=== PATIENT | female | born 1945 | race Caucasian/White ===

== ENCOUNTER 2017-12-24 13:00 | Outpatient (RCR) | payer MEDICARE, BC, SELFPAY ==
[2017-12-01 00:22] VITALS: BP 120/64; PULSE 75; RESP 18; TEMP 36.5; BMI 28.1
[2017-12-03 12:55] VITALS: BP 138/49; PULSE 76; RESP 16; TEMP 36.2; BMI 28.1
--- NOTE | 2017-12-03 13:30 | UL_PTH ---
PATIENT: DEBORAH ERICKSON LOC: U#:[id number] AGE/SX: 72/F ROOM: RE12/24/[address]: Dr. Asia Galeano DPM : 1945 BED: DIS: 12/31/2017 SPEC #: [id number] RECD: 12/03/17 16:10 STATUS: ZION KARISHMA #: [id number] ELSA: 12/03/17 13:[address]: Asia Galeano DEPT: SURGICAL PATHOLOGY RECD BY: Mynor Jimenez ENTERED: 12/04/17 08:47 SP TYPE: ULCER OTHR DR: Alex Hoang DO Tissues: ULCER Procedures: Special Stain Group I Surgery Specimen Level IV AFB Stain (control) GMS Stain (control) HEADER OPERATION: Not noted PRE-OP DIAGNOSIS: Ulcer left foot, rule out skin malignancy versus chronic ulcer TISSUE SUBMITTED: Ulcer left foot MICROSCOPIC DIAGNOSIS Ulcer left foot, biopsy: Piece of skin with extensive ulceration, acute and chronic inflammation, granulation tissue reaction and abscess formation. Special stains for acid fast bacilli and fungi are negative for organisms; matched controls are appropriate. Negative for malignancy. GARRY:cecilio 12/05/17 MICROSCOPIC DESCRIPTION Slides are reviewed. GROSS DESCRIPTION Received in fixative is one container labeled with the patient's name and designated left foot. The specimen consists of a single irregular fragment of keller tissue measuring 0.5 x 0.3 x 0.1 cm. The specimen is totally submitted in one cassette. / AM:cecilio 12/04/17 TC:2 CPT: 60711, 33657 x2
--- NOTE | 2017-12-03 15:35 | PN.PCM_ITS ---
(1) Skin cancer Status: Suspected Current Visit: Yes Code(s): C44.90 - Unspecified malignant neoplasm of skin, unspecified (2) Tinea pedis Status: Chronic Current Visit: Yes Qualifiers: Laterality: left Qualified Code(s): B35.3 - Tinea pedis Code(s): B35.3 - Tinea pedis (3) Ulcer of right foot with fat layer exposed Status: Acute Current Visit: Yes Code(s): L97.512 - Non-pressure chronic ulcer of other part of right foot with fat layer exposed (4) Chronic ulcer of left foot with fat layer exposed Status: Chronic Current Visit: Yes Code(s): L97.522 - Non-pressure chronic ulcer of other part of left foot with fat layer exposed (5) Malnutrition Status: Chronic Current Visit: Yes Code(s): E46 - Unspecified protein- calorie malnutrition (6) Delayed wound healing Status: Chronic Current Visit: Yes Code(s): T14.8 - Other injury of unspecified body region (7) Gait instability Status: Chronic Current Visit: Yes Code(s): R26.81 - Unsteadiness on feet (8) Type 2 diabetes mellitus with diabetic polyneuropathy Status: Chronic Current Visit: Yes Code(s): E11.42 - Type 2 diabetes mellitus with diabetic polyneuropathy Type of Wound Date of Service: 12/03/17 Chief Complaint: Left heel ulceration. Right foot ulcer returned History of Wound: This is a 72-year-old female returns for follow-up of left heel ulceration. She also reports her right foot ulcer has returned within the past week when she noticed blood on her sock. She denies fever, chills, nausea, vomiting, loss of appetite. She is completed her sessions at [place] [facility]. She relates she uses the walker only walk home and tries to keep weight off of her heel however she is walking full weight on her heel today with a cam walker and this is not advised. She is not able to do wet shoes due to balance loss. She is not able to do knee roller due to fall risk and she was not able to safely use this while in therapy. She obtain the prescribed econazole cream and has been applying this to her foot is advised. She additionally washes the wound and change the wound dressing as advised as well. She relates her last hemoglobin A1c was 6.5% which is decrease from 8. Progress of Wound: Delayed healing left. New ulcer right foot that is recurrent - Physical Exam Vital Signs Temp Pulse Resp BP 97.1 F L 76 16 138/49 H 12/03/17 12:55 12/03/17 12:55 12/03/17 12:55 12/03/17 12:55 General: Alert, Oriented x3, Cooperative Extremities: No cyanosis, Capillary Refill Less than 3 Seconds, No Calf Tenderness - Negative Maddison and Herrera sign bilateral, Diminished Peripheral Pulses, Edema, Peripheral Pulses Normal Skin: Ulcer/ Wound - No purulence, no erythema, no streaking, no acute signs of infection. There was some deterioration noted to the plantar left heel ulcer with a scant odor. No purulence on expression and no necrosis. No exposed deep bone or capsule bilateral. Her sub-first metatarsal head ulcer in the right foot that has returned is granular base and superficial in nature., - - Her skin is hairless and atrophic bilateral Wound Measurements and Assessment - Nurse 1 - General Ulcer Measurement Start: 12/03/17 12:55 Freq: Status: Active Protocol: Activity Type Activity Date Activity User E-Sign Co-Sign Detail Recorded Client Recorded Date Recorded By Document 12/03/17 12:55 [facility] [id number] 12/03/17 13:06 [facility] 12/03/17 12:55 Wound Center Nurse 1 [Ulcer Assessment Protocol: .WD.LOC] #1 left heel -Combined with other wound No -Current Size (cm) - Length 0.5 -Current Size (cm) - Width 0.5 -Current Size (cm) - Depth 0.3 -Total Square Cm 0.25 -Epithelialization None Present -Tunneling No -Undermining/Tunneling No -Exudate Amt Small (1-33%) -Exudate Type Serosanguineous -Wound Margin Distinct, Outline Attached -Granulation Amt Large (67-100%) -Granulation Quality Pale Red -Slough/Fibrin Yes -Necrosis Amt Small (1-33%) -Necrotic Tissue Type Adherent Slough -Structure Exposed N/A -Texture (Radha-wound Skin Appearance) Callus Scarring -Moisture (Radha-wound Skin Appearance Dry/Scaly ) -Color (Radha-wound Skin Appearance) Assessed Ecchymosis -Temperature (Radha-wound Skin No Abnormality Appearance) (Pt Warm) -Tenderness on Palpation (Radha-wound No Skin Appearance) -Ulcer Cleansing Rinsed/ Irrigated with Saline -Foul Odor after Cleansing No -Anesthetic Used 5% Lidocaine Gel WC - Nurse 2 - General Ulcer CM Notes Start: 12/03/17 12:55 Freq: Status: Active Protocol: Activity Type Activity Date Activity User E-Sign Co-Sign Detail Recorded Client Recorded Date Recorded By Document 12/03/17 13:12 [id number] 12/03/17 13:35 12/03/17 13:12 Wound Center Nurse 2 [Procedure/Treatment] #2-2 right plantar first metatarsal head -Time 13:31 -Correct Patient Yes -Correct Side, Site, Position Yes -Correct Procedure Yes -Procedure Performed Yes -Type of Procedure Debridement -Clinical Debridement Subcutaneous -Post Debridement Size (cm) - Length 0.5 -Post Debridement Size (cm) - Width 0.4 -Post Debridement Size (cm) - Depth 0.1 -Total Square Cm 0.20 -Wound/Ulcer Outcome Not Healed -Ulcer Cleansing Rinsed/ Irrigated with Saline -Foul Odor after Cleansing No -Bioengineered Tissue No -Cetacaine [place] No -Topical Lidocaine (%) 5 -Bleeding Controlled with Pressure -Treatment Response Procedure Tolerated Well #1 left heel -Time 13:13 -Correct Patient Yes -Correct Side, Site, Position Yes -Correct Procedure Yes -Procedure Performed Yes -Type of Procedure Debridement -Clinical Debridement Subcutaneous -Post Debridement Size (cm) - Length 0.6 -Post Debridement Size (cm) - Width 0.6 -Post Debridement Size (cm) - Depth 0.3 -Total Square Cm 0.36 -Wound/Ulcer Outcome Not Healed -Ulcer Cleansing Rinsed/ Irrigated with Saline -Foul Odor after Cleansing No -Bioengineered Tissue No -Cetacaine [place] No -Topical Lidocaine (%) 5 -Bleeding Controlled with Pressure -Treatment Response Procedure Tolerated Well [See Physician Procedure note for Specifics] Pain Scale: 0-10 Numeric [Pain] -Is Patient Pain Free? Yes Musculoskeletal: No Tenderness to Palpation of Joints or Extremities, Muscle Wasting, - - Limited first metatarsophalangeal joint range of motion right foot. Adequate ankle dorsiflexion over 10? noted left lower extremity Neurological: - - Lack of epicritic sensation light touch bilateral lower extremities Psych/Mental Status: Normal Affect, Appropriate Debridement Note Post-Debridement Measurements/Treatment WC - Nurse 2 - General Ulcer CM Notes Start: 12/03/17 12:55 Freq: Status: Active Protocol: Activity Type Activity Date Activity User E-Sign Co-Sign Detail Recorded Client Recorded Date Recorded By Document 12/03/17 13:12 [id number] 12/03/17 13:35 12/03/17 13:12 Wound Center Nurse 2 #2-2 right plantar first metatarsal head -Time 13:31 -Correct Patient Yes -Correct Side, Site, Position Yes -Correct Procedure Yes -Procedure Performed Yes -Type of Procedure Debridement -Clinical Debridement Subcutaneous -Post Debridement Size (cm) - Length 0.5 -Post Debridement Size (cm) - Width 0.4 -Post Debridement Size (cm) - Depth 0.1 -Total Square Cm 0.20 -Wound/Ulcer Outcome Not Healed -Ulcer Cleansing Rinsed/ Irrigated with Saline -Foul Odor after Cleansing No -Bioengineered Tissue No -Cetacaine [place] No -Topical Lidocaine (%) 5 -Bleeding Controlled with Pressure -Treatment Response Procedure Tolerated Well #1 left heel -Time 13:13 -Correct Patient Yes -Correct Side, Site, Position Yes -Correct Procedure Yes -Procedure Performed Yes -Type of Procedure Debridement -Clinical Debridement Subcutaneous -Post Debridement Size (cm) - Length 0.6 -Post Debridement Size (cm) - Width 0.6 -Post Debridement Size (cm) - Depth 0.3 -Total Square Cm 0.36 -Wound/Ulcer Outcome Not Healed -Ulcer Cleansing Rinsed/ Irrigated with Saline -Foul Odor after Cleansing No -Bioengineered Tissue No -Cetacaine [place] No -Topical Lidocaine (%) 5 -Bleeding Controlled with Pressure -Treatment Response Procedure Tolerated Well Pain Scale: 0-10 Numeric Is Patient Pain Free? Yes Wound debrided: Plantar heel Laterality: Left Wound Grade/Stage: Grade 1 Type of Debridement: Excisional debridement Anesthesia Used: 4% Lidocaine Solution Depth: in the subcutaneous layer Percentage of wound debrided: 100 Instrument Used: #15 blade, Forceps, - - Proximally 3 mm punch of skin full- thickness was taken from the central ulcer site and this was sent to pathology for histopathological evaluation to rule out malignant changes or other abnormalities. Tissue Removed: Fibrous, devitalized subcutaneous, biofilm, slough, peripheral callus Severity: Fat Layer Exposed Amount of bleeding with debridement: Mild Bleeding Controlled with: Pressure Patient tolerated procedure well - Additional Wound Wound debrided: Sub-first metatarsal head Laterality: Right Wound Grade/Stage: Grade 1 Type of Debridement: Excisional debridement Anesthesia Used: 4% Lidocaine Solution Depth: in the subcutaneous layer Percentage of wound debrided: 100 Instrument Used: #15 blade Tissue Removed: Fibrous, devitalized subcutaneous, biofilm, slough Severity: Fat Layer Exposed Amount of bleeding with debridement: Mild Bleeding Controlled with: Pressure Patient tolerated procedure: Patient tolerated procedure well Assessment/Plan Active Problems Tinea pedis (Chronic) Ulcer of right foot with fat layer exposed (Acute) Chronic ulcer of left foot with fat layer exposed (Chronic) Diabetes mellitus with polyneuropathy (Chronic) Malnutrition (Chronic) Delayed wound healing (Chronic) Gait instability (Chronic) Type 2 diabetes mellitus with diabetic polyneuropathy (Chronic) Assessment: Plantar heel ulcer, left foot - grade 1. The first metatarsal head right foot-recurrent ulceration. Tinea pedis/fungal contamination from wound culture. Diabetes with neuropathy. Delayed healing and recurrent ulcer formation. Malnutrition. Left foot advanced flat foot deformity with h/o surgical intervention. Nonadherence to treatment plan Plan: I reviewed and discussed her case in detail. Subcutaneous ulcer debridement was performed as noted in the clinical panel to the plantar heel of the left foot and right foot. A punch of skin was excised with a 15 blade and forceps to the left heel to rule out any abnormal skin changes such as malignancy. This was sent to pathology and the report is pending. She tolerated this well and local anesthetic was not required due to her neuropathy condition. Pressure was applied to maintain hemostasis. Offloading measures are continued with cam walker and offloading Plastizote and felt liners. Encouraged to use device such as a knee roller she feels safe and to increase walker use in and outside the home to further promote offloading. She has completed her course with physical therapy. To avoid over inflating the air bladder. She understands healing is limited if she continues to walk on this wound at all times. Noninvasive lower extremity arterial study is noted to be normal. Previous x-rays of both feet do not reveal evidence of underlying infection or significant soft tissue pathology. There is no sign of osteomyelitis or infection involving bone. To continue with Bernardo, nutritional supplementation to continue to optimization of her diabetes with controlled blood sugars and follow-up with primary care physician. A referral to nutritional services was also provided today to optimize glucose control and healing potential. Additional cultures were finalized at this time in regards to her fungal results. She has improved her foot hygiene and has applied a consult 2% cream to the periwound and foot area to decrease fungal load. She was also advised to wash the liner of her boots and spray Lysol on her insoles and shoes daily to reduce fungal contamination. To wash daily with Hibiclens; this was dispensed today. To control mild edema with Tubigrip bilateral. This was dispensed. Return to clinic in 1 week or call sooner if any problems.
[2017-12-10 13:22] VITALS: BP 107/73; PULSE 78; RESP 16; TEMP 36.3; BMI 28.1
--- NOTE | 2017-12-10 22:01 | PN.PCM_ITS ---
(1) Chronic ulcer of left foot with fat layer exposed Status: Chronic Current Visit: Yes Code(s): L97.522 - Non-pressure chronic ulcer of other part of left foot with fat layer exposed (2) Tinea pedis Status: Chronic Current Visit: Yes Qualifiers: Laterality: left Qualified Code(s): B35.3 - Tinea pedis Code(s): B35.3 - Tinea pedis (3) Ulcer of right foot with fat layer exposed Status: Resolved Current Visit: Yes Code(s): L97.512 - Non-pressure chronic ulcer of other part of right foot with fat layer exposed (4) Malnutrition Status: Chronic Current Visit: Yes Code(s): E46 - Unspecified protein- calorie malnutrition (5) Delayed wound healing Status: Chronic Current Visit: Yes Code(s): T14.8 - Other injury of unspecified body region (6) Gait instability Status: Chronic Current Visit: Yes Code(s): R26.81 - Unsteadiness on feet (7) Type 2 diabetes mellitus with diabetic polyneuropathy Status: Chronic Current Visit: Yes Code(s): E11.42 - Type 2 diabetes mellitus with diabetic polyneuropathy Type of Wound Date of Service: 12/11/17 Chief Complaint: Left heel ulceration. Right foot ulcer healed History of Wound: This is a 72-year-old female returns for follow-up of left heel ulceration. She also reports her right foot ulcer has stopped draining and she thinks it is healed today. She denies fever, chills, nausea, vomiting, loss of appetite. She is completed her sessions at [facility] who advised her not to use a knee roller. She relates she uses the walker only walk home and tries to keep weight off of her heel however she is walking full weight on her heel today with a cam walker and this is not advised. She is not able to do wet shoes due to balance loss. She relates she does not feel she actually tried using the knee roller while she was at physical therapy and is amenable to considering this again with the guidance of the therapist. She requests a prescription today. She asked about her punch biopsy results today. Progress of Wound: Delayed healing left. Healed ulcer right foot that is recurrent - Physical Exam Vital Signs Temp Pulse Resp BP 97.3 F L 78 16 107/73 12/10/17 13:22 12/10/17 13:22 12/10/17 13:22 12/10/17 13:22 General: Alert, Oriented x3, Cooperative Extremities: No cyanosis, Capillary Refill Less than 3 Seconds, No Calf Tenderness - Negative Maddison and Herrera sign bilateral, Diminished Peripheral Pulses, Edema - Mild Skin: Ulcer/ Wound - No purulence, no erythema, no streaking, no deep tissue exposure, no infection, no necrosis bilateral lower extremity. Full epithelialization is noted to the right foot. Wound Measurements and Assessment - Nurse 1 - General Ulcer Measurement Start: 12/03/17 12:55 Freq: Status: Active Protocol: Activity Type Activity Date Activity User E-Sign Co-Sign Detail Recorded Client Recorded Date Recorded By Document 12/10/17 13:22 [facility] [id number] 12/10/17 13:31 [facility] 12/10/17 13:22 Wound Center Nurse 1 [Ulcer Assessment Protocol: WC.WD.LOC] #2-2 right plantar first metatarsal head -Combined with other wound No -Current Size (cm) - Length 0.1 -Current Size (cm) - Width 0.1 -Current Size (cm) - Depth 0.1 -Total Square Cm 0.01 -Epithelialization Large 67-100% -Exudate Amt Small (1-33%) -Moisture (Radha-wound Skin Appearance Dry/Scaly ) -Color (Radha-wound Skin Appearance) Assessed -Temperature (Radha-wound Skin No Abnormality Appearance) (Pt Warm) -Tenderness on Palpation (Radha-wound No Skin Appearance) -Ulcer Cleansing Rinsed/ Irrigated with Saline -Foul Odor after Cleansing No -Anesthetic Used 4% Lidocaine Solution #1 left heel -Combined with other wound No -Current Size (cm) - Length 0.3 -Current Size (cm) - Width 0.3 -Current Size (cm) - Depth 0.2 -Total Square Cm 0.09 -Photo Taken No -Epithelialization None Present -Tunneling No -Undermining/Tunneling No -Exudate Amt Small (1-33%) -Exudate Type Serosanguineous -Wound Margin Distinct, Outline Attached -Granulation Amt Medium (34-66%) -Granulation Quality Creola -Slough/Fibrin No -Structure Exposed None/Limited to Skin Breakdown -Texture (Radha-wound Skin Appearance) Callus Scarring -Moisture (Radha-wound Skin Appearance Maceration ) Dry/Scaly -Color (Radha-wound Skin Appearance) Assessed -Temperature (Radha-wound Skin No Abnormality Appearance) (Pt Warm) -Tenderness on Palpation (Radha-wound No Skin Appearance) -Ulcer Cleansing Rinsed/ Irrigated with Saline -Foul Odor after Cleansing No -Anesthetic Used 4% Lidocaine Solution [Edema Assessment] -Lower Limb Edema Present Yes -Right Calf (cm) 32.9 -Right Ankle (cm) 21 -Left Calf (cm) 32 -Left Ankle (cm) 20 WC - Nurse 2 - General Ulcer CM Notes Start: 12/03/17 12:55 Freq: Status: Active Protocol: Activity Type Activity Date Activity User E-Sign Co-Sign Detail Recorded Client Recorded Date Recorded By Document 12/10/17 13:52 [facility] [id number] 12/10/17 13:54 [facility] 12/10/17 13:52 Wound Center Nurse 2 [Procedure/Treatment] #2-2 right plantar first metatarsal head -Correct Patient No -Correct Side, Site, Position No -Correct Procedure No -Procedure Performed No -Post Debridement Size (cm) - Length 0 -Post Debridement Size (cm) - Width 0 -Post Debridement Size (cm) - Depth 0 -Total Square Cm 0 -Wound/Ulcer Outcome Healed- Epithelialized #1 left heel -Time 13:53 -Correct Patient Yes -Correct Side, Site, Position Yes -Correct Procedure Yes -Procedure Performed Yes -Type of Procedure Debridement -Clinical Debridement Subcutaneous -Post Debridement Size (cm) - Length 0.3 -Post Debridement Size (cm) - Width 0.4 -Post Debridement Size (cm) - Depth 0.2 -Total Square Cm 0.12 -Wound/Ulcer Outcome Not Healed -Ulcer Cleansing Rinsed/ Irrigated with Saline -Foul Odor after Cleansing No -Bioengineered Tissue Yes -Type of bioengineered Tissue [id number] -Expiration Date 07/14/19 -Product Lot Number [id number] -Percent Used 100 -Cetacaine [place] No -Bleeding Controlled with Pressure -Other saline [id number] -Treatment Response Procedure Tolerated Well [See Physician Procedure note for Specifics] Pain Scale: 0-10 Numeric [Pain] -Is Patient Pain Free? Yes Musculoskeletal: No Tenderness to Palpation of Joints or Extremities, Muscle Wasting, - - Calcaneus gait left lower extremity. CAM Walker left. No assistive device noted today with the patient. Neurological: - - Lack of epicritic sensation light touch bilateral lower extremity Psych/Mental Status: Normal Affect, Appropriate Debridement Note Post-Debridement Measurements/Treatment WC - Nurse 2 - General Ulcer CM Notes Start: 12/03/17 12:55 Freq: Status: Active Protocol: Activity Type Activity Date Activity User E-Sign Co-Sign Detail Recorded Client Recorded Date Recorded By Document 12/03/17 13:12 [id number] 12/03/17 13:35 Document 12/10/17 13:52 [id number] 12/10/17 13:54 12/03/17 12/10/17 13:12 13:52 Wound Center Nurse 2 #2-2 right plantar first metatarsal head -Time 13:31 -Correct Patient Yes No -Correct Side, Site, Position Yes No -Correct Procedure Yes No -Procedure Performed Yes No -Type of Procedure Debridement -Clinical Debridement Subcutaneous -Post Debridement Size (cm) - Length 0.5 0 -Post Debridement Size (cm) - Width 0.4 0 -Post Debridement Size (cm) - Depth 0.1 0 -Total Square Cm 0.20 0 -Wound/Ulcer Outcome Not Healed Healed- Epithelialized -Ulcer Cleansing Rinsed/ Irrigated with Saline -Foul Odor after Cleansing No -Bioengineered Tissue No -Cetacaine [place] No -Topical Lidocaine (%) 5 -Bleeding Controlled with Pressure -Treatment Response Procedure Tolerated Well #1 left heel -Time 13:13 13:53 -Correct Patient Yes Yes -Correct Side, Site, Position Yes Yes -Correct Procedure Yes Yes -Procedure Performed Yes Yes -Type of Procedure Debridement Debridement -Clinical Debridement Subcutaneous Subcutaneous -Post Debridement Size (cm) - Length 0.6 0.3 -Post Debridement Size (cm) - Width 0.6 0.4 -Post Debridement Size (cm) - Depth 0.3 0.2 -Total Square Cm 0.36 0.12 -Wound/Ulcer Outcome Not Healed Not Healed -Ulcer Cleansing Rinsed/ Rinsed/ Irrigated with Irrigated with Saline Saline -Foul Odor after Cleansing No No -Bioengineered Tissue No Yes -Type of bioengineered Tissue [id number] -Expiration Date 07/14/19 -Product Lot Number [id number] -Percent Used 100 -Cetacaine [place] No No -Topical Lidocaine (%) 5 -Bleeding Controlled with Pressure Pressure -Other saline [id number] -Treatment Response Procedure Procedure Tolerated Well Tolerated Well Pain Scale: 0-10 Numeric Is Patient Pain Free? Yes Yes Wound debrided: Plantar heel Laterality: Left Wound Grade/Stage: Grade 1 Type of Debridement: Excisional debridement Anesthesia Used: 4% Lidocaine Solution Depth: in the subcutaneous layer Percentage of wound debrided: 100 Instrument Used: #15 blade Tissue Removed: Fibrous, devitalized subcutaneous, biofilm, slough Severity: Fat Layer Exposed Amount of bleeding with debridement: Mild Bleeding Controlled with: Pressure Patient tolerated procedure well Assessment/Plan Active Problems Tinea pedis (Chronic) Chronic ulcer of left foot with fat layer exposed (Chronic) Diabetes mellitus with polyneuropathy (Chronic) Malnutrition (Chronic) Delayed wound healing (Chronic) Gait instability (Chronic) Type 2 diabetes mellitus with diabetic polyneuropathy (Chronic) Assessment: Plantar heel ulcer, left foot - grade 1. The first metatarsal head right foot-recurrent ulceration and this is healed today. Tinea pedis/fungal contamination from wound culture. Diabetes with neuropathy. Delayed healing and recurrent ulcer formation. Malnutrition. Left foot advanced flat foot deformity with h/o surgical intervention. Nonadherence to treatment plan Plan: I reviewed and discussed her case in detail. Subcutaneous ulcer debridement was performed as noted in the clinical panel to the plantar heel of the left foot. the right foot is healed today a punch of skin was excised with a 15 blade and forceps to the left heel to rule out any abnormal skin changes such as malignancy. The results were reviewed and this was negative for malignancy. The findings are consistent with chronic ulceration inflammation. Offloading measures are continued with cam walker and offloading Plastizote and felt liners. Encouraged to use device such as a knee roller she feels safe and to increase walker use in and outside the home to further promote offloading. A prescription was provided today again for her to try to obtain a knee roller. I urged her to return to physical therapy and [facility] with the knee roller to see if this is a viable option. She will reconsider this. Noninvasive lower extremity arterial study is noted to be normal. Previous x-rays of both feet do not reveal evidence of underlying infection or significant soft tissue pathology. There is no sign of osteomyelitis or infection involving bone. To continue with Bernardo, nutritional supplementation to continue to optimization of her diabetes with controlled blood sugars and follow-up with primary care physician. A referral to nutritional services was previously provided advised she follow-up. Additional cultures were finalized at this time in regards to her fungal results. She has improved her foot hygiene and has applied a consult 2% cream to the periwound and foot area to decrease fungal load. She was also advised to wash the liner of her boots and spray Lysol on her insoles and shoes daily to reduce fungal contamination. To continue to wash daily with Hibiclens; this was dispensed today. To control mild edema with Tubigrip bilateral. This was dispensed. Return to clinic in 1 week or call sooner if any problems.
[2017-12-17 14:00] VITALS: BP 149/65; PULSE 77; RESP 16; TEMP 36.4; BMI 28.1
--- NOTE | 2017-12-17 21:26 | PN.PCM_ITS ---
(1) Chronic ulcer of left foot with fat layer exposed Status: Chronic Code(s): L97.522 - Non-pressure chronic ulcer of other part of left foot with fat layer exposed (2) Tinea pedis Status: Chronic Qualifiers: Laterality: left Qualified Code(s): B35.3 - Tinea pedis Code(s): B35.3 - Tinea pedis (3) Ulcer of right foot with fat layer exposed Status: Resolved Code(s): L97.512 - Non-pressure chronic ulcer of other part of right foot with fat layer exposed (4) Malnutrition Status: Chronic Code(s): E46 - Unspecified protein-calorie malnutrition (5) Delayed wound healing Status: Chronic Code(s): T14.8 - Other injury of unspecified body region (6) Gait instability Status: Chronic Code(s): R26.81 - Unsteadiness on feet (7) Type 2 diabetes mellitus with diabetic polyneuropathy Status: Chronic Code(s): E11.42 - Type 2 diabetes mellitus with diabetic polyneuropathy Type of Wound Date of Service: 12/20/17 Chief Complaint: Left heel ulceration History of Wound: This is a 72-year-old female returns for follow-up of left heel ulceration. She denies fever, chills, nausea, vomiting, loss of appetite. She is completed her sessions at [facility] who advised her not to use a knee roller due to her reported multiple falls when she used it in the past for her previous left lower extremity reconstructive foot surgeries. She relates she is very fearful at this time of falling even without knee roller use. Progress of Wound: Delayed healing left heel ulcer - Physical Exam Vital Signs Temp Pulse Resp BP 97.5 F L 77 16 149/65 H 12/17/17 14:00 12/17/17 14:00 12/17/17 14:00 12/17/17 14:00 General: Alert, Oriented x3, Cooperative Extremities: No cyanosis, Capillary Refill Less than 3 Seconds, No Calf Tenderness, Diminished Peripheral Pulses Skin: Ulcer/ Wound - No purulence, no erythema, no streaking, no odor, no deep tissue exposed. Decreased periwound inflammation noted. Skin is atrophic. Wound Measurements and Assessment WC - Nurse 1 - General Ulcer Measurement Start: 12/03/17 12:55 Freq: Status: Active Protocol: Activity Type Activity Date Activity User E-Sign Co-Sign Detail Recorded Client Recorded Date Recorded By Document 12/17/17 14:00 [facility] [id number] 12/17/17 14:06 [facility] 12/17/17 14:00 Wound Center Nurse 1 [Ulcer Assessment Protocol: WC.WD.LOC] #1 left heel -Combined with other wound No -Current Size (cm) - Length 0.4 -Current Size (cm) - Width 0.5 -Current Size (cm) - Depth 0.1 -Total Square Cm 0.20 -Photo Taken No -Epithelialization Small 1-33% -Tunneling No -Undermining/Tunneling No -Exudate Amt Small (1-33%) -Exudate Type Serosanguineous -Wound Margin Distinct, Outline Attached -Granulation Amt Large (67-100%) -Granulation Quality Pale Summer Set -Slough/Fibrin No -Necrosis Amt None Present (0 %) -Structure Exposed None/Limited to Skin Breakdown -Texture (Radha-wound Skin Appearance) Callus -Moisture (Radha-wound Skin Appearance Dry/Scaly ) -Color (Radha-wound Skin Appearance) Assessed -Temperature (Radha-wound Skin No Abnormality Appearance) (Pt Warm) -Tenderness on Palpation (Radha-wound No Skin Appearance) -Ulcer Cleansing Rinsed/ Irrigated with Saline -Foul Odor after Cleansing No -Anesthetic Used 5% Lidocaine Gel [Edema Assessment] -Lower Limb Edema Present No -Right Calf (cm) 32.5 -Right Ankle (cm) 20.4 -Left Calf (cm) 32.4 -Left Ankle (cm) 20.1 - Nurse 2 - General Ulcer CM Notes Start: 12/03/17 12:55 Freq: Status: Active Protocol: Activity Type Activity Date Activity User E-Sign Co-Sign Detail Recorded Client Recorded Date Recorded By Document 12/17/17 14:40 [id number] 12/17/17 14:48 12/17/17 14:40 Wound Center Nurse 2 [Procedure/Treatment] #1 left heel -Time 14:40 -Correct Patient Yes -Correct Side, Site, Position Yes -Correct Procedure Yes -Procedure Performed Yes -Type of Procedure Debridement -Clinical Debridement Subcutaneous -Post Debridement Size (cm) - Length 0.5 -Post Debridement Size (cm) - Width 0.6 -Post Debridement Size (cm) - Depth 0.1 -Total Square Cm 0.30 -Wound/Ulcer Outcome Not Healed -Ulcer Cleansing Rinsed/ Irrigated with Saline -Foul Odor after Cleansing No -Bioengineered Tissue Yes -Type of bioengineered Tissue [id number] -Expiration Date 08/05/19 -Product Lot Number [id number] -Percent Used 100 -Saline Lot Number [id number] -Cetacaine [place] No -Topical Lidocaine (%) 4 -Bleeding Controlled with Pressure -Treatment Response Procedure Tolerated Well [See Physician Procedure note for Specifics] Pain Scale: 0-10 Numeric [Pain] -Is Patient Pain Free? Yes Musculoskeletal: No Tenderness to Palpation of Joints or Extremities, Muscle Wasting, - - No crepitus or bogginess Neurological: - - Lack of epicritic sensation light touch bilateral lower extremity Psych/Mental Status: Normal Affect, Appropriate Debridement Note Post-Debridement Measurements/Treatment WC - Nurse 2 - General Ulcer CM Notes Start: 12/03/17 12:55 Freq: Status: Active Protocol: Activity Type Activity Date Activity User E-Sign Co-Sign Detail Recorded Client Recorded Date Recorded By Document 12/03/17 13:12 [id number] 12/03/17 13:35 Document 12/10/17 13:52 [id number] 12/10/17 13:54 Document 12/17/17 14:40 [id number] 12/17/17 14:48 12/03/17 12/10/17 12/17/17 13:12 13:52 14:40 Wound Center Nurse 2 #2-2 right plantar first metatarsal head -Time 13:31 -Correct Patient Yes No -Correct Side, Site, Position Yes No -Correct Procedure Yes No -Procedure Performed Yes No -Type of Procedure Debridement -Clinical Debridement Subcutaneous -Post Debridement Size (cm) - Length 0.5 0 -Post Debridement Size (cm) - Width 0.4 0 -Post Debridement Size (cm) - Depth 0.1 0 -Total Square Cm 0.20 0 -Wound/Ulcer Outcome Not Healed Healed- Epithelialized -Ulcer Cleansing Rinsed/ Irrigated with Saline -Foul Odor after Cleansing No -Bioengineered Tissue No -Cetacaine [place] No -Topical Lidocaine (%) 5 -Bleeding Controlled with Pressure -Treatment Response Procedure Tolerated Well #1 left heel -Time 13:13 13:53 14:40 -Correct Patient Yes Yes Yes -Correct Side, Site, Position Yes Yes Yes -Correct Procedure Yes Yes Yes -Procedure Performed Yes Yes Yes -Type of Procedure Debridement Debridement Debridement -Clinical Debridement Subcutaneous Subcutaneous Subcutaneous -Post Debridement Size (cm) - Length 0.6 0.3 0.5 -Post Debridement Size (cm) - Width 0.6 0.4 0.6 -Post Debridement Size (cm) - Depth 0.3 0.2 0.1 -Total Square Cm 0.36 0.12 0.30 -Wound/Ulcer Outcome Not Healed Not Healed Not Healed -Ulcer Cleansing Rinsed/ Rinsed/ Rinsed/ Irrigated with Irrigated with Irrigated with Saline Saline Saline -Foul Odor after Cleansing No No No -Bioengineered Tissue No Yes Yes -Type of bioengineered Tissue [id number] -Expiration Date 07/14/19 08/05/19 -Product Lot Number [id number] -Percent Used 100 100 -Saline Lot Number [id number] -Cetacaine [place] No No No -Topical Lidocaine (%) 5 4 -Bleeding Controlled with Pressure Pressure Pressure -Other saline [id number] -Treatment Response Procedure Procedure Procedure Tolerated Well Tolerated Well Tolerated Well Pain Scale: 0-10 Numeric Is Patient Pain Free? Yes Yes Yes Wound debrided: Plantar heel Laterality: Left Wound Grade/Stage: Left Type of Debridement: Excisional debridement Anesthesia Used: 4% Lidocaine Solution Depth: in the subcutaneous layer Percentage of wound debrided: 100 Instrument Used: #15 blade Tissue Removed: Fibrous, devitalized subcutaneous, biofilm, slough Severity: Fat Layer Exposed Amount of bleeding with debridement: Mild Bleeding Controlled with: Pressure Patient tolerated procedure well Assessment/Plan Assessment: Plantar heel ulcer, left foot - grade 1. The first metatarsal head right foot-recurrent ulceration and this is healed today. Tinea pedis/fungal contamination from wound culture. Diabetes with neuropathy. Delayed healing and recurrent ulcer formation. Malnutrition. Left foot advanced flat foot deformity with h/o surgical intervention. Nonadherence to treatment plan Plan: I reviewed and discussed her case in detail. Subcutaneous ulcer debridement was performed as noted in the clinical panel to the plantar heel of the left foot. The results of her previous punch biopsy were reviewed and this was negative for malignancy. The findings are consistent with chronic ulceration inflammation. Offloading measures are continued with cam walker and offloading Plastizote and felt liners. Encouraged to use device such as a knee roller she feels safe and to increase walker use in and outside the home to further promote offloading. However upon continued further discussion she reports multiple falls with previous use. She is amenable to try it again however I encouraged her to only do so with the guidance of physical therapy. I gave her a repeat referral to go to physical therapy and [facility] for gait training today can help guide her with the most appropriate assistive device. This note will be faxed for communication purposes. Noninvasive lower extremity arterial study is noted to be normal. Previous x-rays of both feet do not reveal evidence of underlying infection or significant soft tissue pathology. There is no sign of osteomyelitis or infection involving bone. To continue with Bernardo, nutritional supplementation to continue to optimization of her diabetes with controlled blood sugars and follow-up with primary care physician. A referral to nutritional services was previously provided advised she follow-up. Additional cultures were finalized at this time in regards to her fungal results. She has improved her foot hygiene and has applied a consult 2% cream to the periwound and foot area to decrease fungal load. She was also advised to wash the liner of her boots and spray Lysol on her insoles and shoes daily to reduce fungal contamination. To continue to wash daily with Hibiclens; this was dispensed today. To control mild edema with Tubigrip bilateral. This was dispensed. Return to clinic in 1 week or call sooner if any problems.
[2017-12-24 12:58] VITALS: BP 131/69; PULSE 76; RESP 16; TEMP 36.4; BMI 28.1
--- NOTE | 2017-12-24 23:22 | PCM.WC.PN ---
(1) Chronic ulcer of left foot with fat layer exposed Status: Resolved Code(s): L97.522 - Non-pressure chronic ulcer of other part of left foot with fat layer exposed (2) Tinea pedis Status: Resolved Qualifiers: Laterality: left Qualified Code(s): B35.3 - Tinea pedis Code(s): B35.3 - Tinea pedis (3) Ulcer of right foot with fat layer exposed Status: Resolved Code(s): L97.512 - Non-pressure chronic ulcer of other part of right foot with fat layer exposed (4) Gait instability Status: Chronic Code(s): R26.81 - Unsteadiness on feet (5) Type 2 diabetes mellitus with diabetic polyneuropathy Status: Chronic Code(s): E11.42 - Type 2 diabetes mellitus with diabetic polyneuropathy Type of Wound Date of Service: 12/27/17 Chief Complaint: Left heel ulceration History of Wound: This is a 72-year-old female returns for follow-up of left heel ulceration. She denies fever, chills, nausea, vomiting, loss of appetite. She plans to return for additional sessions at [facility] for fall prevention and additional gait training. she denies drainage and thinks her wound has healed. Progress of Wound: healed - Physical Exam Vital Signs Temp Pulse Resp BP 97.5 F L 76 16 131/69 H 12/24/17 12:58 12/24/17 12:58 12/24/17 12:58 12/24/17 12:58 General: Alert, Oriented x3, Cooperative Extremities: No cyanosis, Capillary Refill Less than 3 Seconds, No Calf Tenderness, Diminished Peripheral Pulses, Edema - controlled Skin: Ulcer/ Wound - no purulence, no erythema, no infection. there is full epithelialization to the left heel and the wound is healed., - - the skin is atrophic Wound Measurements and Assessment ELI - Nurse 1 - General Ulcer Measurement Start: 12/03/17 12:55 Freq: Status: Active Protocol: Activity Type Activity Date Activity User E-Sign Co-Sign Detail Recorded Client Recorded Date Recorded By Document 12/24/17 12:58 [facility] [id number] 12/24/17 13:05 [facility] 12/24/17 12:58 Wound Center Nurse 1 [Ulcer Assessment Protocol: ELI.WD.LOC] #1 left heel -Combined with other wound No -Current Size (cm) - Length 0.1 -Current Size (cm) - Width 0.4 -Current Size (cm) - Depth 0.1 -Total Square Cm 0.04 -Photo Taken No -Epithelialization Medium 34-66% -Tunneling No -Undermining/Tunneling No -Exudate Amt Small (1-33%) -Exudate Type Serosanguineous -Wound Margin Distinct, Outline Attached -Granulation Amt Large (67-100%) -Granulation Quality Pale [place] -Slough/Fibrin Yes -Necrosis Amt Small (1-33%) -Necrotic Tissue Type Adherent Slough -Texture (Radha-wound Skin Appearance) Callus Scarring -Moisture (Radha-wound Skin Appearance Dry/Scaly ) -Color (Radha-wound Skin Appearance) Assessed -Temperature (Radha-wound Skin No Abnormality Appearance) (Pt Warm) -Tenderness on Palpation (Radha-wound No Skin Appearance) -Ulcer Cleansing Rinsed/ Irrigated with Saline -Foul Odor after Cleansing No -Anesthetic Used 5% Lidocaine Gel [Edema Assessment] -Lower Limb Edema Present No -Left Calf (cm) 32.4 -Left Ankle (cm) 19.5 WC - Nurse 2 - General Ulcer CM Notes Start: 12/03/17 12:55 Freq: Status: Active Protocol: Activity Type Activity Date Activity User E-Sign Co-Sign Detail Recorded Client Recorded Date Recorded By Document 12/24/17 13:31 [id number] 12/24/17 13:33 12/24/17 13:31 Wound Center Nurse 2 [Procedure/Treatment] #1 left heel -Time 13:31 -Correct Patient Yes -Correct Side, Site, Position Yes -Correct Procedure Yes -Procedure Performed Yes -Post Debridement Size (cm) - Length 0 -Post Debridement Size (cm) - Width 0 -Post Debridement Size (cm) - Depth 0 -Total Square Cm 0 -Wound/Ulcer Outcome Healed- Epithelialized -Ulcer Cleansing Rinsed/ Irrigated with Saline -Foul Odor after Cleansing No -Bioengineered Tissue No -Cetacaine Independence No -Bleeding Controlled with NA -Treatment Response Procedure Tolerated Well [See Physician Procedure note for Specifics] Pain Scale: 0-10 Numeric [Pain] -Is Patient Pain Free? Yes Musculoskeletal: No Tenderness to Palpation of Joints or Extremities, Muscle Wasting Neurological: - - lack of epicritic sensation via light touch, left Psych/Mental Status: Normal Affect, Appropriate Debridement Note Post-Debridement Measurements/Treatment WC - Nurse 2 - General Ulcer CM Notes Start: 12/03/17 12:55 Freq: Status: Active Protocol: Activity Type Activity Date Activity User E-Sign Co-Sign Detail Recorded Client Recorded Date Recorded By Document 12/03/17 13:12 [id number] 12/03/17 13:35 Document 12/10/17 13:52 [id number] 12/10/17 13:54 Document 12/17/17 14:40 [id number] 12/17/17 14:48 Document 12/24/17 13:31 [id number] 12/24/17 13:33 12/03/17 12/10/17 12/17/17 13:12 13:52 14:40 Wound Center Nurse 2 #2-2 right plantar first metatarsal head -Time 13:31 -Correct Patient Yes No -Correct Side, Site, Position Yes No -Correct Procedure Yes No -Procedure Performed Yes No -Type of Procedure Debridement -Clinical Debridement Subcutaneous -Post Debridement Size (cm) - Length 0.5 0 -Post Debridement Size (cm) - Width 0.4 0 -Post Debridement Size (cm) - Depth 0.1 0 -Total Square Cm 0.20 0 -Wound/Ulcer Outcome Not Healed Healed- Epithelialized -Ulcer Cleansing Rinsed/ Irrigated with Saline -Foul Odor after Cleansing No -Bioengineered Tissue No -Cetacaine Independence No -Topical Lidocaine (%) 5 -Bleeding Controlled with Pressure -Treatment Response Procedure Tolerated Well #1 left heel -Time 13:13 13:53 14:40 -Correct Patient Yes Yes Yes -Correct Side, Site, Position Yes Yes Yes -Correct Procedure Yes Yes Yes -Procedure Performed Yes Yes Yes -Type of Procedure Debridement Debridement Debridement -Clinical Debridement Subcutaneous Subcutaneous Subcutaneous -Post Debridement Size (cm) - Length 0.6 0.3 0.5 -Post Debridement Size (cm) - Width 0.6 0.4 0.6 -Post Debridement Size (cm) - Depth 0.3 0.2 0.1 -Total Square Cm 0.36 0.12 0.30 -Wound/Ulcer Outcome Not Healed Not Healed Not Healed -Ulcer Cleansing Rinsed/ Rinsed/ Rinsed/ Irrigated with Irrigated with Irrigated with Saline Saline Saline -Foul Odor after Cleansing No No No -Bioengineered Tissue No Yes Yes -Type of bioengineered Tissue [id number] -Expiration Date 07/14/19 08/05/19 -Product Lot Number [id number] -Percent Used 100 100 -Saline Lot Number [id number] -Cetacaine Independence No No No -Topical Lidocaine (%) 5 4 -Bleeding Controlled with Pressure Pressure Pressure -Other saline [id number] -Treatment Response Procedure Procedure Procedure Tolerated Well Tolerated Well Tolerated Well Pain Scale: 0-10 Numeric Is Patient Pain Free? Yes Yes Yes 12/24/17 13:31 Wound Center Nurse 2 #2-2 right plantar first metatarsal head -Time -Correct Patient -Correct Side, Site, Position -Correct Procedure -Procedure Performed -Type of Procedure -Clinical Debridement -Post Debridement Size (cm) - Length -Post Debridement Size (cm) - Width -Post Debridement Size (cm) - Depth -Total Square Cm -Wound/Ulcer Outcome -Ulcer Cleansing -Foul Odor after Cleansing -Bioengineered Tissue -Cetacaine Independence -Topical Lidocaine (%) -Bleeding Controlled with -Treatment Response #1 left heel -Time 13:31 -Correct Patient Yes -Correct Side, Site, Position Yes -Correct Procedure Yes -Procedure Performed Yes -Type of Procedure -Clinical Debridement -Post Debridement Size (cm) - Length 0 -Post Debridement Size (cm) - Width 0 -Post Debridement Size (cm) - Depth 0 -Total Square Cm 0 -Wound/Ulcer Outcome Healed- Epithelialized -Ulcer Cleansing Rinsed/ Irrigated with Saline -Foul Odor after Cleansing No -Bioengineered Tissue No -Type of bioengineered Tissue -Expiration Date -Product Lot Number -Percent Used -Saline Lot Number -Cetacaine Independence No -Topical Lidocaine (%) -Bleeding Controlled with NA -Other -Treatment Response Procedure Tolerated Well Pain Scale: 0-10 Numeric Is Patient Pain Free? Yes No debridement was completed today - the wound is healed Assessment/Plan Assessment: Plantar heel ulcer, left foot - now healed. The first metatarsal head right foot-recurrent ulceration and this is healed today. Tinea pedis/fungal contamination from wound culture. Diabetes with neuropathy. Delayed healing and recurrent ulcer formation. Malnutrition. Left foot advanced flat foot deformity with h/o surgical intervention. Nonadherence to treatment plan Plan: I reviewed and discussed her case in detail. No debridement was performed because the wound site has healed. Offloading measures are continued with cam walker and offloading Plastizote and felt liners. However upon continued further discussion she reports multiple falls with previous use. Noninvasive lower extremity arterial study is noted to be normal. To follow up at in two weeks to check this recently healed site is still closed. To monitor daily. To call sooner if she has questions or concerns.
== END 2017-12-31 23:59 ==
LOC: WC 13:00
PROVIDERS: Family Provider Family Medicine; PCP Family Medicine; Visit Provider Podiatrist
DX: E11.621 Type 2 diabetes mellitus with foot ulcer (principal); Z85.828 Personal history of other malignant neoplasm of skin; B35.3 Tinea pedis; R26.81 Unsteadiness on feet; E11.42 Type 2 diabetes mellitus with diabetic polyneuropathy; L97.422 Non-pressure chronic ulcer of left heel and midfoot with fat layer exposed; L97.512 Non-pressure chronic ulcer of other part of right foot with fat layer exposed; R60.0 Localized edema; R09.89 Other specified symptoms and signs involving the circulatory and respiratory systems; M21.42 Flat foot [pes planus] (acquired), left foot
CPT/HCPCS: 11042; 15275; 88304; 88305; 88312; 99213; Q4172; G0463

== ENCOUNTER 2018-01-14 12:48 | Outpatient (RCR) | payer MEDICARE, BC, SELFPAY ==
[2017-12-24 12:58] VITALS: BP 131/69
[2018-01-01 00:26] VITALS: PULSE 76; RESP 16; TEMP 36.4
[2018-01-14 12:50] VITALS: BP 139/74; RESP 16; TEMP 36.4; BMI 28.1
--- NOTE | 2018-01-14 14:44 | PCM.WC.PN ---
(1) Diabetes mellitus with polyneuropathy Status: Chronic Current Visit: Yes Qualifiers: Code(s): E11.42 - Type 2 diabetes mellitus with diabetic polyneuropathy (2) Gait instability Status: Chronic Current Visit: Yes Code(s): R26.81 - Unsteadiness on feet Type of Wound Date of Service: 01/15/18 Chief Complaint: Left heel ulceration History of Wound: This is a 72-year-old female returns for follow-up of left heel ulceration. She denies fever, chills, nausea, vomiting, loss of appetite. She has returned for additional sessions at [facility] for fall prevention and additional gait training. She reports this is going well she denies drainage and thinks her wound has remained healed. Progress of Wound: healed - Physical Exam Vital Signs Temp Pulse Resp BP 97.5 F L 76 16 139/74 H 01/14/18 12:50 01/01/18 00:26 01/14/18 12:50 01/14/18 12:50 General: Alert, Oriented x3, Cooperative Extremities: No cyanosis, No edema, Capillary Refill Less than 3 Seconds, No Calf Tenderness, Diminished Peripheral Pulses Skin: - - Full epithelialization continues. There is no erythema, no infection, no ulcer bilateral Wound Measurements and Assessment WC - Nurse 1 - General Ulcer Measurement Start: 01/14/18 12:50 Freq: Status: Active Protocol: Activity Type Activity Date Activity User E-Sign Co-Sign Detail Recorded Client Recorded Date Recorded By Document 01/14/18 12:50 [facility] [id number] 01/14/18 12:56 [facility] 01/14/18 12:50 Wound Center Nurse 1 [Edema Assessment] -Lower Limb Edema Present No -Right Calf (cm) 33.8 -Right Ankle (cm) 20.7 -Left Calf (cm) 33 -Left Ankle (cm) 20.4 WC - Nurse 2 - General Ulcer CM Notes Start: 01/14/18 12:50 Freq: Status: Active Protocol: Activity Type Activity Date Activity User E-Sign Co-Sign Detail Recorded Client Recorded Date Recorded By Document 01/14/18 13:23 [id number] 01/14/18 13:31 01/14/18 13:23 Pain Scale: 0-10 Numeric [Pain] -Is Patient Pain Free? Yes Musculoskeletal: No Tenderness to Palpation of Joints or Extremities, Muscle Wasting, - - Prominent plantar left heel and limited passive range of motion of the first metatarsophalangeal joint of the right foot Neurological: - - Lack of sensation light touch bilateral lower extremities Psych/Mental Status: Normal Affect, Appropriate Debridement Note Post-Debridement Measurements/Treatment WC - Nurse 2 - General Ulcer CM Notes Start: 01/14/18 12:50 Freq: Status: Active Protocol: Activity Type Activity Date Activity User E-Sign Co-Sign Detail Recorded Client Recorded Date Recorded By Document 01/14/18 13:23 [id number] 01/14/18 13:31 TM 01/14/18 13:23 Pain Scale: 0-10 Numeric Is Patient Pain Free? Yes No debridement was completed today - The ulcer sites are healed Assessment/Plan Active Problems Diabetes mellitus with polyneuropathy (Chronic) Gait instability (Chronic) Assessment: Plantar heel ulcer, left foot -remains healed. The first metatarsal head right foot-recurrent ulceration and this remains healed today. Tinea pedis/fungal contamination from wound culture-resolved. Diabetes with neuropathy. Delayed healing and recurrent ulcer formation. Malnutrition. Left foot advanced flat foot deformity with h/o surgical intervention. Nonadherence to treatment plan Plan: I reviewed and discussed her case in detail. No debridement was performed because the wound site has healed. To progress to extra-depth diabetic shoe with dual density Plastizote liners. Her callus sites were debrided with a 15 blade to reduce pressure and chance of re-formation of the ulcers; she tolerated this well. Noninvasive lower extremity arterial study is noted to be normal. To continue to follow-up at [facility] for gait training and fall prevention. To follow-up at the foot and ankle center for routine palliative callus and nail care, diabetic foot risk assessments, and consideration for extra-depth diabetic shoes and hutson balance braces. She was reassured there are no ulcers or infection today. She understands she is not to apply any wound dressings because the wounds have healed. I answered all of her questions. She will follow-up in 2 months.
== END 2018-01-28 23:59 ==
LOC: WC 12:48
PROVIDERS: Family Provider Family Medicine; PCP Family Medicine; Visit Provider Podiatrist
DX: E11.42 Type 2 diabetes mellitus with diabetic polyneuropathy (principal); R26.81 Unsteadiness on feet; M21.42 Flat foot [pes planus] (acquired), left foot; B35.3 Tinea pedis
CPT/HCPCS: 99212; G0463

== ENCOUNTER 2018-01-21 14:38 | Outpatient (RCR) | payer MEDICARE, BC, SELFPAY | END 2018-01-28 23:59 | LOC: DC 14:38 | PROVIDERS: Family Provider Family Medicine; PCP Family Medicine; Visit Provider Podiatrist | DX: E11.42 Type 2 diabetes mellitus with diabetic polyneuropathy (principal); L97.522 Non-pressure chronic ulcer of other part of left foot with fat layer exposed; L97.512 Non-pressure chronic ulcer of other part of right foot with fat layer exposed; T14.90XA Injury, unspecified, initial encounter; Z71.3 Dietary counseling and surveillance | CPT/HCPCS: G0108 ==

== ENCOUNTER 2018-02-16 13:01 | Outpatient (RCR) | payer MEDICARE, BC, SELFPAY | END 2018-02-28 23:59 | LOC: DC 13:01 | PROVIDERS: Family Provider Family Medicine; PCP Family Medicine; Visit Provider Podiatrist | DX: E11.42 Type 2 diabetes mellitus with diabetic polyneuropathy (principal); L97.522 Non-pressure chronic ulcer of other part of left foot with fat layer exposed; L97.512 Non-pressure chronic ulcer of other part of right foot with fat layer exposed; T14.90XA Injury, unspecified, initial encounter; Z71.3 Dietary counseling and surveillance | CPT/HCPCS: 97802 ==

== ENCOUNTER 2018-02-25 13:30 | Outpatient (RCR) | payer MEDICARE, BC, SELFPAY ==
[2018-01-29 00:25] VITALS: BP 131/69; PULSE 76; RESP 16; TEMP 36.4; BMI 28.1
[2018-02-04 12:57] VITALS: BP 137/68; PULSE 75; RESP 18; TEMP 36.2; BMI 28.1
--- NOTE | 2018-02-04 13:50 | PN.PCM_ITS ---
(1) Chronic ulcer of left foot with fat layer exposed Status: Chronic Current Visit: Yes Code(s): L97.522 - Non-pressure chronic ulcer of other part of left foot with fat layer exposed (2) Diabetes mellitus with polyneuropathy Status: Chronic Current Visit: Yes Qualifiers: Diabetes mellitus type: type 2 Qualified Code(s): E11.42 - Type 2 diabetes mellitus with diabetic polyneuropathy Code(s): E11.42 - Type 2 diabetes mellitus with diabetic polyneuropathy (3) Malnutrition Status: Chronic Current Visit: Yes Code(s): E46 - Unspecified protein- calorie malnutrition (4) Delayed wound healing Status: Chronic Current Visit: Yes Code(s): T14.8 - Other injury of unspecified body region Type of Wound Date of Service: 02/04/18 Chief Complaint: Left heel ulceration History of Wound: This is a 72-year-old female returns for follow-up of left heel ulceration that returned approximately 2 weeks ago. She denies fever, chills, nausea, vomiting, loss of appetite. She ordered her new compression stockings as advised and these have not arrived in the mail yet. I saw her at the foot and ankle center recommended a different new offloading device which order was provided to the antibiotic. I did review the case with them and she will be casted for a patellar tendon bearing brace with offloading plantar heel component. Progress of Wound: returned, stable - Physical Exam Vital Signs Temp Pulse Resp BP 97.1 F L 75 18 137/68 H 02/04/18 12:57 02/04/18 12:57 02/04/18 12:57 02/04/18 12:57 General: Alert, Oriented x3, Cooperative Extremities: No cyanosis, Capillary Refill Less than 3 Seconds, No Calf Tenderness - negative natan and santiago, left. calcaneus gait left, Diminished Peripheral Pulses, Edema - mild left Skin: Ulcer/ Wound - no purulence, no erythema, no streaking, no odor, no infection. fat layer exposed. skin is atrophic Wound Measurements and Assessment WC - Nurse 1 - General Ulcer Measurement Start: 02/04/18 12:57 Freq: Status: Active Protocol: Activity Type Activity Date Activity User E-Sign Co-Sign Detail Recorded Client Recorded Date Recorded By Document 02/04/18 12:57 DL [id number] 02/04/18 13:07 DL 02/04/18 12:57 Wound Center Nurse 1 [Ulcer Assessment] #1 left heel -Current Size (cm) - Length 0.2 -Current Size (cm) - Width 0.2 -Current Size (cm) - Depth 0.2 -Total Square Cm 0.04 -Photo Taken Yes -Exudate Amt Small (1-33%) -Exudate Type Sanguineous -Wound Margin Thickened -Granulation Amt Small (1-33%) -Granulation Quality Red -Necrosis Amt Small (1-33%) -Necrotic Tissue Type Adherent Slough -Structure Exposed N/A -Texture (Radha-wound Skin Appearance) Callus -Moisture (Radha-wound Skin Appearance No Abnormality ) -Color (Radha-wound Skin Appearance) Erythema -Temperature (Radha-wound Skin Hot Appearance) -Tenderness on Palpation (Radha-wound Yes Skin Appearance) -Ulcer Cleansing Rinsed/ Irrigated with Saline -Foul Odor after Cleansing No -Anesthetic Used 4% Lidocaine Solution WC - Nurse 2 - General Ulcer CM Notes Start: 02/04/18 12:57 Freq: Status: Active Protocol: Activity Type Activity Date Activity User E-Sign Co-Sign Detail Recorded Client Recorded Date Recorded By Document 02/04/18 13:29 [id number] 02/04/18 13:31 TM 02/04/18 13:29 Wound Center Nurse 2 [Procedure/Treatment] -Time 13:30 -Correct Patient Yes -Correct Side, Site, Position Yes -Correct Procedure Yes -Procedure Performed Yes -Type of Procedure Debridement -Clinical Debridement Subcutaneous -Post Debridement Size (cm) - Length 0.3 -Post Debridement Size (cm) - Width 0.3 -Post Debridement Size (cm) - Depth 0.2 -Total Square Cm 0.09 -Wound/Ulcer Outcome Not Healed -Ulcer Cleansing Rinsed/ Irrigated with Saline -Foul Odor after Cleansing No -Bioengineered Tissue No -Topical Lidocaine (%) 5 -Bleeding Controlled with Pressure -Treatment Response Procedure Tolerated Well [See Physician Procedure note for Specifics] Pain Scale: 0-10 Numeric [Pain] -Is Patient Pain Free? Yes Musculoskeletal: No Tenderness to Palpation of Joints or Extremities, Muscle Wasting Neurological: - - lack of epicritic sensation noted via light touch, left Psych/Mental Status: Normal Affect, Appropriate Debridement Note Post-Debridement Measurements/Treatment WC - Nurse 2 - General Ulcer CM Notes Start: 02/04/18 12:57 Freq: Status: Active Protocol: Activity Type Activity Date Activity User E-Sign Co-Sign Detail Recorded Client Recorded Date Recorded By Document 02/04/18 13:29 [id number] 02/04/18 13:31 02/04/18 13:29 Wound Center Nurse 2 #1 left heel -Time 13:30 -Correct Patient Yes -Correct Side, Site, Position Yes -Correct Procedure Yes -Procedure Performed Yes -Type of Procedure Debridement -Clinical Debridement Subcutaneous -Post Debridement Size (cm) - Length 0.3 -Post Debridement Size (cm) - Width 0.3 -Post Debridement Size (cm) - Depth 0.2 -Total Square Cm 0.09 -Wound/Ulcer Outcome Not Healed -Ulcer Cleansing Rinsed/ Irrigated with Saline -Foul Odor after Cleansing No -Bioengineered Tissue No -Topical Lidocaine (%) 5 -Bleeding Controlled with Pressure -Treatment Response Procedure Tolerated Well Pain Scale: 0-10 Numeric Is Patient Pain Free? Yes Wound debrided: plantar heel Laterality: Left Wound Grade/Stage: grade 1 Type of Debridement: Excisional debridement Anesthesia Used: 4% Lidocaine Solution Depth: in the subcutaneous layer Percentage of wound debrided: 100 Instrument Used: #15 blade Tissue Removed: fibrous, devitalized tissue, biofilm, slough, callous Severity: Fat Layer Exposed Amount of bleeding with debridement: Mild Bleeding Controlled with: Pressure Patient tolerated procedure well Assessment/Plan Active Problems Chronic ulcer of left foot with fat layer exposed (Chronic) Diabetes mellitus with polyneuropathy (Chronic) Malnutrition (Chronic) Delayed wound healing (Chronic) Assessment: Plantar heel ulcer, left foot - returned. The first metatarsal head right foot-recurrent ulceration and this remains healed today. Diabetes with neuropathy. Delayed healing and recurrent ulcer formation. Malnutrition. Left foot advanced flat foot deformity with h/o surgical intervention. Nonadherence to treatment plan. calcaneal gait, left. difficulty walking Plan: I reviewed and discussed her case in detail. Subcutaneous ulcer debridement was performed as noted in the clinical panel to the plantar heel of the left foot. The findings are consistent with chronic ulceration inflammation. Offloading measures are continued with cam walker and offloading Plastizote and felt liners. A referral was provided preantibiotic for patellar tendon bearing brace with additional offloading pocket to the left plantar heel. She is scheduled to get cast at the end of this month. Noninvasive lower extremity arterial study is noted to be normal. Previous x-rays of both feet do not reveal evidence of underlying infection or significant soft tissue pathology. There is no sign of osteomyelitis or infection involving bone. To continue with Bernardo, nutritional supplementation to continue to optimization of her diabetes with controlled blood sugars and follow-up with primary care physician. To follow up with nutritional referrals. To control mild edema with Tubigrip bilateral. This was dispensed. Return to clinic in 1 week or call sooner if any problems.
[2018-02-25 13:19] VITALS: BP 124/66; PULSE 74; RESP 16; TEMP 36.2; BMI 28.1
--- NOTE | 2018-02-25 14:42 | PCM.WC.PN ---
(1) Chronic ulcer of left foot with fat layer exposed Status: Chronic Current Visit: Yes Code(s): L97.522 - Non-pressure chronic ulcer of other part of left foot with fat layer exposed (2) Diabetes mellitus with polyneuropathy Status: Chronic Current Visit: Yes Qualifiers: Diabetes mellitus type: type 2 Qualified Code(s): E11.42 - Type 2 diabetes mellitus with diabetic polyneuropathy Code(s): E11.42 - Type 2 diabetes mellitus with diabetic polyneuropathy (3) Malnutrition Status: Chronic Current Visit: Yes Code(s): E46 - Unspecified protein-calorie malnutrition (4) Delayed wound healing Status: Chronic Current Visit: Yes Code(s): T14.8 - Other injury of unspecified body region Type of Wound Date of Service: 02/25/18 Chief Complaint: Left heel ulceration History of Wound: This is a 72-year-old female returns for follow-up of left heel ulceration that returned. She has missed several appointments. She denies fever, chills, nausea, vomiting, loss of appetite. She was casted for her ordered patellar tendon bearing ankle-foot orthotic with offloading pocket yesterday antibiotic. Progress of Wound: returned, stable - Physical Exam Vital Signs Temp Pulse Resp BP 97.1 F L 74 16 124/66 H 02/25/18 13:19 02/25/18 13:19 02/25/18 13:19 02/25/18 13:19 General: Alert, Oriented x3, Cooperative Extremities: No cyanosis, Capillary Refill Less than 3 Seconds, No Calf Tenderness, Diminished Peripheral Pulses, Edema Skin: Ulcer/ Wound - No purulence, no erythema, no streaking, no acute infection noted. The skin is atrophic and without hair Wound Measurements and Assessment WC - Nurse 1 - General Ulcer Measurement Start: 02/04/18 12:57 Freq: Status: Active Protocol: Activity Type Activity Date Activity User E-Sign Co-Sign Detail Recorded Client Recorded Date Recorded By Document 02/25/18 13:19 DL [id number] 02/25/18 13:24 DL 02/25/18 13:19 Wound Center Nurse 1 [Ulcer Assessment] #1 left heel -Current Size (cm) - Length 0.2 -Current Size (cm) - Width 0.2 -Current Size (cm) - Depth 0.4 -Total Square Cm 0.04 -Photo Taken No -Maximum Distance #2 (cm) 0.3 -Circular Undermining Yes -Exudate Amt None Present (0 %) -Wound Margin Thickened -Granulation Amt Small (1-33%) -Granulation Quality [place] -Necrosis Amt None Present (0 %) -Structure Exposed N/A -Texture (Radha-wound Skin Appearance) Callus -Moisture (Radha-wound Skin Appearance Dry/Scaly ) -Color (Radha-wound Skin Appearance) No Abnormality -Temperature (Radha-wound Skin No Abnormality Appearance) (Pt Warm) -Ulcer Cleansing Rinsed/ Irrigated with Saline -Foul Odor after Cleansing No -Anesthetic Used 4% Lidocaine Solution [Edema Assessment] -Point of Measurement (cm from the 30.5 distal point) -Point of measurement (cm from the 18.5 medial instep) WC - Nurse 2 - General Ulcer CM Notes Start: 02/04/18 12:57 Freq: Status: Active Protocol: Activity Type Activity Date Activity User E-Sign Co-Sign Detail Recorded Client Recorded Date Recorded By Document 02/25/18 13:39 [id number] 02/25/18 13:43 02/25/18 13:39 Wound Center Nurse 2 [Procedure/Treatment] #1 left heel -Time 13:42 -Correct Patient Yes -Correct Side, Site, Position Yes -Correct Procedure Yes -Procedure Performed Yes -Type of Procedure Debridement -Clinical Debridement Subcutaneous -Post Debridement Size (cm) - Length 0.5 -Post Debridement Size (cm) - Width 0.3 -Post Debridement Size (cm) - Depth 0.2 -Total Square Cm 0.15 -Wound/Ulcer Outcome Not Healed -Ulcer Cleansing Rinsed/ Irrigated with Saline -Foul Odor after Cleansing No -Bioengineered Tissue No -Bleeding Controlled with Pressure -Treatment Response Procedure Tolerated Well [See Physician Procedure note for Specifics] Pain Scale: 0-10 Numeric [Pain] -Is Patient Pain Free? Yes Musculoskeletal: No Tenderness to Palpation of Joints or Extremities, Muscle Wasting Neurological: Sensory exam intact to light touch and pain Psych/Mental Status: Normal Affect, Appropriate Debridement Note Post-Debridement Measurements/Treatment WC - Nurse 2 - General Ulcer CM Notes Start: 02/04/18 12:57 Freq: Status: Active Protocol: Activity Type Activity Date Activity User E-Sign Co-Sign Detail Recorded Client Recorded Date Recorded By Document 02/04/18 13:29 [id number] 02/04/18 13:31 Document 02/25/18 13:39 [id number] 02/25/18 13:43 02/04/18 02/25/18 13:29 13:39 Wound Center Nurse 2 #1 left heel -Time 13:30 13:42 -Correct Patient Yes Yes -Correct Side, Site, Position Yes Yes -Correct Procedure Yes Yes -Procedure Performed Yes Yes -Type of Procedure Debridement Debridement -Clinical Debridement Subcutaneous Subcutaneous -Post Debridement Size (cm) - Length 0.3 0.5 -Post Debridement Size (cm) - Width 0.3 0.3 -Post Debridement Size (cm) - Depth 0.2 0.2 -Total Square Cm 0.09 0.15 -Wound/Ulcer Outcome Not Healed Not Healed -Ulcer Cleansing Rinsed/ Rinsed/ Irrigated with Irrigated with Saline Saline -Foul Odor after Cleansing No No -Bioengineered Tissue No No -Topical Lidocaine (%) 5 -Bleeding Controlled with Pressure Pressure -Treatment Response Procedure Procedure Tolerated Well Tolerated Well Pain Scale: 0-10 Numeric Is Patient Pain Free? Yes Yes Wound debrided: plantar heel Laterality: Left Wound Grade/Stage: grade 1 Type of Debridement: Excisional debridement Anesthesia Used: 4% Lidocaine Solution Depth: in the subcutaneous layer Percentage of wound debrided: 100 Instrument Used: #15 blade Tissue Removed: fibrous, devitalized subcutaneous, biofilm, slough Severity: Fat Layer Exposed Amount of bleeding with debridement: Mild Bleeding Controlled with: Pressure Patient tolerated procedure well Assessment/Plan Active Problems Chronic ulcer of left foot with fat layer exposed (Chronic) Diabetes mellitus with polyneuropathy (Chronic) Malnutrition (Chronic) Delayed wound healing (Chronic) Assessment: Plantar heel ulcer, left foot - returned. Diabetes with neuropathy. Delayed healing and recurrent ulcer formation. Malnutrition. Left foot advanced flat foot deformity with h/o surgical intervention. Nonadherence to treatment plan. calcaneal gait, left. difficulty walking Plan: I reviewed and discussed her case in detail. Subcutaneous ulcer debridement was performed as noted in the clinical panel to the plantar heel of the left foot. The findings are consistent with chronic ulceration inflammation. Offloading measures are continued with cam walker and offloading Plastizote and felt liners. A referral was provided to [facility] for patellar tendon bearing brace with additional offloading pocket to the left plantar heel; she has been casted. Noninvasive lower extremity arterial study is noted to be normal. Previous x-rays of both feet do not reveal evidence of underlying infection or significant soft tissue pathology. There is no sign of osteomyelitis or infection involving bone. To continue with Bernardo, nutritional supplementation to continue to optimization of her diabetes with controlled blood sugars and follow-up with primary care physician. To follow up with nutritional referrals. To control mild edema with Tubigrip bilateral. This was dispensed. Return to clinic in 1 week or call sooner if any problems.
== END 2018-02-28 23:59 ==
LOC: WC 13:30
PROVIDERS: Family Provider Family Medicine; PCP Family Medicine; Visit Provider Podiatrist
DX: E11.621 Type 2 diabetes mellitus with foot ulcer (principal); E11.42 Type 2 diabetes mellitus with diabetic polyneuropathy; M21.42 Flat foot [pes planus] (acquired), left foot; L97.422 Non-pressure chronic ulcer of left heel and midfoot with fat layer exposed
CPT/HCPCS: 11042

== ENCOUNTER 2018-03-25 13:00 | Outpatient (RCR) | payer MEDICARE, BC, SELFPAY ==
[2018-03-01 00:26] VITALS: BP 131/69; PULSE 74; RESP 16; TEMP 36.2; BMI 28.1
[2018-03-04 12:53] VITALS: BP 141/70; PULSE 71; RESP 16; TEMP 36.6; BMI 28.1
--- NOTE | 2018-03-04 14:29 | PCM.WC.PN ---
(1) Chronic ulcer of left foot with fat layer exposed Status: Chronic Current Visit: Yes Code(s): L97.522 - Non-pressure chronic ulcer of other part of left foot with fat layer exposed (2) Pre-ulcerative corn or callous Status: Chronic Current Visit: Yes Code(s): L84 - Corns and callosities (3) Difficulty walking Status: Chronic Current Visit: Yes Code(s): R26.2 - Difficulty in walking, not elsewhere classified (4) Diabetes mellitus with polyneuropathy Status: Chronic Current Visit: Yes Qualifiers: Code(s): E11.42 - Type 2 diabetes mellitus with diabetic polyneuropathy (5) Malnutrition Status: Chronic Current Visit: Yes Code(s): E46 - Unspecified protein-calorie malnutrition (6) Delayed wound healing Status: Chronic Current Visit: Yes Code(s): T14.8 - Other injury of unspecified body region (7) Gait instability Status: Chronic Current Visit: Yes Code(s): R26.81 - Unsteadiness on feet Type of Wound Date of Service: 03/05/18 Chief Complaint: Left heel ulceration History of Wound: This is a 72-year-old female returns for follow-up of left heel ulceration that returned. She has missed several appointments. She denies fever, chills, nausea, vomiting, loss of appetite. She was casted for her ordered patellar tendon bearing ankle-foot orthotic with offloading pocket at [facility] and is awaiting arrival. She also complains of a right foot callus has increased in pain the past week. she denies redness or drainage to the right foot. Progress of Wound: Stable - Physical Exam Vital Signs Temp Pulse Resp BP 97.8 F 71 16 141/70 H 03/04/18 12:53 03/04/18 12:53 03/04/18 12:53 03/04/18 12:53 General: Alert, Oriented x3, Cooperative Extremities: No cyanosis, Capillary Refill Less than 3 Seconds, No Calf Tenderness, Diminished Peripheral Pulses, Edema - Mild bilateral lower extremities Skin: Ulcer/ Wound - No purulence, no erythema, no streaking, no odor, no infection to left heel. There is no exposed deep tissue noted., - - There is a callus sub-first metatarsal head of the right lower extremity with minor sub-hemorrhagic tissue noted. Upon debridement there is no wound noted. Pain is decreased after callus debridement. Wound Measurements and Assessment WC - Nurse 1 - General Ulcer Measurement Start: 03/04/18 12:53 Freq: Status: Active Protocol: Activity Type Activity Date Activity User E-Sign Co-Sign Detail Recorded Client Recorded Date Recorded By Document 03/04/18 12:53 DL [id number] 03/04/18 12:57 DL 03/04/18 12:53 Wound Center Nurse 1 [Ulcer Assessment] #1 left heel -Current Size (cm) - Length 0.6 -Current Size (cm) - Width 0.2 -Current Size (cm) - Depth 0.2 -Total Square Cm 0.12 -Photo Taken No -Maximum Distance #2 (cm) 0.2 -Circular Undermining Yes -Exudate Amt Small (1-33%) -Wound Margin Thickened -Granulation Amt Small (1-33%) -Granulation Quality [place] -Necrosis Amt None Present (0 %) -Structure Exposed N/A -Texture (Radha-wound Skin Appearance) Callus -Moisture (Radha-wound Skin Appearance Dry/Scaly ) -Color (Radha-wound Skin Appearance) No Abnormality -Temperature (Radha-wound Skin No Abnormality Appearance) (Pt Warm) -Ulcer Cleansing Rinsed/ Irrigated with Saline -Foul Odor after Cleansing No -Anesthetic Used 4% Lidocaine Solution [Edema Assessment] -Left Calf (cm) 32.5 -Left Ankle (cm) 20 WC - Nurse 2 - General Ulcer CM Notes Start: 03/04/18 12:53 Freq: Status: Active Protocol: Activity Type Activity Date Activity User E-Sign Co-Sign Detail Recorded Client Recorded Date Recorded By Document 03/04/18 13:10 [id number] 03/04/18 13:14 03/04/18 13:10 Wound Center Nurse 2 [Procedure/Treatment] #1 left heel -Time 13:10 -Correct Patient Yes -Correct Side, Site, Position Yes -Correct Procedure Yes -Procedure Performed Yes -Type of Procedure Debridement -Clinical Debridement Subcutaneous -Post Debridement Size (cm) - Length 0.7 -Post Debridement Size (cm) - Width 0.3 -Post Debridement Size (cm) - Depth 0.2 -Total Square Cm 0.21 -Wound/Ulcer Outcome Not Healed -Ulcer Cleansing Rinsed/ Irrigated with Saline -Foul Odor after Cleansing No -Bioengineered Tissue No -Bleeding Controlled with Pressure -Treatment Response Procedure Tolerated Well [See Physician Procedure note for Specifics] Pain Scale: 0-10 Numeric [Pain] -Is Patient Pain Free? Yes Musculoskeletal: No Tenderness to Palpation of Joints or Extremities, Muscle Wasting, - - Limited loaded first metatarsal phalangeal joint range of motion of the right foot with prominent sub-first metatarsal head, sesamoid apparatus location. No crepitus on palpation the left heel. A calcaneus type gait is noted left lower extremity Neurological: - - Lack of epicritic sensation light touch bilateral lower extremities Psych/Mental Status: Normal Affect, Appropriate Debridement Note Post-Debridement Measurements/Treatment WC - Nurse 2 - General Ulcer CM Notes Start: 03/04/18 12:53 Freq: Status: Active Protocol: Activity Type Activity Date Activity User E-Sign Co-Sign Detail Recorded Client Recorded Date Recorded By Document 03/04/18 13:10 TM [id number] 03/04/18 13:14 TM 03/04/18 13:10 Wound Center Nurse 2 #1 left heel -Time 13:10 -Correct Patient Yes -Correct Side, Site, Position Yes -Correct Procedure Yes -Procedure Performed Yes -Type of Procedure Debridement -Clinical Debridement Subcutaneous -Post Debridement Size (cm) - Length 0.7 -Post Debridement Size (cm) - Width 0.3 -Post Debridement Size (cm) - Depth 0.2 -Total Square Cm 0.21 -Wound/Ulcer Outcome Not Healed -Ulcer Cleansing Rinsed/ Irrigated with Saline -Foul Odor after Cleansing No -Bioengineered Tissue No -Bleeding Controlled with Pressure -Treatment Response Procedure Tolerated Well Pain Scale: 0-10 Numeric Is Patient Pain Free? Yes Wound debrided: plantar heel Laterality: Left Wound Grade/Stage: grade 1 Type of Debridement: Excisional debridement Anesthesia Used: 4% Lidocaine Solution Depth: in the subcutaneous layer Percentage of wound debrided: 100 Instrument Used: #15 blade Tissue Removed: devitalized subcutaneous, biofilm, slough, fibrous Severity: Fat Layer Exposed Amount of bleeding with debridement: Mild Bleeding Controlled with: Pressure Patient tolerated procedure well Assessment/Plan Active Problems Pre-ulcerative corn or callous (Chronic) Difficulty walking (Chronic) Chronic ulcer of left foot with fat layer exposed (Chronic) Diabetes mellitus with polyneuropathy (Chronic) Malnutrition (Chronic) Delayed wound healing (Chronic) Gait instability (Chronic) Assessment: Plantar heel ulcer, left foot -fat layer exposed, grade 1. Callus sub-first metatarsal head right foot secondary to hallux limitus. Diabetes with neuropathy. Delayed healing and recurrent ulcer formation. Malnutrition. Left foot advanced flat foot deformity with h/o surgical intervention. Nonadherence to treatment plan. calcaneal gait, left. difficulty walking Plan: I reviewed and discussed her case in detail. Subcutaneous ulcer debridement was performed as noted in the clinical panel to the plantar heel of the left foot. The findings are consistent with chronic ulceration inflammation. Offloading measures are continued with cam walker and offloading Plastizote and felt liners. A referral was provided to [facility] for patellar tendon bearing brace with additional offloading pocket to the left plantar heel; she has been casted. Noninvasive lower extremity arterial study is noted to be normal. Previous x-rays of both feet do not reveal evidence of underlying infection or significant soft tissue pathology. There is no sign of osteomyelitis or infection involving bone. To continue with Bernardo, nutritional supplementation to continue to optimization of her diabetes with controlled blood sugars and follow-up with primary care physician. To follow up with nutritional referrals. To control mild edema with Tubigrip bilateral. This was dispensed. Her right foot callus was debrided with a 15 blade and she was reassured no wound or infection is noted. To continue to offload and monitor daily. to moisturize and gently file to prevent pressure to this stie. To return to clinic in 1 week or call sooner if any problems.
[2018-03-11 13:05] VITALS: BP 109/62; PULSE 85; RESP 18; TEMP 36.9; BMI 28.1
--- NOTE | 2018-03-11 14:42 | PCM.WC.PN ---
(1) Chronic ulcer of left foot with fat layer exposed Status: Chronic Current Visit: Yes Code(s): L97.522 - Non-pressure chronic ulcer of other part of left foot with fat layer exposed (2) Difficulty walking Status: Chronic Current Visit: Yes Code(s): R26.2 - Difficulty in walking, not elsewhere classified (3) Diabetes mellitus with polyneuropathy Status: Chronic Current Visit: Yes Qualifiers: Code(s): E11.42 - Type 2 diabetes mellitus with diabetic polyneuropathy (4) Malnutrition Status: Chronic Current Visit: Yes Code(s): E46 - Unspecified protein-calorie malnutrition (5) Delayed wound healing Status: Chronic Current Visit: Yes Code(s): T14.8 - Other injury of unspecified body region (6) Gait instability Status: Chronic Current Visit: Yes Code(s): R26.81 - Unsteadiness on feet Type of Wound Date of Service: 03/11/18 Chief Complaint: Left heel ulceration History of Wound: This is a 73-year-old female returns for follow-up of left heel ulceration that returned. She has missed several appointments. She denies fever, chills, nausea, vomiting, loss of appetite. She was casted for her ordered patellar tendon bearing ankle-foot orthotic with offloading pocket at [facility] and is awaiting arrival next week. Progress of Wound: Improving - Physical Exam Vital Signs Temp Pulse Resp BP 98.4 F 85 18 109/62 03/11/18 13:05 03/11/18 13:05 03/11/18 13:05 03/11/18 13:05 General: Alert, Oriented x3, Cooperative Extremities: No cyanosis, Capillary Refill Less than 3 Seconds, No Calf Tenderness - Negative Maddison and Herrera left, Diminished Peripheral Pulses, Edema - Controlled left, - - Calcaneus style gait left Skin: Ulcer/ Wound - No prior No infection, no odor, no redness, no streaking, no exposed deep tissue left heel. Her skin is atrophic. There is significant epithelialization compared to her previous visit. Her leg has no hair. Wound Measurements and Assessment WC - Nurse 1 - General Ulcer Measurement Start: 03/04/18 12:53 Freq: Status: Active Protocol: Activity Type Activity Date Activity User E-Sign Co-Sign Detail Recorded Client Recorded Date Recorded By Document 03/11/18 13:05 DL [id number] 03/11/18 13:12 DL 03/11/18 13:05 Wound Center Nurse 1 [Ulcer Assessment] #1 left heel -Current Size (cm) - Length 0.2 -Current Size (cm) - Width 0.2 -Current Size (cm) - Depth 0.3 -Total Square Cm 0.04 -Photo Taken No -Maximum Distance #2 (cm) 0.2 -Circular Undermining Yes -Exudate Amt None Present (0 %) -Wound Margin Distinct, Outline Attached -Granulation Amt Small (1-33%) -Granulation Quality [place] -Necrosis Amt None Present (0 %) -Structure Exposed N/A -Texture (Radha-wound Skin Appearance) Callus -Moisture (Radha-wound Skin Appearance No Abnormality ) -Color (Radha-wound Skin Appearance) No Abnormality -Temperature (Radha-wound Skin No Abnormality Appearance) (Pt Warm) -Tenderness on Palpation (Radha-wound Yes Skin Appearance) -Foul Odor after Cleansing No -Anesthetic Used 4% Lidocaine Solution [Edema Assessment] -Point of Measurement (cm from the 30.8 distal point) -Point of measurement (cm from the 19.1 medial instep) WC - Nurse 2 - General Ulcer CM Notes Start: 03/04/18 12:53 Freq: Status: Active Protocol: Activity Type Activity Date Activity User E-Sign Co-Sign Detail Recorded Client Recorded Date Recorded By Document 03/11/18 13:28 [id number] 03/11/18 13:30 03/11/18 13:28 Wound Center Nurse 2 [Procedure/Treatment] #1 left heel -Time 13:29 -Correct Patient Yes -Correct Side, Site, Position Yes -Correct Procedure Yes -Procedure Performed Yes -Type of Procedure Debridement -Clinical Debridement Subcutaneous -Post Debridement Size (cm) - Length 0.3 -Post Debridement Size (cm) - Width 0.3 -Post Debridement Size (cm) - Depth 0.3 -Total Square Cm 0.09 -Wound/Ulcer Outcome Not Healed -Ulcer Cleansing Rinsed/ Irrigated with Saline -Foul Odor after Cleansing No -Bioengineered Tissue No -Topical Lidocaine (%) 4 -Bleeding Controlled with Pressure -Treatment Response Procedure Tolerated Well [See Physician Procedure note for Specifics] Pain Scale: 0-10 Numeric [Pain] -Is Patient Pain Free? Yes Musculoskeletal: No Tenderness to Palpation of Joints or Extremities, Muscle Wasting, - - No pain with wound manipulation Neurological: - - Lack of epicritic sensation light touch left lower extremity Psych/Mental Status: Normal Affect, Appropriate Debridement Note Post-Debridement Measurements/Treatment WC - Nurse 2 - General Ulcer CM Notes Start: 03/04/18 12:53 Freq: Status: Active Protocol: Activity Type Activity Date Activity User E-Sign Co-Sign Detail Recorded Client Recorded Date Recorded By Document 03/04/18 13:10 TM [id number] 03/04/18 13:14 TM Document 03/11/18 13:28 TM [id number] 03/11/18 13:30 TM 03/04/18 03/11/18 13:10 13:28 Wound Center Nurse 2 #1 left heel -Time 13:10 13:29 -Correct Patient Yes Yes -Correct Side, Site, Position Yes Yes -Correct Procedure Yes Yes -Procedure Performed Yes Yes -Type of Procedure Debridement Debridement -Clinical Debridement Subcutaneous Subcutaneous -Post Debridement Size (cm) - Length 0.7 0.3 -Post Debridement Size (cm) - Width 0.3 0.3 -Post Debridement Size (cm) - Depth 0.2 0.3 -Total Square Cm 0.21 0.09 -Wound/Ulcer Outcome Not Healed Not Healed -Ulcer Cleansing Rinsed/ Rinsed/ Irrigated with Irrigated with Saline Saline -Foul Odor after Cleansing No No -Bioengineered Tissue No No -Topical Lidocaine (%) 4 -Bleeding Controlled with Pressure Pressure -Treatment Response Procedure Procedure Tolerated Well Tolerated Well Pain Scale: 0-10 Numeric Is Patient Pain Free? Yes Yes Wound debrided: plantar heel Laterality: Left Wound Grade/Stage: grade 1 Type of Debridement: Excisional debridement Anesthesia Used: 4% Lidocaine Solution Depth: in the subcutaneous layer Percentage of wound debrided: 100 Instrument Used: #15 blade Tissue Removed: fibrous, devitalized subcutaneous, biofilm, slough Severity: Fat Layer Exposed Amount of bleeding with debridement: Mild Bleeding Controlled with: Pressure Patient tolerated procedure well Assessment/Plan Active Problems Pre-ulcerative corn or callous (Chronic) Difficulty walking (Chronic) Chronic ulcer of left foot with fat layer exposed (Chronic) Diabetes mellitus with polyneuropathy (Chronic) Malnutrition (Chronic) Delayed wound healing (Chronic) Gait instability (Chronic) Assessment: Plantar heel ulcer, left foot -fat layer exposed, grade 1. Diabetes with neuropathy. Delayed healing and recurrent ulcer formation. Malnutrition. Left foot advanced flat foot deformity with h/o surgical intervention. Nonadherence to treatment plan. calcaneal gait, left. difficulty walking Plan: I reviewed and discussed her case in detail. Subcutaneous ulcer debridement was performed as noted in the clinical panel to the plantar heel of the left foot. The findings are consistent with chronic ulceration inflammation. Offloading measures are continued with cam walker and offloading Plastizote and felt liners. A referral was provided to [facility] for patellar tendon bearing brace with additional offloading pocket to the left plantar heel; she has been casted. She is scheduled to pick this up next week. Noninvasive lower extremity arterial study is noted to be normal. Previous x-rays of both feet do not reveal evidence of underlying infection or significant soft tissue pathology. There is no sign of osteomyelitis or infection involving bone. To continue with Bernardo, nutritional supplementation to continue to optimization of her diabetes with controlled blood sugars and follow-up with primary care physician. It is okay to take boost or Glucerna as an alternative nutritional supplement; I do not recommend exceeding 2 drinks daily in addition to her regular well balanced nutritious diet. To follow up with nutritional referrals. To control mild edema with Tubigrip bilateral. This was dispensed. Her right foot callus was debrided with a 15 blade and she was reassured no wound or infection is noted. To continue to offload and monitor daily. to moisturize and gently file to prevent pressure to this stie. To return to clinic in 1 week or call sooner if any problems.
--- NOTE | 2018-03-11 14:45 | PN.PCM_ITS ---
(1) Chronic ulcer of left foot with fat layer exposed Status: Chronic Current Visit: Yes Code(s): L97.522 - Non-pressure chronic ulcer of other part of left foot with fat layer exposed (2) Difficulty walking Status: Chronic Current Visit: Yes Code(s): R26.2 - Difficulty in walking, not elsewhere classified (3) Diabetes mellitus with polyneuropathy Status: Chronic Current Visit: Yes Qualifiers: Code(s): E11.42 - Type 2 diabetes mellitus with diabetic polyneuropathy (4) Malnutrition Status: Chronic Current Visit: Yes Code(s): E46 - Unspecified protein- calorie malnutrition (5) Delayed wound healing Status: Chronic Current Visit: Yes Code(s): T14.8 - Other injury of unspecified body region (6) Gait instability Status: Chronic Current Visit: Yes Code(s): R26.81 - Unsteadiness on feet Type of Wound Date of Service: 03/11/18 Chief Complaint: Left heel ulceration History of Wound: This is a 73-year-old female returns for follow-up of left heel ulceration that returned. She has missed several appointments. She denies fever, chills, nausea, vomiting, loss of appetite. She was casted for her ordered patellar tendon bearing ankle-foot orthotic with offloading pocket at [facility] and is awaiting arrival next week. Progress of Wound: Improving - Physical Exam Vital Signs Temp Pulse Resp BP 98.4 F 85 18 109/62 03/11/18 13:05 03/11/18 13:05 03/11/18 13:05 03/11/18 13:05 General: Alert, Oriented x3, Cooperative Extremities: No cyanosis, Capillary Refill Less than 3 Seconds, No Calf Tenderness - Negative Maddison and Herrera left, Diminished Peripheral Pulses, Edema - Controlled left, - - Calcaneus style gait left Skin: Ulcer/ Wound - No prior No infection, no odor, no redness, no streaking, no exposed deep tissue left heel. Her skin is atrophic. There is significant epithelialization compared to her previous visit. Her leg has no hair. Wound Measurements and Assessment WC - Nurse 1 - General Ulcer Measurement Start: 03/04/18 12:53 Freq: Status: Active Protocol: Activity Type Activity Date Activity User E-Sign Co-Sign Detail Recorded Client Recorded Date Recorded By Document 03/11/18 13:05 DL [id number] 03/11/18 13:12 DL 03/11/18 13:05 Wound Center Nurse 1 [Ulcer Assessment] #1 left heel -Current Size (cm) - Length 0.2 -Current Size (cm) - Width 0.2 -Current Size (cm) - Depth 0.3 -Total Square Cm 0.04 -Photo Taken No -Maximum Distance #2 (cm) 0.2 -Circular Undermining Yes -Exudate Amt None Present (0 %) -Wound Margin Distinct, Outline Attached -Granulation Amt Small (1-33%) -Granulation Quality [place] -Necrosis Amt None Present (0 %) -Structure Exposed N/A -Texture (Radha-wound Skin Appearance) Callus -Moisture (Radha-wound Skin Appearance No Abnormality ) -Color (Radha-wound Skin Appearance) No Abnormality -Temperature (Radha-wound Skin No Abnormality Appearance) (Pt Warm) -Tenderness on Palpation (Radha-wound Yes Skin Appearance) -Foul Odor after Cleansing No -Anesthetic Used 4% Lidocaine Solution [Edema Assessment] -Point of Measurement (cm from the 30.8 distal point) -Point of measurement (cm from the 19.1 medial instep) WC - Nurse 2 - General Ulcer CM Notes Start: 03/04/18 12:53 Freq: Status: Active Protocol: Activity Type Activity Date Activity User E-Sign Co-Sign Detail Recorded Client Recorded Date Recorded By Document 03/11/18 13:28 [id number] 03/11/18 13:30 03/11/18 13:28 Wound Center Nurse 2 [Procedure/Treatment] #1 left heel -Time 13:29 -Correct Patient Yes -Correct Side, Site, Position Yes -Correct Procedure Yes -Procedure Performed Yes -Type of Procedure Debridement -Clinical Debridement Subcutaneous -Post Debridement Size (cm) - Length 0.3 -Post Debridement Size (cm) - Width 0.3 -Post Debridement Size (cm) - Depth 0.3 -Total Square Cm 0.09 -Wound/Ulcer Outcome Not Healed -Ulcer Cleansing Rinsed/ Irrigated with Saline -Foul Odor after Cleansing No -Bioengineered Tissue No -Topical Lidocaine (%) 4 -Bleeding Controlled with Pressure -Treatment Response Procedure Tolerated Well [See Physician Procedure note for Specifics] Pain Scale: 0-10 Numeric [Pain] -Is Patient Pain Free? Yes Musculoskeletal: No Tenderness to Palpation of Joints or Extremities, Muscle Wasting, - - No pain with wound manipulation Neurological: - - Lack of epicritic sensation light touch left lower extremity Psych/Mental Status: Normal Affect, Appropriate Debridement Note Post-Debridement Measurements/Treatment WC - Nurse 2 - General Ulcer CM Notes Start: 03/04/18 12:53 Freq: Status: Active Protocol: Activity Type Activity Date Activity User E-Sign Co-Sign Detail Recorded Client Recorded Date Recorded By Document 03/04/18 13:10 TM [id number] 03/04/18 13:14 TM Document 03/11/18 13:28 TM [id number] 03/11/18 13:30 TM 03/04/18 03/11/18 13:10 13:28 Wound Center Nurse 2 #1 left heel -Time 13:10 13:29 -Correct Patient Yes Yes -Correct Side, Site, Position Yes Yes -Correct Procedure Yes Yes -Procedure Performed Yes Yes -Type of Procedure Debridement Debridement -Clinical Debridement Subcutaneous Subcutaneous -Post Debridement Size (cm) - Length 0.7 0.3 -Post Debridement Size (cm) - Width 0.3 0.3 -Post Debridement Size (cm) - Depth 0.2 0.3 -Total Square Cm 0.21 0.09 -Wound/Ulcer Outcome Not Healed Not Healed -Ulcer Cleansing Rinsed/ Rinsed/ Irrigated with Irrigated with Saline Saline -Foul Odor after Cleansing No No -Bioengineered Tissue No No -Topical Lidocaine (%) 4 -Bleeding Controlled with Pressure Pressure -Treatment Response Procedure Procedure Tolerated Well Tolerated Well Pain Scale: 0-10 Numeric Is Patient Pain Free? Yes Yes Wound debrided: plantar heel Laterality: Left Wound Grade/Stage: grade 1 Type of Debridement: Excisional debridement Anesthesia Used: 4% Lidocaine Solution Depth: in the subcutaneous layer Percentage of wound debrided: 100 Instrument Used: #15 blade Tissue Removed: fibrous, devitalized subcutaneous, biofilm, slough Severity: Fat Layer Exposed Amount of bleeding with debridement: Mild Bleeding Controlled with: Pressure Patient tolerated procedure well Assessment/Plan Active Problems Pre-ulcerative corn or callous (Chronic) Difficulty walking (Chronic) Chronic ulcer of left foot with fat layer exposed (Chronic) Diabetes mellitus with polyneuropathy (Chronic) Malnutrition (Chronic) Delayed wound healing (Chronic) Gait instability (Chronic) Assessment: Plantar heel ulcer, left foot -fat layer exposed, grade 1. Diabetes with neuropathy. Delayed healing and recurrent ulcer formation. Malnutrition. Left foot advanced flat foot deformity with h/o surgical intervention. Nonadherence to treatment plan. calcaneal gait, left. difficulty walking Plan: I reviewed and discussed her case in detail. Subcutaneous ulcer debridement was performed as noted in the clinical panel to the plantar heel of the left foot. The findings are consistent with chronic ulceration inflammation. Offloading measures are continued with cam walker and offloading Plastizote and felt liners. A referral was provided to [facility] for patellar tendon bearing brace with additional offloading pocket to the left plantar heel; she has been casted. She is scheduled to pick this up next week. Noninvasive lower extremity arterial study is noted to be normal. Previous x -rays of both feet do not reveal evidence of underlying infection or significant soft tissue pathology. There is no sign of osteomyelitis or infection involving bone. To continue with Bernardo, nutritional supplementation to continue to optimization of her diabetes with controlled blood sugars and follow-up with primary care physician. It is okay to take boost or Glucerna as an alternative nutritional supplement; I do not recommend exceeding 2 drinks daily in addition to her regular well balanced nutritious diet. To follow up with nutritional referrals. To control mild edema with Tubigrip bilateral. This was dispensed. Her right foot callus was debrided with a 15 blade and she was reassured no wound or infection is noted. To continue to offload and monitor daily. to moisturize and gently file to prevent pressure to this stie. To return to clinic in 1 week or call sooner if any problems.
[2018-03-25 13:04] VITALS: BP 130/62; PULSE 74; RESP 18; TEMP 36.5; BMI 28.1
--- NOTE | 2018-03-25 13:35 | PCM.WC.PN ---
(1) Chronic ulcer of left foot with fat layer exposed Status: Chronic Current Visit: Yes Code(s): L97.522 - Non-pressure chronic ulcer of other part of left foot with fat layer exposed (2) Difficulty walking Status: Chronic Current Visit: Yes Code(s): R26.2 - Difficulty in walking, not elsewhere classified (3) Diabetes mellitus with polyneuropathy Status: Chronic Current Visit: Yes Qualifiers: Code(s): E11.42 - Type 2 diabetes mellitus with diabetic polyneuropathy (4) Malnutrition Status: Chronic Current Visit: Yes Code(s): E46 - Unspecified protein-calorie malnutrition (5) Delayed wound healing Status: Chronic Current Visit: Yes Code(s): T14.8 - Other injury of unspecified body region (6) Gait instability Status: Chronic Current Visit: Yes Code(s): R26.81 - Unsteadiness on feet Type of Wound Date of Service: 03/25/18 Chief Complaint: Left heel ulceration. new left foot wound History of Wound: This is a 73-year-old female returns for follow-up of left heel ulceration that returned. She has missed several appointments. She denies fever, chills, nausea, vomiting, loss of appetite. She was fitted for her ordered patellar tendon bearing ankle-foot orthotic with offloading pocket at [facility]. She forgot to do the recommended breaking processing with a brace for full day. This caused swelling, discomfort, and new a new wound has formed between the first and second toe of the left foot. She likes the new brace. Progress of Wound: stable heel. new ulcer between toes left foot - Physical Exam Vital Signs Temp Pulse Resp BP 97.7 F L 74 18 130/62 H 03/25/18 13:04 03/25/18 13:04 03/25/18 13:04 03/25/18 13:04 General: Alert, Oriented x3, Cooperative Extremities: No cyanosis, Capillary Refill Less than 3 Seconds, No Calf Tenderness - Negative Maddison and Herrera bilateral, Diminished Peripheral Pulses, Edema, - - Calcaneus doubt gait pattern on the left lower extremity. Lateral hallux deviation with hallux abutting second toe noted left. Prominent first metatarsal head and sesamoid apparatus right foot Skin: Ulcer/ Wound - No purulence, no erythema, streaking, odor, no acute infection or necrosis bilateral. There is no ulcers noted to the right foot upon callus removal sub-first metatarsal head. In peripheral moisture and maceration on the left foot., - - The skin is atrophic and hairless bilateral Wound Measurements and Assessment WC - Nurse 1 - General Ulcer Measurement Start: 03/04/18 12:53 Freq: Status: Active Protocol: Activity Type Activity Date Activity User E-Sign Co-Sign Detail Recorded Client Recorded Date Recorded By Document 03/25/18 13:04 RB [id number] 03/25/18 13:22 RB 03/25/18 13:04 Wound Center Nurse 1 [Ulcer Assessment] 5. L great toe medial -Combined with other wound No -Current Size (cm) - Length 0.2 -Current Size (cm) - Width 0.5 -Current Size (cm) - Depth 0.1 -Total Square Cm 0.10 -Photo Taken Yes -Tunneling No -Undermining/Tunneling No -Circular Undermining No -Classification - Thickness Full Thickness without Exposed Support Structure -Exudate Amt Small (1-33%) -Exudate Type Serosanguineous -Wound Margin Distinct, Outline Attached -Granulation Amt Medium (34-66%) -Granulation Quality [place] -Slough/Fibrin Yes -Necrosis Amt Small (1-33%) -Necrotic Tissue Type Adherent Slough -Structure Exposed N/A -Texture (Radha-wound Skin Appearance) Assessed -Moisture (Radha-wound Skin Appearance Assessed ) Maceration -Color (Radha-wound Skin Appearance) Assessed -Temperature (Radha-wound Skin No Abnormality Appearance) (Pt Warm) -Tenderness on Palpation (Radha-wound No Skin Appearance) -Ulcer Cleansing Rinsed/ Irrigated with Saline -Anesthetic Used 4% Lidocaine Solution #1 left heel -Combined with other wound No -Current Size (cm) - Length 0.1 -Current Size (cm) - Width 0.1 -Current Size (cm) - Depth 0.1 -Total Square Cm 0.01 -Photo Taken Yes -Tunneling No -Undermining/Tunneling No -Circular Undermining No -Classification - Thickness Full Thickness without Exposed Support Structure -Exudate Amt None Present (0 %) -Wound Margin Thickened & Rolled Under -Granulation Amt Medium (34-66%) -Granulation Quality [place] -Slough/Fibrin Yes -Necrosis Amt Small (1-33%) -Necrotic Tissue Type Adherent Slough -Structure Exposed N/A -Texture (Radha-wound Skin Appearance) Assessed Callus -Moisture (Radha-wound Skin Appearance Assessed ) -Color (Radha-wound Skin Appearance) Assessed -Temperature (Radha-wound Skin No Abnormality Appearance) (Pt Warm) -Ulcer Cleansing Rinsed/ Irrigated with Saline -Foul Odor after Cleansing No -Anesthetic Used 4% Lidocaine Solution [Edema Assessment] -Right Calf (cm) 35 -Right Ankle (cm) 21 -Left Ankle (cm) 33 -Left Foot (cm) 22.1 WC - Nurse 2 - General Ulcer CM Notes Start: 03/04/18 12:53 Freq: Status: Active Protocol: Activity Type Activity Date Activity User E-Sign Co-Sign Detail Recorded Client Recorded Date Recorded By Document 03/25/18 13:28 [email or web address] [id number] 03/25/18 13:31 [email or web address] 03/25/18 13:28 Wound Center Nurse 2 [Procedure/Treatment] 5. L great toe medial -Time 13:28 -Correct Patient Yes -Correct Side, Site, Position Yes -Correct Procedure Yes -Procedure Performed Yes -Type of Procedure Debridement -Clinical Debridement Subcutaneous -Post Debridement Size (cm) - Length 0.3 -Post Debridement Size (cm) - Width 0.5 -Post Debridement Size (cm) - Depth 0.1 -Total Square Cm 0.15 -Wound/Ulcer Outcome Not Healed -Ulcer Cleansing Rinsed/ Irrigated with Saline -Foul Odor after Cleansing No -Bioengineered Tissue No -Bleeding Controlled with Pressure -Treatment Response Procedure Tolerated Well #1 left heel -Time 13:29 -Correct Patient Yes -Correct Side, Site, Position Yes -Correct Procedure Yes -Procedure Performed Yes -Type of Procedure Debridement -Clinical Debridement Subcutaneous -Post Debridement Size (cm) - Length 0.2 -Post Debridement Size (cm) - Width 0.8 -Post Debridement Size (cm) - Depth 0.1 -Total Square Cm 0.16 -Wound/Ulcer Outcome Not Healed -Ulcer Cleansing Rinsed/ Irrigated with Saline -Foul Odor after Cleansing No -Bioengineered Tissue No -Bleeding Controlled with Pressure -Treatment Response Procedure Tolerated Well [See Physician Procedure note for Specifics] Pain Scale: 0-10 Numeric [Pain] -Is Patient Pain Free? Yes Musculoskeletal: No Tenderness to Palpation of Joints or Extremities, Muscle Wasting, - - Foot deformity is noted. Ankle-foot orthotic to left lower extremity with patellar tendon bearing brace appears to be appropriate. Her extra-depth shoes with Plastizote liners are also noted and appear to be appropriate. Neurological: - - Lack of epicritic sensation light touch bilateral lower extremities bilateral Psych/Mental Status: Normal Affect, Appropriate Debridement Note Post-Debridement Measurements/Treatment WC - Nurse 2 - General Ulcer CM Notes Start: 03/04/18 12:53 Freq: Status: Active Protocol: Activity Type Activity Date Activity User E-Sign Co-Sign Detail Recorded Client Recorded Date Recorded By Document 03/04/18 13:10 TM [id number] 03/04/18 13:14 TM Document 03/11/18 13:28 TM [id number] 03/11/18 13:30 TM Document 03/25/18 13:28 [id number] 03/25/18 13:31 03/04/18 03/11/18 03/25/18 13:10 13:28 13:28 Wound Center Nurse 2 5. L great toe medial -Time 13:28 -Correct Patient Yes -Correct Side, Site, Position Yes -Correct Procedure Yes -Procedure Performed Yes -Type of Procedure Debridement -Clinical Debridement Subcutaneous -Post Debridement Size (cm) - Length 0.3 -Post Debridement Size (cm) - Width 0.5 -Post Debridement Size (cm) - Depth 0.1 -Total Square Cm 0.15 -Wound/Ulcer Outcome Not Healed -Ulcer Cleansing Rinsed/ Irrigated with Saline -Foul Odor after Cleansing No -Bioengineered Tissue No -Bleeding Controlled with Pressure -Treatment Response Procedure Tolerated Well #1 left heel -Time 13:10 13:29 13:29 -Correct Patient Yes Yes Yes -Correct Side, Site, Position Yes Yes Yes -Correct Procedure Yes Yes Yes -Procedure Performed Yes Yes Yes -Type of Procedure Debridement Debridement Debridement -Clinical Debridement Subcutaneous Subcutaneous Subcutaneous -Post Debridement Size (cm) - Length 0.7 0.3 0.2 -Post Debridement Size (cm) - Width 0.3 0.3 0.8 -Post Debridement Size (cm) - Depth 0.2 0.3 0.1 -Total Square Cm 0.21 0.09 0.16 -Wound/Ulcer Outcome Not Healed Not Healed Not Healed -Ulcer Cleansing Rinsed/ Rinsed/ Rinsed/ Irrigated with Irrigated with Irrigated with Saline Saline Saline -Foul Odor after Cleansing No No No -Bioengineered Tissue No No No -Topical Lidocaine (%) 4 -Bleeding Controlled with Pressure Pressure Pressure -Treatment Response Procedure Procedure Procedure Tolerated Well Tolerated Well Tolerated Well Pain Scale: 0-10 Numeric Is Patient Pain Free? Yes Yes Yes Wound debrided: plantar heel Laterality: Left Wound Grade/Stage: grade 1 Type of Debridement: Excisional debridement Anesthesia Used: 5% Lidocaine Gel Depth: in the subcutaneous layer Percentage of wound debrided: 100 Instrument Used: #15 blade Tissue Removed: fibrous, devitalized subcutaneous, biofilm, slough Severity: Fat Layer Exposed Amount of bleeding with debridement: Mild Bleeding Controlled with: Pressure Patient tolerated procedure well - Additional Wound Wound debrided: first interdigital space Laterality: Left Wound Grade/Stage: grade 1 Type of Debridement: Excisional debridement Anesthesia Used: 5% Lidocaine Gel Depth: in the subcutaneous layer Percentage of wound debrided: 100 Instrument Used: #15 blade Tissue Removed: fibrous, devitalized subcutaneous, biofilm, slough Severity: Fat Layer Exposed Amount of bleeding with debridement: Mild Bleeding Controlled with: Pressure Patient tolerated procedure: Patient tolerated procedure well Assessment/Plan Active Problems Pre-ulcerative corn or callous (Chronic) Difficulty walking (Chronic) Chronic ulcer of left foot with fat layer exposed (Chronic) Diabetes mellitus with polyneuropathy (Chronic) Malnutrition (Chronic) Delayed wound healing (Chronic) Gait instability (Chronic) Assessment: Plantar heel ulcer, left foot -fat layer exposed, grade 1. First interdigital space with fat layer exposed, grade 1 ; this is new today. Diabetes with neuropathy. Delayed healing and recurrent ulcer formation. Malnutrition. Left foot advanced flat foot deformity with h/o surgical intervention. Nonadherence to treatment plan. calcaneal gait, left. difficulty walking Plan: I reviewed and discussed her case in detail. Subcutaneous ulcer debridement was performed as noted in the clinical panel to the plantar heel of the left foot and interdigital space of the left foot. The findings are consistent with chronic ulceration inflammation. Offloading measures are continued with cam walker and offloading Plastizote and felt liners. She obtained her brace from [facility] and forgot to proceed with the break-in process causing increased pain, swelling, and new wound formation. She is reeducated on this process and will retry again this week. I advised her routine adjustments are anticipated and she needs to follow-up with [facility] specialist. Previous x-rays of both feet do not reveal evidence of underlying infection or significant soft tissue pathology. There is no sign of osteomyelitis or infection involving bone. To continue with Bernardo, nutritional supplementation to continue to optimization of her diabetes with controlled blood sugars and follow-up with primary care physician. It is okay to take boost or Glucerna as an alternative nutritional supplement; I do not recommend exceeding 2 drinks daily in addition to her regular well balanced nutritious diet. To follow up with nutritional referrals. To control mild edema with Tubigrip bilateral. This was dispensed. Her right foot callus was debrided with a 15 blade and she was reassured no wound or infection is noted. To continue to offload and monitor daily. to moisturize and gently file to prevent pressure to this site. To return to clinic in 1 week or call sooner if any problems.
--- NOTE | 2018-03-25 13:38 | PN.PCM_ITS ---
(1) Chronic ulcer of left foot with fat layer exposed Status: Chronic Current Visit: Yes Code(s): L97.522 - Non-pressure chronic ulcer of other part of left foot with fat layer exposed (2) Difficulty walking Status: Chronic Current Visit: Yes Code(s): R26.2 - Difficulty in walking, not elsewhere classified (3) Diabetes mellitus with polyneuropathy Status: Chronic Current Visit: Yes Qualifiers: Code(s): E11.42 - Type 2 diabetes mellitus with diabetic polyneuropathy (4) Malnutrition Status: Chronic Current Visit: Yes Code(s): E46 - Unspecified protein- calorie malnutrition (5) Delayed wound healing Status: Chronic Current Visit: Yes Code(s): T14.8 - Other injury of unspecified body region (6) Gait instability Status: Chronic Current Visit: Yes Code(s): R26.81 - Unsteadiness on feet Type of Wound Date of Service: 03/25/18 Chief Complaint: Left heel ulceration. new left foot wound History of Wound: This is a 73-year-old female returns for follow-up of left heel ulceration that returned. She has missed several appointments. She denies fever, chills, nausea, vomiting, loss of appetite. She was fitted for her ordered patellar tendon bearing ankle-foot orthotic with offloading pocket at [facility]. She forgot to do the recommended breaking processing with a brace for full day. This caused swelling, discomfort, and new a new wound has formed between the first and second toe of the left foot. She likes the new brace. Progress of Wound: stable heel. new ulcer between toes left foot - Physical Exam Vital Signs Temp Pulse Resp BP 97.7 F L 74 18 130/62 H 03/25/18 13:04 03/25/18 13:04 03/25/18 13:04 03/25/18 13:04 General: Alert, Oriented x3, Cooperative Extremities: No cyanosis, Capillary Refill Less than 3 Seconds, No Calf Tenderness - Negative Maddison and Herrera bilateral, Diminished Peripheral Pulses, Edema, - - Calcaneus doubt gait pattern on the left lower extremity. Lateral hallux deviation with hallux abutting second toe noted left. Prominent first metatarsal head and sesamoid apparatus right foot Skin: Ulcer/ Wound - No purulence, no erythema, streaking, odor, no acute infection or necrosis bilateral. There is no ulcers noted to the right foot upon callus removal sub-first metatarsal head. In peripheral moisture and maceration on the left foot., - - The skin is atrophic and hairless bilateral Wound Measurements and Assessment WC - Nurse 1 - General Ulcer Measurement Start: 03/04/18 12:53 Freq: Status: Active Protocol: Activity Type Activity Date Activity User E-Sign Co-Sign Detail Recorded Client Recorded Date Recorded By Document 03/25/18 13:04 RB [id number] 03/25/18 13:22 RB 03/25/18 13:04 Wound Center Nurse 1 [Ulcer Assessment] 5. L great toe medial -Combined with other wound No -Current Size (cm) - Length 0.2 -Current Size (cm) - Width 0.5 -Current Size (cm) - Depth 0.1 -Total Square Cm 0.10 -Photo Taken Yes -Tunneling No -Undermining/Tunneling No -Circular Undermining No -Classification - Thickness Full Thickness without Exposed Support Structure -Exudate Amt Small (1-33%) -Exudate Type Serosanguineous -Wound Margin Distinct, Outline Attached -Granulation Amt Medium (34-66%) -Granulation Quality [place] -Slough/Fibrin Yes -Necrosis Amt Small (1-33%) -Necrotic Tissue Type Adherent Slough -Structure Exposed N/A -Texture (Radha-wound Skin Appearance) Assessed -Moisture (Radha-wound Skin Appearance Assessed ) Maceration -Color (Radha-wound Skin Appearance) Assessed -Temperature (Radha-wound Skin No Abnormality Appearance) (Pt Warm) -Tenderness on Palpation (Radha-wound No Skin Appearance) -Ulcer Cleansing Rinsed/ Irrigated with Saline -Anesthetic Used 4% Lidocaine Solution #1 left heel -Combined with other wound No -Current Size (cm) - Length 0.1 -Current Size (cm) - Width 0.1 -Current Size (cm) - Depth 0.1 -Total Square Cm 0.01 -Photo Taken Yes -Tunneling No -Undermining/Tunneling No -Circular Undermining No -Classification - Thickness Full Thickness without Exposed Support Structure -Exudate Amt None Present (0 %) -Wound Margin Thickened & Rolled Under -Granulation Amt Medium (34-66%) -Granulation Quality [place] -Slough/Fibrin Yes -Necrosis Amt Small (1-33%) -Necrotic Tissue Type Adherent Slough -Structure Exposed N/A -Texture (Radha-wound Skin Appearance) Assessed Callus -Moisture (Radha-wound Skin Appearance Assessed ) -Color (Radha-wound Skin Appearance) Assessed -Temperature (Radha-wound Skin No Abnormality Appearance) (Pt Warm) -Ulcer Cleansing Rinsed/ Irrigated with Saline -Foul Odor after Cleansing No -Anesthetic Used 4% Lidocaine Solution [Edema Assessment] -Right Calf (cm) 35 -Right Ankle (cm) 21 -Left Ankle (cm) 33 -Left Foot (cm) 22.1 WC - Nurse 2 - General Ulcer CM Notes Start: 03/04/18 12:53 Freq: Status: Active Protocol: Activity Type Activity Date Activity User E-Sign Co-Sign Detail Recorded Client Recorded Date Recorded By Document 03/25/18 13:28 [email or web address] [id number] 03/25/18 13:31 [email or web address] 03/25/18 13:28 Wound Center Nurse 2 [Procedure/Treatment] 5. L great toe medial -Time 13:28 -Correct Patient Yes -Correct Side, Site, Position Yes -Correct Procedure Yes -Procedure Performed Yes -Type of Procedure Debridement -Clinical Debridement Subcutaneous -Post Debridement Size (cm) - Length 0.3 -Post Debridement Size (cm) - Width 0.5 -Post Debridement Size (cm) - Depth 0.1 -Total Square Cm 0.15 -Wound/Ulcer Outcome Not Healed -Ulcer Cleansing Rinsed/ Irrigated with Saline -Foul Odor after Cleansing No -Bioengineered Tissue No -Bleeding Controlled with Pressure -Treatment Response Procedure Tolerated Well #1 left heel -Time 13:29 -Correct Patient Yes -Correct Side, Site, Position Yes -Correct Procedure Yes -Procedure Performed Yes -Type of Procedure Debridement -Clinical Debridement Subcutaneous -Post Debridement Size (cm) - Length 0.2 -Post Debridement Size (cm) - Width 0.8 -Post Debridement Size (cm) - Depth 0.1 -Total Square Cm 0.16 -Wound/Ulcer Outcome Not Healed -Ulcer Cleansing Rinsed/ Irrigated with Saline -Foul Odor after Cleansing No -Bioengineered Tissue No -Bleeding Controlled with Pressure -Treatment Response Procedure Tolerated Well [See Physician Procedure note for Specifics] Pain Scale: 0-10 Numeric [Pain] -Is Patient Pain Free? Yes Musculoskeletal: No Tenderness to Palpation of Joints or Extremities, Muscle Wasting, - - Foot deformity is noted. Ankle-foot orthotic to left lower extremity with patellar tendon bearing brace appears to be appropriate. Her extra-depth shoes with Plastizote liners are also noted and appear to be appropriate. Neurological: - - Lack of epicritic sensation light touch bilateral lower extremities bilateral Psych/Mental Status: Normal Affect, Appropriate Debridement Note Post-Debridement Measurements/Treatment WC - Nurse 2 - General Ulcer CM Notes Start: 03/04/18 12:53 Freq: Status: Active Protocol: Activity Type Activity Date Activity User E-Sign Co-Sign Detail Recorded Client Recorded Date Recorded By Document 03/04/18 13:10 TM [id number] 03/04/18 13:14 TM Document 03/11/18 13:28 [email or web address] [id number] 03/11/18 13:30 TM Document 03/25/18 13:28 [id number] 03/25/18 13:31 03/04/18 03/11/18 03/25/18 13:10 13:28 13:28 Wound Center Nurse 2 5. L great toe medial -Time 13:28 -Correct Patient Yes -Correct Side, Site, Position Yes -Correct Procedure Yes -Procedure Performed Yes -Type of Procedure Debridement -Clinical Debridement Subcutaneous -Post Debridement Size (cm) - Length 0.3 -Post Debridement Size (cm) - Width 0.5 -Post Debridement Size (cm) - Depth 0.1 -Total Square Cm 0.15 -Wound/Ulcer Outcome Not Healed -Ulcer Cleansing Rinsed/ Irrigated with Saline -Foul Odor after Cleansing No -Bioengineered Tissue No -Bleeding Controlled with Pressure -Treatment Response Procedure Tolerated Well #1 left heel -Time 13:10 13:29 13:29 -Correct Patient Yes Yes Yes -Correct Side, Site, Position Yes Yes Yes -Correct Procedure Yes Yes Yes -Procedure Performed Yes Yes Yes -Type of Procedure Debridement Debridement Debridement -Clinical Debridement Subcutaneous Subcutaneous Subcutaneous -Post Debridement Size (cm) - Length 0.7 0.3 0.2 -Post Debridement Size (cm) - Width 0.3 0.3 0.8 -Post Debridement Size (cm) - Depth 0.2 0.3 0.1 -Total Square Cm 0.21 0.09 0.16 -Wound/Ulcer Outcome Not Healed Not Healed Not Healed -Ulcer Cleansing Rinsed/ Rinsed/ Rinsed/ Irrigated with Irrigated with Irrigated with Saline Saline Saline -Foul Odor after Cleansing No No No -Bioengineered Tissue No No No -Topical Lidocaine (%) 4 -Bleeding Controlled with Pressure Pressure Pressure -Treatment Response Procedure Procedure Procedure Tolerated Well Tolerated Well Tolerated Well Pain Scale: 0-10 Numeric Is Patient Pain Free? Yes Yes Yes Wound debrided: plantar heel Laterality: Left Wound Grade/Stage: grade 1 Type of Debridement: Excisional debridement Anesthesia Used: 5% Lidocaine Gel Depth: in the subcutaneous layer Percentage of wound debrided: 100 Instrument Used: #15 blade Tissue Removed: fibrous, devitalized subcutaneous, biofilm, slough Severity: Fat Layer Exposed Amount of bleeding with debridement: Mild Bleeding Controlled with: Pressure Patient tolerated procedure well - Additional Wound Wound debrided: first interdigital space Laterality: Left Wound Grade/Stage: grade 1 Type of Debridement: Excisional debridement Anesthesia Used: 5% Lidocaine Gel Depth: in the subcutaneous layer Percentage of wound debrided: 100 Instrument Used: #15 blade Tissue Removed: fibrous, devitalized subcutaneous, biofilm, slough Severity: Fat Layer Exposed Amount of bleeding with debridement: Mild Bleeding Controlled with: Pressure Patient tolerated procedure: Patient tolerated procedure well Assessment/Plan Active Problems Pre-ulcerative corn or callous (Chronic) Difficulty walking (Chronic) Chronic ulcer of left foot with fat layer exposed (Chronic) Diabetes mellitus with polyneuropathy (Chronic) Malnutrition (Chronic) Delayed wound healing (Chronic) Gait instability (Chronic) Assessment: Plantar heel ulcer, left foot -fat layer exposed, grade 1. First interdigital space with fat layer exposed, grade 1 ; this is new today. Diabetes with neuropathy. Delayed healing and recurrent ulcer formation. Malnutrition. Left foot advanced flat foot deformity with h/o surgical intervention. Nonadherence to treatment plan. calcaneal gait, left. difficulty walking Plan: I reviewed and discussed her case in detail. Subcutaneous ulcer debridement was performed as noted in the clinical panel to the plantar heel of the left foot and interdigital space of the left foot. The findings are consistent with chronic ulceration inflammation. Offloading measures are continued with cam walker and offloading Plastizote and felt liners. She obtained her brace from [employer] and forgot to proceed with the break-in process causing increased pain, swelling, and new wound formation. She is reeducated on this process and will retry again this week. I advised her routine adjustments are anticipated and she needs to follow-up with [facility]. Previous x-rays of both feet do not reveal evidence of underlying infection or significant soft tissue pathology. There is no sign of osteomyelitis or infection involving bone. To continue with Bernardo, nutritional supplementation to continue to optimization of her diabetes with controlled blood sugars and follow-up with primary care physician. It is okay to take boost or Glucerna as an alternative nutritional supplement; I do not recommend exceeding 2 drinks daily in addition to her regular well balanced nutritious diet. To follow up with nutritional referrals. To control mild edema with Tubigrip bilateral. This was dispensed. Her right foot callus was debrided with a 15 blade and she was reassured no wound or infection is noted. To continue to offload and monitor daily. to moisturize and gently file to prevent pressure to this site. To return to clinic in 1 week or call sooner if any problems.
== END 2018-03-30 23:59 ==
LOC: WC 13:00
PROVIDERS: Family Provider Family Medicine; PCP Family Medicine; Visit Provider Podiatrist
DX: E11.621 Type 2 diabetes mellitus with foot ulcer (principal); L84 Corns and callosities; R26.2 Difficulty in walking, not elsewhere classified; E11.42 Type 2 diabetes mellitus with diabetic polyneuropathy; R26.81 Unsteadiness on feet; L97.422 Non-pressure chronic ulcer of left heel and midfoot with fat layer exposed; M21.42 Flat foot [pes planus] (acquired), left foot; R60.0 Localized edema
CPT/HCPCS: 11042

== ENCOUNTER 2018-04-01 17:34 | Outpatient (RCR) | payer MEDICARE, BC, SELFPAY | END 2018-04-30 23:59 | LOC: DC 17:34 | PROVIDERS: Family Provider Family Medicine; PCP Family Medicine; Visit Provider Podiatrist | DX: E11.42 Type 2 diabetes mellitus with diabetic polyneuropathy (principal); L97.522 Non-pressure chronic ulcer of other part of left foot with fat layer exposed; L97.512 Non-pressure chronic ulcer of other part of right foot with fat layer exposed; T14.90XA Injury, unspecified, initial encounter ==

== ENCOUNTER 2018-04-29 13:00 | Outpatient (RCR) | payer MEDICARE, BC, SELFPAY ==
[2018-03-31 00:25] VITALS: BP 131/69; PULSE 74; RESP 18; TEMP 36.5; BMI 28.1
[2018-04-01 13:08] VITALS: RESP 18; TEMP 36.3; BMI 28.1
--- NOTE | 2018-04-01 17:21 | PCM.WC.PN ---
(1) Chronic ulcer of left foot with fat layer exposed Status: Chronic Current Visit: Yes Code(s): L97.522 - Non-pressure chronic ulcer of other part of left foot with fat layer exposed (2) Difficulty walking Status: Chronic Current Visit: Yes Code(s): R26.2 - Difficulty in walking, not elsewhere classified (3) Chronic renal insufficiency, stage III (moderate) Status: Chronic Current Visit: Yes Code(s): N18.3 - Chronic kidney disease, stage 3 (moderate) (4) Diabetes mellitus with polyneuropathy Status: Chronic Current Visit: Yes Qualifiers: Diabetes mellitus type: type 2 Qualified Code(s): E11.42 - Type 2 diabetes mellitus with diabetic polyneuropathy Code(s): E11.42 - Type 2 diabetes mellitus with diabetic polyneuropathy (5) Malnutrition Status: Chronic Current Visit: Yes Code(s): E46 - Unspecified protein-calorie malnutrition (6) Delayed wound healing Status: Chronic Current Visit: Yes Code(s): T14.8 - Other injury of unspecified body region Type of Wound Date of Service: 04/02/18 Chief Complaint: Left heel ulceration. left foot wound , first webspace left foot History of Wound: This is a 73-year-old female returns for follow-up of left heel ulceration that returned. She has missed several appointments. She denies fever, chills, nausea, vomiting, loss of appetite. She was fitted for her ordered patellar tendon bearing ankle-foot orthotic with offloading pocket at [facility]. she has resumed a slower break in process this past week and is doig well. Progress of Wound: stable heel. stable ulcer between toes left foot - Physical Exam Vital Signs Temp Pulse Resp BP 97.3 F L 74 18 131/69 H 04/01/18 13:08 03/31/18 00:25 04/01/18 13:08 03/31/18 00:25 General: Alert, Oriented x3, Cooperative Extremities: No cyanosis, Capillary Refill Less than 3 Seconds, No Calf Tenderness, Diminished Peripheral Pulses, Edema Skin: Ulcer/ Wound - No purulence, erythema, streaking, no odor, no infection left Wound Measurements and Assessment WC - Nurse 1 - General Ulcer Measurement Start: 04/01/18 13:08 Freq: Status: Active Protocol: Activity Type Activity Date Activity User E-Sign Co-Sign Detail Recorded Client Recorded Date Recorded By Document 04/01/18 13:08 [email or web address] [id number] 04/01/18 13:16 [email or web address] 04/01/18 13:08 Wound Center Nurse 1 [Ulcer Assessment] #6 left 1st webspace -Combined with other wound No -Current Size (cm) - Length 1.0 -Current Size (cm) - Width 0.4 -Current Size (cm) - Depth 0.2 -Total Square Cm 0.40 -Photo Taken Yes -Epithelialization Small 1-33% -Tunneling No -Undermining/Tunneling No -Circular Undermining No -Exudate Amt Small (1-33%) -Exudate Type Serosanguineous -Wound Margin Flat & Intact -Granulation Amt Small (1-33%) -Granulation Quality Red -Slough/Fibrin Yes -Necrosis Amt Medium (34-66%) -Necrotic Tissue Type Adherent Slough -Structure Exposed N/A -Texture (Radha-wound Skin Appearance) Assessed Callus -Moisture (Radha-wound Skin Appearance Assessed ) Maceration -Color (Radha-wound Skin Appearance) No Abnormality -Temperature (Radha-wound Skin No Abnormality Appearance) (Pt Warm) -Tenderness on Palpation (Radha-wound No Skin Appearance) -Ulcer Cleansing Rinsed/ Irrigated with Saline -Foul Odor after Cleansing No -Anesthetic Used 4% Lidocaine Solution #1 left heel -Combined with other wound No -Current Size (cm) - Length 0.2 -Current Size (cm) - Width 0.2 -Current Size (cm) - Depth 0.1 -Total Square Cm 0.04 -Photo Taken Yes -Epithelialization None Present -Tunneling No -Undermining/Tunneling No -Circular Undermining No -Exudate Amt None Present (0 %) -Wound Margin Flat & Intact -Granulation Amt Small (1-33%) -Granulation Quality [place] -Slough/Fibrin Yes -Necrosis Amt Medium (34-66%) -Necrotic Tissue Type Adherent Slough -Structure Exposed N/A -Texture (Radha-wound Skin Appearance) Assessed Callus -Moisture (Radha-wound Skin Appearance Assessed ) -Color (Radha-wound Skin Appearance) Assessed Ecchymosis -Temperature (Radha-wound Skin No Abnormality Appearance) (Pt Warm) -Tenderness on Palpation (Radha-wound No Skin Appearance) -Ulcer Cleansing Rinsed/ Irrigated with Saline -Foul Odor after Cleansing No -Anesthetic Used 4% Lidocaine Solution [Edema Assessment] -Lower Limb Edema Present Yes -Left Calf (cm) 31.5 -Left Ankle (cm) 20.5 ELI - Nurse 2 - General Ulcer CM Notes Start: 04/01/18 13:08 Freq: Status: Active Protocol: Activity Type Activity Date Activity User E-Sign Co-Sign Detail Recorded Client Recorded Date Recorded By Document 04/01/18 13:27 [id number] 04/01/18 13:31 04/01/18 13:27 Wound Center Nurse 2 [Procedure/Treatment] #6 left 1st webspace -Time 13:28 -Correct Patient Yes -Correct Side, Site, Position Yes -Correct Procedure Yes -Procedure Performed Yes -Type of Procedure Debridement -Clinical Debridement Subcutaneous -Post Debridement Size (cm) - Length 1.1 -Post Debridement Size (cm) - Width 0.5 -Post Debridement Size (cm) - Depth 0.2 -Total Square Cm 0.55 -Wound/Ulcer Outcome Not Healed -Ulcer Cleansing Rinsed/ Irrigated with Saline -Foul Odor after Cleansing No -Bioengineered Tissue No -Topical Lidocaine (%) 4 -Bleeding Controlled with Pressure -Treatment Response Procedure Tolerated Well #1 left heel -Time 13:30 -Correct Patient Yes -Correct Side, Site, Position Yes -Correct Procedure Yes -Procedure Performed Yes -Type of Procedure Debridement -Clinical Debridement Subcutaneous -Post Debridement Size (cm) - Length 0.3 -Post Debridement Size (cm) - Width 0.3 -Post Debridement Size (cm) - Depth 0.1 -Total Square Cm 0.09 -Wound/Ulcer Outcome Not Healed -Ulcer Cleansing Rinsed/ Irrigated with Saline -Foul Odor after Cleansing No -Bioengineered Tissue No -Topical Lidocaine (%) 4 -Bleeding Controlled with Pressure -Treatment Response Procedure Tolerated Well [See Physician Procedure note for Specifics] Pain Scale: 0-10 Numeric [Pain] -Is Patient Pain Free? Yes Musculoskeletal: No Tenderness to Palpation of Joints or Extremities, Muscle Wasting, - - No pain with wound manipulation left foot Neurological: - - Lack of epicritic sensation to left lower extremity Psych/Mental Status: Normal Affect, Appropriate Debridement Note Post-Debridement Measurements/Treatment ELI - Nurse 2 - General Ulcer CM Notes Start: 04/01/18 13:08 Freq: Status: Active Protocol: Activity Type Activity Date Activity User E-Sign Co-Sign Detail Recorded Client Recorded Date Recorded By Document 04/01/18 13:27 [id number] 04/01/18 13:31 04/01/18 13:27 Wound Center Nurse 2 #6 left 1st webspace -Time 13:28 -Correct Patient Yes -Correct Side, Site, Position Yes -Correct Procedure Yes -Procedure Performed Yes -Type of Procedure Debridement -Clinical Debridement Subcutaneous -Post Debridement Size (cm) - Length 1.1 -Post Debridement Size (cm) - Width 0.5 -Post Debridement Size (cm) - Depth 0.2 -Total Square Cm 0.55 -Wound/Ulcer Outcome Not Healed -Ulcer Cleansing Rinsed/ Irrigated with Saline -Foul Odor after Cleansing No -Bioengineered Tissue No -Topical Lidocaine (%) 4 -Bleeding Controlled with Pressure -Treatment Response Procedure Tolerated Well #1 left heel -Time 13:30 -Correct Patient Yes -Correct Side, Site, Position Yes -Correct Procedure Yes -Procedure Performed Yes -Type of Procedure Debridement -Clinical Debridement Subcutaneous -Post Debridement Size (cm) - Length 0.3 -Post Debridement Size (cm) - Width 0.3 -Post Debridement Size (cm) - Depth 0.1 -Total Square Cm 0.09 -Wound/Ulcer Outcome Not Healed -Ulcer Cleansing Rinsed/ Irrigated with Saline -Foul Odor after Cleansing No -Bioengineered Tissue No -Topical Lidocaine (%) 4 -Bleeding Controlled with Pressure -Treatment Response Procedure Tolerated Well Pain Scale: 0-10 Numeric Is Patient Pain Free? Yes Wound debrided: plantar heel Laterality: Left Wound Grade/Stage: grade 1 Type of Debridement: Excisional debridement Anesthesia Used: 5% Lidocaine Gel Depth: in the subcutaneous layer Percentage of wound debrided: 100 Instrument Used: #15 blade - fibrous, devitalized subcutaneous, biofilm, slough Tissue Removed: fibrous, devitalized subcutaneous, biofilm, slough Severity: Fat Layer Exposed Amount of bleeding with debridement: Mild Bleeding Controlled with: Pressure Patient tolerated procedure well - Additional Wound Wound debrided: interdigital space (1 and 2 left) Laterality: Left Wound Grade/Stage: grade 1 Type of Debridement: Excisional debridement Anesthesia Used: 5% Lidocaine Gel Depth: in the subcutaneous layer Percentage of wound debrided: 100 Instrument Used: #15 blade Tissue Removed: fibrous, devitalized subcutaneous, biofilm, slough Severity: Fat Layer Exposed Amount of bleeding with debridement: Mild Bleeding Controlled with: Pressure Patient tolerated procedure: Patient tolerated procedure well Assessment/Plan Active Problems Difficulty walking (Chronic) Chronic renal insufficiency, stage III (moderate) (Chronic) Diabetes mellitus with polyneuropathy (Chronic) Malnutrition (Chronic) Delayed wound healing (Chronic) Chronic ulcer of left foot with fat layer exposed (Chronic) Assessment: Plantar heel ulcer, left foot -fat layer exposed, grade 1. First interdigital space with fat layer exposed, grade 1. Diabetes with neuropathy. Delayed healing and recurrent ulcer formation. Malnutrition. Left foot advanced flat foot deformity with h/o surgical intervention. Nonadherence to treatment plan. calcaneal gait, left. difficulty walking Plan: I reviewed and discussed her case in detail. Subcutaneous ulcer debridement was performed as noted in the clinical panel to the plantar heel of the left foot and interdigital space of the left foot. The findings are consistent with chronic ulceration inflammation. Offloading measures are continued with cam walker and offloading Plastizote and felt liners. She obtained her brace from [facility] [employer] [facility] and has resumed the recommended break-in process. I advised her routine adjustments are anticipated and she needs to follow-up with [facility] specialist. She went this past week and have the upper part adjusted with significant relief. To continue follow-up as needed. Previous x-rays of both feet do not reveal evidence of underlying infection or significant soft tissue pathology. There is no sign of osteomyelitis or infection involving bone. To continue with Bernardo, nutritional supplementation to continue to optimization of her diabetes with controlled blood sugars and follow-up with primary care physician. It is okay to take boost or Glucerna as an alternative nutritional supplement; I do not recommend exceeding 2 drinks daily in addition to her regular well balanced nutritious diet. To follow up with nutritional referrals. To control mild edema with Tubigrip bilateral. This was dispensed. Her right foot callus was debrided with a 15 blade and she was reassured no wound or infection is noted. To continue to offload and monitor daily. to moisturize and gently file to prevent pressure to this site. To return to clinic in 1 week or call sooner if any problems; a wound care center provider will be covering next week.
[2018-04-09 13:26] VITALS: BP 145/73; PULSE 85; RESP 18; TEMP 36.3; BMI 28.1
--- NOTE | 2018-04-09 14:31 | PCM.WC.PN ---
(1) Chronic ulcer of left foot with fat layer exposed Status: Chronic Current Visit: Yes Code(s): L97.522 - Non-pressure chronic ulcer of other part of left foot with fat layer exposed (2) Diabetes mellitus with polyneuropathy Status: Chronic Current Visit: Yes Qualifiers: Diabetes mellitus type: type 2 Qualified Code(s): E11.42 - Type 2 diabetes mellitus with diabetic polyneuropathy Code(s): E11.42 - Type 2 diabetes mellitus with diabetic polyneuropathy (3) Difficulty walking Status: Chronic Current Visit: Yes Code(s): R26.2 - Difficulty in walking, not elsewhere classified (4) Chronic renal insufficiency, stage III (moderate) Status: Chronic Current Visit: Yes Code(s): N18.3 - Chronic kidney disease, stage 3 (moderate) (5) Malnutrition Status: Chronic Current Visit: Yes Code(s): E46 - Unspecified protein-calorie malnutrition (6) Delayed wound healing Status: Chronic Current Visit: Yes Code(s): T14.8 - Other injury of unspecified body region Type of Wound Date of Service: 04/09/18 Chief Complaint: Left heel ulceration. left foot wound , first webspace left foot History of Wound: This is a 73-year-old female returns for follow-up of left heel ulceration that returned. She has missed several appointments. She denies fever, chills, nausea, vomiting, loss of appetite. She was fitted for her ordered patellar tendon bearing ankle-foot orthotic with offloading pocket at [employer]. she has resumed a slower break in process this past week and is doig well. Progress of Wound: stable heel. stable ulcer between toes left foot- slight maceration appreciated to area today - Physical Exam Vital Signs Temp Pulse Resp BP 97.3 F L 85 18 145/73 H 04/09/18 13:26 04/09/18 13:26 04/09/18 13:26 04/09/18 13:26 General: Alert, Oriented x3, Cooperative, No apparent distress Extremities: No cyanosis, Capillary Refill Less than 3 Seconds, No Calf Tenderness, Diminished Peripheral Pulses, Edema Skin: Ulcer/ Wound - Ulcer to left heel and left and left 1st webspace continue to show no purulence, no erythema, no streaking, no malodor, or any other signs of local infection. Wound Measurements and Assessment WC - Nurse 1 - General Ulcer Measurement Start: 04/01/18 13:08 Freq: Status: Active Protocol: Activity Type Activity Date Activity User E-Sign Co-Sign Detail Recorded Client Recorded Date Recorded By Document 04/09/18 13:26 RB [id number] 04/09/18 13:42 RB 04/09/18 13:26 Wound Center Nurse 1 [Ulcer Assessment] #6 left 1st webspace -Combined with other wound No -Current Size (cm) - Length 0.3 -Current Size (cm) - Width 0.7 -Current Size (cm) - Depth 0.2 -Total Square Cm 0.21 -Tunneling No -Undermining/Tunneling No -Circular Undermining No -Classification - Thickness Full Thickness without Exposed Support Structure -Exudate Amt Medium (34-66%) -Exudate Type Serosanguineous -Wound Margin Thickened & Rolled Under -Granulation Amt Medium (34-66%) -Granulation Quality [place] -Slough/Fibrin Yes -Necrosis Amt Small (1-33%) -Necrotic Tissue Type Adherent Slough -Structure Exposed N/A -Texture (Radha-wound Skin Appearance) Assessed -Moisture (Radha-wound Skin Appearance Maceration ) -Color (Radha-wound Skin Appearance) Assessed -Temperature (Radha-wound Skin No Abnormality Appearance) (Pt Warm) -Tenderness on Palpation (Radha-wound No Skin Appearance) -Ulcer Cleansing Rinsed/ Irrigated with Saline -Foul Odor after Cleansing No -Anesthetic Used 5% Lidocaine Gel #1 left heel -Combined with other wound No -Current Size (cm) - Length 0.2 -Current Size (cm) - Width 0.3 -Current Size (cm) - Depth 0.2 -Total Square Cm 0.06 -Photo Taken No -Tunneling No -Undermining/Tunneling No -Classification - Thickness Full Thickness without Exposed Support Structure -Exudate Amt Small (1-33%) -Exudate Type Serosanguineous -Wound Margin Thickened -Granulation Amt Medium (34-66%) -Granulation Quality [place] -Slough/Fibrin Yes -Necrosis Amt Medium (34-66%) -Necrotic Tissue Type Adherent Slough -Structure Exposed N/A -Texture (Radha-wound Skin Appearance) Callus -Moisture (Radha-wound Skin Appearance Assessed ) -Color (Radha-wound Skin Appearance) Assessed -Temperature (Radha-wound Skin No Abnormality Appearance) (Pt Warm) -Tenderness on Palpation (Radha-wound No Skin Appearance) -Ulcer Cleansing Wound Cleanser -Foul Odor after Cleansing No -Anesthetic Used 5% Lidocaine Gel WC - Nurse 2 - General Ulcer CM Notes Start: 04/01/18 13:08 Freq: Status: Active Protocol: Activity Type Activity Date Activity User E-Sign Co-Sign Detail Recorded Client Recorded Date Recorded By Document 04/09/18 14:01 [id number] 04/09/18 14:12 04/09/18 14:01 Wound Center Nurse 2 [Procedure/Treatment] #6 left 1st webspace -Time 14:02 -Correct Patient Yes -Correct Side, Site, Position Yes -Correct Procedure Yes -Procedure Performed Yes -Type of Procedure Debridement -Clinical Debridement Subcutaneous -Post Debridement Size (cm) - Length 0.4 -Post Debridement Size (cm) - Width 0.8 -Post Debridement Size (cm) - Depth 0.2 -Total Square Cm 0.32 -Wound/Ulcer Outcome Not Healed -Ulcer Cleansing Rinsed/ Irrigated with Saline -Foul Odor after Cleansing No -Bioengineered Tissue No -Topical Lidocaine (%) 5 -Bleeding Controlled with Pressure -Treatment Response Procedure Tolerated Well #1 left heel -Time 14:02 -Correct Patient Yes -Correct Side, Site, Position Yes -Correct Procedure Yes -Procedure Performed Yes -Type of Procedure Debridement -Clinical Debridement Subcutaneous -Post Debridement Size (cm) - Length 0.3 -Post Debridement Size (cm) - Width 0.4 -Post Debridement Size (cm) - Depth 0.2 -Total Square Cm 0.12 -Wound/Ulcer Outcome Not Healed -Ulcer Cleansing Rinsed/ Irrigated with Saline -Foul Odor after Cleansing No -Bioengineered Tissue No -Topical Lidocaine (%) 5 -Bleeding Controlled with Pressure -Treatment Response Procedure Tolerated Well [See Physician Procedure note for Specifics] Pain Scale: 0-10 Numeric [Pain] -Is Patient Pain Free? Yes Musculoskeletal: No Tenderness to Palpation of Joints or Extremities Neurological: - - Lack of epicritic sensation to left lower extremity Psych/Mental Status: Normal Affect, Appropriate Debridement Note Post-Debridement Measurements/Treatment WC - Nurse 2 - General Ulcer CM Notes Start: 04/01/18 13:08 Freq: Status: Active Protocol: Activity Type Activity Date Activity User E-Sign Co-Sign Detail Recorded Client Recorded Date Recorded By Document 04/01/18 13:27 TM [id number] 04/01/18 13:31 TM Document 04/09/18 14:01 [id number] 04/09/18 14:12 TM 04/01/18 04/09/18 13:27 14:01 Wound Center Nurse 2 #6 left 1st webspace -Time 13:28 14:02 -Correct Patient Yes Yes -Correct Side, Site, Position Yes Yes -Correct Procedure Yes Yes -Procedure Performed Yes Yes -Type of Procedure Debridement Debridement -Clinical Debridement Subcutaneous Subcutaneous -Post Debridement Size (cm) - Length 1.1 0.4 -Post Debridement Size (cm) - Width 0.5 0.8 -Post Debridement Size (cm) - Depth 0.2 0.2 -Total Square Cm 0.55 0.32 -Wound/Ulcer Outcome Not Healed Not Healed -Ulcer Cleansing Rinsed/ Rinsed/ Irrigated with Irrigated with Saline Saline -Foul Odor after Cleansing No No -Bioengineered Tissue No No -Topical Lidocaine (%) 4 5 -Bleeding Controlled with Pressure Pressure -Treatment Response Procedure Procedure Tolerated Well Tolerated Well #1 left heel -Time 13:30 14:02 -Correct Patient Yes Yes -Correct Side, Site, Position Yes Yes -Correct Procedure Yes Yes -Procedure Performed Yes Yes -Type of Procedure Debridement Debridement -Clinical Debridement Subcutaneous Subcutaneous -Post Debridement Size (cm) - Length 0.3 0.3 -Post Debridement Size (cm) - Width 0.3 0.4 -Post Debridement Size (cm) - Depth 0.1 0.2 -Total Square Cm 0.09 0.12 -Wound/Ulcer Outcome Not Healed Not Healed -Ulcer Cleansing Rinsed/ Rinsed/ Irrigated with Irrigated with Saline Saline -Foul Odor after Cleansing No No -Bioengineered Tissue No No -Topical Lidocaine (%) 4 5 -Bleeding Controlled with Pressure Pressure -Treatment Response Procedure Procedure Tolerated Well Tolerated Well Pain Scale: 0-10 Numeric Is Patient Pain Free? Yes Yes Wound debrided: Left plantar heel Laterality: Left Wound Grade/Stage: 1 Type of Debridement: Excisional debridement Anesthesia Used: 4% Lidocaine Solution Depth: in the subcutaneous layer Percentage of wound debrided: 100 Instrument Used: #15 blade Tissue Removed: Fibrin, devitalized subcutaneous tissue, biofilm, adherent slough Severity: Fat Layer Exposed Amount of bleeding with debridement: Mild Bleeding Controlled with: Pressure Patient tolerated procedure well - Additional Wound Wound debrided: Left first webspace Laterality: Left Wound Grade/Stage: 1 Type of Debridement: Excisional debridement Anesthesia Used: 4% Lidocaine Solution Depth: in the subcutaneous layer Percentage of wound debrided: 100 Instrument Used: #15 blade, - - Tissue nipper Tissue Removed: Fibrin, devitalized subcutaneous tissue, biofilm, adherent slough Severity: Fat Layer Exposed Amount of bleeding with debridement: Mild Bleeding Controlled with: Pressure Patient tolerated procedure: Patient tolerated procedure well Assessment/Plan Active Problems Difficulty walking (Chronic) Chronic renal insufficiency, stage III (moderate) (Chronic) Diabetes mellitus with polyneuropathy (Chronic) Malnutrition (Chronic) Delayed wound healing (Chronic) Chronic ulcer of left foot with fat layer exposed (Chronic) Assessment: Plantar heel ulcer, left foot -fat layer exposed, grade 1. First interdigital space with fat layer exposed, grade 1. Diabetes with neuropathy. Delayed healing and recurrent ulcer formation. Malnutrition. Left foot advanced flat foot deformity with h/o surgical intervention. Nonadherence to treatment plan. calcaneal gait, left. difficulty walking Plan: Patient was seen in the absence of Dr. Galeano. Subcutaneous ulcer debridement was performed as noted in the clinical panel to the plantar heel of the left foot and interdigital space of the left foot again this week. The left heel ulcer was dressed with moistened palomo and the left 1st webspace was switched to aquacel ag, to help with some of the maceration. Offloading measures are continued with cam walker and offloading Plastizote and felt liners. She obtained her brace from [employer] and has resumed the recommended break-in process and states she feels much more stable in this brace. Previous x-rays of both feet do not reveal evidence of underlying infection or significant soft tissue pathology. There is no sign of osteomyelitis or infection involving bone. To continue with Bernardo, nutritional supplementation to continue to optimization of her diabetes with controlled blood sugars and follow-up with primary care physician. It is okay to take boost or Glucerna as an alternative nutritional supplement; I do not recommend exceeding 2 drinks daily in addition to her regular well balanced nutritious diet. To follow up with nutritional referrals. To control mild edema with Tubigrip bilateral. Her right foot callus was debrided with a 15 blade and she was reassured no wound or infection is noted again today. To continue to offload and monitor daily. She is to moisturize and gently file to prevent pressure to this site. Patient says she will be out of town for granddaughters graduation the for the next two weeks. She will follow back up in the wound healing center when she is back in town. All signs and symptoms of local and systemic infection were discussed with the patient in great detail and she was instructed to get to an ER or doctor immediately should she notice any of these, even if out of town. She understands this.
--- NOTE | 2018-04-09 14:45 | PN.PCM_ITS ---
(1) Chronic ulcer of left foot with fat layer exposed Status: Chronic Current Visit: Yes Code(s): L97.522 - Non-pressure chronic ulcer of other part of left foot with fat layer exposed (2) Diabetes mellitus with polyneuropathy Status: Chronic Current Visit: Yes Qualifiers: Diabetes mellitus type: type 2 Qualified Code(s): E11.42 - Type 2 diabetes mellitus with diabetic polyneuropathy Code(s): E11.42 - Type 2 diabetes mellitus with diabetic polyneuropathy (3) Difficulty walking Status: Chronic Current Visit: Yes Code(s): R26.2 - Difficulty in walking, not elsewhere classified (4) Chronic renal insufficiency, stage III (moderate) Status: Chronic Current Visit: Yes Code(s): N18.3 - Chronic kidney disease, stage 3 (moderate) (5) Malnutrition Status: Chronic Current Visit: Yes Code(s): E46 - Unspecified protein- calorie malnutrition (6) Delayed wound healing Status: Chronic Current Visit: Yes Code(s): T14.8 - Other injury of unspecified body region Type of Wound Date of Service: 04/09/18 Chief Complaint: Left heel ulceration. left foot wound , first webspace left foot History of Wound: This is a 73-year-old female returns for follow-up of left heel ulceration that returned. She has missed several appointments. She denies fever, chills, nausea, vomiting, loss of appetite. She was fitted for her ordered patellar tendon bearing ankle-foot orthotic with offloading pocket at [employer] she has resumed a slower break in process this past week and is doig well. Progress of Wound: stable heel. stable ulcer between toes left foot- slight maceration appreciated to area today - Physical Exam Vital Signs Temp Pulse Resp BP 97.3 F L 85 18 145/73 H 04/09/18 13:26 04/09/18 13:26 04/09/18 13:26 04/09/18 13:26 General: Alert, Oriented x3, Cooperative, No apparent distress Extremities: No cyanosis, Capillary Refill Less than 3 Seconds, No Calf Tenderness, Diminished Peripheral Pulses, Edema Skin: Ulcer/ Wound - Ulcer to left heel and left and left 1st webspace continue to show no purulence, no erythema, no streaking, no malodor, or any other signs of local infection. Wound Measurements and Assessment WC - Nurse 1 - General Ulcer Measurement Start: 04/01/18 13:08 Freq: Status: Active Protocol: Activity Type Activity Date Activity User E-Sign Co-Sign Detail Recorded Client Recorded Date Recorded By Document 04/09/18 13:26 RB [id number] 04/09/18 13:42 RB 04/09/18 13:26 Wound Center Nurse 1 [Ulcer Assessment] #6 left 1st webspace -Combined with other wound No -Current Size (cm) - Length 0.3 -Current Size (cm) - Width 0.7 -Current Size (cm) - Depth 0.2 -Total Square Cm 0.21 -Tunneling No -Undermining/Tunneling No -Circular Undermining No -Classification - Thickness Full Thickness without Exposed Support Structure -Exudate Amt Medium (34-66%) -Exudate Type Serosanguineous -Wound Margin Thickened & Rolled Under -Granulation Amt Medium (34-66%) -Granulation Quality [place] -Slough/Fibrin Yes -Necrosis Amt Small (1-33%) -Necrotic Tissue Type Adherent Slough -Structure Exposed N/A -Texture (Radha-wound Skin Appearance) Assessed -Moisture (Radha-wound Skin Appearance Maceration ) -Color (Radha-wound Skin Appearance) Assessed -Temperature (Radha-wound Skin No Abnormality Appearance) (Pt Warm) -Tenderness on Palpation (Radha-wound No Skin Appearance) -Ulcer Cleansing Rinsed/ Irrigated with Saline -Foul Odor after Cleansing No -Anesthetic Used 5% Lidocaine Gel #1 left heel -Combined with other wound No -Current Size (cm) - Length 0.2 -Current Size (cm) - Width 0.3 -Current Size (cm) - Depth 0.2 -Total Square Cm 0.06 -Photo Taken No -Tunneling No -Undermining/Tunneling No -Classification - Thickness Full Thickness without Exposed Support Structure -Exudate Amt Small (1-33%) -Exudate Type Serosanguineous -Wound Margin Thickened -Granulation Amt Medium (34-66%) -Granulation Quality [place] -Slough/Fibrin Yes -Necrosis Amt Medium (34-66%) -Necrotic Tissue Type Adherent Slough -Structure Exposed N/A -Texture (Radha-wound Skin Appearance) Callus -Moisture (Radha-wound Skin Appearance Assessed ) -Color (Radha-wound Skin Appearance) Assessed -Temperature (Radha-wound Skin No Abnormality Appearance) (Pt Warm) -Tenderness on Palpation (Radah-wound No Skin Appearance) -Ulcer Cleansing Wound Cleanser -Foul Odor after Cleansing No -Anesthetic Used 5% Lidocaine Gel WC - Nurse 2 - General Ulcer CM Notes Start: 04/01/18 13:08 Freq: Status: Active Protocol: Activity Type Activity Date Activity User E-Sign Co-Sign Detail Recorded Client Recorded Date Recorded By Document 04/09/18 14:01 [id number] 04/09/18 14:12 04/09/18 14:01 Wound Center Nurse 2 [Procedure/Treatment] #6 left 1st webspace -Time 14:02 -Correct Patient Yes -Correct Side, Site, Position Yes -Correct Procedure Yes -Procedure Performed Yes -Type of Procedure Debridement -Clinical Debridement Subcutaneous -Post Debridement Size (cm) - Length 0.4 -Post Debridement Size (cm) - Width 0.8 -Post Debridement Size (cm) - Depth 0.2 -Total Square Cm 0.32 -Wound/Ulcer Outcome Not Healed -Ulcer Cleansing Rinsed/ Irrigated with Saline -Foul Odor after Cleansing No -Bioengineered Tissue No -Topical Lidocaine (%) 5 -Bleeding Controlled with Pressure -Treatment Response Procedure Tolerated Well #1 left heel -Time 14:02 -Correct Patient Yes -Correct Side, Site, Position Yes -Correct Procedure Yes -Procedure Performed Yes -Type of Procedure Debridement -Clinical Debridement Subcutaneous -Post Debridement Size (cm) - Length 0.3 -Post Debridement Size (cm) - Width 0.4 -Post Debridement Size (cm) - Depth 0.2 -Total Square Cm 0.12 -Wound/Ulcer Outcome Not Healed -Ulcer Cleansing Rinsed/ Irrigated with Saline -Foul Odor after Cleansing No -Bioengineered Tissue No -Topical Lidocaine (%) 5 -Bleeding Controlled with Pressure -Treatment Response Procedure Tolerated Well [See Physician Procedure note for Specifics] Pain Scale: 0-10 Numeric [Pain] -Is Patient Pain Free? Yes Musculoskeletal: No Tenderness to Palpation of Joints or Extremities Neurological: - - Lack of epicritic sensation to left lower extremity Psych/Mental Status: Normal Affect, Appropriate Debridement Note Post-Debridement Measurements/Treatment WC - Nurse 2 - General Ulcer CM Notes Start: 04/01/18 13:08 Freq: Status: Active Protocol: Activity Type Activity Date Activity User E-Sign Co-Sign Detail Recorded Client Recorded Date Recorded By Document 04/01/18 13:27 TM [id number] 04/01/18 13:31 TM Document 04/09/18 14:01 [email or web address] 04/09/18 14:12 TM 04/01/18 04/09/18 13:27 14:01 Wound Center Nurse 2 #6 left 1st webspace -Time 13:28 14:02 -Correct Patient Yes Yes -Correct Side, Site, Position Yes Yes -Correct Procedure Yes Yes -Procedure Performed Yes Yes -Type of Procedure Debridement Debridement -Clinical Debridement Subcutaneous Subcutaneous -Post Debridement Size (cm) - Length 1.1 0.4 -Post Debridement Size (cm) - Width 0.5 0.8 -Post Debridement Size (cm) - Depth 0.2 0.2 -Total Square Cm 0.55 0.32 -Wound/Ulcer Outcome Not Healed Not Healed -Ulcer Cleansing Rinsed/ Rinsed/ Irrigated with Irrigated with Saline Saline -Foul Odor after Cleansing No No -Bioengineered Tissue No No -Topical Lidocaine (%) 4 5 -Bleeding Controlled with Pressure Pressure -Treatment Response Procedure Procedure Tolerated Well Tolerated Well #1 left heel -Time 13:30 14:02 -Correct Patient Yes Yes -Correct Side, Site, Position Yes Yes -Correct Procedure Yes Yes -Procedure Performed Yes Yes -Type of Procedure Debridement Debridement -Clinical Debridement Subcutaneous Subcutaneous -Post Debridement Size (cm) - Length 0.3 0.3 -Post Debridement Size (cm) - Width 0.3 0.4 -Post Debridement Size (cm) - Depth 0.1 0.2 -Total Square Cm 0.09 0.12 -Wound/Ulcer Outcome Not Healed Not Healed -Ulcer Cleansing Rinsed/ Rinsed/ Irrigated with Irrigated with Saline Saline -Foul Odor after Cleansing No No -Bioengineered Tissue No No -Topical Lidocaine (%) 4 5 -Bleeding Controlled with Pressure Pressure -Treatment Response Procedure Procedure Tolerated Well Tolerated Well Pain Scale: 0-10 Numeric Is Patient Pain Free? Yes Yes Wound debrided: Left plantar heel Laterality: Left Wound Grade/Stage: 1 Type of Debridement: Excisional debridement Anesthesia Used: 4% Lidocaine Solution Depth: in the subcutaneous layer Percentage of wound debrided: 100 Instrument Used: #15 blade Tissue Removed: Fibrin, devitalized subcutaneous tissue, biofilm, adherent slough Severity: Fat Layer Exposed Amount of bleeding with debridement: Mild Bleeding Controlled with: Pressure Patient tolerated procedure well - Additional Wound Wound debrided: Left first webspace Laterality: Left Wound Grade/Stage: 1 Type of Debridement: Excisional debridement Anesthesia Used: 4% Lidocaine Solution Depth: in the subcutaneous layer Percentage of wound debrided: 100 Instrument Used: #15 blade, - - Tissue nipper Tissue Removed: Fibrin, devitalized subcutaneous tissue, biofilm, adherent slough Severity: Fat Layer Exposed Amount of bleeding with debridement: Mild Bleeding Controlled with: Pressure Patient tolerated procedure: Patient tolerated procedure well Assessment/Plan Active Problems Difficulty walking (Chronic) Chronic renal insufficiency, stage III (moderate) (Chronic) Diabetes mellitus with polyneuropathy (Chronic) Malnutrition (Chronic) Delayed wound healing (Chronic) Chronic ulcer of left foot with fat layer exposed (Chronic) Assessment: Plantar heel ulcer, left foot -fat layer exposed, grade 1. First interdigital space with fat layer exposed, grade 1. Diabetes with neuropathy. Delayed healing and recurrent ulcer formation. Malnutrition. Left foot advanced flat foot deformity with h/o surgical intervention. Nonadherence to treatment plan. calcaneal gait, left. difficulty walking Plan: Patient was seen in the absence of Dr. Galeano. Subcutaneous ulcer debridement was performed as noted in the clinical panel to the plantar heel of the left foot and interdigital space of the left foot again this week. The left heel ulcer was dressed with moistened palomo and the left 1st webspace was switched to aquacel ag, to help with some of the maceration. Offloading measures are continued with cam walker and offloading Plastizote and felt liners. She obtained her brace from [employer] and has resumed the recommended break-in process and states she feels much more stable in this brace. Previous x-rays of both feet do not reveal evidence of underlying infection or significant soft tissue pathology. There is no sign of osteomyelitis or infection involving bone. To continue with Bernardo, nutritional supplementation to continue to optimization of her diabetes with controlled blood sugars and follow-up with primary care physician. It is okay to take boost or Glucerna as an alternative nutritional supplement; I do not recommend exceeding 2 drinks daily in addition to her regular well balanced nutritious diet. To follow up with nutritional referrals. To control mild edema with Tubigrip bilateral. Her right foot callus was debrided with a 15 blade and she was reassured no wound or infection is noted again today. To continue to offload and monitor daily. She is to moisturize and gently file to prevent pressure to this site. Patient says she will be out of town for granddaughters graduation the for the next two weeks. She will follow back up in the wound healing center when she is back in town. All signs and symptoms of local and systemic infection were discussed with the patient in great detail and she was instructed to get to an ER or doctor immediately should she notice any of these , even if out of town. She understands this.
[2018-04-29 13:06] VITALS: BP 142/92; PULSE 82; RESP 18; TEMP 36.4; BMI 28.1
--- NOTE | 2018-04-29 13:45 | PN.PCM_ITS ---
(1) Ulcer of right foot with fat layer exposed Status: Chronic Current Visit: Yes Code(s): L97.512 - Non-pressure chronic ulcer of other part of right foot with fat layer exposed (2) Chronic ulcer of left foot with fat layer exposed Status: Chronic Current Visit: Yes Code(s): L97.522 - Non-pressure chronic ulcer of other part of left foot with fat layer exposed (3) Difficulty walking Status: Chronic Current Visit: Yes Code(s): R26.2 - Difficulty in walking, not elsewhere classified (4) Chronic renal insufficiency, stage III (moderate) Status: Chronic Current Visit: Yes Code(s): N18.3 - Chronic kidney disease, stage 3 (moderate) (5) Diabetes mellitus with polyneuropathy Status: Chronic Current Visit: Yes Qualifiers: Diabetes mellitus type: type 2 Qualified Code(s): E11.42 - Type 2 diabetes mellitus with diabetic polyneuropathy Code(s): E11.42 - Type 2 diabetes mellitus with diabetic polyneuropathy (6) Malnutrition Status: Chronic Current Visit: Yes Code(s): E46 - Unspecified protein- calorie malnutrition (7) Delayed wound healing Status: Chronic Current Visit: Yes Code(s): T14.8 - Other injury of unspecified body region (8) Pain in left ankle and joints of left foot Status: Acute Current Visit: Yes Code(s): M25.572 - Pain in left ankle and joints of left foot (9) Arthritis of left ankle Status: Chronic Current Visit: Yes Code(s): M19.072 - Primary osteoarthritis , left ankle and foot Type of Wound Date of Service: 04/29/18 Chief Complaint: Left heel ulceration. New right foot ulceration. left foot wound , first webspace left foot. New left ankle and foot pain History of Wound: This is a 73-year-old female returns for follow-up of left heel ulceration that returned. She has missed several appointments because she has been in [place] the last 3 weeks. She has a new concern of a right foot ulcer that is recurrent. She denies drainage or redness. She noted some dried blood appearance to the bottom of the great big toe. She denies traumatic incident. She also complains of left foot and ankle pain with an onset of 1 week ago that sharp and aching aggravated with walking and direct touch. She is not sure if this is due to her brace which she did repeat a slower break-in process. Rest provides some relief. She is interested in going antibiotics and have the braces and she is modified. She is concerned that the material did not seem to expand and this applies pressure and discomfort in her feet especially when they swell at the end of the day. She reports family members pushed around in a wheelchair the entire time she was in [place]. She denies fever, chills, nausea, vomiting, loss of appetite. Progress of Wound: stable heel left. stable ulcer between toes left foot- needed maceration. New ulcer right sub-first metatarsal head - Physical Exam Vital Signs Temp Pulse Resp BP 97.5 F L 82 18 142/92 H 04/29/18 13:06 04/29/18 13:06 04/29/18 13:06 04/29/18 13:06 General: Alert, Oriented x3, Cooperative Extremities: No cyanosis, Capillary Refill Less than 3 Seconds, No Calf Tenderness - Negative Maddison and Herrera sign bilateral, Diminished Peripheral Pulses, Edema - Mild bilateral lower extremities, - - Decreased medial longitudinal arch with valgus and calcaneal heel position of the left lower extremity. Decreased first metatarsophalangeal joint range of motion with prominent first metatarsal head of the right foot. Compartments of bilateral lower cavities remain soft. Skin: Ulcer/ Wound - No purulence, no erythema, streaking, odor, no infection bilateral lower extremities. There is new wound to the right foot is noted., - - The skin is atrophic bilateral without hair noted Wound Measurements and Assessment WC - Nurse 1 - General Ulcer Measurement Start: 04/01/18 13:08 Freq: Status: Active Protocol: Activity Type Activity Date Activity User E-Sign Co-Sign Detail Recorded Client Recorded Date Recorded By Document 04/29/18 13:06 [email or web address] [id number] 04/29/18 13:14 TAHIRA 04/29/18 13:06 Wound Center Nurse 1 [Ulcer Assessment] #6 left 1st webspace -Combined with other wound No -Current Size (cm) - Length 1.0 -Current Size (cm) - Width 0.3 -Current Size (cm) - Depth 0.1 -Total Square Cm 0.30 -Photo Taken Yes -Epithelialization Small 1-33% -Tunneling No -Undermining/Tunneling No -Exudate Amt Small (1-33%) -Exudate Type Serosanguineous -Wound Margin Flat & Intact -Granulation Amt Medium (34-66%) -Granulation Quality Red -Slough/Fibrin Yes -Necrosis Amt Small (1-33%) -Necrotic Tissue Type Adherent Slough -Structure Exposed N/A -Texture (Radha-wound Skin Appearance) Assessed -Moisture (Radha-wound Skin Appearance Assessed ) Dry/Scaly -Color (Radha-wound Skin Appearance) Assessed -Temperature (Radha-wound Skin No Abnormality Appearance) (Pt Warm) -Tenderness on Palpation (Radha-wound No Skin Appearance) -Ulcer Cleansing Rinsed/ Irrigated with Saline -Foul Odor after Cleansing No -Anesthetic Used 4% Lidocaine Solution #1 left heel -Combined with other wound No -Current Size (cm) - Length 0.2 -Current Size (cm) - Width 0.2 -Current Size (cm) - Depth 0.4 -Total Square Cm 0.04 -Photo Taken Yes -Epithelialization None Present -Tunneling No -Undermining/Tunneling No -Circular Undermining No -Exudate Amt None Present (0 %) -Wound Margin Flat & Intact -Granulation Amt None Present (0 %) -Slough/Fibrin Yes -Necrosis Amt None Present (0 %) -Structure Exposed N/A -Texture (Radha-wound Skin Appearance) Assessed Callus -Moisture (Radha-wound Skin Appearance Assessed ) Dry/Scaly -Color (Radha-wound Skin Appearance) Assessed -Temperature (Radha-wound Skin No Abnormality Appearance) (Pt Warm) -Tenderness on Palpation (Radha-wound No Skin Appearance) -Ulcer Cleansing Rinsed/ Irrigated with Saline -Foul Odor after Cleansing No -Anesthetic Used 4% Lidocaine Solution WC - Nurse 2 - General Ulcer CM Notes Start: 04/01/18 13:08 Freq: Status: Active Protocol: Activity Type Activity Date Activity User E-Sign Co-Sign Detail Recorded Client Recorded Date Recorded By Document 04/29/18 13:24 [email or web address] [id number] 04/29/18 13:35 TAHIRA 04/29/18 13:24 Wound Center Nurse 2 [Procedure/Treatment] 5-right 1st metatarsal -Time 13:25 -Correct Patient Yes -Correct Side, Site, Position Yes -Correct Procedure Yes -Procedure Performed Yes -Type of Procedure Debridement -Clinical Debridement Subcutaneous -Post Debridement Size (cm) - Length 0.4 -Post Debridement Size (cm) - Width 0.4 -Post Debridement Size (cm) - Depth 0.1 -Total Square Cm 0.16 -Wound/Ulcer Outcome Not Healed -Ulcer Cleansing Rinsed/ Irrigated with Saline -Foul Odor after Cleansing No -Bioengineered Tissue No -Bleeding Controlled with Pressure -Treatment Response Procedure Tolerated Well #6 left 1st webspace -Correct Patient Yes -Correct Side, Site, Position Yes -Correct Procedure Yes -Procedure Performed Yes -Type of Procedure Debridement -Clinical Debridement Subcutaneous -Post Debridement Size (cm) - Length 1 -Post Debridement Size (cm) - Width 0.3 -Post Debridement Size (cm) - Depth 0.1 -Total Square Cm 0.3 -Wound/Ulcer Outcome Not Healed -Ulcer Cleansing Rinsed/ Irrigated with Saline -Foul Odor after Cleansing No -Bioengineered Tissue No -Bleeding Controlled with Pressure -Treatment Response Procedure Tolerated Well #1 left heel -Time 13:24 -Correct Patient Yes -Correct Side, Site, Position Yes -Correct Procedure Yes -Procedure Performed Yes -Type of Procedure Debridement -Clinical Debridement Subcutaneous -Post Debridement Size (cm) - Length 0.3 -Post Debridement Size (cm) - Width 0.3 -Post Debridement Size (cm) - Depth 0.4 -Total Square Cm 0.09 [See Physician Procedure note for Specifics] Pain Scale: 0-10 Numeric [Pain] -Is Patient Pain Free? Yes Musculoskeletal: No Tenderness to Palpation of Joints or Extremities, Muscle Wasting, - - Pain on palpation to left sinus tarsi and lateral ankle and along the peroneal tendon. No pain with passive sagittal ankle range of motion. Pain with attempted inversion eversion which is very restricted to the left lower extremity. Decreased medial longitudinal arch and valgus heel position consistent with previous examinations. There is no crepitus or laxity, calor, erythema, or localized edema to these a for mention ankle and subtalar joint on the left lower extremity Neurological: - - Lack of epicritic sensation light touch bilateral lower extremities Psych/Mental Status: Normal Affect, Appropriate Debridement Note Post-Debridement Measurements/Treatment WC - Nurse 2 - General Ulcer CM Notes Start: 04/01/18 13:08 Freq: Status: Active Protocol: Activity Type Activity Date Activity User E-Sign Co-Sign Detail Recorded Client Recorded Date Recorded By Document 04/01/18 13:27 [id number] 04/01/18 13:31 TM Document 04/09/18 14:01 [id number] 04/09/18 14:12 Document 04/29/18 13:24 [id number] 04/29/18 13:35 04/01/18 04/09/18 04/29/18 13:27 14:01 13:24 Wound Center Nurse 2 5-right 1st metatarsal -Time 13:25 -Correct Patient Yes -Correct Side, Site, Position Yes -Correct Procedure Yes -Procedure Performed Yes -Type of Procedure Debridement -Clinical Debridement Subcutaneous -Post Debridement Size (cm) - Length 0.4 -Post Debridement Size (cm) - Width 0.4 -Post Debridement Size (cm) - Depth 0.1 -Total Square Cm 0.16 -Wound/Ulcer Outcome Not Healed -Ulcer Cleansing Rinsed/ Irrigated with Saline -Foul Odor after Cleansing No -Bioengineered Tissue No -Bleeding Controlled with Pressure -Treatment Response Procedure Tolerated Well #6 left 1st webspace -Time 13:28 14:02 -Correct Patient Yes Yes Yes -Correct Side, Site, Position Yes Yes Yes -Correct Procedure Yes Yes Yes -Procedure Performed Yes Yes Yes -Type of Procedure Debridement Debridement Debridement -Clinical Debridement Subcutaneous Subcutaneous Subcutaneous -Post Debridement Size (cm) - Length 1.1 0.4 1 -Post Debridement Size (cm) - Width 0.5 0.8 0.3 -Post Debridement Size (cm) - Depth 0.2 0.2 0.1 -Total Square Cm 0.55 0.32 0.3 -Wound/Ulcer Outcome Not Healed Not Healed Not Healed -Ulcer Cleansing Rinsed/ Rinsed/ Rinsed/ Irrigated with Irrigated with Irrigated with Saline Saline Saline -Foul Odor after Cleansing No No No -Bioengineered Tissue No No No -Topical Lidocaine (%) 4 5 -Bleeding Controlled with Pressure Pressure Pressure -Treatment Response Procedure Procedure Procedure Tolerated Well Tolerated Well Tolerated Well #1 left heel -Time 13:30 14:02 13:24 -Correct Patient Yes Yes Yes -Correct Side, Site, Position Yes Yes Yes -Correct Procedure Yes Yes Yes -Procedure Performed Yes Yes Yes -Type of Procedure Debridement Debridement Debridement -Clinical Debridement Subcutaneous Subcutaneous Subcutaneous -Post Debridement Size (cm) - Length 0.3 0.3 0.3 -Post Debridement Size (cm) - Width 0.3 0.4 0.3 -Post Debridement Size (cm) - Depth 0.1 0.2 0.4 -Total Square Cm 0.09 0.12 0.09 -Wound/Ulcer Outcome Not Healed Not Healed -Ulcer Cleansing Rinsed/ Rinsed/ Irrigated with Irrigated with Saline Saline -Foul Odor after Cleansing No No -Bioengineered Tissue No No -Topical Lidocaine (%) 4 5 -Bleeding Controlled with Pressure Pressure -Treatment Response Procedure Procedure Tolerated Well Tolerated Well Pain Scale: 0-10 Numeric Is Patient Pain Free? Yes Yes Yes Wound debrided: sub 1st metatarsal head Laterality: Right Wound Grade/Stage: grade 1 Type of Debridement: Excisional debridement Anesthesia Used: 5% Lidocaine Gel Depth: in the subcutaneous layer Percentage of wound debrided: 100 Instrument Used: #15 blade Tissue Removed: fibrous, devitalized subcutaneous, biofilm, slough Severity: Fat Layer Exposed Amount of bleeding with debridement: Mild Bleeding Controlled with: Pressure Patient tolerated procedure well - Additional Wound Wound debrided: plantar heel Laterality: Left Wound Grade/Stage: grade 1 Type of Debridement: Excisional debridement Anesthesia Used: 5% Lidocaine Gel Depth: in the subcutaneous layer Percentage of wound debrided: 100 Instrument Used: #15 blade Tissue Removed: fibrous, devitalized subcutaneous, biofilm, slough Severity: Fat Layer Exposed Amount of bleeding with debridement: Mild Bleeding Controlled with: Pressure Patient tolerated procedure: Patient tolerated procedure well - Additional Wound Wound debrided: first webspace foot Laterality: Left Wound Grade/Stage: grade 1 Type of Debridement: Excisional debridement Anesthesia Used: 5% Lidocaine Gel Depth: in the subcutaneous layer Percentage of wound debrided: 100 Instrument Used: #15 blade Tissue Removed: fibrous, devitalized subcutaneous, biofilm, slough Severity: Fat Layer Exposed Amount of bleeding with debridement: Mild Bleeding Controlled with: Pressure Patient tolerated procedure: Patient tolerated procedure well Assessment/Plan Active Problems Ulcer of right foot with fat layer exposed (Chronic) Pain in left ankle and joints of left foot (Acute) Arthritis of left ankle (Chronic) Difficulty walking (Chronic) Chronic renal insufficiency, stage III (moderate) (Chronic) Diabetes mellitus with polyneuropathy (Chronic) Malnutrition (Chronic) Delayed wound healing (Chronic) Chronic ulcer of left foot with fat layer exposed (Chronic) Assessment: Plantar heel ulcer, left foot -fat layer exposed, grade 1. First interdigital space with fat layer exposed, grade 1. New sub-first metatarsal head ulcer fat layer exposed- grade 1. Left ankle foot pain (differential diagnosis includes arthritis, brace irritation, Charcot; the workup is in process). Diabetes with neuropathy. Delayed healing and recurrent ulcer formation. Malnutrition. Left foot advanced flat foot deformity with h/o surgical intervention. Nonadherence to treatment plan. calcaneal gait, left. difficulty walking Plan: I reviewed and discussed her care plan. It is noted I have not seen her for nearly 1 month because she has been out of town. Subcutaneous ulcer debridement was performed as noted in the clinical panel to bilateral feet including 3 ulcer sites. All of the ulcer sites were dressed with moistened palomo and the left 1st webspace was switched to aquacel ag, to help with some of the maceration. To apply gauze between first and second toe of the left foot to act as a toe spacer and further reduce maceration formation. Offloading measures are continued with cam walker and offloading Plastizote and felt liners; is advised to return to this device and left lower extremity. I also advised her to return to her surgical shoe with her first metatarsal head cut the right lower extremity ; she relates she has this at home. She obtained her brace from [employer] including her extra-depth shoes and is concerned these are too tight and does not like the materials. I advised her to return to see if adjustments are appropriate. I advised her to discontinue their use if she feels is putting more pressure on her wound sites and if she has a day in which her swelling seems to be increased to avoid unnecessary pressure to her friable feet. Previous x-rays of both feet do not reveal evidence of underlying infection or significant soft tissue pathology. There is no sign of osteomyelitis or infection involving bone. Ankle x-ray order was provided today to evaluate her injury site. I would like to apply a left total contact cast to the left lower extremity for treatment of her heel ulcer site and also to mobilize her left foot and ankle pain site. The casting supplies will be confirmed for her follow-up visit next week and weekly to biweekly applications will be anticipated. She will bring an assistive walking device in preparation for this application. To continue with Bernardo, nutritional supplementation to continue to optimization of her diabetes with controlled blood sugars and follow -up with primary care physician. It is okay to take boost or Glucerna as an alternative nutritional supplement; I do not recommend exceeding 2 drinks daily in addition to her regular well balanced nutritious diet. To follow up with nutritional referrals. To control mild edema with Tubigrip bilateral. She was reassured no wound or infection is noted again today. To continue to offload and monitor daily. She is to moisturize and gently file to prevent pressure to this site. She will follow back up in the wound healing center when she is back in town. All signs and symptoms of local and systemic infection were discussed with the patient in great detail and she was instructed to get to an ER or doctor immediately should she notice any of these, even if out of town. She understands this.
--- NOTE | 2018-04-29 13:59 | RAD_ITS ---
STUDY: X-RAY - LEFT FOOT CLINICAL: Female, 73 years old. Left foot and ankle pain TECHNIQUE: 3 view(s) of the foot. COMPARISON: 07/22/2017 FINDINGS: No acute fracture or dislocation. Extensive demineralization and degenerative changes with postsurgical change at the distal portion of the first digit as well as the medial mid tarsal bones. Osseous screw at the head of the second metatarsal. Prior fracture with healing of the third metatarsal. Diffuse soft tissue swelling. RAD/Foot min 3 Views IMPRESSION: Degenerative changes, soft tissue swelling and postsurgical change. No acute osseous findings. Electronically Signed: Parveen Bennett DO at 12:09 EDT Tel , Service support ,
--- NOTE | 2018-04-29 14:00 | RAD_ITS ---
STUDY: X-RAY - LEFT ANKLE REASON FOR EXAM: Female, 73 years old. Left ankle pain. Recent debridement of the calcaneus. TECHNIQUE: 3 view(s) of the ankle. COMPARISON: None. FINDINGS: Normal visualized distal tibia and fibula. Normal medial and lateral malleoli. Normal tibiotalar articulation and ankle mortise. There is evidence of a plantar spur as well as a spur at the insertion of the Achilles tendon. There is deformity of the calcaneus and talus most likely secondary to prior fracture. No acute abnormality is seen. 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 Degenerative changes of the tarsal bones. There are atherosclerotic calcifications. Mild soft tissue swelling. RAD/Ankle min 3 Views IMPRESSION: No acute abnormality is seen. Degenerative changes as described. Electronically Signed: Alvin Horta MD at 9:28 EDT Tel [phone], Service support ,
== END 2018-04-30 23:59 ==
LOC: WC 13:00
PROVIDERS: Family Provider Family Medicine; PCP Family Medicine; Visit Provider Podiatrist
DX: L97.522 Non-pressure chronic ulcer of other part of left foot with fat layer exposed (principal); L97.512 Non-pressure chronic ulcer of other part of right foot with fat layer exposed; R26.2 Difficulty in walking, not elsewhere classified; N18.3 Chronic kidney disease, stage 3 (moderate); E11.42 Type 2 diabetes mellitus with diabetic polyneuropathy; E46 Unspecified protein-calorie malnutrition; M25.572 Pain in left ankle and joints of left foot; M19.072 Primary osteoarthritis, left ankle and foot
CPT/HCPCS: 11042; 73610; 73630

== ENCOUNTER 2018-05-20 13:00 | Outpatient (RCR) | payer MEDICARE, BC, SELFPAY ==
[2018-05-01 00:27] VITALS: BP 142/92; PULSE 82; RESP 18; TEMP 36.4; BMI 28.1
[2018-05-12 12:19] VITALS: BP 138/70; PULSE 84; RESP 18; TEMP 35.5; BMI 28.1
[2018-05-13 13:20] VITALS: BP 112/70; PULSE 84; RESP 18; TEMP 36.6; BMI 28.1
--- NOTE | 2018-05-13 14:15 | PN.PCM_ITS ---
(1) Chronic ulcer of left foot with fat layer exposed Status: Chronic Current Visit: Yes Code(s): L97.522 - Non-pressure chronic ulcer of other part of left foot with fat layer exposed (2) Difficulty walking Status: Chronic Current Visit: Yes Code(s): R26.2 - Difficulty in walking, not elsewhere classified (3) Diabetes mellitus with polyneuropathy Status: Chronic Current Visit: Yes Qualifiers: Code(s): E11.42 - Type 2 diabetes mellitus with diabetic polyneuropathy (4) Malnutrition Status: Chronic Current Visit: Yes Code(s): E46 - Unspecified protein- calorie malnutrition Type of Wound Date of Service: 05/13/18 Chief Complaint: Left heel ulceration. left foot wound , first webspace left foot. new left hallux ulcer History of Wound: This is a 73-year-old female returns for follow-up of left heel ulceration , first interspace ulcer and new left great toe wound. The wound appeared this morning after she is trying to file her toe skin. She denies pain or redness. She continues to wear right foot surgical offloading shoe only will bring her diabetic shoes and insoles for evaluation next week. She understands that insulin may need to be shaved down. She is previously complaining of left foot and ankle pain and an updated x-ray was obtained and this is previously reviewed to her demonstrating continued arthritis and foot deformity. There were no acute injuries noted and she remembers this being reviewed. She had a caudal contact cast applied to the left lower extremity last week and had it removed early yesterday due to irritation to the left leg. She thinks this is helped reduce all of her wound sites and is excited about her progress. She denies fever, chills, nausea, vomiting, loss of appetite. Progress of Wound: stable heel left. stable ulcer between toes left foot. Healed ulcer right sub-first metatarsal head. New left hallux ulcer - Physical Exam Vital Signs Temp Pulse Resp BP 97.8 F 84 18 112/70 05/13/18 13:20 05/13/18 13:20 05/13/18 13:20 05/13/18 13:20 General: Alert, Oriented x3, Cooperative Extremities: No cyanosis, Capillary Refill Less than 3 Seconds, No Calf Tenderness, Diminished Peripheral Pulses, Edema, - - Calcaneus type gait and decreased loaded first metatarsophalangeal joint left foot. Hallux valgus left about second toe. Skin: Ulcer/ Wound - No purulence, erythema, streaking, odor, infection. There is a new skin discontinuity to the plantar left hallux with granular base noted. Progressive epithelialization is noted to the 2 other previous ulcer sites. Maceration has resolved. Her skin is atrophic, - - Full epithelialization is noted to the right foot and there is no also noted today. Wound Measurements and Assessment WC - Nurse 1 - General Ulcer Measurement Start: 05/12/18 12:19 Freq: Status: Active Protocol: Activity Type Activity Date Activity User E-Sign Co-Sign Detail Recorded Client Recorded Date Recorded By Document 05/13/18 13:20 [email or web address] [id number] 05/13/18 13:23 TAHIRA 05/13/18 13:20 Wound Center Nurse 1 [Ulcer Assessment] #7 -right 1st metatarsal -Combined with other wound No #6 left 1st webspace -Combined with other wound No -Current Size (cm) - Length 0.9 -Current Size (cm) - Width 0.3 -Current Size (cm) - Depth 0.2 -Total Square Cm 0.27 -Photo Taken No -Epithelialization Large 67-100% -Tunneling No -Undermining/Tunneling No -Circular Undermining No -Exudate Amt Small (1-33%) -Exudate Type Serosanguineous -Wound Margin Flat & Intact -Granulation Amt Large (67-100%) -Granulation Quality Red -Slough/Fibrin Yes -Necrosis Amt Small (1-33%) -Necrotic Tissue Type Adherent Slough -Structure Exposed N/A -Texture (Radha-wound Skin Appearance) Assessed Callus -Moisture (Radha-wound Skin Appearance Assessed ) Dry/Scaly -Color (Radha-wound Skin Appearance) Assessed -Temperature (Radha-wound Skin No Abnormality Appearance) (Pt Warm) -Tenderness on Palpation (Radha-wound No Skin Appearance) -Ulcer Cleansing Rinsed/ Irrigated with Saline -Foul Odor after Cleansing No -Anesthetic Used 4% Lidocaine Solution #1 left heel -Combined with other wound No -Current Size (cm) - Length 0.1 -Current Size (cm) - Width 0.1 -Current Size (cm) - Depth 0.1 -Total Square Cm 0.01 -Photo Taken No -Epithelialization Large 67-100% -Tunneling No -Undermining/Tunneling No -Circular Undermining No -Exudate Amt None Present (0 %) -Granulation Amt None Present (0 %) -Necrosis Amt None Present (0 %) -Texture (Radha-wound Skin Appearance) Assessed -Moisture (Radha-wound Skin Appearance Assessed ) Dry/Scaly -Color (Radha-wound Skin Appearance) Assessed -Temperature (Radha-wound Skin No Abnormality Appearance) (Pt Warm) -Tenderness on Palpation (Radha-wound No Skin Appearance) -Ulcer Cleansing Rinsed/ Irrigated with Saline -Foul Odor after Cleansing No -Anesthetic Used 4% Lidocaine Solution [Edema Assessment] -Lower Limb Edema Present Yes -Left Calf (cm) 31.9 -Left Ankle (cm) 19.8 WC - Nurse 2 - General Ulcer CM Notes Start: 05/12/18 12:19 Freq: Status: Active Protocol: Activity Type Activity Date Activity User E-Sign Co-Sign Detail Recorded Client Recorded Date Recorded By Document 05/13/18 13:34 [email or web address] [id number] 05/13/18 13:36 TAHIRA 05/13/18 13:34 Wound Center Nurse 2 [Procedure/Treatment] #6 left 1st webspace -Time 13:35 -Correct Patient Yes -Correct Side, Site, Position Yes -Correct Procedure Yes -Procedure Performed Yes -Type of Procedure Debridement -Clinical Debridement Subcutaneous -Post Debridement Size (cm) - Length 1 -Post Debridement Size (cm) - Width 0.3 -Post Debridement Size (cm) - Depth 0.2 -Total Square Cm 0.3 -Wound/Ulcer Outcome Not Healed -Ulcer Cleansing Rinsed/ Irrigated with Saline -Foul Odor after Cleansing No -Bioengineered Tissue No -Bleeding Controlled with Pressure -Treatment Response Procedure Tolerated Well #1 left heel -Time 13:35 -Correct Patient Yes -Correct Side, Site, Position Yes -Correct Procedure Yes -Procedure Performed Yes -Type of Procedure Debridement -Clinical Debridement Subcutaneous -Post Debridement Size (cm) - Length 0.2 -Post Debridement Size (cm) - Width 0.2 -Post Debridement Size (cm) - Depth 0.2 -Total Square Cm 0.04 -Wound/Ulcer Outcome Not Healed -Ulcer Cleansing Rinsed/ Irrigated with Saline -Foul Odor after Cleansing No -Bioengineered Tissue No -Bleeding Controlled with Pressure -Treatment Response Procedure Tolerated Well [See Physician Procedure note for Specifics] Pain Scale: 0-10 Numeric [Pain] -Is Patient Pain Free? Yes Musculoskeletal: No Tenderness to Palpation of Joints or Extremities, Muscle Wasting Neurological: - - Lack of epicritic sensation light touch bilateral lower extremities Psych/Mental Status: Normal Affect, Appropriate Debridement Note Post-Debridement Measurements/Treatment WC - Nurse 2 - General Ulcer CM Notes Start: 05/12/18 12:19 Freq: Status: Active Protocol: Activity Type Activity Date Activity User E-Sign Co-Sign Detail Recorded Client Recorded Date Recorded By Document 05/13/18 13:34 [id number] 05/13/18 13:36 TAHIRA 05/13/18 13:34 Wound Center Nurse 2 #6 left 1st webspace -Time 13:35 -Correct Patient Yes -Correct Side, Site, Position Yes -Correct Procedure Yes -Procedure Performed Yes -Type of Procedure Debridement -Clinical Debridement Subcutaneous -Post Debridement Size (cm) - Length 1 -Post Debridement Size (cm) - Width 0.3 -Post Debridement Size (cm) - Depth 0.2 -Total Square Cm 0.3 -Wound/Ulcer Outcome Not Healed -Ulcer Cleansing Rinsed/ Irrigated with Saline -Foul Odor after Cleansing No -Bioengineered Tissue No -Bleeding Controlled with Pressure -Treatment Response Procedure Tolerated Well #1 left heel -Time 13:35 -Correct Patient Yes -Correct Side, Site, Position Yes -Correct Procedure Yes -Procedure Performed Yes -Type of Procedure Debridement -Clinical Debridement Subcutaneous -Post Debridement Size (cm) - Length 0.2 -Post Debridement Size (cm) - Width 0.2 -Post Debridement Size (cm) - Depth 0.2 -Total Square Cm 0.04 -Wound/Ulcer Outcome Not Healed -Ulcer Cleansing Rinsed/ Irrigated with Saline -Foul Odor after Cleansing No -Bioengineered Tissue No -Bleeding Controlled with Pressure -Treatment Response Procedure Tolerated Well Pain Scale: 0-10 Numeric Is Patient Pain Free? Yes Wound debrided: plantar heel Laterality: Left Wound Grade/Stage: grade 1 Type of Debridement: Excisional debridement Anesthesia Used: 5% Lidocaine Gel Depth: in the subcutaneous layer Percentage of wound debrided: 100 Instrument Used: #15 blade Tissue Removed: fibrous, devitalized subcutaneous, biofilm, slough Severity: Fat Layer Exposed Amount of bleeding with debridement: Mild Bleeding Controlled with: Pressure Patient tolerated procedure well - Additional Wound Wound debrided: first interspace Laterality: Left Wound Grade/Stage: grade 1 Type of Debridement: Excisional debridement Anesthesia Used: 5% Lidocaine Gel Depth: in the subcutaneous layer Percentage of wound debrided: 100 Instrument Used: #15 blade Tissue Removed: fibrous, devitalized subcutaneous, biofilm, slough Amount of bleeding with debridement: Mild Bleeding Controlled with: Pressure Patient tolerated procedure: Patient tolerated procedure well Assessment/Plan Active Problems Difficulty walking (Chronic) Diabetes mellitus with polyneuropathy (Chronic) Malnutrition (Chronic) Chronic ulcer of left foot with fat layer exposed (Chronic) Assessment: Plantar heel ulcer, left foot -fat layer exposed, grade 1. First interdigital space with fat layer exposed, grade 1. healed sub-first metatarsal head ulcer. Left ankle foot pain (differential diagnosis includes arthritis, brace irritation, Charcot; the workup is in process)- calmed down. Diabetes with neuropathy. Delayed healing and recurrent ulcer formation. Malnutrition. Left foot advanced flat foot deformity with h/o surgical intervention. Nonadherence to treatment plan. calcaneal gait, left. difficulty walking Plan: I reviewed and discussed her care plan. Subcutaneous ulcer debridement was performed as noted in the clinical panel to bilateral feet including 3 ulcer sites. All of the ulcer sites were dressed with moistened palomo and the left 1st webspace was switched to Alkymosel ag, to help with some of the maceration. To apply gauze between first and second toe of the left foot to act as a toe spacer and further reduce maceration formation. A well-padded total contact cast was applied today according to standard protocol. She tolerated this well and the left lower extremity remains in a rectus position. Care was taken to avoid the anterior walters irritation site. Her left foot pain seems to have calm down. Her x-ray results are previously reviewed. I also advised her to return to her surgical shoe with her first metatarsal head cut the right lower extremity ; she relates she has this at home. she will bring her shoe with diabetic insoles next week for evaluation. She understands these may need to be thinned out to avoid ulcerative formation. Previous x-rays of both feet do not reveal evidence of underlying infection or significant soft tissue pathology. There is no sign of osteomyelitis or infection involving bone. Ankle x-ray order was provided today to evaluate her injury site. To continue assistive walker device to offload wounds. To continue with Bernardo, nutritional supplementation to continue to optimization of her diabetes with controlled blood sugars and follow-up with primary care physician. It is okay to take boost or Glucerna as an alternative nutritional supplement; I do not recommend exceeding 2 drinks daily in addition to her regular well balanced nutritious diet. To follow up with nutritional referrals. To control mild edema with Tubigrip bilateral. She was reassured no wound or infection is noted again today. To continue to offload and monitor daily. She is advised to return to clinic in 1 week or call sooner if she has any questions or concerns.
[2018-05-20 13:20] VITALS: BP 116/65; PULSE 70; RESP 18; TEMP 36.4; BMI 28.1
--- NOTE | 2018-05-20 14:20 | PCM.WC.PN ---
(1) Chronic ulcer of left foot with fat layer exposed Status: Resolved Current Visit: Yes Code(s): L97.522 - Non-pressure chronic ulcer of other part of left foot with fat layer exposed (2) Difficulty walking Status: Chronic Current Visit: Yes Code(s): R26.2 - Difficulty in walking, not elsewhere classified (3) Diabetes mellitus with polyneuropathy Status: Chronic Current Visit: Yes Qualifiers: Code(s): E11.42 - Type 2 diabetes mellitus with diabetic polyneuropathy (4) Malnutrition Status: Chronic Current Visit: Yes Code(s): E46 - Unspecified protein-calorie malnutrition Type of Wound Date of Service: 05/20/18 Chief Complaint: Left heel ulceration, healed. left foot wound , first webspace left foothealed. Healed left hallux ulcer History of Wound: This is a 73-year-old female returns for follow-up of left heel ulceration , first interspace ulcer and left great toe wound. She denies drainage or redness. She kept her left lower extremity total contact cast in place as advised without complications or discomfort this past week. She continues to wear right foot surgical offloading shoe. She did bring her diabetic shoes and insoles for evaluation this week is advised. She denies fever, chills, nausea, vomiting, loss of appetite. She is with her friend Susan today. Progress of Wound: Healed heel left. Healed ulcer between toes left foot. Remains healed ulcer right sub-first metatarsal head. Healed left hallux ulcer - Physical Exam Vital Signs Temp Pulse Resp BP 97.5 F L 70 18 116/65 05/20/18 13:20 05/20/18 13:20 05/20/18 13:20 05/20/18 13:20 General: Alert, Oriented x3, Cooperative Extremities: No cyanosis, Capillary Refill Less than 3 Seconds, No Calf Tenderness - Negative Maddison and Herrera bilateral, Diminished Peripheral Pulses, Edema Skin: Ulcer/ Wound - No purulence, no erythema, streaking, no odor, no infection lateral lower extremities. Full epithelialization is noted to all previous ulcer sites. The skin in general is atrophic and without hair bilateral lower extremities Wound Measurements and Assessment WC - Nurse 1 - General Ulcer Measurement Start: 05/12/18 12:19 Freq: Status: Active Protocol: Activity Type Activity Date Activity User E-Sign Co-Sign Detail Recorded Client Recorded Date Recorded By Document 05/20/18 13:20 RB [id number] 05/20/18 13:41 RB 05/20/18 13:20 Wound Center Nurse 1 [Ulcer Assessment] #6 left 1st webspace -Combined with other wound No -Current Size (cm) - Length 0 -Current Size (cm) - Width 0 -Current Size (cm) - Depth 0 -Total Square Cm 0 -Photo Taken Yes -Epithelialization Large 67-100% -Tunneling No -Undermining/Tunneling No -Circular Undermining No -Exudate Amt None Present (0 %) -Wound Margin Distinct, Outline Attached -Granulation Amt Large (67-100%) -Granulation Quality [place] -Slough/Fibrin No -Necrosis Amt None Present (0 %) -Structure Exposed N/A -Texture (Radha-wound Skin Appearance) Assessed -Moisture (Radha-wound Skin Appearance Assessed ) -Color (Radha-wound Skin Appearance) Assessed -Temperature (Radha-wound Skin No Abnormality Appearance) (Pt Warm) -Tenderness on Palpation (Radha-wound No Skin Appearance) -Ulcer Cleansing Rinsed/ Irrigated with Saline -Foul Odor after Cleansing No #1 left heel -Combined with other wound No -Current Size (cm) - Length 0 -Current Size (cm) - Width 0 -Current Size (cm) - Depth 0 -Total Square Cm 0 -Photo Taken Yes -Epithelialization Large 67-100% -Undermining/Tunneling No -Circular Undermining No -Exudate Amt None Present (0 %) -Wound Margin Distinct, Outline Attached -Granulation Amt Large (67-100%) -Granulation Quality [place] -Slough/Fibrin No -Necrosis Amt None Present (0 %) -Structure Exposed N/A -Texture (Radha-wound Skin Appearance) Assessed -Moisture (Radha-wound Skin Appearance Assessed ) -Color (Radha-wound Skin Appearance) Assessed -Temperature (Radha-wound Skin No Abnormality Appearance) (Pt Warm) -Tenderness on Palpation (Radha-wound No Skin Appearance) -Ulcer Cleansing Rinsed/ Irrigated with Saline -Foul Odor after Cleansing No [Edema Assessment] -Left Calf (cm) 34.5 -Left Ankle (cm) 20.2 WC - Nurse 2 - General Ulcer CM Notes Start: 05/12/18 12:19 Freq: Status: Active Protocol: Activity Type Activity Date Activity User E-Sign Co-Sign Detail Recorded Client Recorded Date Recorded By Document 05/20/18 13:49 [id number] 05/20/18 13:50 05/20/18 13:49 Wound Center Nurse 2 [Procedure/Treatment] #6 left 1st webspace -Correct Patient No -Correct Side, Site, Position No -Correct Procedure No -Procedure Performed No -Post Debridement Size (cm) - Length 0 -Post Debridement Size (cm) - Width 0 -Post Debridement Size (cm) - Depth 0 -Total Square Cm 0 -Wound/Ulcer Outcome Healed- Epithelialized #1 left heel -Correct Patient No -Correct Side, Site, Position No -Correct Procedure No -Procedure Performed No -Post Debridement Size (cm) - Length 0 -Post Debridement Size (cm) - Width 0 -Post Debridement Size (cm) - Depth 0 -Total Square Cm 0 -Wound/Ulcer Outcome Healed- Epithelialized [See Physician Procedure note for Specifics] Pain Scale: 0-10 Numeric [Pain] -Is Patient Pain Free? Yes Musculoskeletal: No Tenderness to Palpation of Joints or Extremities, Muscle Wasting, - - Left calcaneus tailgate with prominent plantar heel. Hallux valgus with lateral deviation of the hallux abuts the second toe left. Prominent first metatarsal head right foot. Her extra-depth diabetic shoes with insoles were evaluated today. Neurological: - - Lack of epicritic sensation light touch bilateral lower extremity is consistent with neuropathy Psych/Mental Status: Normal Affect, Appropriate Debridement Note Post-Debridement Measurements/Treatment WC - Nurse 2 - General Ulcer CM Notes Start: 05/12/18 12:19 Freq: Status: Active Protocol: Activity Type Activity Date Activity User E-Sign Co-Sign Detail Recorded Client Recorded Date Recorded By Document 05/13/18 13:34 [id number] 05/13/18 13:36 Document 05/20/18 13:49 [id number] 05/20/18 13:50 05/13/18 05/20/18 13:34 13:49 Wound Center Nurse 2 #6 left 1st webspace -Time 13:35 -Correct Patient Yes No -Correct Side, Site, Position Yes No -Correct Procedure Yes No -Procedure Performed Yes No -Type of Procedure Debridement -Clinical Debridement Subcutaneous -Post Debridement Size (cm) - Length 1 0 -Post Debridement Size (cm) - Width 0.3 0 -Post Debridement Size (cm) - Depth 0.2 0 -Total Square Cm 0.3 0 -Wound/Ulcer Outcome Not Healed Healed- Epithelialized -Ulcer Cleansing Rinsed/ Irrigated with Saline -Foul Odor after Cleansing No -Bioengineered Tissue No -Bleeding Controlled with Pressure -Treatment Response Procedure Tolerated Well #1 left heel -Time 13:35 -Correct Patient Yes No -Correct Side, Site, Position Yes No -Correct Procedure Yes No -Procedure Performed Yes No -Type of Procedure Debridement -Clinical Debridement Subcutaneous -Post Debridement Size (cm) - Length 0.2 0 -Post Debridement Size (cm) - Width 0.2 0 -Post Debridement Size (cm) - Depth 0.2 0 -Total Square Cm 0.04 0 -Wound/Ulcer Outcome Not Healed Healed- Epithelialized -Ulcer Cleansing Rinsed/ Irrigated with Saline -Foul Odor after Cleansing No -Bioengineered Tissue No -Bleeding Controlled with Pressure -Treatment Response Procedure Tolerated Well Pain Scale: 0-10 Numeric Is Patient Pain Free? Yes Yes No debridement was completed today - All ulcer sites have healed and no debridement was performed Assessment/Plan Active Problems Difficulty walking (Chronic) Diabetes mellitus with polyneuropathy (Chronic) Malnutrition (Chronic) Assessment: Plantar heel ulcer, left foot, healed. First interdigital space, healed. healed sub-first metatarsal head ulcer. Left ankle foot pain (differential diagnosis includes arthritis, brace irritation, Charcot; the workup is in process)-improved. Diabetes with neuropathy. Malnutrition. Left foot advanced flat foot deformity with h/o surgical intervention. Nonadherence to treatment plan. calcaneal gait, left. difficulty walking Plan: I reviewed and discussed her care plan. No debridement was performed because all the ulcer sites have healed. The total contact cast was removed from the left lower extremity. To discontinue dressing care because of the wound closure. To monitor close for return of wounds or infection. I recommend she continues with surgical shoe and cam walker with offloading devices until her insole modifications are complete. A prescription to go to [facility] for thinning of the forefoot insoles was provided today. This will allow appropriate room for her forefoot deformities in her extra-depth diabetic shoes. To discontinue protein supplementation. She is advised it is okay to perform nonaggressive weightbearing exercises and to return to the pool as well. She is discharged from the wound care center today will follow up with foot and ankle center after her brace and insole modifications are completed. I answered all of her questions.
--- NOTE | 2018-05-20 14:26 | PN.PCM_ITS ---
(1) Chronic ulcer of left foot with fat layer exposed Status: Resolved Current Visit: Yes Code(s): L97.522 - Non-pressure chronic ulcer of other part of left foot with fat layer exposed (2) Difficulty walking Status: Chronic Current Visit: Yes Code(s): R26.2 - Difficulty in walking, not elsewhere classified (3) Diabetes mellitus with polyneuropathy Status: Chronic Current Visit: Yes Qualifiers: Code(s): E11.42 - Type 2 diabetes mellitus with diabetic polyneuropathy (4) Malnutrition Status: Chronic Current Visit: Yes Code(s): E46 - Unspecified protein- calorie malnutrition Type of Wound Date of Service: 05/20/18 Chief Complaint: Left heel ulceration, healed. left foot wound , first webspace left foot?healed. Healed left hallux ulcer History of Wound: This is a 73-year-old female returns for follow-up of left heel ulceration , first interspace ulcer and left great toe wound. She denies drainage or redness. She kept her left lower extremity total contact cast in place as advised without complications or discomfort this past week. She continues to wear right foot surgical offloading shoe. She did bring her diabetic shoes and insoles for evaluation this week is advised. She denies fever, chills, nausea, vomiting, loss of appetite. She is with her friend Susan today. Progress of Wound: Healed heel left. Healed ulcer between toes left foot. Remains healed ulcer right sub-first metatarsal head. Healed left hallux ulcer - Physical Exam Vital Signs Temp Pulse Resp BP 97.5 F L 70 18 116/65 05/20/18 13:20 05/20/18 13:20 05/20/18 13:20 05/20/18 13:20 General: Alert, Oriented x3, Cooperative Extremities: No cyanosis, Capillary Refill Less than 3 Seconds, No Calf Tenderness - Negative Maddison and Herrera bilateral, Diminished Peripheral Pulses, Edema Skin: Ulcer/ Wound - No purulence, no erythema, streaking, no odor, no infection lateral lower extremities. Full epithelialization is noted to all previous ulcer sites. The skin in general is atrophic and without hair bilateral lower extremities Wound Measurements and Assessment WC - Nurse 1 - General Ulcer Measurement Start: 05/12/18 12:19 Freq: Status: Active Protocol: Activity Type Activity Date Activity User E-Sign Co-Sign Detail Recorded Client Recorded Date Recorded By Document 05/20/18 13:20 RB [id number] 05/20/18 13:41 RB 05/20/18 13:20 Wound Center Nurse 1 [Ulcer Assessment] #6 left 1st webspace -Combined with other wound No -Current Size (cm) - Length 0 -Current Size (cm) - Width 0 -Current Size (cm) - Depth 0 -Total Square Cm 0 -Photo Taken Yes -Epithelialization Large 67-100% -Tunneling No -Undermining/Tunneling No -Circular Undermining No -Exudate Amt None Present (0 %) -Wound Margin Distinct, Outline Attached -Granulation Amt Large (67-100%) -Granulation Quality [place] -Slough/Fibrin No -Necrosis Amt None Present (0 %) -Structure Exposed N/A -Texture (Radha-wound Skin Appearance) Assessed -Moisture (Radha-wound Skin Appearance Assessed ) -Color (Radha-wound Skin Appearance) Assessed -Temperature (Radha-wound Skin No Abnormality Appearance) (Pt Warm) -Tenderness on Palpation (Radha-wound No Skin Appearance) -Ulcer Cleansing Rinsed/ Irrigated with Saline -Foul Odor after Cleansing No #1 left heel -Combined with other wound No -Current Size (cm) - Length 0 -Current Size (cm) - Width 0 -Current Size (cm) - Depth 0 -Total Square Cm 0 -Photo Taken Yes -Epithelialization Large 67-100% -Undermining/Tunneling No -Circular Undermining No -Exudate Amt None Present (0 %) -Wound Margin Distinct, Outline Attached -Granulation Amt Large (67-100%) -Granulation Quality [place] -Slough/Fibrin No -Necrosis Amt None Present (0 %) -Structure Exposed N/A -Texture (Radha-wound Skin Appearance) Assessed -Moisture (Radha-wound Skin Appearance Assessed ) -Color (Radha-wound Skin Appearance) Assessed -Temperature (Radha-wound Skin No Abnormality Appearance) (Pt Warm) -Tenderness on Palpation (Radha-wound No Skin Appearance) -Ulcer Cleansing Rinsed/ Irrigated with Saline -Foul Odor after Cleansing No [Edema Assessment] -Left Calf (cm) 34.5 -Left Ankle (cm) 20.2 WC - Nurse 2 - General Ulcer CM Notes Start: 05/12/18 12:19 Freq: Status: Active Protocol: Activity Type Activity Date Activity User E-Sign Co-Sign Detail Recorded Client Recorded Date Recorded By Document 05/20/18 13:49 [id number] 05/20/18 13:50 05/20/18 13:49 Wound Center Nurse 2 [Procedure/Treatment] #6 left 1st webspace -Correct Patient No -Correct Side, Site, Position No -Correct Procedure No -Procedure Performed No -Post Debridement Size (cm) - Length 0 -Post Debridement Size (cm) - Width 0 -Post Debridement Size (cm) - Depth 0 -Total Square Cm 0 -Wound/Ulcer Outcome Healed- Epithelialized #1 left heel -Correct Patient No -Correct Side, Site, Position No -Correct Procedure No -Procedure Performed No -Post Debridement Size (cm) - Length 0 -Post Debridement Size (cm) - Width 0 -Post Debridement Size (cm) - Depth 0 -Total Square Cm 0 -Wound/Ulcer Outcome Healed- Epithelialized [See Physician Procedure note for Specifics] Pain Scale: 0-10 Numeric [Pain] -Is Patient Pain Free? Yes Musculoskeletal: No Tenderness to Palpation of Joints or Extremities, Muscle Wasting, - - Left calcaneus tailgate with prominent plantar heel. Hallux valgus with lateral deviation of the hallux abuts the second toe left. Prominent first metatarsal head right foot. Her extra-depth diabetic shoes with insoles were evaluated today. Neurological: - - Lack of epicritic sensation light touch bilateral lower extremity is consistent with neuropathy Psych/Mental Status: Normal Affect, Appropriate Debridement Note Post-Debridement Measurements/Treatment WC - Nurse 2 - General Ulcer CM Notes Start: 05/12/18 12:19 Freq: Status: Active Protocol: Activity Type Activity Date Activity User E-Sign Co-Sign Detail Recorded Client Recorded Date Recorded By Document 05/13/18 13:34 [id number] 05/13/18 13:36 Document 05/20/18 13:49 [id number] 05/20/18 13:50 05/13/18 05/20/18 13:34 13:49 Wound Center Nurse 2 #6 left 1st webspace -Time 13:35 -Correct Patient Yes No -Correct Side, Site, Position Yes No -Correct Procedure Yes No -Procedure Performed Yes No -Type of Procedure Debridement -Clinical Debridement Subcutaneous -Post Debridement Size (cm) - Length 1 0 -Post Debridement Size (cm) - Width 0.3 0 -Post Debridement Size (cm) - Depth 0.2 0 -Total Square Cm 0.3 0 -Wound/Ulcer Outcome Not Healed Healed- Epithelialized -Ulcer Cleansing Rinsed/ Irrigated with Saline -Foul Odor after Cleansing No -Bioengineered Tissue No -Bleeding Controlled with Pressure -Treatment Response Procedure Tolerated Well #1 left heel -Time 13:35 -Correct Patient Yes No -Correct Side, Site, Position Yes No -Correct Procedure Yes No -Procedure Performed Yes No -Type of Procedure Debridement -Clinical Debridement Subcutaneous -Post Debridement Size (cm) - Length 0.2 0 -Post Debridement Size (cm) - Width 0.2 0 -Post Debridement Size (cm) - Depth 0.2 0 -Total Square Cm 0.04 0 -Wound/Ulcer Outcome Not Healed Healed- Epithelialized -Ulcer Cleansing Rinsed/ Irrigated with Saline -Foul Odor after Cleansing No -Bioengineered Tissue No -Bleeding Controlled with Pressure -Treatment Response Procedure Tolerated Well Pain Scale: 0-10 Numeric Is Patient Pain Free? Yes Yes No debridement was completed today - All ulcer sites have healed and no debridement was performed Assessment/Plan Active Problems Difficulty walking (Chronic) Diabetes mellitus with polyneuropathy (Chronic) Malnutrition (Chronic) Assessment: Plantar heel ulcer, left foot, healed. First interdigital space, healed. healed sub-first metatarsal head ulcer. Left ankle foot pain ( differential diagnosis includes arthritis, brace irritation, Charcot; the workup is in process)-improved. Diabetes with neuropathy. Malnutrition. Left foot advanced flat foot deformity with h/o surgical intervention. Nonadherence to treatment plan. calcaneal gait, left. difficulty walking Plan: I reviewed and discussed her care plan. No debridement was performed because all the ulcer sites have healed. The total contact cast was removed from the left lower extremity. To discontinue dressing care because of the wound closure. To monitor close for return of wounds or infection. I recommend she continues with surgical shoe and cam walker with offloading devices until her insole modifications are complete. A prescription to go to [facility] for thinning of the forefoot insoles was provided today. This will allow appropriate room for her forefoot deformities in her extra-depth diabetic shoes. To discontinue protein supplementation. She is advised it is okay to perform nonaggressive weightbearing exercises and to return to the pool as well. She is discharged from the wound care center today will follow up with foot and ankle center after her brace and insole modifications are completed. I answered all of her questions.
== END 2018-05-30 23:59 ==
LOC: WC 13:00
PROVIDERS: Family Provider Family Medicine; PCP Family Medicine; Visit Provider Podiatrist
DX: E11.621 Type 2 diabetes mellitus with foot ulcer (principal); E11.42 Type 2 diabetes mellitus with diabetic polyneuropathy; R26.2 Difficulty in walking, not elsewhere classified; L97.422 Non-pressure chronic ulcer of left heel and midfoot with fat layer exposed
CPT/HCPCS: 11042; 29445; 99212; 99213; G0463

== ENCOUNTER 2018-08-26 13:06 | Outpatient (RCR) | payer MEDICARE, BC, SELFPAY ==
[2018-08-26 13:21] VITALS: BP 157/77; PULSE 80; RESP 18; TEMP 36.1; BMI 27.8
--- NOTE | 2018-08-26 17:32 | HP.PCM_ITS ---
(1) Chronic ulcer of left foot with fat layer exposed Status: Chronic Current Visit: Yes Code(s): L97.522 - Non-pressure chronic ulcer of other part of left foot with fat layer exposed (2) Peripheral neuropathy Status: Chronic Current Visit: Yes Code(s): G62.9 - Polyneuropathy, unspecified (3) Diabetes mellitus with polyneuropathy Status: Chronic Current Visit: Yes Qualifiers: Code(s): E11.42 - Type 2 diabetes mellitus with diabetic polyneuropathy (4) Malnutrition Status: Chronic Current Visit: Yes Code(s): E46 - Unspecified protein- calorie malnutrition (5) Delayed wound healing Status: Chronic Current Visit: Yes Code(s): T14.8 - Other injury of unspecified body region (6) Gait instability Status: Chronic Current Visit: Yes Code(s): R26.81 - Unsteadiness on feet History of Present Illness Date of Service: 08/26/18 Chief Complaint: Left heel ulceration, healed. left foot wound , first webspace left foot?healed. Healed left hallux ulcer History of Wound: This is a 73-year-old female returns for follow-up of left heel ulceration , first interspace ulcer and left great toe wound. These ulcers were healed and have now returned.The ulcers on the right foot have stopped draining and she thinks these sites have healed. She kept her left lower extremity total contact cast in place as advised without complications or discomfort this past week. She continues to wear right and left foot surgical offloading shoes. She denies fever, chills, nausea, vomiting, loss of appetite. Past Medical History Past Medical History: Chronic Problems Pre-ulcerative corn or callous (Chronic) Ulcer of right foot with fat layer exposed (Chronic) Arthritis of left ankle (Chronic) Difficulty walking (Chronic) Ulcer of foot due to diabetes mellitus (Chronic) Ulcer of foot due to diabetes mellitus (Chronic) Diabetes mellitus (Chronic) Peripheral neuropathy (Chronic) CHF (congestive heart failure) (Chronic) Chronic renal insufficiency, stage III (moderate) (Chronic) Hypertension (Chronic) Over weight (Chronic) Chronic ulcer of left foot with fat layer exposed (Chronic) Diabetes mellitus with polyneuropathy (Chronic) Malnutrition (Chronic) Delayed wound healing (Chronic) Gait instability (Chronic) Ulcer of right foot with fat layer exposed (Chronic) Type 2 diabetes mellitus with diabetic polyneuropathy (Chronic) Past Medical History: reviewed Surgical History: - - Patient is undergone hysterectomy in the past. She has also undergone appendectomy. She has undergone 2 bladder surgeries for prolapse. She is undergone sinus surgery as well. She has had several surgeries for Charcot foot deformity of the left foot, including placement of metal hardware, and subsequent removal. She has had surgery for repair of a left ankle fracture. The patient is a Ab0. Home Medications: Ambulatory Orders Medication Instructions Recorded Atorvastatin Calcium 80 mg PO QHS 07/22/17 Biotin 5,000 mcg PO DAILY 07/22/17 Carvedilol [Coreg] 12.5 mg PO BID 07/22/17 Dexlansoprazole [Dexilant] 60 mg PO DAILY 07/22/17 Duloxetine HCl 60 mg PO BID 07/22/17 Ezetimibe [Zetia] 10 mg PO QHS 07/22/17 Insulin Glargine [Lantus (BKC)] 35 units SC BID 07/22/17 Insulin Lispro [Humalog KwikPen] See Protocol SQ PRN PRN 07/22/17 Pregabalin [Lyrica] 150 mg PO BID 07/22/17 Cholecalciferol (Vitamin D3) 2,000 unit PO DAILY 07/28/17 [Vitamin D3] Fluticasone Propionate [Flovent 50 mcg IH BID 07/28/17 Diskus] Saxagliptin HCl/Metformin HCl 1 each PO DAILY 07/28/17 [Kombiglyze Xr 2.5-1,000 mg Tab] Amoxicillin [Amoxil] 500 mg PO Q8H 08/27/17 - Family History Maternal - - Patient's father at the age of 71 from a cerebrovascular accident. Patient's mother at the age of 87 with a history of thyroid cancer. Lives: With Family - sister Smoking Status: Never smoker Tobacco Use: Non-smoker Review of Systems Constitutional: Denies: Chills, Fever, Weakness Cardiovascular: Denies: Chest Pain, Claudication Musculoskeletal: Reports: Joint Tenderness - left foot Skin: Reports: Skin Changes, Wounds. Denies: Pruritis Neurological: Reports: Balance problems - Physical Exam Vital Signs Temp Pulse Resp BP 96.9 F L 80 18 157/77 H 08/26/18 13:21 08/26/18 13:21 08/26/18 13:21 08/26/18 13:21 General: Alert, Oriented x3, Cooperative HEENT: Atraumatic Extremities: No cyanosis, Capillary Refill Less than 3 Seconds, No Calf Tenderness - negative natan and santiago signs bilateral, Diminished Peripheral Pulses, Edema Skin: Ulcer/ Wound - no purulence, no erythema, no streaking, no odor, no infection bilateral. full epithelialization noted to the right foot. there is no exposed bone or joint, left, - - peripheral skin is hairless and atrophic bilateral Wound Measurements and Assessment WC - Nurse 1 - General Ulcer Measurement Start: 08/26/18 13:20 Freq: Status: Active Protocol: Activity Type Activity Date Activity User E-Sign Co-Sign Detail Recorded Client Recorded Date Recorded By Document 08/26/18 13:21 DL [id number] 08/26/18 13:38 DL 08/26/18 13:21 Wound Center Nurse 1 [Ulcer Assessment] #10 R Grt Toe -Current Size (cm) - Length 0.4 -Current Size (cm) - Width 0.6 -Current Size (cm) - Depth 0.1 -Total Square Cm 0.24 -Photo Taken Yes -Classification - Thickness Unclassifiable (Eschar Covered ) -Exudate Amt None Present (0 %) -Wound Margin Thickened -Granulation Amt None Present (0 %) -Necrosis Amt None Present (0 %) -Structure Exposed N/A -Texture (Radha-wound Skin Appearance) No Abnormality -Moisture (Radha-wound Skin Appearance Dry/Scaly ) -Color (Radha-wound Skin Appearance) No Abnormality -Temperature (Radha-wound Skin No Abnormality Appearance) (Pt Warm) -Tenderness on Palpation (Radha-wound Yes Skin Appearance) -Ulcer Cleansing Rinsed/ Irrigated with Saline -Foul Odor after Cleansing No -Anesthetic Used 4% Lidocaine Solution #9 L Heel -Current Size (cm) - Length 0.2 -Current Size (cm) - Width 0.2 -Current Size (cm) - Depth 0.3 -Total Square Cm 0.04 -Photo Taken Yes -Maximum Distance #2 (cm) 0.2 -Circular Undermining Yes -Classification - [place] Grading ( Grade 2 Diabetic Ulcer) -Exudate Amt None Present (0 %) -Wound Margin Thickened -Granulation Amt Small (1-33%) -Granulation Quality Pale -Necrosis Amt Small (1-33%) -Necrotic Tissue Type Adherent Slough -Structure Exposed N/A -Texture (Radha-wound Skin Appearance) Callus Scarring -Moisture (Radha-wound Skin Appearance No Abnormality ) -Color (Radha-wound Skin Appearance) No Abnormality -Temperature (Radha-wound Skin No Abnormality Appearance) (Pt Warm) -Tenderness on Palpation (Radha-wound Yes Skin Appearance) -Ulcer Cleansing Rinsed/ Irrigated with Saline -Foul Odor after Cleansing No -Anesthetic Used 4% Lidocaine Solution #8 L Grt Toe Webspace -Current Size (cm) - Length 1.2 -Current Size (cm) - Width 0.7 -Current Size (cm) - Depth 0.2 -Total Square Cm 0.84 -Photo Taken Yes -Epithelialization None Present -Classification - [place] Grading ( Grade 2 Diabetic Ulcer) -Exudate Amt Small (1-33%) -Exudate Type Serosanguineous -Wound Margin Thickened -Granulation Amt Small (1-33%) -Granulation Quality [place] -Necrosis Amt Medium (34-66%) -Necrotic Tissue Type Adherent Slough -Structure Exposed N/A -Texture (Radha-wound Skin Appearance) Scarring -Moisture (Radha-wound Skin Appearance Maceration ) -Color (Radha-wound Skin Appearance) No Abnormality -Temperature (Radha-wound Skin No Abnormality Appearance) (Pt Warm) -Tenderness on Palpation (Radha-wound Yes Skin Appearance) -Ulcer Cleansing Rinsed/ Irrigated with Saline -Foul Odor after Cleansing No -Anesthetic Used 4% Lidocaine Solution WC - Nurse 2 - General Ulcer CM Notes Start: 08/26/18 13:20 Freq: Status: Active Protocol: Activity Type Activity Date Activity User E-Sign Co-Sign Detail Recorded Client Recorded Date Recorded By Document 08/26/18 16:50 [id number] 08/26/18 16:55 08/26/18 16:50 Wound Center Nurse 2 [Procedure/Treatment] #10 R Grt Toe -Foul Odor after Cleansing No #9 L Heel -Time 16:51 -Correct Patient Yes -Correct Side, Site, Position Yes -Correct Procedure Yes -Procedure Performed Yes -Type of Procedure Debridement -Clinical Debridement Subcutaneous -Post Debridement Size (cm) - Length 0.4 -Post Debridement Size (cm) - Width 0.3 -Post Debridement Size (cm) - Depth 0.1 -Total Square Cm 0.12 -Wound/Ulcer Outcome Not Healed -Ulcer Cleansing Rinsed/ Irrigated with Saline -Foul Odor after Cleansing No -Bioengineered Tissue No -Topical Lidocaine (%) 4 -Bleeding Controlled with Pressure -Treatment Response Procedure Tolerated Well #8 L Grt Toe Webspace -Time 16:53 -Correct Patient Yes -Correct Side, Site, Position Yes -Correct Procedure Yes -Procedure Performed Yes -Type of Procedure Debridement -Clinical Debridement Subcutaneous -Post Debridement Size (cm) - Length 0.5 -Post Debridement Size (cm) - Width 0.3 -Post Debridement Size (cm) - Depth 0.1 -Total Square Cm 0.15 -Wound/Ulcer Outcome Not Healed -Ulcer Cleansing Rinsed/ Irrigated with Saline -Foul Odor after Cleansing No -Bioengineered Tissue No -Topical Lidocaine (%) 4 -Bleeding Controlled with Pressure -Treatment Response Procedure Tolerated Well [See Physician Procedure note for Specifics] Pain Scale: 0-10 Numeric [Pain] -Is Patient Pain Free? Yes Musculoskeletal: No Tenderness to Palpation of Joints or Extremities, Muscle Wasting, - - calcaneus style gait, left. lateral hallux deviation left with hallux abuts second toe Neurological: - - lack of epicritic sensation via light touch bilateral lower extremities Psych/Mental Status: Normal Affect, Appropriate Debridement Note Post-Debridement Measurements/Treatment WC - Nurse 2 - General Ulcer CM Notes Start: 08/26/18 13:20 Freq: Status: Active Protocol: Activity Type Activity Date Activity User E-Sign Co-Sign Detail Recorded Client Recorded Date Recorded By Document 08/26/18 16:50 [id number] 08/26/18 16:55 08/26/18 16:50 Wound Center Nurse 2 #10 R Grt Toe -Foul Odor after Cleansing No #9 L Heel -Time 16:51 -Correct Patient Yes -Correct Side, Site, Position Yes -Correct Procedure Yes -Procedure Performed Yes -Type of Procedure Debridement -Clinical Debridement Subcutaneous -Post Debridement Size (cm) - Length 0.4 -Post Debridement Size (cm) - Width 0.3 -Post Debridement Size (cm) - Depth 0.1 -Total Square Cm 0.12 -Wound/Ulcer Outcome Not Healed -Ulcer Cleansing Rinsed/ Irrigated with Saline -Foul Odor after Cleansing No -Bioengineered Tissue No -Topical Lidocaine (%) 4 -Bleeding Controlled with Pressure -Treatment Response Procedure Tolerated Well #8 L Grt Toe Webspace -Time 16:53 -Correct Patient Yes -Correct Side, Site, Position Yes -Correct Procedure Yes -Procedure Performed Yes -Type of Procedure Debridement -Clinical Debridement Subcutaneous -Post Debridement Size (cm) - Length 0.5 -Post Debridement Size (cm) - Width 0.3 -Post Debridement Size (cm) - Depth 0.1 -Total Square Cm 0.15 -Wound/Ulcer Outcome Not Healed -Ulcer Cleansing Rinsed/ Irrigated with Saline -Foul Odor after Cleansing No -Bioengineered Tissue No -Topical Lidocaine (%) 4 -Bleeding Controlled with Pressure -Treatment Response Procedure Tolerated Well Pain Scale: 0-10 Numeric Is Patient Pain Free? Yes Wound debrided: plantar heel Laterality: Left Wound Grade/Stage: grade 1 Type of Debridement: Excisional debridement Anesthesia Used: 4% Lidocaine Solution Depth: in the subcutaneous layer Percentage of wound debrided: 100 Instrument Used: #15 blade Tissue Removed: fibrous, devitalized subcutaneous, biofilm, slough Severity: Fat Layer Exposed Amount of bleeding with debridement: Mild Bleeding Controlled with: Pressure Patient tolerated procedure well - Additional Wound Wound debrided: interspace (1) Laterality: Left Wound Grade/Stage: grade 1 Type of Debridement: Excisional debridement Anesthesia Used: 4% Lidocaine Solution Depth: in the subcutaneous layer Percentage of wound debrided: 100 Instrument Used: #15 blade Tissue Removed: fibrous, devitalized subcutaneous, biofilm, slough Severity: Fat Layer Exposed Amount of bleeding with debridement: Mild Bleeding Controlled with: Pressure Patient tolerated procedure: Patient tolerated procedure well Assessment/Plan Active Problems Peripheral neuropathy (Chronic) Chronic ulcer of left foot with fat layer exposed (Chronic) Diabetes mellitus with polyneuropathy (Chronic) Malnutrition (Chronic) Delayed wound healing (Chronic) Gait instability (Chronic) Assessment: Plantar heel ulcer, left foot, healed. First interdigital space, returned left foot. healed sub-first metatarsal head ulcer right foot. Diabetes with neuropathy. Malnutrition. Left foot advanced flat foot deformity with h/o surgical intervention. Nonadherence to treatment plan. calcaneal gait, left. difficulty walking Plan: I reviewed and discussed her care plan. No debridement was performed because all the ulcer sites have healed on the right foot. The left foot ulcers were debrided as noted in the clinical panel. To monitor close for return of wounds or infection on the right extremity. To change dressing daily to the left lower extremity with palomo or aqua rhiannon ag. I recommend she continues with surgical shoe and cam walker with offloading devices until her insole modifications are complete. To resume protein supplementation to optimize healing; arsen. She is advised it is okay to perform nonaggressive weightbearing exercises and to return to the pool as well. Labs will be updated at her follow up. Her non invasive vascular studies were also reviewed from 08/2017 with bilateral triphasic waveforms, BRITTANY right 1.13 and left 1.29, and toe brachial index right of 0.8 and left 0.75. Repeat exams including xrays and non invasive vascular studies will be considered pending her healing response. Her neuropathy has woresened and we discussed the etiology, past treatment, and treatment recommendations today. Metanx prescription will be sent to company ([employer]) and she will get a phone call before they mail it to her home. She was advised to follow up at the wound healing center in one week or call sooner if there are any questions or concerns. I answered all of her questions.
== END 2018-08-30 23:59 ==
LOC: WC 13:06
PROVIDERS: Family Provider Family Medicine; PCP Family Medicine; Visit Provider Podiatrist
DX: E11.621 Type 2 diabetes mellitus with foot ulcer (principal); E11.42 Type 2 diabetes mellitus with diabetic polyneuropathy; R26.81 Unsteadiness on feet; L97.522 Non-pressure chronic ulcer of other part of left foot with fat layer exposed; E11.22 Type 2 diabetes mellitus with diabetic chronic kidney disease; I13.0 Hypertensive heart and chronic kidney disease with heart failure and stage 1 through stage 4 chronic kidney disease, or unspecified chronic kidney disease; N18.3 Chronic kidney disease, stage 3 (moderate); I50.9 Heart failure, unspecified; Z79.899 Other long term (current) drug therapy; Z79.4 Long term (current) use of insulin; M21.42 Flat foot [pes planus] (acquired), left foot
CPT/HCPCS: 11042; 99212; G0463

== ENCOUNTER → 2018-09-24 12:04 | Outpatient (CLI) | payer MEDICARE, BC, SELFPAY ==
--- NOTE | 2018-09-24 12:20 | RAD_ITS ---
STUDY: X-RAY - LEFT FOOT CLINICAL: Female, 73 years old. Nonhealing wound. TECHNIQUE: 3 view(s) of the foot. COMPARISON: AugustApril 29, 2018. FINDINGS: Plantar and dorsal heel spurs. Demineralization of the bones. Postoperative change at the medial cuneiform. Healed fractures of the shaft of the third and fifth metatarsals. Postoperative changes of the second metatarsal head. Postoperative change of the first toe with screw fusing across the interphalangeal joint. There is degenerative arthrosis of the metatarsophalangeal joint of the hallux with a hallux valgus deformity. Normal tibial and fibular sesamoid bones. There is focal diminished density of the first metatarsal head on the oblique projection with possible erosion. Arthrosis of the second through fifth metatarsophalangeal joints. Normal interphalangeal joints and phalanges of the lesser toes. The soft tissue structures are unremarkable. RAD/Foot min 3 Views IMPRESSION: Demineralization. Prior surgery. There is focal demineralization of the first metatarsal head consistent with erosion. Correlation with region of wound is recommended. Electronically Signed: Kevin Viveros MD at 8:57 EDT , Service support ,
[2018-09-24 13:41] LABS: Erythrocyte Sedimentation Rate 15 mm/hr (0-30)
[2018-09-24 13:43] LABS: Absolute Lymphocyte Count 1.04 X10^3/ul (0.83-4.51); Absolute Neutrophil Count 3.1 X10^3/uL (2.0-7.7); Basophil# 0.04 X10^3/uL; Basophil% 0.8 % (0-1); Eosinophil# 0.17 X10^3/uL; Eosinophils% 3.4 % (0-5); Hematocrit 34.5 % (37-47); Hemoglobin 11.5 g/dl (12.0-15.0); Lymphocyte # 1.04 X10^3/ul (4.0); Lymphocyte % 20.9 % (19-41); Mean Corp Hgb Conc 33.3 g/gl (32-36); Mean Corpuscular Hgb 31.3 pg (27.0-32.0); Mean Corpuscular Volume 93.8 fL (81-99); Mean Platelet Vol. 11.4 fl (6.2-12.0); Neutrophil # 3.12 X10^3/uL (2.7-7.7); Neutrophil % 62.7 % (47-70); POSITIVE COUNT NO; POSITIVE DIFFERENTIAL NO; POSITIVE MORPHOLOGY NO; Platelet Count 146 K/mm3 (150-450); RBC Distribution Width CV 13.3 % (11.6-14.6); RBC Distribution Width SD 43.6 fl (35.1-43.9); Red Blood Count 3.68 M/mm3 (4.2-5.4)
[2018-09-24 14:15] LABS: ALB/GLOB Ratio 0.8 RATIO (0.9-2.4); AST(SGOT) 26 U/L (15-37); Alanine Aminotransfer ALT/SGPT 30 U/L (13-56); Albumin, Serum 3.1 g/dL (3.2-5.0); Alkaline Phosphatase 81 U/L (45-117); Anion Gap 9 (5-15); BUN 25 mg/dL (7-18); BUN/Creat Ratio 19.4 RATIO (10-20); Calcium,Total 8.9 mg/dL (8.5-10.1); Chloride 109 mmol/L (98-107); Creatinine, Serum 1.29 mg/dL (0.55-1.02); EST Glomerular Filtration Rate 43 mL/min (>60); Est Glom Filt Rate - Afr Amer 52 mL/min (>60); Globulin 3.8 g/dL (2.2-4.2); Glucose 167 mg/dL (74-106); Protein, Total 6.9 g/dL (6.4-8.2); Sodium Level 143 mmol/L (136-145)
== END ==
PROVIDERS: Family Provider Family Medicine; PCP Family Medicine; Referring Provider Podiatrist; Visit Provider Podiatrist
DX: L97.529 Non-pressure chronic ulcer of other part of left foot with unspecified severity (principal); L03.116 Cellulitis of left lower limb
CPT/HCPCS: 36415; 73630; 80053; 85025; 85652; 86140

== ENCOUNTER 2018-09-30 13:15 | Outpatient (RCR) | payer MEDICARE, BC, SELFPAY ==
[2018-08-31 01:46] VITALS: BP 157/77; PULSE 80; RESP 18; TEMP 36.1
[2018-09-01 13:19] VITALS: BP 127/87; PULSE 73; RESP 18; TEMP 36.4
--- NOTE | 2018-09-01 15:10 | PCM.WC.PN ---
(1) Chronic ulcer of left foot with fat layer exposed Status: Chronic Current Visit: Yes Code(s): L97.522 - Non-pressure chronic ulcer of other part of left foot with fat layer exposed (2) Diabetes mellitus with polyneuropathy Status: Chronic Current Visit: Yes Qualifiers: Diabetes mellitus type: type 2 Code(s): E11.42 - Type 2 diabetes mellitus with diabetic polyneuropathy (3) Malnutrition Status: Chronic Current Visit: Yes Code(s): E46 - Unspecified protein-calorie malnutrition (4) Delayed wound healing Status: Chronic Current Visit: Yes Code(s): T14.8 - Other injury of unspecified body region (5) Gait instability Status: Chronic Current Visit: Yes Code(s): R26.81 - Unsteadiness on feet Type of Wound Date of Service: 09/01/18 Chief Complaint: Left heel ulceration turned with fat layer exposed, no infection. left foot wound , first webspace left foot?returned with no infection, fat layer exposed History of Wound: This is a 73-year-old female returns for follow-up of left heel ulceration , first interspace ulcer and left great toe wound. These ulcers were healed and have now returned. She has been compliant with dressings and offloading left cam walker boot as advised. She also continues to wear her right offloading surgical shoe even though her ulcer sites have recently healed just to allow continued skin remodeling.She denies fever, chills, nausea, vomiting, loss of appetite. Progress of Wound: Improving - Physical Exam Vital Signs Temp Pulse Resp BP 97.5 F L 73 18 127/87 H 09/01/18 13:19 09/01/18 13:19 09/01/18 13:19 09/01/18 13:19 General: Alert, Oriented x3, Cooperative HEENT: Atraumatic Extremities: No cyanosis, Capillary Refill Less than 3 Seconds, No Calf Tenderness - Negative Maddison and Herrera sign bilateral, Diminished Peripheral Pulses, Edema - Mild left Skin: Ulcer/ Wound - No purulence, no erythema, streaking, no odor, no infection. There is decreased maceration to the first interspace of the left foot., - - The peripheral skin is hairless and atrophic. Wound Measurements and Assessment WC - Nurse 1 - General Ulcer Measurement Start: 09/01/18 13:19 Freq: Status: Active Protocol: Activity Type Activity Date Activity User E-Sign Co-Sign Detail Recorded Client Recorded Date Recorded By Document 09/01/18 13:19 RB [id number] 09/01/18 13:29 RB 09/01/18 13:19 Wound Center Nurse 1 [Ulcer Assessment] #9 L Heel -Combined with other wound No -Current Size (cm) - Length 0.5 -Current Size (cm) - Width 0.4 -Current Size (cm) - Depth 0.1 -Total Square Cm 0.20 -Photo Taken No -Tunneling No -Undermining/Tunneling No -Circular Undermining No -Exudate Amt Small (1-33%) -Exudate Type Serosanguineous -Wound Margin Thickened -Granulation Amt Medium (34-66%) -Granulation Quality [place] -Slough/Fibrin Yes -Necrosis Amt Small (1-33%) -Necrotic Tissue Type Adherent Slough -Structure Exposed N/A -Texture (Radha-wound Skin Appearance) Callus -Moisture (Radha-wound Skin Appearance Assessed ) -Color (Radha-wound Skin Appearance) Assessed -Temperature (Radha-wound Skin No Abnormality Appearance) (Pt Warm) -Tenderness on Palpation (Rahda-wound No Skin Appearance) -Ulcer Cleansing Rinsed/ Irrigated with Saline -Foul Odor after Cleansing No -Anesthetic Used 4% Lidocaine Solution #8 L Grt Toe Webspace -Combined with other wound No -Current Size (cm) - Length 0.2 -Current Size (cm) - Width 0.5 -Current Size (cm) - Depth 0.2 -Total Square Cm 0.10 -Photo Taken No -Tunneling No -Undermining/Tunneling No -Circular Undermining No -Exudate Amt Small (1-33%) -Exudate Type Serosanguineous -Wound Margin Distinct, Outline Attached -Granulation Amt Medium (34-66%) -Granulation Quality [place] -Slough/Fibrin Yes -Necrosis Amt Small (1-33%) -Necrotic Tissue Type Adherent Slough -Structure Exposed N/A -Texture (Radha-wound Skin Appearance) Assessed -Moisture (Radha-wound Skin Appearance Assessed ) Maceration -Color (Radha-wound Skin Appearance) Assessed -Temperature (Radha-wound Skin No Abnormality Appearance) (Pt Warm) -Tenderness on Palpation (Radha-wound No Skin Appearance) -Ulcer Cleansing Rinsed/ Irrigated with Saline -Foul Odor after Cleansing No -Anesthetic Used 4% Lidocaine Solution [Edema Assessment] -Lower Limb Edema Present Yes -Left Calf (cm) 33.5 -Left Ankle (cm) 20.4 WC - Nurse 2 - General Ulcer CM Notes Start: 09/01/18 13:19 Freq: Status: Active Protocol: Activity Type Activity Date Activity User E-Sign Co-Sign Detail Recorded Client Recorded Date Recorded By Document 09/01/18 13:38 [id number] 09/01/18 13:43 09/01/18 13:38 Wound Center Nurse 2 [Procedure/Treatment] #9 L Heel -Time 13:39 -Correct Patient Yes -Correct Side, Site, Position Yes -Correct Procedure Yes -Procedure Performed Yes -Type of Procedure Debridement -Clinical Debridement Subcutaneous -Post Debridement Size (cm) - Length 0.3 -Post Debridement Size (cm) - Width 0.2 -Post Debridement Size (cm) - Depth 0.1 -Total Square Cm 0.06 -Wound/Ulcer Outcome Not Healed -Ulcer Cleansing Rinsed/ Irrigated with Saline -Foul Odor after Cleansing No -Bioengineered Tissue No -Bleeding Controlled with Pressure -Treatment Response Procedure Tolerated Well #8 L Grt Toe Webspace -Time 13:39 -Correct Patient Yes -Correct Side, Site, Position Yes -Correct Procedure Yes -Procedure Performed Yes -Type of Procedure Debridement -Clinical Debridement Subcutaneous -Post Debridement Size (cm) - Length 0.8 -Post Debridement Size (cm) - Width 0.5 -Post Debridement Size (cm) - Depth 0.1 -Total Square Cm 0.40 -Wound/Ulcer Outcome Not Healed -Ulcer Cleansing Rinsed/ Irrigated with Saline -Foul Odor after Cleansing No -Bioengineered Tissue No -Bleeding Controlled with Pressure -Treatment Response Procedure Tolerated Well [See Physician Procedure note for Specifics] Pain Scale: 0-10 Numeric [Pain] -Is Patient Pain Free? Yes Musculoskeletal: No Tenderness to Palpation of Joints or Extremities, Muscle Wasting, - - Lateral hallux deviation noted left foot. Decreased medial longitudinal arch noted Neurological: - - Lack of epicritic sensation light touch noted Psych/Mental Status: Normal Affect, Appropriate Debridement Note Post-Debridement Measurements/Treatment ELI - Nurse 2 - General Ulcer CM Notes Start: 09/01/18 13:19 Freq: Status: Active Protocol: Activity Type Activity Date Activity User E-Sign Co-Sign Detail Recorded Client Recorded Date Recorded By Document 09/01/18 13:38 [id number] 09/01/18 13:43 [email or web address] 09/01/18 13:38 Wound Center Nurse 2 #9 L Heel -Time 13:39 -Correct Patient Yes -Correct Side, Site, Position Yes -Correct Procedure Yes -Procedure Performed Yes -Type of Procedure Debridement -Clinical Debridement Subcutaneous -Post Debridement Size (cm) - Length 0.3 -Post Debridement Size (cm) - Width 0.2 -Post Debridement Size (cm) - Depth 0.1 -Total Square Cm 0.06 -Wound/Ulcer Outcome Not Healed -Ulcer Cleansing Rinsed/ Irrigated with Saline -Foul Odor after Cleansing No -Bioengineered Tissue No -Bleeding Controlled with Pressure -Treatment Response Procedure Tolerated Well #8 L Grt Toe Webspace -Time 13:39 -Correct Patient Yes -Correct Side, Site, Position Yes -Correct Procedure Yes -Procedure Performed Yes -Type of Procedure Debridement -Clinical Debridement Subcutaneous -Post Debridement Size (cm) - Length 0.8 -Post Debridement Size (cm) - Width 0.5 -Post Debridement Size (cm) - Depth 0.1 -Total Square Cm 0.40 -Wound/Ulcer Outcome Not Healed -Ulcer Cleansing Rinsed/ Irrigated with Saline -Foul Odor after Cleansing No -Bioengineered Tissue No -Bleeding Controlled with Pressure -Treatment Response Procedure Tolerated Well Pain Scale: 0-10 Numeric Is Patient Pain Free? Yes Wound debrided: first interspace Laterality: Left Wound Grade/Stage: grade 1 Type of Debridement: Excisional debridement Anesthesia Used: 4% Lidocaine Solution Depth: in the subcutaneous layer Percentage of wound debrided: 100 Instrument Used: #15 blade Tissue Removed: fibrous, devitalized subcutaneous, biofilm, slough Severity: Fat Layer Exposed Amount of bleeding with debridement: Mild Bleeding Controlled with: Pressure Patient tolerated procedure well - Additional Wound Wound debrided: plantar heel Laterality: Left Wound Grade/Stage: grade 1 Type of Debridement: Excisional debridement Anesthesia Used: 4% Lidocaine Solution Depth: in the subcutaneous layer Percentage of wound debrided: 100 Instrument Used: #15 blade Tissue Removed: fibrous, devitalized subcutaneous, biofilm, slough Severity: Fat Layer Exposed Amount of bleeding with debridement: Mild Bleeding Controlled with: Pressure Patient tolerated procedure: Patient tolerated procedure well Assessment/Plan Active Problems Chronic ulcer of left foot with fat layer exposed (Chronic) Diabetes mellitus with polyneuropathy (Chronic) Malnutrition (Chronic) Delayed wound healing (Chronic) Gait instability (Chronic) Assessment: Plantar heel ulcer, left foot returned with fat layer exposed. First interdigital space, returned left foot with fat layer exposed. healed sub-first metatarsal head ulcer right foot. Diabetes with neuropathy. Malnutrition. Left foot advanced flat foot deformity with h/o surgical intervention. Nonadherence to treatment plan. calcaneal gait, left. difficulty walking Plan: I reviewed and discussed her care plan. No debridement was performed because all the ulcer sites have healed on the right foot. The left foot ulcers were debrided as noted in the clinical panel in a subcutaneous manner. To monitor close for return of wounds or infection on the right extremity. To continue offloading surgical shoe right. To change dressing daily to the left lower extremity with palomo or aquacel ag. I recommend she continues with cam walker with offloading devices; felt offloading modifications were adjusted and re-fabricated today to take pressure off of her heel ulcer site. She was advised to use a gauze toe spacer to decrease maceration and pressure on her left foot between the first and second toe. To continue protein supplementation to optimize healing; arsen. Her non invasive vascular studies were also reviewed from 08/2017 with bilateral triphasic waveforms, BRITTANY right 1.13 and left 1.29, and toe brachial index right of 0.8 and left 0.75. Repeat exams including xrays and non invasive vascular studies will be considered pending her healing response. Her neuropathy has woresened and we discussed the etiology, past treatment, and treatment recommendations today. Metanx prescription will be sent to [facility] and she will get a phone call before they mail it to her home. She was advised to follow up at the wound healing center in one week or call sooner if there are any questions or concerns. I answered all of her questions.
--- NOTE | 2018-09-01 15:15 | PN.PCM_ITS ---
(1) Chronic ulcer of left foot with fat layer exposed Status: Chronic Current Visit: Yes Code(s): L97.522 - Non-pressure chronic ulcer of other part of left foot with fat layer exposed (2) Diabetes mellitus with polyneuropathy Status: Chronic Current Visit: Yes Qualifiers: Diabetes mellitus type: type 2 Code(s): E11.42 - Type 2 diabetes mellitus with diabetic polyneuropathy (3) Malnutrition Status: Chronic Current Visit: Yes Code(s): E46 - Unspecified protein- calorie malnutrition (4) Delayed wound healing Status: Chronic Current Visit: Yes Code(s): T14.8 - Other injury of unspecified body region (5) Gait instability Status: Chronic Current Visit: Yes Code(s): R26.81 - Unsteadiness on feet Type of Wound Date of Service: 09/01/18 Chief Complaint: Left heel ulceration turned with fat layer exposed, no in fection. left foot wound , first webspace left foot?returned with no infection, fat layer exposed History of Wound: This is a 73-year-old female returns for follow-up of left heel ulceration , first interspace ulcer and left great toe wound. These ulcers were healed and have now returned. She has been compliant with dressings and offloading left cam walker boot as advised. She also continues to wear her right offloading surgical shoe even though her ulcer sites have recently healed just to allow continued skin remodeling.She denies fever, chills, nausea, vomiting, loss of appetite. Progress of Wound: Improving - Physical Exam Vital Signs Temp Pulse Resp BP 97.5 F L 73 18 127/87 H 09/01/18 13:19 09/01/18 13:19 09/01/18 13:19 09/01/18 13:19 General: Alert, Oriented x3, Cooperative HEENT: Atraumatic Extremities: No cyanosis, Capillary Refill Less than 3 Seconds, No Calf Tenderness - Negative Maddison and Herrera sign bilateral, Diminished Peripheral Pulses, Edema - Mild left Skin: Ulcer/ Wound - No purulence, no erythema, streaking, no odor, no infection. There is decreased maceration to the first interspace of the left foot., - - The peripheral skin is hairless and atrophic. Wound Measurements and Assessment WC - Nurse 1 - General Ulcer Measurement Start: 09/01/18 13:19 Freq: Status: Active Protocol: Activity Type Activity Date Activity User E-Sign Co-Sign Detail Recorded Client Recorded Date Recorded By Document 09/01/18 13:19 RB [id number] 09/01/18 13:29 RB 09/01/18 13:19 Wound Center Nurse 1 [Ulcer Assessment] #9 L Heel -Combined with other wound No -Current Size (cm) - Length 0.5 -Current Size (cm) - Width 0.4 -Current Size (cm) - Depth 0.1 -Total Square Cm 0.20 -Photo Taken No -Tunneling No -Undermining/Tunneling No -Circular Undermining No -Exudate Amt Small (1-33%) -Exudate Type Serosanguineous -Wound Margin Thickened -Granulation Amt Medium (34-66%) -Granulation Quality [place] -Slough/Fibrin Yes -Necrosis Amt Small (1-33%) -Necrotic Tissue Type Adherent Slough -Structure Exposed N/A -Texture (Radha-wound Skin Appearance) Callus -Moisture (Radha-wound Skin Appearance Assessed ) -Color (Radha-wound Skin Appearance) Assessed -Temperature (Radha-wound Skin No Abnormality Appearance) (Pt Warm) -Tenderness on Palpation (Radha-wound No Skin Appearance) -Ulcer Cleansing Rinsed/ Irrigated with Saline -Foul Odor after Cleansing No -Anesthetic Used 4% Lidocaine Solution #8 L Grt Toe Webspace -Combined with other wound No -Current Size (cm) - Length 0.2 -Current Size (cm) - Width 0.5 -Current Size (cm) - Depth 0.2 -Total Square Cm 0.10 -Photo Taken No -Tunneling No -Undermining/Tunneling No -Circular Undermining No -Exudate Amt Small (1-33%) -Exudate Type Serosanguineous -Wound Margin Distinct, Outline Attached -Granulation Amt Medium (34-66%) -Granulation Quality [place] -Slough/Fibrin Yes -Necrosis Amt Small (1-33%) -Necrotic Tissue Type Adherent Slough -Structure Exposed N/A -Texture (Radha-wound Skin Appearance) Assessed -Moisture (Radha-wound Skin Appearance Assessed ) Maceration -Color (Radha-wound Skin Appearance) Assessed -Temperature (Radha-wound Skin No Abnormality Appearance) (Pt Warm) -Tenderness on Palpation (Radha-wound No Skin Appearance) -Ulcer Cleansing Rinsed/ Irrigated with Saline -Foul Odor after Cleansing No -Anesthetic Used 4% Lidocaine Solution [Edema Assessment] -Lower Limb Edema Present Yes -Left Calf (cm) 33.5 -Left Ankle (cm) 20.4 ELI - Nurse 2 - General Ulcer CM Notes Start: 09/01/18 13:19 Freq: Status: Active Protocol: Activity Type Activity Date Activity User E-Sign Co-Sign Detail Recorded Client Recorded Date Recorded By Document 09/01/18 13:38 [email or web address] 09/01/18 13:43 09/01/18 13:38 Wound Center Nurse 2 [Procedure/Treatment] #9 L Heel -Time 13:39 -Correct Patient Yes -Correct Side, Site, Position Yes -Correct Procedure Yes -Procedure Performed Yes -Type of Procedure Debridement -Clinical Debridement Subcutaneous -Post Debridement Size (cm) - Length 0.3 -Post Debridement Size (cm) - Width 0.2 -Post Debridement Size (cm) - Depth 0.1 -Total Square Cm 0.06 -Wound/Ulcer Outcome Not Healed -Ulcer Cleansing Rinsed/ Irrigated with Saline -Foul Odor after Cleansing No -Bioengineered Tissue No -Bleeding Controlled with Pressure -Treatment Response Procedure Tolerated Well #8 L Grt Toe Webspace -Time 13:39 -Correct Patient Yes -Correct Side, Site, Position Yes -Correct Procedure Yes -Procedure Performed Yes -Type of Procedure Debridement -Clinical Debridement Subcutaneous -Post Debridement Size (cm) - Length 0.8 -Post Debridement Size (cm) - Width 0.5 -Post Debridement Size (cm) - Depth 0.1 -Total Square Cm 0.40 -Wound/Ulcer Outcome Not Healed -Ulcer Cleansing Rinsed/ Irrigated with Saline -Foul Odor after Cleansing No -Bioengineered Tissue No -Bleeding Controlled with Pressure -Treatment Response Procedure Tolerated Well [See Physician Procedure note for Specifics] Pain Scale: 0-10 Numeric [Pain] -Is Patient Pain Free? Yes Musculoskeletal: No Tenderness to Palpation of Joints or Extremities, Muscle Wasting, - - Lateral hallux deviation noted left foot. Decreased medial longitudinal arch noted Neurological: - - Lack of epicritic sensation light touch noted Psych/Mental Status: Normal Affect, Appropriate Debridement Note Post-Debridement Measurements/Treatment WC - Nurse 2 - General Ulcer CM Notes Start: 09/01/18 13:19 Freq: Status: Active Protocol: Activity Type Activity Date Activity User E-Sign Co-Sign Detail Recorded Client Recorded Date Recorded By Document 09/01/18 13:38 [id number] 09/01/18 13:43 [email or web address] 09/01/18 13:38 Wound Center Nurse 2 #9 L Heel -Time 13:39 -Correct Patient Yes -Correct Side, Site, Position Yes -Correct Procedure Yes -Procedure Performed Yes -Type of Procedure Debridement -Clinical Debridement Subcutaneous -Post Debridement Size (cm) - Length 0.3 -Post Debridement Size (cm) - Width 0.2 -Post Debridement Size (cm) - Depth 0.1 -Total Square Cm 0.06 -Wound/Ulcer Outcome Not Healed -Ulcer Cleansing Rinsed/ Irrigated with Saline -Foul Odor after Cleansing No -Bioengineered Tissue No -Bleeding Controlled with Pressure -Treatment Response Procedure Tolerated Well #8 L Grt Toe Webspace -Time 13:39 -Correct Patient Yes -Correct Side, Site, Position Yes -Correct Procedure Yes -Procedure Performed Yes -Type of Procedure Debridement -Clinical Debridement Subcutaneous -Post Debridement Size (cm) - Length 0.8 -Post Debridement Size (cm) - Width 0.5 -Post Debridement Size (cm) - Depth 0.1 -Total Square Cm 0.40 -Wound/Ulcer Outcome Not Healed -Ulcer Cleansing Rinsed/ Irrigated with Saline -Foul Odor after Cleansing No -Bioengineered Tissue No -Bleeding Controlled with Pressure -Treatment Response Procedure Tolerated Well Pain Scale: 0-10 Numeric Is Patient Pain Free? Yes Wound debrided: first interspace Laterality: Left Wound Grade/Stage: grade 1 Type of Debridement: Excisional debridement Anesthesia Used: 4% Lidocaine Solution Depth: in the subcutaneous layer Percentage of wound debrided: 100 Instrument Used: #15 blade Tissue Removed: fibrous, devitalized subcutaneous, biofilm, slough Severity: Fat Layer Exposed Amount of bleeding with debridement: Mild Bleeding Controlled with: Pressure Patient tolerated procedure well - Additional Wound Wound debrided: plantar heel Laterality: Left Wound Grade/Stage: grade 1 Type of Debridement: Excisional debridement Anesthesia Used: 4% Lidocaine Solution Depth: in the subcutaneous layer Percentage of wound debrided: 100 Instrument Used: #15 blade Tissue Removed: fibrous, devitalized subcutaneous, biofilm, slough Severity: Fat Layer Exposed Amount of bleeding with debridement: Mild Bleeding Controlled with: Pressure Patient tolerated procedure: Patient tolerated procedure well Assessment/Plan Active Problems Chronic ulcer of left foot with fat layer exposed (Chronic) Diabetes mellitus with polyneuropathy (Chronic) Malnutrition (Chronic) Delayed wound healing (Chronic) Gait instability (Chronic) Assessment: Plantar heel ulcer, left foot returned with fat layer exposed. First interdigital space, returned left foot with fat layer exposed. healed sub-first metatarsal head ulcer right foot. Diabetes with neuropathy. Malnutrition. Left foot advanced flat foot deformity with h/o surgical intervention. Nonadherence to treatment plan. calcaneal gait, left. difficulty walking Plan: I reviewed and discussed her care plan. No debridement was performed because all the ulcer sites have healed on the right foot. The left foot ulcers were debrided as noted in the clinical panel in a subcutaneous manner. To monitor close for return of wounds or infection on the right extremity. To continue offloading surgical shoe right. To change dressing daily to the left lower extremity with palomo or aquacel ag. I recommend she continues with cam walker with offloading devices; felt offloading modifications were adjusted and re-fabricated today to take pressure off of her heel ulcer site. She was advised to use a gauze toe spacer to decrease maceration and pressure on her left foot between the first and second toe. To continue protein supplemen tation to optimize healing; arsen. Her non invasive vascular studies were also reviewed from 08/2017 with bilateral triphasic waveforms, BRITTANY right 1.13 and left 1.29, and toe brachial index right of 0.8 and left 0.75. Repeat exams including xrays and non invasive vascular studies will be considered pending her healing response. Her neuropathy has woresened and we discussed the etiology, past treatment, and treatment recommendations today. Metanx prescription will be sent to [facility] ([facility] and she will get a phone call before they mail it to her home. She was advised to follow up at the wound healing center in one week or call sooner if there are any questions or concerns. I answered all of her questions.
[2018-09-09 12:57] VITALS: BP 138/76; PULSE 75; RESP 16; TEMP 36.1
--- NOTE | 2018-09-09 14:59 | PN.PCM_ITS ---
(1) Ulcer of right foot with fat layer exposed Status: Chronic Current Visit: Yes Code(s): L97.512 - Non-pressure chronic ulcer of other part of right foot with fat layer exposed (2) Chronic ulcer of left foot with fat layer exposed Status: Chronic Current Visit: Yes Code(s): L97.522 - Non-pressure chronic ulcer of other part of left foot with fat layer exposed (3) Diabetes mellitus with polyneuropathy Status: Chronic Current Visit: Yes Qualifiers: Diabetes mellitus type: type 2 Qualified Code(s): E11.42 - Type 2 diabetes mellitus with diabetic polyneuropathy Code(s): E11.42 - Type 2 diabetes mellitus with diabetic polyneuropathy (4) Malnutrition Status: Chronic Current Visit: Yes Code(s): E46 - Unspecified protein- calorie malnutrition (5) Delayed wound healing Status: Chronic Current Visit: Yes Code(s): T14.8 - Other injury of unspecified body region (6) Gait instability Status: Chronic Current Visit: Yes Code(s): R26.81 - Unsteadiness on feet Type of Wound Date of Service: 09/09/18 Chief Complaint: Left heel ulceration turned with fat layer exposed, no infection. left foot wound , first webspace left foot?returned with no infection, fat layer exposed History of Wound: This is a 73-year-old female returns for follow-up of left heel ulceration , first interspace ulcer and left great toe wound. She has a callus to the right foot and is not sure if this has also reopened. She has been compliant with dressings and offloading left cam walker boot as advised. She also continues to wear her right offloading surgical shoe even though her ulcer sites have recently healed just to allow continued skin remodeling.She denies fever, chills, nausea, vomiting, loss of appetite. She is very upset today and reports she has been seeing snakes crawling on her feet that turned into her arms and into her ulcer sites. She is embarrassed to admit that she has been seeing these things. Her sister did take her to her primary care physician who recommended a sleeping aid. She reports she is basically not slept at night for at least 3 months due to this. She had several mattresses and furniture thrown away due to concern of the snakes living inside of them. She asked me to evaluate for any evidence of this today. Progress of Wound: Improving left foot ulcer. New right foot ulcer - Physical Exam Vital Signs Temp Pulse Resp BP 96.9 F L 75 16 138/76 H 09/09/18 12:57 09/09/18 12:57 09/09/18 12:57 09/09/18 12:57 General: Alert, Oriented x3, Cooperative Extremities: No cyanosis, Capillary Refill Less than 3 Seconds, No Calf Tenderness - Negative Maddison and Herrera sign bilateral, Diminished Peripheral Pulses, Edema - Mild bilateral lower extremities, - - Lateral hallux deviation left foot and right foot Skin: Ulcer/ Wound - No purulence, erythema, streaking, odor, or acute infection bilateral. Resolved interdigital maceration to the left foot. The wound beds are all granular and decreased in size on the left foot. There is new skin discontinuity sub-first metatarsal head right foot. There is no evidence of infestation, deep communication, or fluid collection to any ulcer site., - - The peripheral skin is hairless and atrophic bilateral Wound Measurements and Assessment WC - Nurse 1 - General Ulcer Measurement Start: 09/01/18 13:19 Freq: Status: Active Protocol: Activity Type Activity Date Activity User E-Sign Co-Sign Detail Recorded Client Recorded Date Recorded By Document 09/09/18 12:57 [facility] [id number] 09/09/18 13:07 [facility] 09/09/18 12:57 Wound Center Nurse 1 [Ulcer Assessment] #9 L Heel -Combined with other wound No -Current Size (cm) - Length 0.1 -Current Size (cm) - Width 0.1 -Current Size (cm) - Depth 0.2 -Total Square Cm 0.01 -Photo Taken No -Epithelialization None Present -Tunneling No -Undermining/Tunneling No -Circular Undermining No -Exudate Amt None Present (0 %) -Wound Margin Distinct, Outline Attached -Granulation Amt Large (67-100%) -Granulation Quality Weaver -Slough/Fibrin No -Necrosis Amt None Present (0 %) -Texture (Radha-wound Skin Appearance) Callus Scarring -Moisture (Radha-wound Skin Appearance Dry/Scaly ) -Color (Radha-wound Skin Appearance) Assessed -Temperature (Radha-wound Skin No Abnormality Appearance) (Pt Warm) -Tenderness on Palpation (Radha-wound No Skin Appearance) -Ulcer Cleansing Rinsed/ Irrigated with Saline -Foul Odor after Cleansing No -Anesthetic Used 4% Lidocaine Solution #8 L Grt Toe Webspace -Combined with other wound No -Current Size (cm) - Length 0.4 -Current Size (cm) - Width 0.1 -Current Size (cm) - Depth 0.3 -Total Square Cm 0.04 -Photo Taken No -Epithelialization None Present -Tunneling No -Undermining/Tunneling No -Circular Undermining No -Exudate Amt None Present (0 %) -Wound Margin Distinct, Outline Attached -Granulation Amt Large (67-100%) -Granulation Quality Weaver -Slough/Fibrin No -Necrosis Amt None Present (0 %) -Texture (Radha-wound Skin Appearance) Callus Scarring -Moisture (Radha-wound Skin Appearance Maceration ) Dry/Scaly -Color (Radha-wound Skin Appearance) Palor -Temperature (Radha-wound Skin No Abnormality Appearance) (Pt Warm) -Tenderness on Palpation (Radha-wound Yes Skin Appearance) -Ulcer Cleansing Rinsed/ Irrigated with Saline -Foul Odor after Cleansing No -Anesthetic Used 4% Lidocaine Solution [Edema Assessment] -Lower Limb Edema Present Yes -Left Calf (cm) 32.1 -Left Ankle (cm) 20.1 WC - Nurse 2 - General Ulcer CM Notes Start: 09/01/18 13:19 Freq: Status: Active Protocol: Activity Type Activity Date Activity User E-Sign Co-Sign Detail Recorded Client Recorded Date Recorded By Document 09/09/18 13:33 [id number] 09/09/18 13:35 09/09/18 13:33 Wound Center Nurse 2 [Procedure/Treatment] #9 L Heel -Time 13:34 -Correct Patient Yes -Correct Side, Site, Position Yes -Correct Procedure Yes -Procedure Performed Yes -Type of Procedure Debridement -Clinical Debridement Subcutaneous -Post Debridement Size (cm) - Length 0.1 -Post Debridement Size (cm) - Width 0.1 -Post Debridement Size (cm) - Depth 0.1 -Total Square Cm 0.01 -Wound/Ulcer Outcome Not Healed -Ulcer Cleansing Rinsed/ Irrigated with Saline -Foul Odor after Cleansing No -Bioengineered Tissue No -Bleeding Controlled with Pressure -Treatment Response Procedure Tolerated Well #8 L Grt Toe Webspace -Time 13:34 -Correct Patient Yes -Correct Side, Site, Position Yes -Correct Procedure Yes -Procedure Performed Yes -Type of Procedure Debridement -Clinical Debridement Subcutaneous -Post Debridement Size (cm) - Length 0.2 -Post Debridement Size (cm) - Width 0.1 -Post Debridement Size (cm) - Depth 0.1 -Total Square Cm 0.02 -Wound/Ulcer Outcome Not Healed -Ulcer Cleansing Rinsed/ Irrigated with Saline -Foul Odor after Cleansing No -Bioengineered Tissue No -Bleeding Controlled with Pressure -Treatment Response Procedure Tolerated Well [See Physician Procedure note for Specifics] Pain Scale: 0-10 Numeric [Pain] -Is Patient Pain Free? Yes Musculoskeletal: No Tenderness to Palpation of Joints or Extremities, Muscle Wasting Neurological: - - Lack of normal epicritic sensation via light touch bilateral lower extremity is consistent with neuropathy Psych/Mental Status: Normal Affect, Appropriate Debridement Note Post-Debridement Measurements/Treatment WC - Nurse 2 - General Ulcer CM Notes Start: 09/01/18 13:19 Freq: Status: Active Protocol: Activity Type Activity Date Activity User E-Sign Co-Sign Detail Recorded Client Recorded Date Recorded By Document 09/01/18 13:38 [id number] 09/01/18 13:43 Document 09/09/18 13:33 [id number] 09/09/18 13:35 09/01/18 09/09/18 13:38 13:33 Wound Center Nurse 2 #9 L Heel -Time 13:39 13:34 -Correct Patient Yes Yes -Correct Side, Site, Position Yes Yes -Correct Procedure Yes Yes -Procedure Performed Yes Yes -Type of Procedure Debridement Debridement -Clinical Debridement Subcutaneous Subcutaneous -Post Debridement Size (cm) - Length 0.3 0.1 -Post Debridement Size (cm) - Width 0.2 0.1 -Post Debridement Size (cm) - Depth 0.1 0.1 -Total Square Cm 0.06 0.01 -Wound/Ulcer Outcome Not Healed Not Healed -Ulcer Cleansing Rinsed/ Rinsed/ Irrigated with Irrigated with Saline Saline -Foul Odor after Cleansing No No -Bioengineered Tissue No No -Bleeding Controlled with Pressure Pressure -Treatment Response Procedure Procedure Tolerated Well Tolerated Well #8 L Grt Toe Webspace -Time 13:39 13:34 -Correct Patient Yes Yes -Correct Side, Site, Position Yes Yes -Correct Procedure Yes Yes -Procedure Performed Yes Yes -Type of Procedure Debridement Debridement -Clinical Debridement Subcutaneous Subcutaneous -Post Debridement Size (cm) - Length 0.8 0.2 -Post Debridement Size (cm) - Width 0.5 0.1 -Post Debridement Size (cm) - Depth 0.1 0.1 -Total Square Cm 0.40 0.02 -Wound/Ulcer Outcome Not Healed Not Healed -Ulcer Cleansing Rinsed/ Rinsed/ Irrigated with Irrigated with Saline Saline -Foul Odor after Cleansing No No -Bioengineered Tissue No No -Bleeding Controlled with Pressure Pressure -Treatment Response Procedure Procedure Tolerated Well Tolerated Well Pain Scale: 0-10 Numeric Is Patient Pain Free? Yes Yes Wound debrided: sub 1st metatarsal head Laterality: Right Wound Grade/Stage: grade 1 Type of Debridement: Excisional debridement Anesthesia Used: 4% Lidocaine Solution Depth: in the subcutaneous layer Percentage of wound debrided: 100 Instrument Used: #15 blade Tissue Removed: fibrous, devitalized subcutaneous, biofilm, slough Severity: Fat Layer Exposed Amount of bleeding with debridement: Mild Bleeding Controlled with: Pressure Patient tolerated procedure well - Additional Wound Wound debrided: plantar heel Laterality: Left Wound Grade/Stage: grade 1 Type of Debridement: Excisional debridement Anesthesia Used: 4% Lidocaine Solution Depth: in the subcutaneous layer Percentage of wound debrided: 100 Instrument Used: #15 blade Tissue Removed: fibrous, devitalized subcutaneous, biofilm, slough Severity: Fat Layer Exposed Amount of bleeding with debridement: Mild Bleeding Controlled with: Pressure Patient tolerated procedure: Patient tolerated procedure well - Additional Wound Wound debrided: interdigital space (first) Laterality: Left Wound Grade/Stage: grade 1 Type of Debridement: Excisional debridement Anesthesia Used: 4% Lidocaine Solution Depth: in the subcutaneous layer Percentage of wound debrided: 100 Instrument Used: #15 blade Tissue Removed: fibrous, devitalized subcutaneous, biofilm, slough Severity: Fat Layer Exposed Amount of bleeding with debridement: Mild Bleeding Controlled with: Pressure Patient tolerated procedure: Patient tolerated procedure well Assessment/Plan Active Problems Ulcer of right foot with fat layer exposed (Chronic) Chronic ulcer of left foot with fat layer exposed (Chronic) Diabetes mellitus with polyneuropathy (Chronic) Malnutrition (Chronic) Delayed wound healing (Chronic) Gait instability (Chronic) Assessment: Plantar heel ulcer, left foot returned with fat layer exposed. First interdigital space, returned left foot with fat layer exposed. healed sub-first metatarsal head ulcer right foot. Diabetes with neuropathy. Malnutrition. Left foot advanced flat foot deformity with h/o surgical intervention. Nonadherence to treatment plan. calcaneal gait, left. difficulty walking Plan: I reviewed and discussed her care plan. The right and left foot ulcers were debrided as noted in the clinical panel in a subcutaneous manner. To continue offloading surgical shoe right. To change dressing daily to the left and right lower extremity with palomo or aquacel ag. I recommend she continues with cam walker with offloading devices; felt offloading modifications were adjusted and re-fabricated previously to take pressure off of her heel ulcer site of the left foot. She was advised to use a gauze toe spacer to decrease maceration and pressure on her left foot between the first and second toe. To continue protein supplementation to optimize healing; arsen. Her non invasive vascular studies were also reviewed from 08/2017 with bilateral triphasic waveforms, BRITTANY right 1.13 and left 1.29, and toe brachial index right of 0.8 and left 0.75. Repeat exams including xrays and non invasive vascular studies will be considered pending her healing response. Her neuropathy has woresened and we discussed the etiology, past treatment, and treatment recommendations today. Metanx prescription will previously prescribed for treatment of neuropathy. It is noted that the right foot ulcer is new today. I also reassured her there are no local signs of infection or other infestations. As I understand she is seen a primary care physician who provided a sleep aid. I encouraged her to continue with this. I am suspecting she has had a significant reduction in sleep that may be contributing to these hallucination type issues. I also reeducated her on neuropathy and suspecting some of the sensation she is experiencing are related to this. She was advised to follow up at the wound healing center in one week or call sooner if there are any questions or concerns. I answered all of her questions.
[2018-09-23 13:30] VITALS: BP 134/78; PULSE 81; RESP 18; TEMP 36.2
--- NOTE | 2018-09-23 15:04 | PCM.WC.PN ---
(1) Ulcer of right foot with fat layer exposed Status: Chronic Current Visit: Yes Code(s): L97.512 - Non-pressure chronic ulcer of other part of right foot with fat layer exposed (2) Chronic ulcer of left foot with fat layer exposed Status: Chronic Current Visit: Yes Code(s): L97.522 - Non-pressure chronic ulcer of other part of left foot with fat layer exposed (3) Diabetes mellitus with polyneuropathy Status: Chronic Current Visit: Yes Qualifiers: Diabetes mellitus type: type 2 Qualified Code(s): E11.42 - Type 2 diabetes mellitus with diabetic polyneuropathy Code(s): E11.42 - Type 2 diabetes mellitus with diabetic polyneuropathy (4) Malnutrition Status: Chronic Current Visit: Yes Code(s): E46 - Unspecified protein-calorie malnutrition (5) Delayed wound healing Status: Chronic Current Visit: Yes Code(s): T14.8 - Other injury of unspecified body region (6) Gait instability Status: Chronic Current Visit: Yes Code(s): R26.81 - Unsteadiness on feet Type of Wound Date of Service: 09/23/18 Chief Complaint: Left heel ulceration turned with fat layer exposed, no infection. left foot wound , first webspace left foot?returned with no infection, fat layer exposed History of Wound: This is a 73-year-old female returns for follow-up of left heel ulceration , first interspace ulcer and left great toe wound. She has a callus to the right foot and is not sure if this has also reopened. She has been compliant with dressings and offloading left cam walker boot as advised. She also continues to wear her right offloading surgical shoe even though her ulcer sites have recently healed just to allow continued skin remodeling.She denies fever, chills, nausea, vomiting, loss of appetite. She is very upset today and reports she has been seeing snakes crawling on her feet that turned into her arms and into her ulcer sites. She is embarrassed to admit that she has been seeing these things. Her sister did take her to her primary care physician who recommended a sleeping aid. She reports she is very depressed. She also went to an urgent care center a couple of days ago due to increased pain swelling and inflammation to the left heel. She waited there for over an hour and then was informed the provider did not feel comfortable evaluating this condition. But he then left and did not seek further care for this at that time. She denies fever, chill, nausea, vomiting. Progress of Wound: Improving left foot ulcer. right foot ulcer - Physical Exam Vital Signs Temp Pulse Resp BP 97.1 F L 81 18 134/78 H 09/23/18 13:30 09/23/18 13:30 09/23/18 13:30 09/23/18 13:30 General: Alert, Oriented x3, Cooperative Extremities: No cyanosis, Capillary Refill Less than 3 Seconds, No Calf Tenderness, Diminished Peripheral Pulses, Edema, Tenderness - Pain with manipulation of enlarged left heel ulcer, - Skin: Ulcer/ Wound - No purulence, erythema, streaking, odor, maceration. The plantar left heel has a bulla and upon removal there is a granular base without deeper tissue exposed. There is continued skin discontinuity also to the right sub-first metatarsal head. There is continued ulcer to the right first interspace as well and inflammation is noted at both the site and the heel therefore cultures were obtained. Wound Measurements and Assessment WC - Nurse 1 - General Ulcer Measurement Start: 09/01/18 13:19 Freq: Status: Active Protocol: Activity Type Activity Date Activity User E-Sign Co-Sign Detail Recorded Client Recorded Date Recorded By Document 09/23/18 13:30 [id number] 09/23/18 13:32 09/23/18 13:30 Wound Center Nurse 1 [Ulcer Assessment] #9 L Heel -Combined with other wound No -Current Size (cm) - Length 0.1 -Current Size (cm) - Width 0.1 -Current Size (cm) - Depth 0.5 -Total Square Cm 0.01 -Photo Taken No -Epithelialization None Present -Tunneling No -Undermining/Tunneling No -Circular Undermining No -Exudate Amt Medium (34-66%) -Exudate Type Serosanguineous -Wound Margin Flat & Intact -Granulation Amt None Present (0 %) -Granulation Quality [place] -Slough/Fibrin Yes -Necrosis Amt Medium (34-66%) -Necrotic Tissue Type Adherent Slough -Structure Exposed N/A -Texture (Radha-wound Skin Appearance) Assessed Crepitus -Moisture (Radha-wound Skin Appearance Assessed ) Dry/Scaly -Color (Radha-wound Skin Appearance) Assessed -Temperature (Radha-wound Skin No Abnormality Appearance) (Pt Warm) -Tenderness on Palpation (Radha-wound No Skin Appearance) -Ulcer Cleansing Rinsed/ Irrigated with Saline -Foul Odor after Cleansing No -Anesthetic Used 4% Lidocaine Solution #8 L Grt Toe Webspace -Combined with other wound No -Current Size (cm) - Length 0.5 -Current Size (cm) - Width 0.2 -Current Size (cm) - Depth 0.2 -Total Square Cm 0.10 -Photo Taken No -Epithelialization Medium 34-66% -Tunneling No -Undermining/Tunneling No -Circular Undermining No -Exudate Amt Small (1-33%) -Exudate Type Serosanguineous -Wound Margin Flat & Intact -Granulation Amt Medium (34-66%) -Granulation Quality Red -Slough/Fibrin Yes -Necrosis Amt Small (1-33%) -Necrotic Tissue Type Adherent Slough -Structure Exposed N/A -Texture (Radha-wound Skin Appearance) Assessed -Moisture (Radha-wound Skin Appearance Assessed ) Maceration -Color (Radha-wound Skin Appearance) Assessed -Temperature (Radha-wound Skin No Abnormality Appearance) (Pt Warm) -Tenderness on Palpation (Radha-wound No Skin Appearance) -Ulcer Cleansing Rinsed/ Irrigated with Saline -Foul Odor after Cleansing No -Anesthetic Used 4% Lidocaine Solution [Edema Assessment] -Lower Limb Edema Present Yes -Left Calf (cm) 31.8 -Left Ankle (cm) 20.3 WC - Nurse 2 - General Ulcer CM Notes Start: 09/01/18 13:19 Freq: Status: Active Protocol: Activity Type Activity Date Activity User E-Sign Co-Sign Detail Recorded Client Recorded Date Recorded By Document 09/23/18 14:29 [email or web address] [id number] 09/23/18 14:33 [email or web address] 09/23/18 14:29 Wound Center Nurse 2 [Procedure/Treatment] 11-right 1st metatarsal -Time 14:32 -Correct Patient Yes -Correct Side, Site, Position Yes -Correct Procedure Yes -Procedure Performed Yes -Type of Procedure Debridement -Clinical Debridement Subcutaneous -Post Debridement Size (cm) - Length 0.7 -Post Debridement Size (cm) - Width 0.9 -Post Debridement Size (cm) - Depth 0.1 -Total Square Cm 0.63 -Wound/Ulcer Outcome Not Healed -Ulcer Cleansing Rinsed/ Irrigated with Saline -Foul Odor after Cleansing No -Bioengineered Tissue No -Bleeding Controlled with Pressure -Treatment Response Procedure Tolerated Well #9 L Heel -Time 14:29 -Correct Patient Yes -Correct Side, Site, Position Yes -Correct Procedure Yes -Procedure Performed Yes -Type of Procedure Debridement -Clinical Debridement Subcutaneous -Post Debridement Size (cm) - Length 2.4 -Post Debridement Size (cm) - Width 2.8 -Post Debridement Size (cm) - Depth 0.1 -Total Square Cm 6.72 -Wound/Ulcer Outcome Not Healed -Ulcer Cleansing Rinsed/ Irrigated with Saline -Foul Odor after Cleansing No -Bioengineered Tissue No -Bleeding Controlled with Pressure -Treatment Response Procedure Tolerated Well #8 L Grt Toe Webspace -Time 14:29 -Correct Patient Yes -Correct Side, Site, Position Yes -Correct Procedure Yes -Procedure Performed Yes -Type of Procedure Debridement -Clinical Debridement Subcutaneous -Post Debridement Size (cm) - Length 0.5 -Post Debridement Size (cm) - Width 0.2 -Post Debridement Size (cm) - Depth 0.2 -Total Square Cm 0.10 -Wound/Ulcer Outcome Not Healed -Ulcer Cleansing Rinsed/ Irrigated with Saline -Foul Odor after Cleansing No -Bioengineered Tissue No -Bleeding Controlled with Pressure -Treatment Response Procedure Tolerated Well [See Physician Procedure note for Specifics] Pain Scale: 0-10 Numeric [Pain] -Is Patient Pain Free? Yes Musculoskeletal: No Tenderness to Palpation of Joints or Extremities, Muscle Wasting, - - Heel compression discomfort left Neurological: - - Altered and lack of epicritic sensation light touch bilateral lower extremities Psych/Mental Status: Normal Affect, Appropriate Debridement Note Post-Debridement Measurements/Treatment WC - Nurse 2 - General Ulcer CM Notes Start: 09/01/18 13:19 Freq: Status: Active Protocol: Activity Type Activity Date Activity User E-Sign Co-Sign Detail Recorded Client Recorded Date Recorded By Document 09/01/18 13:38 [id number] 09/01/18 13:43 Document 09/09/18 13:33 [id number] 09/09/18 13:35 Document 09/23/18 14:29 [id number] 09/23/18 14:33 09/01/18 09/09/18 09/23/18 13:38 13:33 14:29 Wound Center Nurse 2 11-right 1st metatarsal -Time 14:32 -Correct Patient Yes -Correct Side, Site, Position Yes -Correct Procedure Yes -Procedure Performed Yes -Type of Procedure Debridement -Clinical Debridement Subcutaneous -Post Debridement Size (cm) - Length 0.7 -Post Debridement Size (cm) - Width 0.9 -Post Debridement Size (cm) - Depth 0.1 -Total Square Cm 0.63 -Wound/Ulcer Outcome Not Healed -Ulcer Cleansing Rinsed/ Irrigated with Saline -Foul Odor after Cleansing No -Bioengineered Tissue No -Bleeding Controlled with Pressure -Treatment Response Procedure Tolerated Well #9 L Heel -Time 13:39 13:34 14:29 -Correct Patient Yes Yes Yes -Correct Side, Site, Position Yes Yes Yes -Correct Procedure Yes Yes Yes -Procedure Performed Yes Yes Yes -Type of Procedure Debridement Debridement Debridement -Clinical Debridement Subcutaneous Subcutaneous Subcutaneous -Post Debridement Size (cm) - Length 0.3 0.1 2.4 -Post Debridement Size (cm) - Width 0.2 0.1 2.8 -Post Debridement Size (cm) - Depth 0.1 0.1 0.1 -Total Square Cm 0.06 0.01 6.72 -Wound/Ulcer Outcome Not Healed Not Healed Not Healed -Ulcer Cleansing Rinsed/ Rinsed/ Rinsed/ Irrigated with Irrigated with Irrigated with Saline Saline Saline -Foul Odor after Cleansing No No No -Bioengineered Tissue No No No -Bleeding Controlled with Pressure Pressure Pressure -Treatment Response Procedure Procedure Procedure Tolerated Well Tolerated Well Tolerated Well #8 L Grt Toe Webspace -Time 13:39 13:34 14:29 -Correct Patient Yes Yes Yes -Correct Side, Site, Position Yes Yes Yes -Correct Procedure Yes Yes Yes -Procedure Performed Yes Yes Yes -Type of Procedure Debridement Debridement Debridement -Clinical Debridement Subcutaneous Subcutaneous Subcutaneous -Post Debridement Size (cm) - Length 0.8 0.2 0.5 -Post Debridement Size (cm) - Width 0.5 0.1 0.2 -Post Debridement Size (cm) - Depth 0.1 0.1 0.2 -Total Square Cm 0.40 0.02 0.10 -Wound/Ulcer Outcome Not Healed Not Healed Not Healed -Ulcer Cleansing Rinsed/ Rinsed/ Rinsed/ Irrigated with Irrigated with Irrigated with Saline Saline Saline -Foul Odor after Cleansing No No No -Bioengineered Tissue No No No -Bleeding Controlled with Pressure Pressure Pressure -Treatment Response Procedure Procedure Procedure Tolerated Well Tolerated Well Tolerated Well Pain Scale: 0-10 Numeric Is Patient Pain Free? Yes Yes Yes Wound debrided: plantar heel - status change Laterality: Left Wound Grade/Stage: grade 1 Type of Debridement: Excisional debridement Anesthesia Used: 4% Lidocaine Solution Depth: in the subcutaneous layer Percentage of wound debrided: 100 Instrument Used: #15 blade Tissue Removed: fibrous, devitalized subcutaneous, biofilm, slough Severity: Fat Layer Exposed Amount of bleeding with debridement: Mild Bleeding Controlled with: Pressure Patient tolerated procedure well - Additional Wound Wound debrided: first interspace Laterality: Left Wound Grade/Stage: grade 1 Type of Debridement: Excisional debridement Anesthesia Used: 4% Lidocaine Solution Depth: in the subcutaneous layer Percentage of wound debrided: 100 Instrument Used: #15 blade Tissue Removed: fibrous, devitalized subcutaneous, biofilm, slough Severity: Fat Layer Exposed Amount of bleeding with debridement: Mild Bleeding Controlled with: Pressure Patient tolerated procedure: Patient tolerated procedure well - Additional Wound Wound debrided: sub first metatarsal head Laterality: Right Wound Grade/Stage: grade 1 Type of Debridement: Excisional debridement Anesthesia Used: 4% Lidocaine Solution Depth: in the subcutaneous layer Percentage of wound debrided: 100 Instrument Used: #15 blade Tissue Removed: fibrous, devitalized subcutaneous, biofilm, slough Severity: Fat Layer Exposed Amount of bleeding with debridement: Mild Bleeding Controlled with: Pressure Patient tolerated procedure: Patient tolerated procedure well Assessment/Plan Active Problems Ulcer of right foot with fat layer exposed (Chronic) Chronic ulcer of left foot with fat layer exposed (Chronic) Diabetes mellitus with polyneuropathy (Chronic) Malnutrition (Chronic) Delayed wound healing (Chronic) Gait instability (Chronic) Assessment: Plantar heel ulcer, left foot returned with fat layer exposed- worsening status change. First interdigital space, returned left foot with fat layer exposed. returned sub-first metatarsal head ulcer right foot. rule out cellulitis. Diabetes with neuropathy. Malnutrition. Left foot advanced flat foot deformity with h/o surgical intervention. Nonadherence to treatment plan. calcaneal gait, left. difficulty walking Plan: I reviewed and discussed her care plan. The right and left foot ulcers were debrided as noted in the clinical panel in a subcutaneous manner. To continue offloading surgical shoe right. To change dressing daily to the left and right lower extremity with palomo or aquacel ag. I recommend she continues with cam walker with offloading devices; felt offloading modifications were adjusted and re-fabricated previously to take pressure off of her heel ulcer site of the left foot. She was advised to use a gauze toe spacer to decrease maceration and pressure on her left foot between the first and second toe. To continue protein supplementation to optimize healing; arsen. Her non invasive vascular studies were also reviewed from 08/2017 with bilateral triphasic waveforms, BRITTANY right 1.13 and left 1.29, and toe brachial index right of 0.8 and left 0.75. Repeat exams including xrays and non invasive vascular studies will be considered pending her healing response. Her neuropathy has woresened and we discussed the etiology, past treatment, and treatment recommendations today. Metanx prescription will previously prescribed for treatment of neuropathy. I am concerned about her worsening status and additional information particularly in reference to the left foot. Aerobic and anaerobic cultures were obtained to both the left heel as well as left first interspace. I also ordered updated labs including CBC, CMP, sedimentation rate, and C-reactive protein. I ordered left foot x-rays as well and will call her with results. As I understand she is seen a primary care physician who provided a sleep aid. I encouraged her to continue with this. I am also going to provide her with a referral to behavioral health today and recommend she seeks additional counseling services and continued medical management for her reported depression. She was advised to follow up at the wound healing center in one week or call sooner if there are any questions or concerns. I answered all of her questions.
[2018-09-30 13:26] VITALS: BP 134/60; PULSE 67; RESP 16; TEMP 36.4
--- NOTE | 2018-09-30 15:25 | PCM.WC.PN ---
(1) Ulcer of right foot with fat layer exposed Status: Chronic Code(s): L97.512 - Non-pressure chronic ulcer of other part of right foot with fat layer exposed (2) Chronic ulcer of left foot with fat layer exposed Status: Chronic Code(s): L97.522 - Non-pressure chronic ulcer of other part of left foot with fat layer exposed (3) Diabetes mellitus with polyneuropathy Status: Chronic Qualifiers: Diabetes mellitus type: type 2 Qualified Code(s): E11.42 - Type 2 diabetes mellitus with diabetic polyneuropathy Code(s): E11.42 - Type 2 diabetes mellitus with diabetic polyneuropathy (4) Malnutrition Status: Chronic Code(s): E46 - Unspecified protein-calorie malnutrition (5) Delayed wound healing Status: Chronic Code(s): T14.8 - Other injury of unspecified body region (6) Gait instability Status: Chronic Code(s): R26.81 - Unsteadiness on feet Type of Wound Date of Service: 09/30/18 Chief Complaint: Ulcers to both feet History of Wound: This is a 73-year-old female returns for follow-up of left heel ulceration , first interspace ulcer and left great toe wound. She has been compliant with dressings and offloading left cam walker boot as advised. She also continues to wear her right offloading surgical shoe even though her ulcer sites have recently healed just to allow continued skin remodeling.She denies fever, chills, nausea, vomiting, loss of appetite. Her culture results were reviewed with her over the weekend and she is started the recommended antibiotics. She denies diarrhea. She is amenable to have a total contact cast applied today. She has called the behavioral health referral that was provided last week and is further been referred to see a psychiatrist. Progress of Wound: Improving left foot ulcer. right foot ulcer - Physical Exam Vital Signs Temp Pulse Resp BP 97.5 F L 67 16 134/60 H 09/30/18 13:26 09/30/18 13:26 09/30/18 13:26 09/30/18 13:26 General: Alert, Oriented x3, Cooperative Extremities: No cyanosis, Capillary Refill Less than 3 Seconds, No Calf Tenderness - Negative Maddison and Herrera, Diminished Peripheral Pulses, Edema, - - There is no lack of ankle dorsiflexion left lower extremity. Lateral hallux deviation is noted in the hallux abuts the second toe of the left foot. There is a prominent right first metatarsal head noted Skin: Ulcer/ Wound - No purulence, erythema, streaking, odor, or acute signs of infection. The left heel ulcer site has significantly reduced in size and peripheral inflammation has resolved. There is no deep probing or deep structures noted bilateral. The peripheral skin is hairless and atrophic. Wound Measurements and Assessment WC - Nurse 1 - General Ulcer Measurement Start: 09/01/18 13:19 Freq: Status: Active Protocol: Activity Type Activity Date Activity User E-Sign Co-Sign Detail Recorded Client Recorded Date Recorded By Document 09/30/18 13:26 CS [id number] 09/30/18 13:35 CS 09/30/18 13:26 Wound Center Nurse 1 [Ulcer Assessment] 11-right 1st metatarsal -Combined with other wound No -Current Size (cm) - Length 0.1 -Current Size (cm) - Width 0.1 -Current Size (cm) - Depth 0.1 -Total Square Cm 0.01 -Date of Last Picture (Recall this 09/30/18 field) -Photo Taken Yes -Epithelialization None Present -Texture (Radha-wound Skin Appearance) Callus -Temperature (Radha-wound Skin No Abnormality Appearance) (Pt Warm) -Tenderness on Palpation (Radha-wound No Skin Appearance) -Ulcer Cleansing Rinsed/ Irrigated with Saline -Foul Odor after Cleansing No -Anesthetic Used 5% Lidocaine Gel #9 L Heel -Combined with other wound No -Current Size (cm) - Length 1.7 -Current Size (cm) - Width 2.2 -Current Size (cm) - Depth 0.1 -Total Square Cm 3.74 -Date of Last Picture (Recall this 09/30/18 field) -Photo Taken Yes -Epithelialization None Present -Tunneling No -Undermining/Tunneling No -Circular Undermining No -Moisture (Radha-wound Skin Appearance Maceration ) -Temperature (Radha-wound Skin No Abnormality Appearance) (Pt Warm) -Tenderness on Palpation (Radha-wound No Skin Appearance) -Ulcer Cleansing Rinsed/ Irrigated with Saline -Foul Odor after Cleansing No -Anesthetic Used 5% Lidocaine Gel #8 L Grt Toe Webspace -Combined with other wound No -Current Size (cm) - Length 0.3 -Current Size (cm) - Width 0.7 -Current Size (cm) - Depth 0.3 -Total Square Cm 0.21 -Date of Last Picture (Recall this 09/30/18 field) -Photo Taken Yes -Epithelialization None Present -Tunneling No -Undermining/Tunneling No -Circular Undermining No -Wound Margin Thickened -Granulation Amt Small (1-33%) -Granulation Quality Red -Slough/Fibrin Yes -Necrosis Amt None Present (0 %) -Necrotic Tissue Type Adherent Slough -Structure Exposed None/Limited to Skin Breakdown -Texture (Radha-wound Skin Appearance) No Abnormality Assessed -Moisture (Radha-wound Skin Appearance Maceration ) -Color (Radha-wound Skin Appearance) No Abnormality Assessed -Temperature (Radha-wound Skin No Abnormality Appearance) (Pt Warm) -Tenderness on Palpation (Radha-wound No Skin Appearance) -Ulcer Cleansing Rinsed/ Irrigated with Saline -Foul Odor after Cleansing No -Anesthetic Used 5% Lidocaine Gel [Edema Assessment] -Lower Limb Edema Present No WC - Nurse 2 - General Ulcer CM Notes Start: 09/01/18 13:19 Freq: Status: Active Protocol: Activity Type Activity Date Activity User E-Sign Co-Sign Detail Recorded Client Recorded Date Recorded By Document 09/30/18 14:23 [id number] 09/30/18 14:25 09/30/18 14:23 Wound Center Nurse 2 [Procedure/Treatment] 11-right 1st metatarsal -Time 14:24 -Correct Patient Yes -Correct Side, Site, Position Yes -Correct Procedure Yes -Procedure Performed Yes -Type of Procedure Debridement -Clinical Debridement Subcutaneous -Post Debridement Size (cm) - Length 0.2 -Post Debridement Size (cm) - Width 0.2 -Post Debridement Size (cm) - Depth 0.1 -Total Square Cm 0.04 -Wound/Ulcer Outcome Not Healed -Ulcer Cleansing Rinsed/ Irrigated with Saline -Foul Odor after Cleansing No -Bioengineered Tissue No -Bleeding Controlled with Pressure -Treatment Response Procedure Tolerated Well #9 L Heel -Time 14:23 -Correct Patient Yes -Correct Side, Site, Position Yes -Correct Procedure Yes -Procedure Performed Yes -Type of Procedure Debridement -Clinical Debridement Subcutaneous -Post Debridement Size (cm) - Length 1.8 -Post Debridement Size (cm) - Width 2.2 -Post Debridement Size (cm) - Depth 0.1 -Total Square Cm 3.96 -Wound/Ulcer Outcome Not Healed -Ulcer Cleansing Rinsed/ Irrigated with Saline -Foul Odor after Cleansing No -Bioengineered Tissue No -Bleeding Controlled with Pressure -Treatment Response Procedure Tolerated Well #8 L Grt Toe Webspace -Time 14:23 -Correct Patient Yes -Correct Side, Site, Position Yes -Correct Procedure Yes -Procedure Performed Yes -Type of Procedure Debridement -Clinical Debridement Subcutaneous -Post Debridement Size (cm) - Length 0.3 -Post Debridement Size (cm) - Width 0.8 -Post Debridement Size (cm) - Depth 0.3 -Total Square Cm 0.24 -Wound/Ulcer Outcome Not Healed -Foul Odor after Cleansing No -Bioengineered Tissue No -Bleeding Controlled with Pressure -Treatment Response Procedure Tolerated Well [See Physician Procedure note for Specifics] Pain Scale: 0-10 Numeric [Pain] -Is Patient Pain Free? Yes Musculoskeletal: No Tenderness to Palpation of Joints or Extremities, Muscle Wasting Neurological: - - Lack of normal epicritic sensation light touch Psych/Mental Status: Normal Affect, Appropriate Debridement Note Post-Debridement Measurements/Treatment WC - Nurse 2 - General Ulcer CM Notes Start: 09/01/18 13:19 Freq: Status: Active Protocol: Activity Type Activity Date Activity User E-Sign Co-Sign Detail Recorded Client Recorded Date Recorded By Document 09/01/18 13:38 [id number] 09/01/18 13:43 Document 09/09/18 13:33 [id number] 09/09/18 13:35 Document 09/23/18 14:29 [id number] 09/23/18 14:33 Document 09/30/18 14:23 [id number] 09/30/18 14:25 09/01/18 09/09/18 09/23/18 13:38 13:33 14:29 Wound Center Nurse 2 11-right 1st metatarsal -Time 14:32 -Correct Patient Yes -Correct Side, Site, Position Yes -Correct Procedure Yes -Procedure Performed Yes -Type of Procedure Debridement -Clinical Debridement Subcutaneous -Post Debridement Size (cm) - Length 0.7 -Post Debridement Size (cm) - Width 0.9 -Post Debridement Size (cm) - Depth 0.1 -Total Square Cm 0.63 -Wound/Ulcer Outcome Not Healed -Ulcer Cleansing Rinsed/ Irrigated with Saline -Foul Odor after Cleansing No -Bioengineered Tissue No -Bleeding Controlled with Pressure -Treatment Response Procedure Tolerated Well #9 L Heel -Time 13:39 13:34 14:29 -Correct Patient Yes Yes Yes -Correct Side, Site, Position Yes Yes Yes -Correct Procedure Yes Yes Yes -Procedure Performed Yes Yes Yes -Type of Procedure Debridement Debridement Debridement -Clinical Debridement Subcutaneous Subcutaneous Subcutaneous -Post Debridement Size (cm) - Length 0.3 0.1 2.4 -Post Debridement Size (cm) - Width 0.2 0.1 2.8 -Post Debridement Size (cm) - Depth 0.1 0.1 0.1 -Total Square Cm 0.06 0.01 6.72 -Wound/Ulcer Outcome Not Healed Not Healed Not Healed -Ulcer Cleansing Rinsed/ Rinsed/ Rinsed/ Irrigated with Irrigated with Irrigated with Saline Saline Saline -Foul Odor after Cleansing No No No -Bioengineered Tissue No No No -Bleeding Controlled with Pressure Pressure Pressure -Treatment Response Procedure Procedure Procedure Tolerated Well Tolerated Well Tolerated Well #8 L Grt Toe Webspace -Time 13:39 13:34 14:29 -Correct Patient Yes Yes Yes -Correct Side, Site, Position Yes Yes Yes -Correct Procedure Yes Yes Yes -Procedure Performed Yes Yes Yes -Type of Procedure Debridement Debridement Debridement -Clinical Debridement Subcutaneous Subcutaneous Subcutaneous -Post Debridement Size (cm) - Length 0.8 0.2 0.5 -Post Debridement Size (cm) - Width 0.5 0.1 0.2 -Post Debridement Size (cm) - Depth 0.1 0.1 0.2 -Total Square Cm 0.40 0.02 0.10 -Wound/Ulcer Outcome Not Healed Not Healed Not Healed -Ulcer Cleansing Rinsed/ Rinsed/ Rinsed/ Irrigated with Irrigated with Irrigated with Saline Saline Saline -Foul Odor after Cleansing No No No -Bioengineered Tissue No No No -Bleeding Controlled with Pressure Pressure Pressure -Treatment Response Procedure Procedure Procedure Tolerated Well Tolerated Well Tolerated Well Pain Scale: 0-10 Numeric Is Patient Pain Free? Yes Yes Yes 09/30/18 14:23 Wound Center Nurse 2 11-right 1st metatarsal -Time 14:24 -Correct Patient Yes -Correct Side, Site, Position Yes -Correct Procedure Yes -Procedure Performed Yes -Type of Procedure Debridement -Clinical Debridement Subcutaneous -Post Debridement Size (cm) - Length 0.2 -Post Debridement Size (cm) - Width 0.2 -Post Debridement Size (cm) - Depth 0.1 -Total Square Cm 0.04 -Wound/Ulcer Outcome Not Healed -Ulcer Cleansing Rinsed/ Irrigated with Saline -Foul Odor after Cleansing No -Bioengineered Tissue No -Bleeding Controlled with Pressure -Treatment Response Procedure Tolerated Well #9 L Heel -Time 14:23 -Correct Patient Yes -Correct Side, Site, Position Yes -Correct Procedure Yes -Procedure Performed Yes -Type of Procedure Debridement -Clinical Debridement Subcutaneous -Post Debridement Size (cm) - Length 1.8 -Post Debridement Size (cm) - Width 2.2 -Post Debridement Size (cm) - Depth 0.1 -Total Square Cm 3.96 -Wound/Ulcer Outcome Not Healed -Ulcer Cleansing Rinsed/ Irrigated with Saline -Foul Odor after Cleansing No -Bioengineered Tissue No -Bleeding Controlled with Pressure -Treatment Response Procedure Tolerated Well #8 L Grt Toe Webspace -Time 14:23 -Correct Patient Yes -Correct Side, Site, Position Yes -Correct Procedure Yes -Procedure Performed Yes -Type of Procedure Debridement -Clinical Debridement Subcutaneous -Post Debridement Size (cm) - Length 0.3 -Post Debridement Size (cm) - Width 0.8 -Post Debridement Size (cm) - Depth 0.3 -Total Square Cm 0.24 -Wound/Ulcer Outcome Not Healed -Ulcer Cleansing -Foul Odor after Cleansing No -Bioengineered Tissue No -Bleeding Controlled with Pressure -Treatment Response Procedure Tolerated Well Pain Scale: 0-10 Numeric Is Patient Pain Free? Yes Wound debrided: sub 1st metatarsal head Laterality: Right Wound Grade/Stage: grade 1 Type of Debridement: Excisional debridement Anesthesia Used: 4% Lidocaine Solution Depth: in the subcutaneous layer Percentage of wound debrided: 100 Instrument Used: #15 blade Tissue Removed: fibrous, devitalized subcutaneous, biofilm, slough Severity: Fat Layer Exposed Amount of bleeding with debridement: Mild Bleeding Controlled with: Pressure Patient tolerated procedure well - Additional Wound Wound debrided: first interspace Laterality: Left Wound Grade/Stage: grade 1 Type of Debridement: Excisional debridement Anesthesia Used: 4% Lidocaine Solution Depth: in the subcutaneous layer Percentage of wound debrided: 100 Instrument Used: #15 blade Tissue Removed: fibrous, devitalized subcutaneous, biofilm, slough Severity: Fat Layer Exposed Amount of bleeding with debridement: Mild Bleeding Controlled with: Pressure Patient tolerated procedure: Patient tolerated procedure well - Additional Wound Wound debrided: plantar heel Laterality: Left Wound Grade/Stage: grade 1 Type of Debridement: Excisional debridement Anesthesia Used: 4% Lidocaine Solution Depth: in the subcutaneous layer Percentage of wound debrided: 100 Instrument Used: #15 blade Tissue Removed: fibrous, devitalized subcutaneous, biofilm, slough Severity: Fat Layer Exposed Amount of bleeding with debridement: Mild Bleeding Controlled with: Pressure Patient tolerated procedure: Patient tolerated procedure well Assessment/Plan Assessment: Plantar heel ulcer, left foot- with fat layer exposed- cellulitis treated. First interdigital space, left foot with fat layer exposed. sub-first metatarsal head ulcer right foot -fat layer exposed. Diabetes with neuropathy. Malnutrition. Left foot advanced flat foot deformity with h/o surgical intervention. Nonadherence to treatment plan. calcaneal gait, left. difficulty walking Plan: I reviewed and discussed her care plan. The right and left foot ulcers were debrided as noted in the clinical panel in a subcutaneous manner. To continue offloading surgical shoe right. To change dressing daily to the right lower extremity with palomo. I recommend she continues with offloading to the right foot. She was advised to use a gauze toe spacer to decrease maceration and pressure on her left foot between the first and second toe. A well-padded total contact cast was applied to the left lower extremity in a neutral position. The indications planned procedure and anticipated healing time management were discussed. She is amendable and tolerated this well. To keep clean dry and intact until follow-up next week. To continue protein supplementation to optimize healing; arsen. Her non invasive vascular studies were also reviewed from 08/2017 with bilateral triphasic waveforms, BRITTANY right 1.13 and left 1.29, and toe brachial index right of 0.8 and left 0.75. Repeat exams including xrays and non invasive vascular studies will be considered pending her healing response. Her neuropathy has woresened and we discussed the etiology, past treatment, and treatment recommendations today. Metanx prescription will previously prescribed for treatment of neuropathy. Aerobic and anaerobic cultures were obtained to both the left heel as well as left first interspace. The following bacteria were noted staph epidermidis, actinomyces neuii, coag negative staph, enterococcus facialis, Proteus mirabilis. No MRSA was identified. She was started on Augmentin over the weekend and is demonstrated clinical reduction of inflammation and infection. To complete this course. I also reviewed her updated labs including CBC (5), CMP, sedimentation rate (15), and C-reactive protein (26.6). I ordered left foot x-rays and these are reviewed with her as well. There is no soft tissue emphysema, acute fracture dislocation, or foreign body. To follow-up with behavioral health and psychology as advised; she is amenable to this plan. She was advised to follow up at the wound healing center in one week or call sooner if there are any questions or concerns. I answered all of her questions.
== END 2018-09-30 23:59 ==
LOC: WC 13:15
PROVIDERS: Family Provider Family Medicine; PCP Family Medicine; Visit Provider Podiatrist
DX: E11.621 Type 2 diabetes mellitus with foot ulcer (principal); L97.522 Non-pressure chronic ulcer of other part of left foot with fat layer exposed; R26.81 Unsteadiness on feet; M21.42 Flat foot [pes planus] (acquired), left foot; E11.42 Type 2 diabetes mellitus with diabetic polyneuropathy; L84 Corns and callosities; L97.512 Non-pressure chronic ulcer of other part of right foot with fat layer exposed
CPT/HCPCS: 11042; 29445; 87070; 87077; 87186; 87205

== ENCOUNTER 2018-10-28 14:30 | Outpatient (RCR) | payer MEDICARE, BC, SELFPAY ==
[2018-10-01 01:43] VITALS: BP 134/60; PULSE 67; RESP 16; TEMP 36.4
[2018-10-07 13:25] VITALS: BP 139/74; PULSE 63; RESP 18; TEMP 36
--- NOTE | 2018-10-07 23:25 | PCM.WC.PN ---
(1) Ulcer of right foot with fat layer exposed Status: Chronic Current Visit: Yes Code(s): L97.512 - Non-pressure chronic ulcer of other part of right foot with fat layer exposed (2) Chronic ulcer of left foot with fat layer exposed Status: Chronic Current Visit: Yes Code(s): L97.522 - Non-pressure chronic ulcer of other part of left foot with fat layer exposed (3) Diabetes mellitus with polyneuropathy Status: Chronic Current Visit: Yes Qualifiers: Code(s): E11.42 - Type 2 diabetes mellitus with diabetic polyneuropathy (4) Malnutrition Status: Chronic Current Visit: Yes Code(s): E46 - Unspecified protein-calorie malnutrition (5) Delayed wound healing Status: Chronic Current Visit: Yes Code(s): T14.8 - Other injury of unspecified body region Type of Wound Date of Service: 10/07/18 Chief Complaint: Left heel ulceration. right foot ulcer History of Wound: This is a 73-year-old female returns for follow-up of left heel ulceration , first interspace ulcer and left great toe wound. She has been compliant with dressings the right foot ulcer site and offloading left ulcer sites with a total contact cast. She denies problems with the cast this past week. She denies fever, chills, nausea, vomiting, loss of appetite. Progress of Wound: Healed left toe ulcer site. Other ulcer sites are improving (left heel and right forefoot) - Physical Exam Vital Signs Temp Pulse Resp BP 96.8 F L 63 18 139/74 H 10/07/18 13:25 10/07/18 13:25 10/07/18 13:25 10/07/18 13:25 General: Alert, Oriented x3, Cooperative Extremities: No cyanosis, Capillary Refill Less than 3 Seconds, No Calf Tenderness - Negative Maddison and Herrera sign bilateral, Diminished Peripheral Pulses, Edema - Mild Skin: Ulcer/ Wound - No purulence, erythema, streaking, odor, or acute infection bilateral lower extremities. The left first interdigital ulcer site is fully epithelialized and there is no drainage or infection noted here today. The right sub-first metatarsal head ulcer site and left plantar heel site have significantly reduced in size and appear to be healthy without signs of infection. The peripheral skin is hairless and atrophic. Wound Measurements and Assessment WC - Nurse 1 - General Ulcer Measurement Start: 10/07/18 13:25 Freq: Status: Active Protocol: Activity Type Activity Date Activity User E-Sign Co-Sign Detail Recorded Client Recorded Date Recorded By Document 10/07/18 13:25 RB [id number] 10/07/18 13:48 RB 10/07/18 13:25 Wound Center Nurse 1 [Ulcer Assessment] 11-right 1st metatarsal -Combined with other wound No -Current Size (cm) - Length 0.1 -Current Size (cm) - Width 0.1 -Current Size (cm) - Depth 0.1 -Total Square Cm 0.01 -Photo Taken No -Tunneling No -Undermining/Tunneling No -Circular Undermining No -Exudate Amt None Present (0 %) -Wound Margin Distinct, Outline Attached -Granulation Amt Large (67-100%) -Granulation Quality [place] -Slough/Fibrin Yes -Necrosis Amt Small (1-33%) -Necrotic Tissue Type Adherent Slough -Structure Exposed N/A -Texture (Radha-wound Skin Appearance) Assessed Callus -Moisture (Radha-wound Skin Appearance Assessed ) -Color (Radha-wound Skin Appearance) Assessed -Temperature (Radha-wound Skin No Abnormality Appearance) (Pt Warm) -Tenderness on Palpation (Radha-wound No Skin Appearance) -Ulcer Cleansing Rinsed/ Irrigated with Saline -Foul Odor after Cleansing No -Anesthetic Used 5% Lidocaine Gel #9 L Heel -Combined with other wound No -Current Size (cm) - Length 0.3 -Current Size (cm) - Width 0.6 -Current Size (cm) - Depth 0.2 -Total Square Cm 0.18 -Photo Taken No -Tunneling No -Undermining/Tunneling No -Circular Undermining No -Exudate Amt Small (1-33%) -Exudate Type Serosanguineous -Wound Margin Thickened -Granulation Amt Medium (34-66%) -Granulation Quality [place] -Slough/Fibrin Yes -Necrosis Amt Small (1-33%) -Necrotic Tissue Type Adherent Slough -Structure Exposed N/A -Texture (Radha-wound Skin Appearance) Assessed Callus -Moisture (Radha-wound Skin Appearance Assessed ) -Color (Radha-wound Skin Appearance) Assessed -Temperature (Radha-wound Skin No Abnormality Appearance) (Pt Warm) -Tenderness on Palpation (Radha-wound No Skin Appearance) -Ulcer Cleansing Wound Cleanser -Foul Odor after Cleansing No -Anesthetic Used 5% Lidocaine Gel #8 L Grt Toe Webspace -Combined with other wound No -Current Size (cm) - Length 0.1 -Current Size (cm) - Width 0.1 -Current Size (cm) - Depth 0.1 -Total Square Cm 0.01 -Tunneling No -Undermining/Tunneling No -Circular Undermining No -Exudate Amt None Present (0 %) -Wound Margin Distinct, Outline Attached -Granulation Amt Medium (34-66%) -Granulation Quality [place] -Slough/Fibrin Yes -Necrosis Amt Small (1-33%) -Necrotic Tissue Type Adherent Slough -Structure Exposed N/A -Texture (Radha-wound Skin Appearance) Assessed -Moisture (Radha-wound Skin Appearance Assessed ) -Color (Radha-wound Skin Appearance) Assessed -Temperature (Radha-wound Skin No Abnormality Appearance) (Pt Warm) -Tenderness on Palpation (Radha-wound No Skin Appearance) -Ulcer Cleansing Rinsed/ Irrigated with Saline -Foul Odor after Cleansing No -Anesthetic Used 5% Lidocaine Gel [Edema Assessment] -Lower Limb Edema Present Yes -Right Calf (cm) 33.5 -Right Ankle (cm) 20.5 -Left Calf (cm) 33.0 -Left Ankle (cm) 21.4 WC - Nurse 2 - General Ulcer CM Notes Start: 10/07/18 13:25 Freq: Status: Active Protocol: Activity Type Activity Date Activity User E-Sign Co-Sign Detail Recorded Client Recorded Date Recorded By Document 10/07/18 14:49 [id number] 10/07/18 14:52 10/07/18 14:49 Wound Center Nurse 2 [Procedure/Treatment] 11-right 1st metatarsal -Time 14:49 -Correct Patient Yes -Correct Side, Site, Position Yes -Correct Procedure Yes -Procedure Performed Yes -Type of Procedure Debridement -Clinical Debridement Subcutaneous -Post Debridement Size (cm) - Length 0.2 -Post Debridement Size (cm) - Width 0.2 -Post Debridement Size (cm) - Depth 0.1 -Total Square Cm 0.04 -Wound/Ulcer Outcome Not Healed -Ulcer Cleansing Rinsed/ Irrigated with Saline -Foul Odor after Cleansing No -Bioengineered Tissue No -Topical Lidocaine (%) 4 -Bleeding Controlled with Pressure -Treatment Response Procedure Tolerated Well #9 L Heel -Time 14:50 -Correct Patient Yes -Correct Side, Site, Position Yes -Correct Procedure Yes -Procedure Performed Yes -Type of Procedure Debridement -Clinical Debridement Subcutaneous -Post Debridement Size (cm) - Length 0.4 -Post Debridement Size (cm) - Width 0.7 -Post Debridement Size (cm) - Depth 0.2 -Total Square Cm 0.28 -Wound/Ulcer Outcome Not Healed -Ulcer Cleansing Rinsed/ Irrigated with Saline -Foul Odor after Cleansing No -Bioengineered Tissue No -Topical Lidocaine (%) 4 -Bleeding Controlled with Pressure -Treatment Response Procedure Tolerated Well #8 L Grt Toe Webspace -Time 14:51 -Correct Patient Yes -Correct Side, Site, Position Yes -Correct Procedure Yes -Procedure Performed Yes -Post Debridement Size (cm) - Length 0 -Post Debridement Size (cm) - Width 0 -Post Debridement Size (cm) - Depth 0 -Total Square Cm 0 -Wound/Ulcer Outcome Healed- Epithelialized -Ulcer Cleansing Rinsed/ Irrigated with Saline -Foul Odor after Cleansing No -Bioengineered Tissue No -Bleeding Controlled with NA -Treatment Response Procedure Tolerated Well [See Physician Procedure note for Specifics] Pain Scale: 0-10 Numeric [Pain] -Is Patient Pain Free? Yes Musculoskeletal: No Tenderness to Palpation of Joints or Extremities, Muscle Wasting Neurological: - - Lack of epicritic sensation light touch bilateral lower extremities consistent with neuropathy Psych/Mental Status: Normal Affect, Appropriate Debridement Note Post-Debridement Measurements/Treatment WC - Nurse 2 - General Ulcer CM Notes Start: 10/07/18 13:25 Freq: Status: Active Protocol: Activity Type Activity Date Activity User E-Sign Co-Sign Detail Recorded Client Recorded Date Recorded By Document 10/07/18 14:49 [id number] 10/07/18 14:52 10/07/18 14:49 Wound Center Nurse 2 11-right 1st metatarsal -Time 14:49 -Correct Patient Yes -Correct Side, Site, Position Yes -Correct Procedure Yes -Procedure Performed Yes -Type of Procedure Debridement -Clinical Debridement Subcutaneous -Post Debridement Size (cm) - Length 0.2 -Post Debridement Size (cm) - Width 0.2 -Post Debridement Size (cm) - Depth 0.1 -Total Square Cm 0.04 -Wound/Ulcer Outcome Not Healed -Ulcer Cleansing Rinsed/ Irrigated with Saline -Foul Odor after Cleansing No -Bioengineered Tissue No -Topical Lidocaine (%) 4 -Bleeding Controlled with Pressure -Treatment Response Procedure Tolerated Well #9 L Heel -Time 14:50 -Correct Patient Yes -Correct Side, Site, Position Yes -Correct Procedure Yes -Procedure Performed Yes -Type of Procedure Debridement -Clinical Debridement Subcutaneous -Post Debridement Size (cm) - Length 0.4 -Post Debridement Size (cm) - Width 0.7 -Post Debridement Size (cm) - Depth 0.2 -Total Square Cm 0.28 -Wound/Ulcer Outcome Not Healed -Ulcer Cleansing Rinsed/ Irrigated with Saline -Foul Odor after Cleansing No -Bioengineered Tissue No -Topical Lidocaine (%) 4 -Bleeding Controlled with Pressure -Treatment Response Procedure Tolerated Well #8 L Grt Toe Webspace -Time 14:51 -Correct Patient Yes -Correct Side, Site, Position Yes -Correct Procedure Yes -Procedure Performed Yes -Post Debridement Size (cm) - Length 0 -Post Debridement Size (cm) - Width 0 -Post Debridement Size (cm) - Depth 0 -Total Square Cm 0 -Wound/Ulcer Outcome Healed- Epithelialized -Ulcer Cleansing Rinsed/ Irrigated with Saline -Foul Odor after Cleansing No -Bioengineered Tissue No -Bleeding Controlled with NA -Treatment Response Procedure Tolerated Well Pain Scale: 0-10 Numeric Is Patient Pain Free? Yes Wound debrided: plantar heel Laterality: Left Wound Grade/Stage: grade 1 Type of Debridement: Excisional debridement Anesthesia Used: 4% Lidocaine Solution Depth: in the subcutaneous layer Percentage of wound debrided: 100 Instrument Used: #15 blade Tissue Removed: fibrous, devitalized subcutaneous, biofilm, slough Severity: Fat Layer Exposed Amount of bleeding with debridement: Mild Bleeding Controlled with: Pressure Patient tolerated procedure well - Additional Wound Wound debrided: sub 1st metatarsal head Laterality: Right Wound Grade/Stage: grade 1 Type of Debridement: Excisional debridement Anesthesia Used: 4% Lidocaine Solution Depth: in the subcutaneous layer Percentage of wound debrided: 100 Instrument Used: #15 blade Tissue Removed: fibrous, devitalized subcutaneous, biofilm, slough Severity: Fat Layer Exposed Amount of bleeding with debridement: Mild Bleeding Controlled with: Pressure Patient tolerated procedure: Patient tolerated procedure well Assessment/Plan Active Problems Ulcer of right foot with fat layer exposed (Chronic) Chronic ulcer of left foot with fat layer exposed (Chronic) Diabetes mellitus with polyneuropathy (Chronic) Malnutrition (Chronic) Delayed wound healing (Chronic) Assessment: Plantar heel ulcer, left foot returned with fat layer exposed- improving status change. First interdigital space ulcer healed today. sub-first metatarsal head ulcer right foot - improving. Diabetes with neuropathy. Malnutrition. Left foot advanced flat foot deformity with h/o surgical intervention. Nonadherence to treatment plan. calcaneal gait, left. difficulty walking Plan: I reviewed and discussed her care plan. The right and left foot ulcers were debrided as noted in the clinical panel in a subcutaneous manner. To continue offloading surgical shoe right. To change dressing daily to the left and right lower extremity with palomo or aquacel ag. I recommend she continues with left total contact cast however her appropriate size is not available in clinic today. To continue with the Cam walker this upcoming week and we will order the correct size for application next week. Her interdigital space ulcer site has healed however I advised that she continues to use a gauze toe spacer to decrease maceration and pressure on her left foot between the first and second toe. To continue protein supplementation to optimize healing; arsen. Her non invasive vascular studies were also reviewed from 08/2017 with bilateral triphasic waveforms, BRITTANY right 1.13 and left 1.29, and toe brachial index right of 0.8 and left 0.75. Repeat exams including xrays and non invasive vascular studies will be considered pending her healing response. Her neuropathy has woresened and we discussed the etiology, past treatment, and treatment recommendations today. Metanx prescription will previously prescribed for treatment of neuropathy. Her most recently reviewed x-rays were negative for acute infection or traumatic findings. Her most recent lab work was reviewed and she had a white blood cell count of 5, sedimentation rate of 15, and C-reactive protein 26.6. She was advised to follow up at the wound healing center in one week or call sooner if there are any questions or concerns. I answered all of her questions.
[2018-10-14 13:31] VITALS: BP 135/113; PULSE 62; RESP 16; TEMP 37
--- NOTE | 2018-10-14 14:33 | PN.PCM_ITS ---
(1) Chronic ulcer of left foot with fat layer exposed Status: Chronic Current Visit: Yes Code(s): L97.522 - Non-pressure chronic ulcer of other part of left foot with fat layer exposed (2) Ulcer of right foot with fat layer exposed Status: Resolved Current Visit: Yes Code(s): L97.512 - Non-pressure chronic ulcer of other part of right foot with fat layer exposed (3) Diabetes mellitus with polyneuropathy Status: Chronic Current Visit: Yes Qualifiers: Code(s): E11.42 - Type 2 diabetes mellitus with diabetic polyneuropathy (4) Malnutrition Status: Chronic Current Visit: Yes Code(s): E46 - Unspecified protein- calorie malnutrition (5) Delayed wound healing Status: Chronic Current Visit: Yes Code(s): T14.8 - Other injury of unspecified body region Type of Wound Date of Service: 10/14/18 Chief Complaint: Left heel ulceration. right foot ulcer History of Wound: This is a 73-year-old female returns for follow-up of left heel ulceration and left great toe wound. She has been compliant with dressings care. She denies problems with the cast this past week. She denies fever, chills, nausea, vomiting, loss of appetite. Progress of Wound: Improving - Physical Exam Vital Signs Temp Pulse Resp BP 98.6 F 62 16 135/113 H 10/14/18 13:31 10/14/18 13:31 10/14/18 13:31 10/14/18 13:31 General: Alert, Oriented x3, Cooperative Extremities: No cyanosis, Capillary Refill Less than 3 Seconds, No Calf Tenderness - Negative Maddison and Herrera sign bilateral, Diminished Peripheral Puls es, Edema - Mild bilateral lower extremities Skin: Ulcer/ Wound - No purulence, erythema, streaking, odor, or infection. There is no deep tissue exposure eschar noted. Full epithelialization continues to the left first interspace recently healed ulcer site. There is also progressive full epithelialization to the right sub-first metatarsal head prior ulcer site and this is healed. The skin in general to lower extremities are atrophic and hairless. Wound Measurements and Assessment WC - Nurse 1 - General Ulcer Measurement Start: 10/07/18 13:25 Freq: Status: Active Protocol: Activity Type Activity Date Activity User E-Sign Co-Sign Detail Recorded Client Recorded Date Recorded By Document 10/14/18 13:31 DV [id number] 10/14/18 13:35 DV 10/14/18 13:31 Wound Center Nurse 1 [Ulcer Assessment] 11-right 1st metatarsal -Combined with other wound No -Current Size (cm) - Length 0.1 -Current Size (cm) - Width 0.1 -Current Size (cm) - Depth 0.1 -Total Square Cm 0.01 -Photo Taken No -Epithelialization None Present -Tunneling No -Undermining/Tunneling No -Circular Undermining No -Wound Margin Flat & Intact -Granulation Amt None Present (0 %) -Granulation Quality N/A -Slough/Fibrin Yes -Necrosis Amt Small (1-33%) -Necrotic Tissue Type Adherent Slough -Structure Exposed N/A -Texture (Radha-wound Skin Appearance) Assessed Callus -Moisture (Radha-wound Skin Appearance Assessed ) Dry/Scaly -Color (Radha-wound Skin Appearance) No Abnormality Assessed -Temperature (Radha-wound Skin No Abnormality Appearance) (Pt Warm) -Tenderness on Palpation (Radha-wound No Skin Appearance) -Ulcer Cleansing Rinsed/ Irrigated with Saline -Foul Odor after Cleansing No #9 L Heel -Combined with other wound No -Current Size (cm) - Length 0.5 -Current Size (cm) - Width 0.8 -Current Size (cm) - Depth 0.1 -Total Square Cm 0.40 -Photo Taken No -Epithelialization None Present -Tunneling No -Undermining/Tunneling No -Circular Undermining No -Wound Margin Flat & Intact -Granulation Amt None Present (0 %) -Necrosis Amt Small (1-33%) -Necrotic Tissue Type Adherent Slough -Structure Exposed None/Limited to Skin Breakdown -Texture (Radha-wound Skin Appearance) Assessed Scarring -Moisture (Radha-wound Skin Appearance Dry/Scaly ) -Color (Radha-wound Skin Appearance) No Abnormality Assessed -Temperature (Radha-wound Skin Cool/Cold Appearance) -Tenderness on Palpation (Radha-wound No Skin Appearance) -Ulcer Cleansing Rinsed/ Irrigated with Saline -Foul Odor after Cleansing No [Edema Assessment] -Lower Limb Edema Present No WC - Nurse 2 - General Ulcer CM Notes Start: 10/07/18 13:25 Freq: Status: Active Protocol: Activity Type Activity Date Activity User E-Sign Co-Sign Detail Recorded Client Recorded Date Recorded By Document 10/14/18 14:02 [id number] 10/14/18 14:04 10/14/18 14:02 Wound Center Nurse 2 [Procedure/Treatment] 11-right 1st metatarsal -Time 14:03 -Correct Patient No -Correct Side, Site, Position No -Correct Procedure No -Procedure Performed No -Post Debridement Size (cm) - Length 0.4 -Post Debridement Size (cm) - Width 0.5 -Post Debridement Size (cm) - Depth 0.1 -Total Square Cm 0.20 -Wound/Ulcer Outcome Not Healed -Ulcer Cleansing Rinsed/ Irrigated with Saline -Foul Odor after Cleansing No -Bioengineered Tissue No -Bleeding Controlled with Pressure -Treatment Response Procedure Tolerated Well #9 L Heel -Time 14:03 -Correct Patient Yes -Correct Side, Site, Position Yes -Correct Procedure Yes -Procedure Performed Yes -Type of Procedure Debridement -Clinical Debridement Subcutaneous -Post Debridement Size (cm) - Length 0.4 -Post Debridement Size (cm) - Width 0.5 -Post Debridement Size (cm) - Depth 0.1 -Total Square Cm 0.20 -Wound/Ulcer Outcome Not Healed -Ulcer Cleansing Rinsed/ Irrigated with Saline -Foul Odor after Cleansing No -Bioengineered Tissue No -Bleeding Controlled with Pressure -Treatment Response Procedure Tolerated Well [See Physician Procedure note for Specifics] Pain Scale: 0-10 Numeric [Pain] -Is Patient Pain Free? Yes Musculoskeletal: No Tenderness to Palpation of Joints or Extremities, Muscle Wasting, - - Lateral hallux deviation bilateral Neurological: - - Lack of normal epicritic sensation light touch bilateral lower extremities Psych/Mental Status: Normal Affect, Appropriate Debridement Note Post-Debridement Measurements/Treatment WC - Nurse 2 - General Ulcer CM Notes Start: 10/07/18 13:25 Freq: Status: Active Protocol: Activity Type Activity Date Activity User E-Sign Co-Sign Detail Recorded Client Recorded Date Recorded By Document 10/07/18 14:49 [id number] 10/07/18 14:52 Document 10/14/18 14:02 [id number] 10/14/18 14:04 10/07/18 10/14/18 14:49 14:02 Wound Center Nurse 2 11-right 1st metatarsal -Time 14:49 14:03 -Correct Patient Yes No -Correct Side, Site, Position Yes No -Correct Procedure Yes No -Procedure Performed Yes No -Type of Procedure Debridement -Clinical Debridement Subcutaneous -Post Debridement Size (cm) - Length 0.2 0.4 -Post Debridement Size (cm) - Width 0.2 0.5 -Post Debridement Size (cm) - Depth 0.1 0.1 -Total Square Cm 0.04 0.20 -Wound/Ulcer Outcome Not Healed Not Healed -Ulcer Cleansing Rinsed/ Rinsed/ Irrigated with Irrigated with Saline Saline -Foul Odor after Cleansing No No -Bioengineered Tissue No No -Topical Lidocaine (%) 4 -Bleeding Controlled with Pressure Pressure -Treatment Response Procedure Procedure Tolerated Well Tolerated Well #9 L Heel -Time 14:50 14:03 -Correct Patient Yes Yes -Correct Side, Site, Position Yes Yes -Correct Procedure Yes Yes -Procedure Performed Yes Yes -Type of Procedure Debridement Debridement -Clinical Debridement Subcutaneous Subcutaneous -Post Debridement Size (cm) - Length 0.4 0.4 -Post Debridement Size (cm) - Width 0.7 0.5 -Post Debridement Size (cm) - Depth 0.2 0.1 -Total Square Cm 0.28 0.20 -Wound/Ulcer Outcome Not Healed Not Healed -Ulcer Cleansing Rinsed/ Rinsed/ Irrigated with Irrigated with Saline Saline -Foul Odor after Cleansing No No -Bioengineered Tissue No No -Topical Lidocaine (%) 4 -Bleeding Controlled with Pressure Pressure -Treatment Response Procedure Procedure Tolerated Well Tolerated Well #8 L Grt Toe Webspace -Time 14:51 -Correct Patient Yes -Correct Side, Site, Position Yes -Correct Procedure Yes -Procedure Performed Yes -Post Debridement Size (cm) - Length 0 -Post Debridement Size (cm) - Width 0 -Post Debridement Size (cm) - Depth 0 -Total Square Cm 0 -Wound/Ulcer Outcome Healed- Epithelialized -Ulcer Cleansing Rinsed/ Irrigated with Saline -Foul Odor after Cleansing No -Bioengineered Tissue No -Bleeding Controlled with NA -Treatment Response Procedure Tolerated Well Pain Scale: 0-10 Numeric Is Patient Pain Free? Yes Yes Wound debrided: plantar heel Laterality: Left Wound Grade/Stage: grade 1 Type of Debridement: Excisional debridement Anesthesia Used: 4% Lidocaine Solution Depth: in the subcutaneous layer Percentage of wound debrided: 100 Instrument Used: #15 blade Tissue Removed: fibrous, devitalized subcutaneous, biofilm, slough, callous Severity: Fat Layer Exposed Amount of bleeding with debridement: Mild Bleeding Controlled with: Pressure Patient tolerated procedure well Assessment/Plan Active Problems Chronic ulcer of left foot with fat layer exposed (Chronic) Diabetes mellitus with polyneuropathy (Chronic) Malnutrition (Chronic) Delayed wound healing (Chronic) Assessment: Plantar heel ulcer, left foot returned with fat layer exposed- i mproving status change. First interdigital space ulcer remains healed today. sub-first metatarsal head ulcer right foot -healed today. Diabetes with neuropathy. Malnutrition. Left foot advanced flat foot deformity with h/o surgical intervention. Nonadherence to treatment plan. calcaneal gait, left. difficulty walking Plan: I reviewed and discussed her care plan. The right and left foot ulcers were debrided as noted in the clinical panel in a subcutaneous manner. To continue offloading surgical shoe right foot this next week to allow further skin remodeling to this recently healed from the site. After debridement, Lisa was applied to the left plantar heel site. A well-padded total contact cast was applied according to standard protocol with the left lower extremity in a rectus position. She was advised to keep this clean dry and intact until follow-up next week. To continue protein supplementation to optimize healing; arsen. Her non invasive vascular studies were also reviewed from 08/2017 with bilateral triphasic waveforms, BRITTANY right 1.13 and left 1.29, and toe brachial index right of 0.8 and left 0.75. Repeat exams including xrays and non invasive vascular studies will be considered pending her healing response. Her neuropathy has woresened and we discussed the etiology, past treatment, and treatment recommendations today. Metanx prescription will previously prescribed for treatment of neuropathy. Her most recently reviewed x-rays were negative for acute infection or traumatic findings. Her most recent lab work was revie wed and she had a white blood cell count of 5, sedimentation rate of 15, and C- reactive protein 26.6. She was advised to follow up at the wound healing center in one week or call sooner if there are any questions or concerns. I answered all of her questions.
[2018-10-21 14:47] VITALS: BP 132/67; PULSE 74; RESP 16; TEMP 36.3
--- NOTE | 2018-10-21 15:39 | PN.PCM_ITS ---
(1) Chronic ulcer of left foot with fat layer exposed Status: Chronic Current Visit: Yes Code(s): L97.522 - Non-pressure chronic ulcer of other part of left foot with fat layer exposed (2) Diabetes mellitus with polyneuropathy Status: Resolved Current Visit: Yes Qualifiers: Code(s): E11.42 - Type 2 diabetes mellitus with diabetic polyneuropathy (3) Malnutrition Status: Chronic Current Visit: Yes Code(s): E46 - Unspecified protein- calorie malnutrition (4) Delayed wound healing Status: Chronic Current Visit: Yes Code(s): T14.8 - Other injury of unspecified body region Type of Wound Date of Service: 10/21/18 Chief Complaint: Left heel ulceration History of Wound: This is a 73-year-old female returns for follow-up of left heel ulceration and left great toe wound. She has been compliant with dressings care and kept her total contact cast intact. She denies problems with the cast this past week. She denies fever, chills, nausea, vomiting, loss of appetite. Progress of Wound: Improving - Physical Exam Vital Signs Temp Pulse Resp BP 97.3 F L 74 16 132/67 H 10/21/18 14:47 10/21/18 14:47 10/21/18 14:47 10/21/18 14:47 General: Alert, Oriented x3, Cooperative Extremities: No cyanosis, No edema, Capillary Refill Less than 3 Seconds, No Calf Tenderness - negative natan and santiago signs bilateral, Diminished Peripheral Pulses Skin: Ulcer/ Wound - no purulence, no erythema, no streaking, no necrosis , no infection. peripheral epithelialization continues at the ulcer site. peripheral skin is hairless and atrohpic Wound Measurements and Assessment - Nurse 1 - General Ulcer Measurement Start: 10/07/18 13:25 Freq: Status: Active Protocol: Activity Type Activity Date Activity User E-Sign Co-Sign Detail Recorded Client Recorded Date Recorded By Document 10/21/18 14:47 [email or web address] [id number] 10/21/18 14:49 [email or web address] 10/21/18 14:47 Wound Center Nurse 1 [Ulcer Assessment] #9 L Heel -Combined with other wound No -Current Size (cm) - Length 0.1 -Current Size (cm) - Width 0.1 -Current Size (cm) - Depth 0.1 -Total Square Cm 0.01 -Photo Taken No -Epithelialization Large 67-100% -Tunneling No -Undermining/Tunneling No -Circular Undermining No -Exudate Amt Small (1-33%) -Exudate Type Serosanguineous -Wound Margin Flat & Intact -Granulation Amt None Present (0 %) -Slough/Fibrin Yes -Necrosis Amt Large (67-100%) -Necrotic Tissue Type Adherent Slough -Structure Exposed N/A -Texture (Radha-wound Skin Appearance) Assessed Callus -Moisture (Radha-wound Skin Appearance Assessed ) -Color (Radha-wound Skin Appearance) Assessed -Temperature (Radha-wound Skin No Abnormality Appearance) (Pt Warm) -Tenderness on Palpation (Radha-wound No Skin Appearance) -Ulcer Cleansing Wound Cleanser -Foul Odor after Cleansing No -Anesthetic Used 4% Lidocaine Solution [Edema Assessment] -Lower Limb Edema Present Yes -Left Calf (cm) 32.0 -Left Ankle (cm) 20.2 WC - Nurse 2 - General Ulcer CM Notes Start: 10/07/18 13:25 Freq: Status: Active Protocol: Activity Type Activity Date Activity User E-Sign Co-Sign Detail Recorded Client Recorded Date Recorded By Document 10/21/18 15:00 [id number] 10/21/18 15:06 10/21/18 15:00 Wound Center Nurse 2 [Procedure/Treatment] #9 L Heel -Time 15:04 -Correct Patient Yes -Correct Side, Site, Position Yes -Correct Procedure Yes -Procedure Performed Yes -Type of Procedure Debridement -Clinical Debridement Subcutaneous -Post Debridement Size (cm) - Length 0.2 -Post Debridement Size (cm) - Width 0.2 -Post Debridement Size (cm) - Depth 0.1 -Total Square Cm 0.04 -Wound/Ulcer Outcome Not Healed -Ulcer Cleansing Rinsed/ Irrigated with Saline -Foul Odor after Cleansing No -Bioengineered Tissue No -Topical Lidocaine (%) 4 -Bleeding Controlled with Pressure -Treatment Response Procedure Tolerated Well [See Physician Procedure note for Specifics] Pain Scale: 0-10 Numeric [Pain] -Is Patient Pain Free? Yes Musculoskeletal: No Tenderness to Palpation of Joints or Extremities, Muscle Wasting Neurological: - - lack of epicritic sensation via light touch left Psych/Mental Status: Normal Affect, Appropriate Debridement Note Post-Debridement Measurements/Treatment WC - Nurse 2 - General Ulcer CM Notes Start: 10/07/18 13:25 Freq: Status: Active Protocol: Activity Type Activity Date Activity User E-Sign Co-Sign Detail Recorded Client Recorded Date Recorded By Document 10/07/18 14:49 [id number] 10/07/18 14:52 Document 10/14/18 14:02 [id number] 10/14/18 14:04 Document 10/21/18 15:00 [id number] 10/21/18 15:06 10/07/18 10/14/18 10/21/18 14:49 14:02 15:00 Wound Center Nurse 2 11-right 1st metatarsal -Time 14:49 14:03 -Correct Patient Yes No -Correct Side, Site, Position Yes No -Correct Procedure Yes No -Procedure Performed Yes No -Type of Procedure Debridement -Clinical Debridement Subcutaneous -Post Debridement Size (cm) - Length 0.2 0.4 -Post Debridement Size (cm) - Width 0.2 0.5 -Post Debridement Size (cm) - Depth 0.1 0.1 -Total Square Cm 0.04 0.20 -Wound/Ulcer Outcome Not Healed Not Healed -Ulcer Cleansing Rinsed/ Rinsed/ Irrigated with Irrigated with Saline Saline -Foul Odor after Cleansing No No -Bioengineered Tissue No No -Topical Lidocaine (%) 4 -Bleeding Controlled with Pressure Pressure -Treatment Response Procedure Procedure Tolerated Well Tolerated Well #9 L Heel -Time 14:50 14:03 15:04 -Correct Patient Yes Yes Yes -Correct Side, Site, Position Yes Yes Yes -Correct Procedure Yes Yes Yes -Procedure Performed Yes Yes Yes -Type of Procedure Debridement Debridement Debridement -Clinical Debridement Subcutaneous Subcutaneous Subcutaneous -Post Debridement Size (cm) - Length 0.4 0.4 0.2 -Post Debridement Size (cm) - Width 0.7 0.5 0.2 -Post Debridement Size (cm) - Depth 0.2 0.1 0.1 -Total Square Cm 0.28 0.20 0.04 -Wound/Ulcer Outcome Not Healed Not Healed Not Healed -Ulcer Cleansing Rinsed/ Rinsed/ Rinsed/ Irrigated with Irrigated with Irrigated with Saline Saline Saline -Foul Odor after Cleansing No No No -Bioengineered Tissue No No No -Topical Lidocaine (%) 4 4 -Bleeding Controlled with Pressure Pressure Pressure -Treatment Response Procedure Procedure Procedure Tolerated Well Tolerated Well Tolerated Well #8 L Grt Toe Webspace -Time 14:51 -Correct Patient Yes -Correct Side, Site, Position Yes -Correct Procedure Yes -Procedure Performed Yes -Post Debridement Size (cm) - Length 0 -Post Debridement Size (cm) - Width 0 -Post Debridement Size (cm) - Depth 0 -Total Square Cm 0 -Wound/Ulcer Outcome Healed- Epithelialized -Ulcer Cleansing Rinsed/ Irrigated with Saline -Foul Odor after Cleansing No -Bioengineered Tissue No -Bleeding Controlled with NA -Treatment Response Procedure Tolerated Well Pain Scale: 0-10 Numeric Is Patient Pain Free? Yes Yes Yes Wound debrided: plantar heel Laterality: Left Wound Grade/Stage: grade 1 Type of Debridement: Excisional debridement Anesthesia Used: 4% Lidocaine Solution Depth: in the subcutaneous layer Percentage of wound debrided: 100 Instrument Used: #15 blade Tissue Removed: fibrous, devitalized subcutaneous, biofilm, slough, peripheral callous Severity: Fat Layer Exposed Amount of bleeding with debridement: Mild Bleeding Controlled with: Pressure Patient tolerated procedure well Assessment/Plan Active Problems Chronic ulcer of left foot with fat layer exposed (Chronic) Diabetes mellitus with polyneuropathy (Chronic) Malnutrition (Chronic) Delayed wound healing (Chronic) Assessment: Plantar heel ulcer, left foot returned with fat layer exposed- improving status change. First interdigital space ulcer remains healed today. sub-first metatarsal head ulcer right foot - remains healed today. Diabetes with neuropathy. Malnutrition. Left foot advanced flat foot deformity with h/o surgical intervention. Nonadherence to treatment plan. calcaneal gait, left. difficulty walking Plan: I reviewed and discussed her care plan. The right heel ulcer was debrided as noted in the clinical panel in a subcutaneous manner. To continue offloading surgical shoe right foot this next week to allow further skin remodeling to this recently healed from the site. After debridement, Lisa was applied to the left plantar heel site. A well-padded total contact cast was applied according to standard protocol with the left lower extremity in a rectus position. She was advised to keep this clean dry and intact until follow-up next week. To continue protein supplementation to optimize healing; arsen. Her non invasive vascular studies were also reviewed from 08/2017 with bilateral triphasic waveforms, BRITTANY right 1.13 and left 1.29, and toe brachial index right of 0.8 and left 0.75. Repeat exams including xrays and non invasive vascular studies will be considered pending her healing response. Her neuropathy has woresened and we discussed the etiology, past treatment, and treatment recommendations today. Metanx prescription will previously prescribed for treatment of neuropathy. Her most recently reviewed x-rays were negative for acute infection or traumatic findings. Her most recent lab work was reviewed and she had a white blood cell count of 5, sedimentation rate of 15, and C- reactive protein 26.6. She was advised to follow up at the wound healing center in one week or call sooner if there are any questions or concerns. I answered all of her questions.
[2018-10-28 14:47] VITALS: BP 154/75; PULSE 82; RESP 18; TEMP 36.3
--- NOTE | 2018-10-28 15:44 | PN.PCM_ITS ---
(1) Chronic ulcer of left foot with fat layer exposed Status: Chronic Current Visit: Yes Code(s): L97.522 - Non-pressure chronic ulcer of other part of left foot with fat layer exposed (2) Diabetes mellitus with polyneuropathy Status: Chronic Current Visit: Yes Qualifiers: Code(s): E11.42 - Type 2 diabetes mellitus with diabetic polyneuropathy (3) Malnutrition Status: Chronic Current Visit: Yes Code(s): E46 - Unspecified protein- calorie malnutrition (4) Delayed wound healing Status: Chronic Current Visit: Yes Code(s): T14.8 - Other injury of unspecified body region Type of Wound Date of Service: 10/28/18 Chief Complaint: Left heel ulceration History of Wound: This is a 73-year-old female returns for follow-up of left heel ulceration. She has been compliant with dressings care and kept her total contact cast intact. She denies problems with the cast this past week. She denies fever, chills, nausea, vomiting, loss of appetite. She refuses application of total contact cast today. Progress of Wound: Improving - Physical Exam Vital Signs Temp Pulse Resp BP 97.3 F L 82 18 154/75 H 10/28/18 14:47 10/28/18 14:47 10/28/18 14:47 10/28/18 14:47 General: Alert, Oriented x3, Cooperative HEENT: Atraumatic Extremities: No cyanosis, Capillary Refill Less than 3 Seconds, No Calf Tenderness - Negative Maddison and Herrera left, Diminished Peripheral Pulses, Edema - Mild left foot Skin: Ulcer/ Wound - No purulence, erythema, streaking, odor, or acute signs of infection. The peripheral skin is hairless and atrophic. There is peripheral epithelialization noted at the plantar heel ulcer site Wound Measurements and Assessment WC - Nurse 1 - General Ulcer Measurement Start: 10/07/18 13:25 Freq: Status: Active Protocol: Activity Type Activity Date Activity User E-Sign Co-Sign Detail Recorded Client Recorded Date Recorded By Document 10/28/18 14:47 [email or web address] [id number] 10/28/18 14:59 [email or web address] 10/28/18 14:47 Wound Center Nurse 1 [Ulcer Assessment] #9 L Heel -Combined with other wound No -Current Size (cm) - Length 0.3 -Current Size (cm) - Width 0.2 -Current Size (cm) - Depth 0.1 -Total Square Cm 0.06 -Photo Taken No -Tunneling No -Undermining/Tunneling No -Circular Undermining No -Exudate Amt Small (1-33%) -Exudate Type Serosanguineous -Wound Margin Fibrotic Scar, Thickened Scar -Granulation Amt Large (67-100%) -Granulation Quality [place] -Slough/Fibrin Yes -Necrosis Amt Small (1-33%) -Necrotic Tissue Type Adherent Slough -Structure Exposed N/A -Texture (Radha-wound Skin Appearance) Callus -Moisture (Radha-wound Skin Appearance Assessed ) -Color (Radha-wound Skin Appearance) Assessed -Temperature (Radha-wound Skin No Abnormality Appearance) (Pt Warm) -Tenderness on Palpation (Radha-wound No Skin Appearance) -Ulcer Cleansing Wound Cleanser -Anesthetic Used 4% Lidocaine Solution [Edema Assessment] -Lower Limb Edema Present Yes WC - Nurse 2 - General Ulcer CM Notes Start: 10/07/18 13:25 Freq: Status: Active Protocol: Activity Type Activity Date Activity User E-Sign Co-Sign Detail Recorded Client Recorded Date Recorded By Document 10/28/18 15:16 [id number] 10/28/18 15:19 TAHIRA 10/28/18 15:16 Wound Center Nurse 2 [Procedure/Treatment] #9 L Heel -Time 15:18 -Correct Patient Yes -Correct Side, Site, Position Yes -Correct Procedure Yes -Procedure Performed Yes -Type of Procedure Debridement -Clinical Debridement Subcutaneous -Post Debridement Size (cm) - Length 0.3 -Post Debridement Size (cm) - Width 0.4 -Post Debridement Size (cm) - Depth 0.2 -Total Square Cm 0.12 -Wound/Ulcer Outcome Not Healed -Ulcer Cleansing Rinsed/ Irrigated with Saline -Foul Odor after Cleansing No -Bioengineered Tissue No -Bleeding Controlled with Pressure -Offloading Yes -Type of Offloading Camwalker -Treatment Response Procedure Tolerated Well [See Physician Procedure note for Specifics] Pain Scale: 0-10 Numeric [Pain] -Is Patient Pain Free? Yes Musculoskeletal: No Tenderness to Palpation of Joints or Extremities, Muscle Wasting, - - Previous labral reconstruction is unchanged Neurological: - - Lack of normal epicritic sensation light touch consistent with neuropathy left lower extremity Psych/Mental Status: Normal Affect, Appropriate Debridement Note Post-Debridement Measurements/Treatment WC - Nurse 2 - General Ulcer CM Notes Start: 10/07/18 13:25 Freq: Status: Active Protocol: Activity Type Activity Date Activity User E-Sign Co-Sign Detail Recorded Client Recorded Date Recorded By Document 10/07/18 14:49 [id number] 10/07/18 14:52 Document 10/14/18 14:02 [id number] 10/14/18 14:04 Document 10/21/18 15:00 [id number] 10/21/18 15:06 Document 10/28/18 15:16 [id number] 10/28/18 15:19 10/07/18 10/14/18 10/21/18 14:49 14:02 15:00 Wound Center Nurse 2 11-right 1st metatarsal -Time 14:49 14:03 -Correct Patient Yes No -Correct Side, Site, Position Yes No -Correct Procedure Yes No -Procedure Performed Yes No -Type of Procedure Debridement -Clinical Debridement Subcutaneous -Post Debridement Size (cm) - Length 0.2 0.4 -Post Debridement Size (cm) - Width 0.2 0.5 -Post Debridement Size (cm) - Depth 0.1 0.1 -Total Square Cm 0.04 0.20 -Wound/Ulcer Outcome Not Healed Not Healed -Ulcer Cleansing Rinsed/ Rinsed/ Irrigated with Irrigated with Saline Saline -Foul Odor after Cleansing No No -Bioengineered Tissue No No -Topical Lidocaine (%) 4 -Bleeding Controlled with Pressure Pressure -Treatment Response Procedure Procedure Tolerated Well Tolerated Well #9 L Heel -Time 14:50 14:03 15:04 -Correct Patient Yes Yes Yes -Correct Side, Site, Position Yes Yes Yes -Correct Procedure Yes Yes Yes -Procedure Performed Yes Yes Yes -Type of Procedure Debridement Debridement Debridement -Clinical Debridement Subcutaneous Subcutaneous Subcutaneous -Post Debridement Size (cm) - Length 0.4 0.4 0.2 -Post Debridement Size (cm) - Width 0.7 0.5 0.2 -Post Debridement Size (cm) - Depth 0.2 0.1 0.1 -Total Square Cm 0.28 0.20 0.04 -Wound/Ulcer Outcome Not Healed Not Healed Not Healed -Ulcer Cleansing Rinsed/ Rinsed/ Rinsed/ Irrigated with Irrigated with Irrigated with Saline Saline Saline -Foul Odor after Cleansing No No No -Bioengineered Tissue No No No -Topical Lidocaine (%) 4 4 -Bleeding Controlled with Pressure Pressure Pressure -Offloading -Type of Offloading -Treatment Response Procedure Procedure Procedure Tolerated Well Tolerated Well Tolerated Well #8 L Grt Toe Webspace -Time 14:51 -Correct Patient Yes -Correct Side, Site, Position Yes -Correct Procedure Yes -Procedure Performed Yes -Post Debridement Size (cm) - Length 0 -Post Debridement Size (cm) - Width 0 -Post Debridement Size (cm) - Depth 0 -Total Square Cm 0 -Wound/Ulcer Outcome Healed- Epithelialized -Ulcer Cleansing Rinsed/ Irrigated with Saline -Foul Odor after Cleansing No -Bioengineered Tissue No -Bleeding Controlled with NA -Treatment Response Procedure Tolerated Well Pain Scale: 0-10 Numeric Is Patient Pain Free? Yes Yes Yes 10/28/18 15:16 Wound Center Nurse 2 11-right 1st metatarsal -Time -Correct Patient -Correct Side, Site, Position -Correct Procedure -Procedure Performed -Type of Procedure -Clinical Debridement -Post Debridement Size (cm) - Length -Post Debridement Size (cm) - Width -Post Debridement Size (cm) - Depth -Total Square Cm -Wound/Ulcer Outcome -Ulcer Cleansing -Foul Odor after Cleansing -Bioengineered Tissue -Topical Lidocaine (%) -Bleeding Controlled with -Treatment Response #9 L Heel -Time 15:18 -Correct Patient Yes -Correct Side, Site, Position Yes -Correct Procedure Yes -Procedure Performed Yes -Type of Procedure Debridement -Clinical Debridement Subcutaneous -Post Debridement Size (cm) - Length 0.3 -Post Debridement Size (cm) - Width 0.4 -Post Debridement Size (cm) - Depth 0.2 -Total Square Cm 0.12 -Wound/Ulcer Outcome Not Healed -Ulcer Cleansing Rinsed/ Irrigated with Saline -Foul Odor after Cleansing No -Bioengineered Tissue No -Topical Lidocaine (%) -Bleeding Controlled with Pressure -Offloading Yes -Type of Offloading Camwalker -Treatment Response Procedure Tolerated Well #8 L Grt Toe Webspace -Time -Correct Patient -Correct Side, Site, Position -Correct Procedure -Procedure Performed -Post Debridement Size (cm) - Length -Post Debridement Size (cm) - Width -Post Debridement Size (cm) - Depth -Total Square Cm -Wound/Ulcer Outcome -Ulcer Cleansing -Foul Odor after Cleansing -Bioengineered Tissue -Bleeding Controlled with -Treatment Response Pain Scale: 0-10 Numeric Is Patient Pain Free? Yes Wound debrided: plantar heel Laterality: Left Wound Grade/Stage: grade 1 Type of Debridement: Excisional debridement Anesthesia Used: 5% Lidocaine Gel Depth: in the subcutaneous layer Percentage of wound debrided: 100 Instrument Used: #15 blade Tissue Removed: fibrous, devitalized subcutaneous, biofilm, slough Severity: Fat Layer Exposed Amount of bleeding with debridement: Mild Bleeding Controlled with: Pressure Patient tolerated procedure well Assessment/Plan Active Problems Chronic ulcer of left foot with fat layer exposed (Chronic) Diabetes mellitus with polyneuropathy (Chronic) Malnutrition (Chronic) Delayed wound healing (Chronic) Assessment: Plantar heel ulcer, left foot returned with fat layer exposed- improving status change. Diabetes with neuropathy. Malnutrition. Left foot advanced flat foot deformity with h/o surgical intervention. Nonadherence to treatment plan. calcaneal gait, left. difficulty walking Plan: I reviewed and discussed her care plan. The left heel ulcer was debrided as noted in the clinical panel in a subcutaneous manner. After debridement, Lisa was applied to the left plantar heel site. She defers total contact cast today. To wear the Cam walker instead with offloading pocket an assistive device in which she brought this with her today. To change every 1-2 days. To continue protein supplementation to optimize healing; arsen. Her non invasive vascular studies were also reviewed from 08/2017 with bilateral triphasic waveforms, BRITTANY right 1.13 and left 1.29, and toe brachial index right of 0.8 and left 0.75. Repeat exams including xrays and non invasive vascular studies will be considered pending her healing response. Her neuropathy has woresened and we discussed the etiology, past treatment, and treatment recommendations today. Metanx prescription will previously prescribed for treatment of neuropathy. Her most recently reviewed x-rays were negative for acute infection or traumatic findings. Her most recent lab work was reviewed and she had a white blood cell count of 5, sedimentation rate of 15, and C- reactive protein 26.6. She was advised to follow up at the wound healing center in one week or call sooner if there are any questions or concerns. I answered all of her questions.
== END 2018-10-30 23:59 ==
LOC: WC 14:30
PROVIDERS: Family Provider Family Medicine; PCP Family Medicine; Visit Provider Podiatrist
DX: E11.621 Type 2 diabetes mellitus with foot ulcer (principal); L97.512 Non-pressure chronic ulcer of other part of right foot with fat layer exposed; E11.42 Type 2 diabetes mellitus with diabetic polyneuropathy; L97.422 Non-pressure chronic ulcer of left heel and midfoot with fat layer exposed; M21.42 Flat foot [pes planus] (acquired), left foot
CPT/HCPCS: 11042; 29445

== ENCOUNTER 2018-11-25 14:30 | Outpatient (RCR) | payer MEDICARE, BC, SELFPAY ==
[2018-10-31 01:23] VITALS: BP 154/75; PULSE 82; RESP 18; TEMP 36.3
[2018-11-04 14:57] VITALS: BP 146/74; PULSE 83; RESP 18; TEMP 35.9; BMI 27.8
--- NOTE | 2018-11-04 16:47 | PCM.WC.PN ---
(1) Chronic ulcer of left foot with fat layer exposed Status: Chronic Code(s): L97.522 - Non-pressure chronic ulcer of other part of left foot with fat layer exposed (2) Diabetes mellitus with polyneuropathy Status: Chronic Qualifiers: Code(s): E11.42 - Type 2 diabetes mellitus with diabetic polyneuropathy (3) Malnutrition Status: Chronic Code(s): E46 - Unspecified protein-calorie malnutrition (4) Delayed wound healing Status: Chronic Code(s): T14.8 - Other injury of unspecified body region Type of Wound Date of Service: 11/04/18 Chief Complaint: Left heel ulceration History of Wound: This is a 73-year-old female returns for follow-up of left heel ulceration. She has been compliant with dressings care and kept her total contact cast intact. She denies problems with the cast this past week. She denies fever, chills, nausea, vomiting, loss of appetite. Progress of Wound: Improving - Physical Exam Vital Signs Temp Pulse Resp BP 96.6 F L 83 18 146/74 H 11/04/18 14:57 11/04/18 14:57 11/04/18 14:57 11/04/18 14:57 General: Alert, Oriented x3, Cooperative Extremities: No cyanosis, Capillary Refill Less than 3 Seconds, No Calf Tenderness - Negative Maddison and Herrera,bilateral, Diminished Peripheral Pulses, Edema - Mild Skin: Ulcer/ Wound - No purulence, erythema, streaking, odor, or infection bilateral. There is full epithelialization to a previous ulcer site on the right foot. The peripheral skin is hairless and atrophic bilateral Wound Measurements and Assessment WC - Nurse 1 - General Ulcer Measurement Start: 11/04/18 14:57 Freq: Status: Active Protocol: Activity Type Activity Date Activity User E-Sign Co-Sign Detail Recorded Client Recorded Date Recorded By Document 11/04/18 14:57 [email or web address] [id number] 11/04/18 15:02 [email or web address] 11/04/18 14:57 Wound Center Nurse 1 [Ulcer Assessment] #9 L Heel -Combined with other wound No -Current Size (cm) - Length 0.2 -Current Size (cm) - Width 0.2 -Current Size (cm) - Depth 0.2 -Total Square Cm 0.04 -Photo Taken No -Epithelialization Large 67-100% -Tunneling No -Undermining/Tunneling No -Circular Undermining No -Exudate Amt Small (1-33%) -Exudate Type Serosanguineous -Wound Margin Flat & Intact -Granulation Amt None Present (0 %) -Slough/Fibrin Yes -Necrosis Amt Large (67-100%) -Necrotic Tissue Type Adherent Slough -Structure Exposed N/A -Texture (Radha-wound Skin Appearance) Assessed Callus -Moisture (Radha-wound Skin Appearance Assessed ) Dry/Scaly -Color (Radha-wound Skin Appearance) Assessed -Temperature (Radha-wound Skin No Abnormality Appearance) (Pt Warm) -Tenderness on Palpation (Radha-wound No Skin Appearance) -Ulcer Cleansing Rinsed/ Irrigated with Saline -Foul Odor after Cleansing No -Anesthetic Used 5% Lidocaine Gel [Edema Assessment] -Lower Limb Edema Present Yes -Right Calf (cm) 33.0 -Right Ankle (cm) 20.7 -Left Calf (cm) 32.5 -Left Ankle (cm) 20.0 WC - Nurse 2 - General Ulcer CM Notes Start: 11/04/18 14:57 Freq: Status: Active Protocol: Activity Type Activity Date Activity User E-Sign Co-Sign Detail Recorded Client Recorded Date Recorded By Document 11/04/18 15:11 TM [id number] 11/04/18 15:16 TM 11/04/18 15:11 Wound Center Nurse 2 [Procedure/Treatment] #9 L Heel -Time 15:11 -Correct Patient Yes -Correct Side, Site, Position Yes -Correct Procedure Yes -Procedure Performed Yes -Type of Procedure Debridement -Clinical Debridement Subcutaneous -Post Debridement Size (cm) - Length 0.3 -Post Debridement Size (cm) - Width 0.3 -Post Debridement Size (cm) - Depth 0.2 -Total Square Cm 0.09 -Wound/Ulcer Outcome Not Healed -Ulcer Cleansing Rinsed/ Irrigated with Saline -Foul Odor after Cleansing No -Bioengineered Tissue No -Topical Lidocaine (%) 5 -Bleeding Controlled with Pressure -Offloading Yes -Type of Offloading Total Contact Cast (TCC) -Treatment Response Procedure Tolerated Well [See Physician Procedure note for Specifics] Pain Scale: 0-10 Numeric [Pain] -Is Patient Pain Free? Yes Musculoskeletal: No Tenderness to Palpation of Joints or Extremities, Muscle Wasting Neurological: - - Lack of normal epicritic sensation light touch consistent with neuropathy bilateral lower extremities Psych/Mental Status: Normal Affect, Appropriate Debridement Note Post-Debridement Measurements/Treatment WC - Nurse 2 - General Ulcer CM Notes Start: 11/04/18 14:57 Freq: Status: Active Protocol: Activity Type Activity Date Activity User E-Sign Co-Sign Detail Recorded Client Recorded Date Recorded By Document 11/04/18 15:11 TM [id number] 11/04/18 15:16 TM 11/04/18 15:11 Wound Center Nurse 2 #9 L Heel -Time 15:11 -Correct Patient Yes -Correct Side, Site, Position Yes -Correct Procedure Yes -Procedure Performed Yes -Type of Procedure Debridement -Clinical Debridement Subcutaneous -Post Debridement Size (cm) - Length 0.3 -Post Debridement Size (cm) - Width 0.3 -Post Debridement Size (cm) - Depth 0.2 -Total Square Cm 0.09 -Wound/Ulcer Outcome Not Healed -Ulcer Cleansing Rinsed/ Irrigated with Saline -Foul Odor after Cleansing No -Bioengineered Tissue No -Topical Lidocaine (%) 5 -Bleeding Controlled with Pressure -Offloading Yes -Type of Offloading Total Contact Cast (TCC) -Treatment Response Procedure Tolerated Well Pain Scale: 0-10 Numeric Is Patient Pain Free? Yes Wound debrided: plantar heel Laterality: Left Wound Grade/Stage: grade 1 Type of Debridement: Excisional debridement Anesthesia Used: 5% Lidocaine Gel Depth: in the subcutaneous layer Percentage of wound debrided: 100 Instrument Used: #15 blade Tissue Removed: devitalized subcutaneous, biofilm, slough, fibrous Severity: Fat Layer Exposed Amount of bleeding with debridement: Mild Bleeding Controlled with: Pressure Patient tolerated procedure well Assessment/Plan Assessment: Plantar heel ulcer, left foot returned with fat layer exposed- improving status change. Diabetes with neuropathy. Malnutrition. Left foot advanced flat foot deformity with h/o surgical intervention. Nonadherence to treatment plan. calcaneal gait, left. difficulty walking Plan: I reviewed and discussed her care plan. The left heel ulcer was debrided as noted in the clinical panel in a subcutaneous manner. After debridement, Lisa was applied to the left plantar heel site. Next, a well-padded total contact cast was applied to left lower extremity in a rectus position according to standard protocol after verbal consent was obtained. This tried and she tolerated this well. To continue protein supplementation to optimize healing; arsen. Her non invasive vascular studies were also reviewed from 08/2017 with bilateral triphasic waveforms, BRITTANY right 1.13 and left 1.29, and toe brachial index right of 0.8 and left 0.75. Repeat exams including xrays and non invasive vascular studies will be considered pending her healing response. Her neuropathy has woresened and we discussed the etiology, past treatment, and treatment recommendations today. Metanx prescription will previously prescribed for treatment of neuropathy. Her most recently reviewed x-rays were negative for acute infection or traumatic findings. Her most recent lab work was reviewed and she had a white blood cell count of 5, sedimentation rate of 15, and C-reactive protein 26.6. She was advised to follow up at the wound healing center in one week or call sooner if there are any questions or concerns. I answered all of her questions.
[2018-11-11 14:23] VITALS: BP 144/72; PULSE 84; RESP 18; TEMP 36; BMI 27.8
--- NOTE | 2018-11-11 16:30 | PN.PCM_ITS ---
(1) Chronic ulcer of left foot with fat layer exposed Status: Chronic Current Visit: Yes Code(s): L97.522 - Non-pressure chronic ulcer of other part of left foot with fat layer exposed (2) Diabetes mellitus with polyneuropathy Status: Chronic Current Visit: Yes Qualifiers: Diabetes mellitus type: type 2 Qualified Code(s): E11.42 - Type 2 diabetes mellitus with diabetic polyneuropathy Code(s): E11.42 - Type 2 diabetes mellitus with diabetic polyneuropathy (3) Malnutrition Status: Chronic Current Visit: Yes Code(s): E46 - Unspecified protein- calorie malnutrition (4) Delayed wound healing Status: Chronic Current Visit: Yes Code(s): T14.8 - Other injury of unspecified body region Type of Wound Date of Service: 11/11/18 Chief Complaint: Left heel ulceration History of Wound: This is a 73-year-old female returns for follow-up of left heel ulceration. She has been compliant with dressings care and kept her total contact cast intact. She denies problems with the cast this past week. She denies fever, chills, nausea, vomiting, loss of appetite. Progress of Wound: Improving - Physical Exam Vital Signs Temp Pulse Resp BP 96.8 F L 84 18 144/72 H 11/11/18 14:23 11/11/18 14:23 11/11/18 14:23 11/11/18 14:23 General: Alert, Oriented x3, Cooperative Extremities: No cyanosis, Capillary Refill Less than 3 Seconds, No Calf Tenderness - Negative Maddison and Herrera sign left, Diminished Peripheral Pulses, Edema Skin: Ulcer/ Wound - No purulence, erythema, streaking, odor, or acute signs of infection. The peripheral skin is hairless and atrophic. Wound Measurements and Assessment WC - Nurse 1 - General Ulcer Measurement Start: 11/04/18 14:57 Freq: Status: Active Protocol: Activity Type Activity Date Activity User E-Sign Co-Sign Detail Recorded Client Recorded Date Recorded By Document 11/11/18 14:23 [facility] [id number] 11/11/18 14:33 [facility] 11/11/18 14:23 Wound Center Nurse 1 [Ulcer Assessment] #9 L Heel -Combined with other wound No -Current Size (cm) - Length 0.3 -Current Size (cm) - Width 0.4 -Current Size (cm) - Depth 0.3 -Total Square Cm 0.12 -Photo Taken No -Epithelialization Small 1-33% -Tunneling No -Undermining/Tunneling No -Circular Undermining No -Exudate Amt Medium (34-66%) -Exudate Type Serosanguineous -Granulation Amt Small (1-33%) -Granulation Quality [place] -Slough/Fibrin Yes -Necrosis Amt Large (67-100%) -Necrotic Tissue Type Adherent Slough -Texture (Radha-wound Skin Appearance) Callus Scarring -Moisture (Radha-wound Skin Appearance Dry/Scaly ) -Color (Radha-wound Skin Appearance) Assessed -Temperature (Radha-wound Skin No Abnormality Appearance) (Pt Warm) -Tenderness on Palpation (Radha-wound No Skin Appearance) -Ulcer Cleansing Wound Cleanser -Foul Odor after Cleansing No -Anesthetic Used 5% Lidocaine Gel [Edema Assessment] -Lower Limb Edema Present Yes -Left Calf (cm) 32.1 -Left Ankle (cm) 20.8 WC - Nurse 2 - General Ulcer CM Notes Start: 11/04/18 14:57 Freq: Status: Active Protocol: Activity Type Activity Date Activity User E-Sign Co-Sign Detail Recorded Client Recorded Date Recorded By Document 11/11/18 14:51 [id number] 11/11/18 14:52 [email or web address] 11/11/18 14:51 Wound Center Nurse 2 [Procedure/Treatment] #9 L Heel -Time 14:52 -Correct Patient Yes -Correct Side, Site, Position Yes -Correct Procedure Yes -Procedure Performed Yes -Type of Procedure Debridement -Clinical Debridement Subcutaneous -Post Debridement Size (cm) - Length 0.3 -Post Debridement Size (cm) - Width 0.4 -Post Debridement Size (cm) - Depth 0.2 -Total Square Cm 0.12 -Wound/Ulcer Outcome Not Healed -Ulcer Cleansing Rinsed/ Irrigated with Saline -Foul Odor after Cleansing No -Bioengineered Tissue No -Bleeding Controlled with Pressure -Offloading Yes -Type of Offloading Total Contact Cast (TCC) -Treatment Response Procedure Tolerated Well [See Physician Procedure note for Specifics] Pain Scale: 0-10 Numeric [Pain] -Is Patient Pain Free? Yes Musculoskeletal: No Tenderness to Palpation of Joints or Extremities, Muscle Wasting, - - Compartment soft palpate left lower extremity Neurological: - - Lack of epicritic sensation to light touch consistent with neuropathy left lower extremity Psych/Mental Status: Normal Affect, Appropriate Debridement Note Post-Debridement Measurements/Treatment WC - Nurse 2 - General Ulcer CM Notes Start: 11/04/18 14:57 Freq: Status: Active Protocol: Activity Type Activity Date Activity User E-Sign Co-Sign Detail Recorded Client Recorded Date Recorded By Document 11/04/18 15:11 [id number] 11/04/18 15:16 Document 11/11/18 14:51 [id number] 11/11/18 14:52 11/04/18 11/11/18 15:11 14:51 Wound Center Nurse 2 #9 L Heel -Time 15:11 14:52 -Correct Patient Yes Yes -Correct Side, Site, Position Yes Yes -Correct Procedure Yes Yes -Procedure Performed Yes Yes -Type of Procedure Debridement Debridement -Clinical Debridement Subcutaneous Subcutaneous -Post Debridement Size (cm) - Length 0.3 0.3 -Post Debridement Size (cm) - Width 0.3 0.4 -Post Debridement Size (cm) - Depth 0.2 0.2 -Total Square Cm 0.09 0.12 -Wound/Ulcer Outcome Not Healed Not Healed -Ulcer Cleansing Rinsed/ Rinsed/ Irrigated with Irrigated with Saline Saline -Foul Odor after Cleansing No No -Bioengineered Tissue No No -Topical Lidocaine (%) 5 -Bleeding Controlled with Pressure Pressure -Offloading Yes Yes -Type of Offloading Total Contact Total Contact Cast (TCC) Cast (TCC) -Treatment Response Procedure Procedure Tolerated Well Tolerated Well Pain Scale: 0-10 Numeric Is Patient Pain Free? Yes Yes Wound debrided: plantar heel Laterality: Left Wound Grade/Stage: grade 1 Type of Debridement: Excisional debridement Anesthesia Used: 5% Lidocaine Gel Depth: in the subcutaneous layer Percentage of wound debrided: 100 Instrument Used: #15 blade Tissue Removed: fibrous, devitalized subcutaneous, biofilm, slough, callous Severity: Fat Layer Exposed Amount of bleeding with debridement: Mild Bleeding Controlled with: Pressure Patient tolerated procedure well Assessment/Plan Active Problems Chronic ulcer of left foot with fat layer exposed (Chronic) Diabetes mellitus with polyneuropathy (Chronic) Malnutrition (Chronic) Delayed wound healing (Chronic) Assessment: Plantar heel ulcer, left foot with fat layer exposed. Diabetes with neuropathy. Malnutrition. Left foot advanced flat foot deformity with h/o surgical intervention. Nonadherence to treatment plan. calcaneal gait, left. difficulty walking Plan: I reviewed and discussed her care plan. The left heel ulcer was debrided as noted in the clinical panel in a subcutaneous manner. After debridement, Lisa was applied to the left plantar heel site. Next, a well-padded total contact cast was applied to left lower extremity in a rectus position according to standard protocol after verbal consent was obtained. This was applied and she tolerated this well. To continue protein supplementation to optimize healing; arsen. Her non invasive vascular studies were also reviewed from 08/2017 with bilateral triphasic waveforms, BRITTANY right 1.13 and left 1.29, and toe brachial index right of 0.8 and left 0.75. Repeat exams including xrays and non invasive vascular studies will be considered pending her healing response. Her neuropathy has woresened and we discussed the etiology, past treatment, and treatment recommendations today. Metanx prescription will previously prescribed for treatment of neuropathy. Her most recently reviewed x-rays were negative for acute infection or traumatic findings. Her most recent lab work was reviewed and she had a white blood cell count of 5, sedimentation rate of 15, and C-reactive protein 26.6. She was advised to follow up at the wound healing center in one week or call sooner if there are any questions or concerns. I answered all of her questions.
[2018-11-18 14:21] VITALS: BP 159/84; PULSE 81; RESP 18; TEMP 36.2; BMI 27.8
--- NOTE | 2018-11-18 15:19 | PN.PCM_ITS ---
(1) Chronic ulcer of left foot with fat layer exposed Status: Chronic Current Visit: Yes Code(s): L97.522 - Non-pressure chronic ulcer of other part of left foot with fat layer exposed (2) Diabetes mellitus with polyneuropathy Status: Chronic Current Visit: Yes Qualifiers: Diabetes mellitus type: type 2 Qualified Code(s): E11.42 - Type 2 diabetes mellitus with diabetic polyneuropathy Code(s): E11.42 - Type 2 diabetes mellitus with diabetic polyneuropathy (3) Malnutrition Status: Chronic Current Visit: Yes Code(s): E46 - Unspecified protein- calorie malnutrition (4) Delayed wound healing Status: Chronic Current Visit: Yes Code(s): T14.8 - Other injury of unspecified body region Type of Wound Date of Service: 11/18/18 Chief Complaint: Left heel ulceration History of Wound: This is a 73-year-old female returns for follow-up of left heel ulceration. She has been compliant with dressings care and kept her total contact cast intact. She denies problems with the cast this past week. She denies fever, chills, nausea, vomiting, loss of appetite. Progress of Wound: Improving - Physical Exam Vital Signs Temp Pulse Resp BP 97.1 F L 81 18 159/84 H 11/18/18 14:21 11/18/18 14:21 11/18/18 14:21 11/18/18 14:21 General: Alert, Oriented x3, Cooperative Extremities: No cyanosis, Capillary Refill Less than 3 Seconds, No Calf Tenderness - Negative Maddison and Herrera sign left, Diminished Peripheral Pulses, Edema - Mild lower extremity Skin: Ulcer/ Wound - No purulence, erythema, streaking, odor, or acute signs of infection left lower extremity, - - The peripheral skin is hairless and atrophic. Wound Measurements and Assessment WC - Nurse 1 - General Ulcer Measurement Start: 11/04/18 14:57 Freq: Status: Active Protocol: Activity Type Activity Date Activity User E-Sign Co-Sign Detail Recorded Client Recorded Date Recorded By Document 11/18/18 14:21 RB [id number] 11/18/18 14:27 RB 11/18/18 14:21 Wound Center Nurse 1 [Ulcer Assessment] #9 L Heel -Current Size (cm) - Length 0.3 -Current Size (cm) - Width 0.2 -Current Size (cm) - Depth 0.2 -Total Square Cm 0.06 -Photo Taken No -Exudate Amt Small (1-33%) -Exudate Type Sanguineous -Wound Margin Thickened -Granulation Amt Small (1-33%) -Granulation Quality Red -Necrosis Amt None Present (0 %) -Structure Exposed N/A -Texture (Radha-wound Skin Appearance) Callus -Moisture (Radha-wound Skin Appearance Dry/Scaly ) -Color (Radha-wound Skin Appearance) No Abnormality -Temperature (Radha-wound Skin No Abnormality Appearance) (Pt Warm) -Tenderness on Palpation (Radha-wound No Skin Appearance) -Ulcer Cleansing Wound Cleanser -Foul Odor after Cleansing No -Anesthetic Used 4% Lidocaine Solution [Edema Assessment] -Left Calf (cm) 31 -Left Ankle (cm) 20 WC - Nurse 2 - General Ulcer CM Notes Start: 11/04/18 14:57 Freq: Status: Active Protocol: Activity Type Activity Date Activity User E-Sign Co-Sign Detail Recorded Client Recorded Date Recorded By Document 11/18/18 14:37 [id number] 11/18/18 14:38 11/18/18 14:37 Wound Center Nurse 2 [Procedure/Treatment] #9 L Heel -Time 14:38 -Correct Patient Yes -Correct Side, Site, Position Yes -Correct Procedure Yes -Procedure Performed Yes -Type of Procedure Debridement -Clinical Debridement Subcutaneous -Post Debridement Size (cm) - Length 0.3 -Post Debridement Size (cm) - Width 1.0 -Post Debridement Size (cm) - Depth 0.2 -Total Square Cm 0.30 -Wound/Ulcer Outcome Not Healed -Ulcer Cleansing Rinsed/ Irrigated with Saline -Foul Odor after Cleansing No -Bioengineered Tissue No -Bleeding Controlled with Pressure -Offloading Yes -Type of Offloading Total Contact Cast (TCC) -Treatment Response Procedure Tolerated Well [See Physician Procedure note for Specifics] Pain Scale: 0-10 Numeric [Pain] -Is Patient Pain Free? Yes Musculoskeletal: No Tenderness to Palpation of Joints or Extremities, Muscle Wasting, - - Compartment left lower extremity remains soft Neurological: - - Lack of epicritic sensation light touch bilateral lower extremities Psych/Mental Status: Normal Affect, Appropriate Debridement Note Post-Debridement Measurements/Treatment WC - Nurse 2 - General Ulcer CM Notes Start: 11/04/18 14:57 Freq: Status: Active Protocol: Activity Type Activity Date Activity User E-Sign Co-Sign Detail Recorded Client Recorded Date Recorded By Document 11/04/18 15:11 [id number] 11/04/18 15:16 Document 11/11/18 14:51 [id number] 11/11/18 14:52 Document 11/18/18 14:37 [id number] 11/18/18 14:38 11/04/18 11/11/18 11/18/18 15:11 14:51 14:37 Wound Center Nurse 2 #9 L Heel -Time 15:11 14:52 14:38 -Correct Patient Yes Yes Yes -Correct Side, Site, Position Yes Yes Yes -Correct Procedure Yes Yes Yes -Procedure Performed Yes Yes Yes -Type of Procedure Debridement Debridement Debridement -Clinical Debridement Subcutaneous Subcutaneous Subcutaneous -Post Debridement Size (cm) - Length 0.3 0.3 0.3 -Post Debridement Size (cm) - Width 0.3 0.4 1.0 -Post Debridement Size (cm) - Depth 0.2 0.2 0.2 -Total Square Cm 0.09 0.12 0.30 -Wound/Ulcer Outcome Not Healed Not Healed Not Healed -Ulcer Cleansing Rinsed/ Rinsed/ Rinsed/ Irrigated with Irrigated with Irrigated with Saline Saline Saline -Foul Odor after Cleansing No No No -Bioengineered Tissue No No No -Topical Lidocaine (%) 5 -Bleeding Controlled with Pressure Pressure Pressure -Offloading Yes Yes Yes -Type of Offloading Total Contact Total Contact Total Contact Cast (TCC) Cast (TCC) Cast (TCC) -Treatment Response Procedure Procedure Procedure Tolerated Well Tolerated Well Tolerated Well Pain Scale: 0-10 Numeric Is Patient Pain Free? Yes Yes Yes Wound debrided: plantar heel Laterality: Left Wound Grade/Stage: grade 1 Type of Debridement: Excisional debridement Anesthesia Used: 4% Lidocaine Solution Depth: in the subcutaneous layer Percentage of wound debrided: 100 Instrument Used: #15 blade Tissue Removed: fibrous, devitalized subcutaneous, biofilm, slough Severity: Fat Layer Exposed Amount of bleeding with debridement: Mild Bleeding Controlled with: Pressure Patient tolerated procedure well Assessment/Plan Active Problems Chronic ulcer of left foot with fat layer exposed (Chronic) Diabetes mellitus with polyneuropathy (Chronic) Malnutrition (Chronic) Delayed wound healing (Chronic) Assessment: Plantar heel ulcer, left foot with fat layer exposed. Diabetes with neuropathy. Malnutrition. Left foot advanced flat foot deformity with h/o surgical intervention. Nonadherence to treatment plan. calcaneal gait, left. difficulty walking Plan: I reviewed and discussed her care plan. The left heel ulcer was debrided as noted in the clinical panel in a subcutaneous manner. After debridement, Lisa was applied to the left plantar heel site. Next, a well-padded total contact cast was applied to left lower extremity in a rectus position according to standard protocol after verbal consent was obtained. This was applied and she tolerated this well. To continue protein supplementation to optimize healing; arsen. Her non invasive vascular studies were also reviewed from 08/2017 with bilateral triphasic waveforms, BRITTANY right 1.13 and left 1.29, and toe brachial index right of 0.8 and left 0.75. Repeat exams including xrays and non invasive vascular studies will be considered pending her healing response. Her neuropathy has woresened and we discussed the etiology, past treatment, and treatment recommendations today. Metanx prescription will previously prescribed for treatment of neuropathy. Her most recently reviewed x-rays were negative for acute infection or traumatic findings. Her most recent lab work was reviewed and she had a white blood cell count of 5, sedimentation rate of 15, and C-reactive protein 26.6. She was advised to follow up at the wound healing center in one week or call sooner if there are any questions or concerns. I answered all of her questions.
[2018-11-25 14:16] VITALS: BP 153/72; PULSE 73; RESP 18; TEMP 36.4; BMI 27.8
--- NOTE | 2018-11-25 15:04 | PN.PCM_ITS ---
(1) Chronic ulcer of left foot with fat layer exposed Status: Chronic Current Visit: Yes Code(s): L97.522 - Non-pressure chronic ulcer of other part of left foot with fat layer exposed (2) Diabetes mellitus with polyneuropathy Status: Chronic Current Visit: Yes Qualifiers: Diabetes mellitus type: type 2 Qualified Code(s): E11.42 - Type 2 diabetes mellitus with diabetic polyneuropathy Code(s): E11.42 - Type 2 diabetes mellitus with diabetic polyneuropathy (3) Malnutrition Status: Chronic Current Visit: Yes Code(s): E46 - Unspecified protein- calorie malnutrition (4) Delayed wound healing Status: Chronic Current Visit: Yes Code(s): T14.8 - Other injury of unspecified body region Type of Wound Date of Service: 11/25/18 Chief Complaint: Left heel ulceration History of Wound: This is a 73-year-old female returns for follow-up of left heel ulceration. She has been compliant with dressings care and kept her total contact cast intact. She denies problems with the cast this past week. She denies fever, chills, nausea, vomiting, loss of appetite. Progress of Wound: Improving - Physical Exam Vital Signs Temp Pulse Resp BP 97.6 F L 73 18 153/72 H 11/25/18 14:16 11/25/18 14:16 11/25/18 14:16 11/25/18 14:16 General: Alert, Oriented x3, Cooperative Extremities: No cyanosis, Capillary Refill Less than 3 Seconds, No Calf Tenderness - Negative Maddison and Herrera sign bilateral, Diminished Peripheral Pulses, Edema - Mild Skin: Ulcer/ Wound - No purulence, erythema, streaking, odor, or infection. There is decreased peripheral callus. The peripheral skin is hairless and atrophic. There is improved granulation tissue in the wound bed appears to be healthy Wound Measurements and Assessment WC - Nurse 1 - General Ulcer Measurement Start: 11/04/18 14:57 Freq: Status: Active Protocol: Activity Type Activity Date Activity User E-Sign Co-Sign Detail Recorded Client Recorded Date Recorded By Document 11/25/18 14:16 DV [id number] 11/25/18 14:22 DV 11/25/18 14:16 Wound Center Nurse 1 [Ulcer Assessment] #9 L Heel -Combined with other wound No -Current Size (cm) - Length 0.4 -Current Size (cm) - Width 1.0 -Current Size (cm) - Depth 0.2 -Total Square Cm 0.40 -Photo Taken No -Epithelialization None Present -Tunneling No -Undermining/Tunneling No -Circular Undermining No -Exudate Amt Medium (34-66%) -Exudate Type Serosanguineous -Wound Margin Indistinct, Non -Visible -Granulation Amt None Present (0 %) -Granulation Quality N/A -Slough/Fibrin Yes -Necrosis Amt Medium (34-66%) -Necrotic Tissue Type Adherent Slough -Structure Exposed None/Limited to Skin Breakdown -Texture (Radha-wound Skin Appearance) Assessed Scarring -Moisture (Radha-wound Skin Appearance Assessed ) Maceration -Color (Radha-wound Skin Appearance) No Abnormality Assessed -Temperature (Radha-wound Skin No Abnormality Appearance) (Pt Warm) -Tenderness on Palpation (Radha-wound No Skin Appearance) -Ulcer Cleansing Rinsed/ Irrigated with Saline -Foul Odor after Cleansing No -Anesthetic Used 5% Lidocaine Gel [Edema Assessment] -Lower Limb Edema Present No WC - Nurse 2 - General Ulcer CM Notes Start: 11/04/18 14:57 Freq: Status: Active Protocol: Activity Type Activity Date Activity User E-Sign Co-Sign Detail Recorded Client Recorded Date Recorded By Document 11/25/18 14:26 [email or web address] [id number] 11/25/18 14:30 11/25/18 14:26 Wound Center Nurse 2 [Procedure/Treatment] #9 L Heel -Time 14:26 -Correct Patient Yes -Correct Side, Site, Position Yes -Correct Procedure Yes -Procedure Performed Yes -Type of Procedure Debridement -Clinical Debridement Subcutaneous -Post Debridement Size (cm) - Length 0.1 -Post Debridement Size (cm) - Width 0.4 -Post Debridement Size (cm) - Depth 0.1 -Total Square Cm 0.04 -Wound/Ulcer Outcome Not Healed -Ulcer Cleansing Rinsed/ Irrigated with Saline -Foul Odor after Cleansing No -Bioengineered Tissue No -Bleeding Controlled with Pressure -Offloading No -Treatment Response Procedure Tolerated Well [See Physician Procedure note for Specifics] Pain Scale: 0-10 Numeric [Pain] -Is Patient Pain Free? Yes Musculoskeletal: No Tenderness to Palpation of Joints or Extremities, Muscle Wasting Neurological: - - Lack of epicritic sensation light touch consistent with neuropathy left lower extremity Psych/Mental Status: Normal Affect, Appropriate Debridement Note Post-Debridement Measurements/Treatment WC - Nurse 2 - General Ulcer CM Notes Start: 11/04/18 14:57 Freq: Status: Active Protocol: Activity Type Activity Date Activity User E-Sign Co-Sign Detail Recorded Client Recorded Date Recorded By Document 11/04/18 15:11 [id number] 11/04/18 15:16 Document 11/11/18 14:51 [id number] 11/11/18 14:52 Document 11/18/18 14:37 [id number] 11/18/18 14:38 Document 11/25/18 14:26 [id number] 11/25/18 14:30 11/04/18 11/11/18 11/18/18 15:11 14:51 14:37 Wound Center Nurse 2 #9 L Heel -Time 15:11 14:52 14:38 -Correct Patient Yes Yes Yes -Correct Side, Site, Position Yes Yes Yes -Correct Procedure Yes Yes Yes -Procedure Performed Yes Yes Yes -Type of Procedure Debridement Debridement Debridement -Clinical Debridement Subcutaneous Subcutaneous Subcutaneous -Post Debridement Size (cm) - Length 0.3 0.3 0.3 -Post Debridement Size (cm) - Width 0.3 0.4 1.0 -Post Debridement Size (cm) - Depth 0.2 0.2 0.2 -Total Square Cm 0.09 0.12 0.30 -Wound/Ulcer Outcome Not Healed Not Healed Not Healed -Ulcer Cleansing Rinsed/ Rinsed/ Rinsed/ Irrigated with Irrigated with Irrigated with Saline Saline Saline -Foul Odor after Cleansing No No No -Bioengineered Tissue No No No -Topical Lidocaine (%) 5 -Bleeding Controlled with Pressure Pressure Pressure -Offloading Yes Yes Yes -Type of Offloading Total Contact Total Contact Total Contact Cast (TCC) Cast (TCC) Cast (TCC) -Treatment Response Procedure Procedure Procedure Tolerated Well Tolerated Well Tolerated Well Pain Scale: 0-10 Numeric Is Patient Pain Free? Yes Yes Yes 11/25/18 14:26 Wound Center Nurse 2 #9 L Heel -Time 14:26 -Correct Patient Yes -Correct Side, Site, Position Yes -Correct Procedure Yes -Procedure Performed Yes -Type of Procedure Debridement -Clinical Debridement Subcutaneous -Post Debridement Size (cm) - Length 0.1 -Post Debridement Size (cm) - Width 0.4 -Post Debridement Size (cm) - Depth 0.1 -Total Square Cm 0.04 -Wound/Ulcer Outcome Not Healed -Ulcer Cleansing Rinsed/ Irrigated with Saline -Foul Odor after Cleansing No -Bioengineered Tissue No -Topical Lidocaine (%) -Bleeding Controlled with Pressure -Offloading No -Type of Offloading -Treatment Response Procedure Tolerated Well Pain Scale: 0-10 Numeric Is Patient Pain Free? Yes Wound debrided: plantar heel Laterality: Left Wound Grade/Stage: grade 1 Type of Debridement: Excisional debridement Anesthesia Used: 5% Lidocaine Gel Depth: in the subcutaneous layer Percentage of wound debrided: 100 Instrument Used: #15 blade Tissue Removed: fibrous, devitalized subcutaneous, biofilm, slough Severity: Fat Layer Exposed Amount of bleeding with debridement: Mild Bleeding Controlled with: Pressure Patient tolerated procedure well Assessment/Plan Active Problems Chronic ulcer of left foot with fat layer exposed (Chronic) Diabetes mellitus with polyneuropathy (Chronic) Malnutrition (Chronic) Delayed wound healing (Chronic) Assessment: Plantar heel ulcer, left foot with fat layer exposed. Diabetes with neuropathy. Malnutrition. Left foot advanced flat foot deformity with h/o surgical intervention. Nonadherence to treatment plan. calcaneal gait, left. difficulty walking Plan: I reviewed and discussed her care plan. The left heel ulcer was debrided as noted in the clinical panel in a subcutaneous manner. After debridement, Lisa was applied to the left plantar heel site. Next, a well-padded total contact cast was applied to left lower extremity in a rectus position according to standard protocol after verbal consent was obtained. This was applied and she tolerated this well. To continue protein supplementation to optimize healing; arsen. Her non invasive vascular studies were also reviewed from 08/2017 with bilateral triphasic waveforms, BRITTANY right 1.13 and left 1.29, and toe brachial index right of 0.8 and left 0.75. Repeat exams including xrays and non invasive vascular studies will be considered pending her healing response. Her neuropathy has woresened and we discussed the etiology, past treatment, and treatment recommendations today. Metanx prescription was previously prescribed for treatment of neuropathy. Her most recently reviewed x-rays were negative for acute infection or traumatic findings. Her most recent lab work was reviewed and she had a white blood cell count of 5, sedimentation rate of 15, and C-reactive protein 26.6. She was advised to follow up at the wound healing center in one week or call sooner if there are any questions or concerns. I answered all of her questions.
== END 2018-11-30 23:59 ==
LOC: WC 14:30
PROVIDERS: Family Provider Family Medicine; PCP Family Medicine; Visit Provider Podiatrist
DX: E11.621 Type 2 diabetes mellitus with foot ulcer (principal); E11.42 Type 2 diabetes mellitus with diabetic polyneuropathy; L97.422 Non-pressure chronic ulcer of left heel and midfoot with fat layer exposed; M21.42 Flat foot [pes planus] (acquired), left foot
CPT/HCPCS: 11042; 29445

== ENCOUNTER 2018-12-30 14:45 | Outpatient (RCR) | payer MEDICARE, BC, SELFPAY ==
[2018-12-01 00:58] VITALS: BP 153/72; PULSE 73; RESP 18; TEMP 36.4
[2018-12-02 14:49] VITALS: BP 140/67; PULSE 76; RESP 16; TEMP 36; BMI 27.8
--- NOTE | 2018-12-02 16:38 | PCM.WC.PN ---
(1) Chronic ulcer of left foot with fat layer exposed Status: Chronic Current Visit: Yes Code(s): L97.522 - Non-pressure chronic ulcer of other part of left foot with fat layer exposed (2) Diabetes mellitus with polyneuropathy Status: Chronic Current Visit: Yes Qualifiers: Diabetes mellitus type: type 2 Qualified Code(s): E11.42 - Type 2 diabetes mellitus with diabetic polyneuropathy Code(s): E11.42 - Type 2 diabetes mellitus with diabetic polyneuropathy (3) Malnutrition Status: Chronic Current Visit: Yes Code(s): E46 - Unspecified protein-calorie malnutrition (4) Delayed wound healing Status: Chronic Current Visit: Yes Code(s): T14.8 - Other injury of unspecified body region Type of Wound Date of Service: 12/02/18 Chief Complaint: Left heel ulceration History of Wound: This is a 73-year-old female returns for follow-up of left heel ulceration. She has been compliant with dressings care and kept her total contact cast intact. She denies problems with the cast this past week. She denies fever, chills, nausea, vomiting, loss of appetite. Progress of Wound: Improving - Physical Exam Vital Signs Temp Pulse Resp BP 96.8 F L 76 16 140/67 H 12/02/18 14:49 12/02/18 14:49 12/02/18 14:49 12/02/18 14:49 General: Alert, Oriented x3, Cooperative Extremities: No cyanosis, Capillary Refill Less than 3 Seconds, No Calf Tenderness - Negative Maddison and Herrera left, Diminished Peripheral Pulses, Edema - Mild Skin: Ulcer/ Wound - No purulence, erythema, streaking, odor, infection. Peripheral skin is hairless and atrophic Wound Measurements and Assessment WC - Nurse 1 - General Ulcer Measurement Start: 12/02/18 14:49 Freq: Status: Active Protocol: Activity Type Activity Date Activity User E-Sign Co-Sign Detail Recorded Client Recorded Date Recorded By Document 12/02/18 14:49 DL [id number] 12/02/18 15:02 DL 12/02/18 14:49 Wound Center Nurse 1 [Ulcer Assessment] #9 L Heel -Current Size (cm) - Length 0.2 -Current Size (cm) - Width 0.2 -Current Size (cm) - Depth 0.2 -Total Square Cm 0.04 -Photo Taken No -Exudate Amt Small (1-33%) -Exudate Type Serosanguineous -Wound Margin Distinct, Outline Attached -Granulation Amt Small (1-33%) -Granulation Quality Pale [place] -Necrosis Amt None Present (0 %) -Structure Exposed N/A -Texture (Radha-wound Skin Appearance) Scarring -Moisture (Radha-wound Skin Appearance Dry/Scaly ) -Color (Radha-wound Skin Appearance) No Abnormality -Temperature (Radha-wound Skin No Abnormality Appearance) (Pt Warm) -Tenderness on Palpation (Radha-wound No Skin Appearance) -Ulcer Cleansing Wound Cleanser -Foul Odor after Cleansing No -Anesthetic Used 4% Lidocaine Solution [Edema Assessment] -Left Calf (cm) 30.5 -Left Ankle (cm) 20 WC - Nurse 2 - General Ulcer CM Notes Start: 12/02/18 14:49 Freq: Status: Active Protocol: Activity Type Activity Date Activity User E-Sign Co-Sign Detail Recorded Client Recorded Date Recorded By Document 12/02/18 15:10 DL [id number] 12/02/18 15:12 DL 12/02/18 15:10 Wound Center Nurse 2 [Procedure/Treatment] #9 L Heel -Time 15:12 -Correct Patient Yes -Correct Side, Site, Position Yes -Correct Procedure Yes -Procedure Performed Yes -Type of Procedure Debridement -Clinical Debridement Subcutaneous -Post Debridement Size (cm) - Length 0.3 -Post Debridement Size (cm) - Width 0.2 -Post Debridement Size (cm) - Depth 0.1 -Total Square Cm 0.06 -Wound/Ulcer Outcome Not Healed -Ulcer Cleansing Rinsed/ Irrigated with Saline -Foul Odor after Cleansing No -Bioengineered Tissue No -Bleeding Controlled with Pressure -Offloading Yes -Type of Offloading Total Contact Cast (TCC) -Treatment Response Procedure Tolerated Well [See Physician Procedure note for Specifics] Pain Scale: 0-10 Numeric [Pain] -Is Patient Pain Free? Yes Musculoskeletal: No Tenderness to Palpation of Joints or Extremities, Muscle Wasting Neurological: - - Lack of epicritic sensation light touch left lower extremity Psych/Mental Status: Normal Affect, Appropriate Debridement Note Post-Debridement Measurements/Treatment WC - Nurse 2 - General Ulcer CM Notes Start: 12/02/18 14:49 Freq: Status: Active Protocol: Activity Type Activity Date Activity User E-Sign Co-Sign Detail Recorded Client Recorded Date Recorded By Document 12/02/18 15:10 DL [id number] 12/02/18 15:12 DL 12/02/18 15:10 Wound Center Nurse 2 #9 L Heel -Time 15:12 -Correct Patient Yes -Correct Side, Site, Position Yes -Correct Procedure Yes -Procedure Performed Yes -Type of Procedure Debridement -Clinical Debridement Subcutaneous -Post Debridement Size (cm) - Length 0.3 -Post Debridement Size (cm) - Width 0.2 -Post Debridement Size (cm) - Depth 0.1 -Total Square Cm 0.06 -Wound/Ulcer Outcome Not Healed -Ulcer Cleansing Rinsed/ Irrigated with Saline -Foul Odor after Cleansing No -Bioengineered Tissue No -Bleeding Controlled with Pressure -Offloading Yes -Type of Offloading Total Contact Cast (TCC) -Treatment Response Procedure Tolerated Well Pain Scale: 0-10 Numeric Is Patient Pain Free? Yes Wound debrided: plantar heel Laterality: Left Wound Grade/Stage: grade 1 Type of Debridement: Excisional debridement Anesthesia Used: 5% Lidocaine Gel Depth: in the subcutaneous layer Percentage of wound debrided: 100 Instrument Used: #15 blade Tissue Removed: fibrous, devitalized subcutaneous, biofilm, slough Severity: Fat Layer Exposed Amount of bleeding with debridement: Mild Bleeding Controlled with: Pressure Patient tolerated procedure well Assessment/Plan Active Problems Chronic ulcer of left foot with fat layer exposed (Chronic) Diabetes mellitus with polyneuropathy (Chronic) Malnutrition (Chronic) Delayed wound healing (Chronic) Assessment: Plantar heel ulcer, left foot with fat layer exposed. Diabetes with neuropathy. Malnutrition. Left foot advanced flat foot deformity with h/o surgical intervention. Nonadherence to treatment plan. calcaneal gait, left. difficulty walking Plan: I reviewed and discussed her care plan. The left heel ulcer was debrided as noted in the clinical panel in a subcutaneous manner. After debridement, Lisa was applied to the left plantar heel site. Next, a well-padded total contact cast was applied to left lower extremity in a rectus position according to standard protocol after verbal consent was obtained. This was applied and she tolerated this well. To continue protein supplementation to optimize healing; arsen. Her non invasive vascular studies were also reviewed from 08/2017 with bilateral triphasic waveforms, BRITTANY right 1.13 and left 1.29, and toe brachial index right of 0.8 and left 0.75. Repeat exams including xrays and non invasive vascular studies will be considered pending her healing response. Her neuropathy has woresened and we discussed the etiology, past treatment, and treatment recommendations today. Metanx prescription was previously prescribed for treatment of neuropathy. Her most recently reviewed x-rays were negative for acute infection or traumatic findings. Her most recent lab work was reviewed and she had a white blood cell count of 5, sedimentation rate of 15, and C-reactive protein 26.6. She was advised to follow up at the wound healing center in one week or call sooner if there are any questions or concerns. I answered all of her questions.
[2018-12-09 14:33] VITALS: BP 150/75; PULSE 78; RESP 18; TEMP 35.7; BMI 27.8
--- NOTE | 2018-12-09 15:32 | PCM.WC.PN ---
(1) Chronic ulcer of left foot with fat layer exposed Status: Chronic Current Visit: Yes Code(s): L97.522 - Non-pressure chronic ulcer of other part of left foot with fat layer exposed (2) Diabetes mellitus with polyneuropathy Status: Chronic Current Visit: Yes Qualifiers: Diabetes mellitus type: type 2 Qualified Code(s): E11.42 - Type 2 diabetes mellitus with diabetic polyneuropathy Code(s): E11.42 - Type 2 diabetes mellitus with diabetic polyneuropathy (3) Malnutrition Status: Chronic Current Visit: Yes Code(s): E46 - Unspecified protein-calorie malnutrition (4) Delayed wound healing Status: Chronic Current Visit: Yes Code(s): T14.8 - Other injury of unspecified body region Type of Wound Date of Service: 12/09/18 Chief Complaint: Left heel ulceration History of Wound: This is a 73-year-old female returns for follow-up of left heel ulceration. She has been compliant with dressings care and kept her total contact cast intact. She denies problems with the cast this past week. She denies fever, chills, nausea, vomiting, loss of appetite. She denies foot pain Progress of Wound: Improving - Physical Exam Vital Signs Temp Pulse Resp BP 96.2 F L 78 18 150/75 H 12/09/18 14:33 12/09/18 14:33 12/09/18 14:33 12/09/18 14:33 General: Alert, Oriented x3, Cooperative Extremities: No cyanosis, Capillary Refill Less than 3 Seconds, No Calf Tenderness - Negative Maddison and Herrera sign left lower extremity, Diminished Peripheral Pulses, Edema - Mild left lower extremity Skin: Ulcer/ Wound - Peripheral epithelialization of the ulcer site noted with granular base. There is no purulence, erythema, streaking, odor, or infection or necrosis or deep tissue probing to the left foot. The peripheral skin is hairless and atrophic. Wound Measurements and Assessment WC - Nurse 1 - General Ulcer Measurement Start: 12/02/18 14:49 Freq: Status: Active Protocol: Activity Type Activity Date Activity User E-Sign Co-Sign Detail Recorded Client Recorded Date Recorded By Document 12/09/18 14:33 [id number] 12/09/18 14:38 CS 12/09/18 14:33 Wound Center Nurse 1 [Ulcer Assessment] #9 L Heel -Current Size (cm) - Length 0.1 -Current Size (cm) - Width 0.1 -Current Size (cm) - Depth 0.1 -Total Square Cm 0.01 -Photo Taken No -Exudate Amt None Present -Wound Margin Thickened -Granulation Amt Small (1-33%) -Granulation Quality [place] -Necrosis Amt Large (67-100%) -Necrotic Tissue Type Eschar -Structure Exposed N/A -Texture (Radha-wound Skin Appearance) Callus -Moisture (Radha-wound Skin Appearance Dry/Scaly ) -Color (Radha-wound Skin Appearance) No Abnormality -Temperature (Radha-wound Skin No Abnormality Appearance) (Pt Warm) -Tenderness on Palpation (Radha-wound No Skin Appearance) -Ulcer Cleansing Wound Cleanser -Foul Odor after Cleansing No -Anesthetic Used 5% Lidocaine Gel WC - Nurse 2 - General Ulcer CM Notes Start: 12/02/18 14:49 Freq: Status: Active Protocol: Activity Type Activity Date Activity User E-Sign Co-Sign Detail Recorded Client Recorded Date Recorded By Document 12/09/18 14:59 [id number] 12/09/18 15:00 12/09/18 14:59 Wound Center Nurse 2 [Procedure/Treatment] -Time 14:59 -Correct Patient Yes -Correct Side, Site, Position Yes -Correct Procedure Yes -Procedure Performed Yes -Type of Procedure Debridement -Clinical Debridement Subcutaneous -Post Debridement Size (cm) - Length 0.1 -Post Debridement Size (cm) - Width 0.1 -Post Debridement Size (cm) - Depth 0.1 -Total Square Cm 0.01 -Wound/Ulcer Outcome Not Healed -Ulcer Cleansing Rinsed/ Irrigated with Saline -Foul Odor after Cleansing No -Bioengineered Tissue No -Bleeding Controlled with Pressure -Offloading Yes -Type of Offloading Camwalker -Treatment Response Procedure Tolerated Well [See Physician Procedure note for Specifics] Pain Scale: 0-10 Numeric [Pain] -Is Patient Pain Free? Yes Musculoskeletal: No Tenderness to Palpation of Joints or Extremities, Muscle Wasting Neurological: - - Lack of epicritic sensation light touch left lower extremity Psych/Mental Status: Normal Affect, Appropriate Debridement Note Post-Debridement Measurements/Treatment WC - Nurse 2 - General Ulcer CM Notes Start: 12/02/18 14:49 Freq: Status: Active Protocol: Activity Type Activity Date Activity User E-Sign Co-Sign Detail Recorded Client Recorded Date Recorded By Document 12/02/18 15:10 DL [id number] 12/02/18 15:12 DL Document 12/09/18 14:59 [id number] 12/09/18 15:00 12/02/18 12/09/18 15:10 14:59 Wound Center Nurse 2 #9 L Heel -Time 15:12 14:59 -Correct Patient Yes Yes -Correct Side, Site, Position Yes Yes -Correct Procedure Yes Yes -Procedure Performed Yes Yes -Type of Procedure Debridement Debridement -Clinical Debridement Subcutaneous Subcutaneous -Post Debridement Size (cm) - Length 0.3 0.1 -Post Debridement Size (cm) - Width 0.2 0.1 -Post Debridement Size (cm) - Depth 0.1 0.1 -Total Square Cm 0.06 0.01 -Wound/Ulcer Outcome Not Healed Not Healed -Ulcer Cleansing Rinsed/ Rinsed/ Irrigated with Irrigated with Saline Saline -Foul Odor after Cleansing No No -Bioengineered Tissue No No -Bleeding Controlled with Pressure Pressure -Offloading Yes Yes -Type of Offloading Total Contact Camwalker Cast (TCC) -Treatment Response Procedure Procedure Tolerated Well Tolerated Well Pain Scale: 0-10 Numeric Is Patient Pain Free? Yes Yes Wound debrided: plantar heel Laterality: Left Wound Grade/Stage: grade 1 Type of Debridement: Excisional debridement Anesthesia Used: 5% Lidocaine Gel Depth: in the subcutaneous layer Percentage of wound debrided: 100 Instrument Used: #15 blade Tissue Removed: fibrous, devitalized subcutaneous, biofilm, slough Severity: Fat Layer Exposed Amount of bleeding with debridement: Mild Bleeding Controlled with: Pressure Patient tolerated procedure well Assessment/Plan Active Problems Chronic ulcer of left foot with fat layer exposed (Chronic) Diabetes mellitus with polyneuropathy (Chronic) Malnutrition (Chronic) Delayed wound healing (Chronic) Assessment: Plantar heel ulcer, left foot with fat layer exposed. Diabetes with neuropathy. Malnutrition. Left foot advanced flat foot deformity with h/o surgical intervention. Nonadherence to treatment plan. calcaneal gait, left. difficulty walking Plan: I reviewed and discussed her care plan. The left heel ulcer was debrided as noted in the clinical panel in a subcutaneous manner. After debridement, Lisa was applied to the left plantar heel site. She defers total contact cast today and this will be considered next week if this ulcer site is not healed. She did bring her CAM Walker with offloading pocket and she was advised to wear this today and to use her assistive devices to reduce as much pressure off of the left lower extremity as possible. To continue protein supplementation to optimize healing; arsen. Her non invasive vascular studies were also reviewed from 08/2017 with bilateral triphasic waveforms, BRITTANY right 1.13 and left 1.29, and toe brachial index right of 0.8 and left 0.75. Repeat exams including xrays and non invasive vascular studies will be considered pending her healing response. Her neuropathy has woresened and we discussed the etiology, past treatment, and treatment recommendations today. Metanx prescription was previously prescribed for treatment of neuropathy. Her most recently reviewed x-rays were negative for acute infection or traumatic findings. Her most recent lab work was reviewed and she had a white blood cell count of 5, sedimentation rate of 15, and C-reactive protein 26.6. She was advised to follow up at the wound healing center in one week or call sooner if there are any questions or concerns. I answered all of her questions.
[2018-12-23 14:19] VITALS: BP 134/78; PULSE 77; RESP 18; TEMP 36.4; BMI 27.8
--- NOTE | 2018-12-23 17:18 | PCM.WC.PN ---
(1) Chronic ulcer of left foot with fat layer exposed Status: Chronic Current Visit: Yes Code(s): L97.522 - Non-pressure chronic ulcer of other part of left foot with fat layer exposed (2) Diabetes mellitus with polyneuropathy Status: Chronic Current Visit: Yes Qualifiers: Diabetes mellitus type: type 2 Qualified Code(s): E11.42 - Type 2 diabetes mellitus with diabetic polyneuropathy Code(s): E11.42 - Type 2 diabetes mellitus with diabetic polyneuropathy (3) Malnutrition Status: Chronic Current Visit: Yes Code(s): E46 - Unspecified protein-calorie malnutrition (4) Delayed wound healing Status: Chronic Current Visit: Yes Code(s): T14.8 - Other injury of unspecified body region Type of Wound Date of Service: 12/23/18 Chief Complaint: Left heel ulceration History of Wound: This is a 73-year-old female returns for follow-up of left heel ulceration. She has been compliant with dressings care. She denies fever, chills, nausea, vomiting, loss of appetite. She does have some irritation to the left fourth toe where the fourth toe presses on the sinus for evaluation today. She does have some inflammation and denies odor redness. Progress of Wound: Improving - Physical Exam Vital Signs Temp Pulse Resp BP 97.5 F L 77 18 134/78 H 12/23/18 14:19 12/23/18 14:19 12/23/18 14:19 12/23/18 14:19 General: Alert, Oriented x3, Cooperative Extremities: No cyanosis, Capillary Refill Less than 3 Seconds, No Calf Tenderness - Negative Maddison and Herrera left, Diminished Peripheral Pulses, Edema - Mild left, - - Digital deformities noted is noted that the third toe abuts and overlaps the fourth toe. She has significant bunion deformity as well Skin: Ulcer/ Wound - No purulence, erythema, streaking, odor, or infection. The plantar heel ulcer is granular and has extended in width size. The peripheral skin is hairless and atrophic. There is no inflammation to the medial aspect of the left fourth toe and I do not appreciate any skin discontinuity infection or an curvature the nail or necrosis Wound Measurements and Assessment WC - Nurse 1 - General Ulcer Measurement Start: 12/02/18 14:49 Freq: Status: Active Protocol: Activity Type Activity Date Activity User E-Sign Co-Sign Detail Recorded Client Recorded Date Recorded By Document 12/23/18 14:19 AN [id number] 12/23/18 14:31 AN 12/23/18 14:19 Wound Center Nurse 1 [Ulcer Assessment] #9 L Heel -Current Size (cm) - Length 0.7 -Current Size (cm) - Width 0.1 -Current Size (cm) - Depth 0.1 -Total Square Cm 0.07 -Photo Taken No -Epithelialization None Present -Tunneling No -Undermining/Tunneling No -Classification - Thickness Full Thickness without Exposed Support Structure -Exudate Amt Small -Exudate Type Serous -Wound Margin Flat & Intact -Granulation Amt Small (1-33%) -Granulation Quality [place] -Slough/Fibrin Yes -Necrosis Amt Large (67-100%) -Necrotic Tissue Type Eschar -Texture (Ardha-wound Skin Appearance) Assessed Callus -Moisture (Radha-wound Skin Appearance Assessed ) -Color (Radha-wound Skin Appearance) Assessed -Temperature (Radha-wound Skin No Abnormality Appearance) (Pt Warm) -Tenderness on Palpation (Radha-wound Yes Skin Appearance) -Ulcer Cleansing Rinsed/ Irrigated with Saline -Foul Odor after Cleansing No -Anesthetic Used 5% Lidocaine Gel WC - Nurse 2 - General Ulcer CM Notes Start: 12/02/18 14:49 Freq: Status: Active Protocol: Activity Type Activity Date Activity User E-Sign Co-Sign Detail Recorded Client Recorded Date Recorded By Document 12/23/18 14:55 [id number] 12/23/18 14:57 12/23/18 14:55 Wound Center Nurse 2 [Procedure/Treatment] -Time 14:55 -Correct Patient Yes -Correct Side, Site, Position Yes -Correct Procedure Yes -Procedure Performed Yes -Type of Procedure Debridement -Clinical Debridement Subcutaneous -Post Debridement Size (cm) - Length 0.3 -Post Debridement Size (cm) - Width 1.0 -Post Debridement Size (cm) - Depth 0.1 -Total Square Cm 0.30 -Wound/Ulcer Outcome Not Healed -Ulcer Cleansing Rinsed/ Irrigated with Saline -Foul Odor after Cleansing No -Bioengineered Tissue No -Bleeding Controlled with Pressure -Offloading Yes -Type of Offloading Total Contact Cast (TCC) -Treatment Response Procedure Tolerated Well [See Physician Procedure note for Specifics] Pain Scale: 0-10 Numeric [Pain] -Is Patient Pain Free? Yes Musculoskeletal: No Tenderness to Palpation of Joints or Extremities, Muscle Wasting Neurological: - - Lack of normal epicritic sensation light touch consistent with neuropathy left Psych/Mental Status: Normal Affect, Appropriate Debridement Note Post-Debridement Measurements/Treatment WC - Nurse 2 - General Ulcer CM Notes Start: 12/02/18 14:49 Freq: Status: Active Protocol: Activity Type Activity Date Activity User E-Sign Co-Sign Detail Recorded Client Recorded Date Recorded By Document 12/02/18 15:10 DL [id number] 12/02/18 15:12 DL Document 12/09/18 14:59 JF [id number] 12/09/18 15:00 JF Document 12/23/18 14:55 [id number] 12/23/18 14:57 12/02/18 12/09/18 12/23/18 15:10 14:59 14:55 Wound Center Nurse 2 #9 L Heel -Time 15:12 14:59 14:55 -Correct Patient Yes Yes Yes -Correct Side, Site, Position Yes Yes Yes -Correct Procedure Yes Yes Yes -Procedure Performed Yes Yes Yes -Type of Procedure Debridement Debridement Debridement -Clinical Debridement Subcutaneous Subcutaneous Subcutaneous -Post Debridement Size (cm) - Length 0.3 0.1 0.3 -Post Debridement Size (cm) - Width 0.2 0.1 1.0 -Post Debridement Size (cm) - Depth 0.1 0.1 0.1 -Total Square Cm 0.06 0.01 0.30 -Wound/Ulcer Outcome Not Healed Not Healed Not Healed -Ulcer Cleansing Rinsed/ Rinsed/ Rinsed/ Irrigated with Irrigated with Irrigated with Saline Saline Saline -Foul Odor after Cleansing No No No -Bioengineered Tissue No No No -Bleeding Controlled with Pressure Pressure Pressure -Offloading Yes Yes Yes -Type of Offloading Total Contact Camwalker Total Contact Cast (TCC) Cast (TCC) -Treatment Response Procedure Procedure Procedure Tolerated Well Tolerated Well Tolerated Well Pain Scale: 0-10 Numeric Is Patient Pain Free? Yes Yes Yes Wound debrided: plantar heel Laterality: Left Wound Grade/Stage: grade 1 Type of Debridement: Excisional debridement Anesthesia Used: 5% Lidocaine Gel Depth: in the subcutaneous layer Percentage of wound debrided: 100 Instrument Used: #15 blade Tissue Removed: fibrous, devitalized subcutaneous, biofilm, slough Severity: Fat Layer Exposed Amount of bleeding with debridement: Mild Bleeding Controlled with: Pressure Patient tolerated procedure well Assessment/Plan Active Problems Chronic ulcer of left foot with fat layer exposed (Chronic) Diabetes mellitus with polyneuropathy (Chronic) Malnutrition (Chronic) Delayed wound healing (Chronic) Assessment: Plantar heel ulcer, left foot with fat layer exposed. Left fourth toe inflammation with no ulcer formation. Diabetes with neuropathy. Malnutrition. Left foot advanced flat foot deformity with h/o surgical intervention. Nonadherence to treatment plan. calcaneal gait, left. difficulty walking Plan: I reviewed and discussed her care plan. The left heel ulcer was debrided as noted in the clinical panel in a subcutaneous manner. After debridement, Lisa was applied to the left plantar heel site. She was reassured no signs of infection are noted and I do not appreciate an ulcer to the left fourth toe. I do recommend placing a gauze between the third and fourth toe to eliminate irritation. I do also recommend application of a total contact cast and she is amenable to this today. This was applied in a rectus manner and was padded well according to standard protocol. She tolerated this well. To continue protein supplementation to optimize healing; arsen. Her non invasive vascular studies were also reviewed from 08/2017 with bilateral triphasic waveforms, BRITTANY right 1.13 and left 1.29, and toe brachial index right of 0.8 and left 0.75. Repeat exams including xrays and non invasive vascular studies will be considered pending her healing response. Her neuropathy has woresened and we discussed the etiology, past treatment, and treatment recommendations today. Metanx prescription was previously prescribed for treatment of neuropathy. Her most recently reviewed x-rays were negative for acute infection or traumatic findings. Her most recent lab work was reviewed and she had a white blood cell count of 5, sedimentation rate of 15, and C-reactive protein 26.6. She was advised to follow up at the wound healing center in one week or call sooner if there are any questions or concerns. I answered all of her questions.
--- NOTE | 2018-12-23 17:23 | PN.PCM_ITS ---
(1) Chronic ulcer of left foot with fat layer exposed Status: Chronic Current Visit: Yes Code(s): L97.522 - Non-pressure chronic ulcer of other part of left foot with fat layer exposed (2) Diabetes mellitus with polyneuropathy Status: Chronic Current Visit: Yes Qualifiers: Diabetes mellitus type: type 2 Qualified Code(s): E11.42 - Type 2 diabetes mellitus with diabetic polyneuropathy Code(s): E11.42 - Type 2 diabetes mellitus with diabetic polyneuropathy (3) Malnutrition Status: Chronic Current Visit: Yes Code(s): E46 - Unspecified protein- calorie malnutrition (4) Delayed wound healing Status: Chronic Current Visit: Yes Code(s): T14.8 - Other injury of unspecified body region Type of Wound Date of Service: 12/23/18 Chief Complaint: Left heel ulceration History of Wound: This is a 73-year-old female returns for follow-up of left heel ulceration. She has been compliant with dressings care. She denies fever, chills, nausea, vomiting, loss of appetite. She does have some irritation to the left fourth toe where the fourth toe presses on the sinus for evaluation today. She does have some inflammation and denies odor redness. Progress of Wound: Improving - Physical Exam Vital Signs Temp Pulse Resp BP 97.5 F L 77 18 134/78 H 12/23/18 14:19 12/23/18 14:19 12/23/18 14:19 12/23/18 14:19 General: Alert, Oriented x3, Cooperative Extremities: No cyanosis, Capillary Refill Less than 3 Seconds, No Calf Tenderness - Negative Maddison and Herrera left, Diminished Peripheral Pulses, Edema - Mild left, - - Digital deformities noted is noted that the third toe abuts and overlaps the fourth toe. She has significant bunion deformity as well Skin: Ulcer/ Wound - No purulence, erythema, streaking, odor, or infection. The plantar heel ulcer is granular and has extended in width size. The peripheral skin is hairless and atrophic. There is no inflammation to the medial aspect of the left fourth toe and I do not appreciate any skin discontinuity infection or an curvature the nail or necrosis Wound Measurements and Assessment WC - Nurse 1 - General Ulcer Measurement Start: 12/02/18 14:49 Freq: Status: Active Protocol: Activity Type Activity Date Activity User E-Sign Co-Sign Detail Recorded Client Recorded Date Recorded By Document 12/23/18 14:19 AN [id number] 12/23/18 14:31 AN 12/23/18 14:19 Wound Center Nurse 1 [Ulcer Assessment] #9 L Heel -Current Size (cm) - Length 0.7 -Current Size (cm) - Width 0.1 -Current Size (cm) - Depth 0.1 -Total Square Cm 0.07 -Photo Taken No -Epithelialization None Present -Tunneling No -Undermining/Tunneling No -Classification - Thickness Full Thickness without Exposed Support Structure -Exudate Amt Small -Exudate Type Serous -Wound Margin Flat & Intact -Granulation Amt Small (1-33%) -Granulation Quality [place] -Slough/Fibrin Yes -Necrosis Amt Large (67-100%) -Necrotic Tissue Type Eschar -Texture (Radha-wound Skin Appearance) Assessed Callus -Moisture (Radha-wound Skin Appearance Assessed ) -Color (Radha-wound Skin Appearance) Assessed -Temperature (Radha-wound Skin No Abnormality Appearance) (Pt Warm) -Tenderness on Palpation (Radha-wound Yes Skin Appearance) -Ulcer Cleansing Rinsed/ Irrigated with Saline -Foul Odor after Cleansing No -Anesthetic Used 5% Lidocaine Gel WC - Nurse 2 - General Ulcer CM Notes Start: 12/02/18 14:49 Freq: Status: Active Protocol: Activity Type Activity Date Activity User E-Sign Co-Sign Detail Recorded Client Recorded Date Recorded By Document 12/23/18 14:55 [id number] 12/23/18 14:57 12/23/18 14:55 Wound Center Nurse 2 [Procedure/Treatment] -Time 14:55 -Correct Patient Yes -Correct Side, Site, Position Yes -Correct Procedure Yes -Procedure Performed Yes -Type of Procedure Debridement -Clinical Debridement Subcutaneous -Post Debridement Size (cm) - Length 0.3 -Post Debridement Size (cm) - Width 1.0 -Post Debridement Size (cm) - Depth 0.1 -Total Square Cm 0.30 -Wound/Ulcer Outcome Not Healed -Ulcer Cleansing Rinsed/ Irrigated with Saline -Foul Odor after Cleansing No -Bioengineered Tissue No -Bleeding Controlled with Pressure -Offloading Yes -Type of Offloading Total Contact Cast (TCC) -Treatment Response Procedure Tolerated Well [See Physician Procedure note for Specifics] Pain Scale: 0-10 Numeric [Pain] -Is Patient Pain Free? Yes Musculoskeletal: No Tenderness to Palpation of Joints or Extremities, Muscle Wasting Neurological: - - Lack of normal epicritic sensation light touch consistent with neuropathy left Psych/Mental Status: Normal Affect, Appropriate Debridement Note Post-Debridement Measurements/Treatment WC - Nurse 2 - General Ulcer CM Notes Start: 12/02/18 14:49 Freq: Status: Active Protocol: Activity Type Activity Date Activity User E-Sign Co-Sign Detail Recorded Client Recorded Date Recorded By Document 12/02/18 15:10 DL [id number] 12/02/18 15:12 DL Document 12/09/18 14:59 JF [id number] 12/09/18 15:00 JF Document 12/23/18 14:55 [id number] 12/23/18 14:57 12/02/18 12/09/18 12/23/18 15:10 14:59 14:55 Wound Center Nurse 2 #9 L Heel -Time 15:12 14:59 14:55 -Correct Patient Yes Yes Yes -Correct Side, Site, Position Yes Yes Yes -Correct Procedure Yes Yes Yes -Procedure Performed Yes Yes Yes -Type of Procedure Debridement Debridement Debridement -Clinical Debridement Subcutaneous Subcutaneous Subcutaneous -Post Debridement Size (cm) - Length 0.3 0.1 0.3 -Post Debridement Size (cm) - Width 0.2 0.1 1.0 -Post Debridement Size (cm) - Depth 0.1 0.1 0.1 -Total Square Cm 0.06 0.01 0.30 -Wound/Ulcer Outcome Not Healed Not Healed Not Healed -Ulcer Cleansing Rinsed/ Rinsed/ Rinsed/ Irrigated with Irrigated with Irrigated with Saline Saline Saline -Foul Odor after Cleansing No No No -Bioengineered Tissue No No No -Bleeding Controlled with Pressure Pressure Pressure -Offloading Yes Yes Yes -Type of Offloading Total Contact Camwalker Total Contact Cast (TCC) Cast (TCC) -Treatment Response Procedure Procedure Procedure Tolerated Well Tolerated Well Tolerated Well Pain Scale: 0-10 Numeric Is Patient Pain Free? Yes Yes Yes Wound debrided: plantar heel Laterality: Left Wound Grade/Stage: grade 1 Type of Debridement: Excisional debridement Anesthesia Used: 5% Lidocaine Gel Depth: in the subcutaneous layer Percentage of wound debrided: 100 Instrument Used: #15 blade Tissue Removed: fibrous, devitalized subcutaneous, biofilm, slough Severity: Fat Layer Exposed Amount of bleeding with debridement: Mild Bleeding Controlled with: Pressure Patient tolerated procedure well Assessment/Plan Active Problems Chronic ulcer of left foot with fat layer exposed (Chronic) Diabetes mellitus with polyneuropathy (Chronic) Malnutrition (Chronic) Delayed wound healing (Chronic) Assessment: Plantar heel ulcer, left foot with fat layer exposed. Left fourth toe inflammation with no ulcer formation. Diabetes with neuropathy. Malnutrition. Left foot advanced flat foot deformity with h/o surgical intervention. Nonadherence to treatment plan. calcaneal gait, left. difficulty walking Plan: I reviewed and discussed her care plan. The left heel ulcer was debrided as noted in the clinical panel in a subcutaneous manner. After debridement, Lisa was applied to the left plantar heel site. She was reassured no signs of infection are noted and I do not appreciate an ulcer to the left fourth toe. I do recommend placing a gauze between the third and fourth toe to eliminate irritation. I do also recommend application of a total contact cast and she is amenable to this today. This was applied in a rectus manner and was padded well according to standard protocol. She tolerated this well. To continue protein supplementation to optimize healing; arsen. Her non invasive vascular studies were also reviewed from 08/2017 with bilateral triphasic waveforms, BRITTANY right 1.13 and left 1.29, and toe brachial index right of 0.8 and left 0.75. Repeat exams including xrays and non invasive vascular studies will be considered pending her healing response. Her neuropathy has woresened and we discussed the etiology, past treatment, and treatment recommendations today. Metanx prescription was previously prescribed for treatment of neuropathy. Her most recently reviewed x-rays were negative for acute infection or traumatic findings. Her most recent lab work was reviewed and she had a white blood cell count of 5, sedimentation rate of 15, and C-reactive protein 26.6. She was advised to follow up at the wound healing center in one week or call sooner if there are any questions or concerns. I answered all of her questions.
[2018-12-30 13:57] VITALS: BP 140/81; PULSE 82; RESP 18; TEMP 36; BMI 27.8
--- NOTE | 2018-12-31 12:05 | PCM.WC.PN ---
(1) Chronic ulcer of left foot with fat layer exposed Status: Chronic Current Visit: Yes Code(s): L97.522 - Non-pressure chronic ulcer of other part of left foot with fat layer exposed (2) Diabetes mellitus with polyneuropathy Status: Chronic Current Visit: Yes Qualifiers: Diabetes mellitus type: type 2 Qualified Code(s): E11.42 - Type 2 diabetes mellitus with diabetic polyneuropathy Code(s): E11.42 - Type 2 diabetes mellitus with diabetic polyneuropathy (3) Malnutrition Status: Chronic Current Visit: Yes Code(s): E46 - Unspecified protein-calorie malnutrition (4) Delayed wound healing Status: Chronic Current Visit: Yes Code(s): T14.8 - Other injury of unspecified body region Type of Wound Date of Service: 12/30/18 Chief Complaint: Left heel ulceration History of Wound: This is a 73-year-old female returns for follow-up of left heel ulceration. She has been compliant with dressings care. She denies fever, chills, nausea, vomiting, loss of appetite. She kept her total contact cast intact last week. She denies pain. Progress of Wound: Stable - Physical Exam Vital Signs Temp Pulse Resp BP 96.8 F L 82 18 140/81 H 12/30/18 13:57 12/30/18 13:57 12/30/18 13:57 12/30/18 13:57 General: Alert, Oriented x3, Cooperative Extremities: No cyanosis, Capillary Refill Less than 3 Seconds, No Calf Tenderness - Negative Maddison and Herrera sign bilateral, Diminished Peripheral Pulses, Edema - Mild left lower extremity, - - No equinus noted left lower extremity Skin: Ulcer/ Wound - No purulence, erythema, streaking, odor, or infection left. The peripheral skin is hairless and atrophic. Wound Measurements and Assessment WC - Nurse 1 - General Ulcer Measurement Start: 12/02/18 14:49 Freq: Status: Active Protocol: Activity Type Activity Date Activity User E-Sign Co-Sign Detail Recorded Client Recorded Date Recorded By Document 12/30/18 13:57 RB [id number] 12/30/18 14:13 RB 12/30/18 13:57 Wound Center Nurse 1 [Ulcer Assessment] #9 L Heel -Combined with other wound No -Current Size (cm) - Length 0.2 -Current Size (cm) - Width 0.7 -Current Size (cm) - Depth 0.1 -Total Square Cm 0.14 -Tunneling No -Undermining/Tunneling No -Circular Undermining No -Exudate Amt Small -Exudate Type Serosanguineous -Wound Margin Thickened -Granulation Amt Medium (34-66%) -Granulation Quality Vici -Slough/Fibrin Yes -Necrosis Amt Small (1-33%) -Necrotic Tissue Type Adherent Slough -Structure Exposed N/A -Texture (Radha-wound Skin Appearance) Assessed Callus -Moisture (Radha-wound Skin Appearance Assessed ) -Color (Radha-wound Skin Appearance) Assessed -Temperature (Radha-wound Skin No Abnormality Appearance) (Pt Warm) -Tenderness on Palpation (Radha-wound No Skin Appearance) -Ulcer Cleansing Wound Cleanser -Foul Odor after Cleansing No -Anesthetic Used 4% Lidocaine Solution WC - Nurse 2 - General Ulcer CM Notes Start: 12/02/18 14:49 Freq: Status: Active Protocol: Activity Type Activity Date Activity User E-Sign Co-Sign Detail Recorded Client Recorded Date Recorded By Document 12/30/18 14:30 TAHIRA [id number] 12/30/18 14:32 TAHIRA 12/30/18 14:30 Wound Center Nurse 2 [Procedure/Treatment] -Time 14:31 -Correct Patient Yes -Correct Side, Site, Position Yes -Correct Procedure Yes -Procedure Performed Yes -Type of Procedure Debridement -Clinical Debridement Subcutaneous -Post Debridement Size (cm) - Length 0.3 -Post Debridement Size (cm) - Width 0.6 -Post Debridement Size (cm) - Depth 0.1 -Total Square Cm 0.18 -Wound/Ulcer Outcome Not Healed -Ulcer Cleansing Rinsed/ Irrigated with Saline -Foul Odor after Cleansing No -Bioengineered Tissue No -Bleeding Controlled with Pressure -Offloading Yes -Type of Offloading Total Contact Cast (TCC) -Treatment Response Procedure Tolerated Well [See Physician Procedure note for Specifics] Pain Scale: 0-10 Numeric [Pain] -Is Patient Pain Free? Yes Musculoskeletal: No Tenderness to Palpation of Joints or Extremities, Muscle Wasting Neurological: - - Lack of epicritic sensation light touch consistent with neuropathy left Psych/Mental Status: Normal Affect, Appropriate Debridement Note Post-Debridement Measurements/Treatment WC - Nurse 2 - General Ulcer CM Notes Start: 12/02/18 14:49 Freq: Status: Active Protocol: Activity Type Activity Date Activity User E-Sign Co-Sign Detail Recorded Client Recorded Date Recorded By Document 12/02/18 15:10 DL [id number] 12/02/18 15:12 DL Document 12/09/18 14:59 JF [id number] 12/09/18 15:00 JF Document 12/23/18 14:55 JF [id number] 12/23/18 14:57 JF Document 12/30/18 14:30 JF [id number] 12/30/18 14:32 JF 12/02/18 12/09/18 12/23/18 15:10 14:59 14:55 Wound Center Nurse 2 #9 L Heel -Time 15:12 14:59 14:55 -Correct Patient Yes Yes Yes -Correct Side, Site, Position Yes Yes Yes -Correct Procedure Yes Yes Yes -Procedure Performed Yes Yes Yes -Type of Procedure Debridement Debridement Debridement -Clinical Debridement Subcutaneous Subcutaneous Subcutaneous -Post Debridement Size (cm) - Length 0.3 0.1 0.3 -Post Debridement Size (cm) - Width 0.2 0.1 1.0 -Post Debridement Size (cm) - Depth 0.1 0.1 0.1 -Total Square Cm 0.06 0.01 0.30 -Wound/Ulcer Outcome Not Healed Not Healed Not Healed -Ulcer Cleansing Rinsed/ Rinsed/ Rinsed/ Irrigated with Irrigated with Irrigated with Saline Saline Saline -Foul Odor after Cleansing No No No -Bioengineered Tissue No No No -Bleeding Controlled with Pressure Pressure Pressure -Offloading Yes Yes Yes -Type of Offloading Total Contact Camwalker Total Contact Cast (TCC) Cast (TCC) -Treatment Response Procedure Procedure Procedure Tolerated Well Tolerated Well Tolerated Well Pain Scale: 0-10 Numeric Is Patient Pain Free? Yes Yes Yes 12/30/18 14:30 Wound Center Nurse 2 #9 L Heel -Time 14:31 -Correct Patient Yes -Correct Side, Site, Position Yes -Correct Procedure Yes -Procedure Performed Yes -Type of Procedure Debridement -Clinical Debridement Subcutaneous -Post Debridement Size (cm) - Length 0.3 -Post Debridement Size (cm) - Width 0.6 -Post Debridement Size (cm) - Depth 0.1 -Total Square Cm 0.18 -Wound/Ulcer Outcome Not Healed -Ulcer Cleansing Rinsed/ Irrigated with Saline -Foul Odor after Cleansing No -Bioengineered Tissue No -Bleeding Controlled with Pressure -Offloading Yes -Type of Offloading Total Contact Cast (TCC) -Treatment Response Procedure Tolerated Well Pain Scale: 0-10 Numeric Is Patient Pain Free? Yes Wound debrided: plantar heel Laterality: Left Wound Grade/Stage: grade 1 Type of Debridement: Excisional debridement Anesthesia Used: 5% Lidocaine Gel Depth: in the subcutaneous layer Percentage of wound debrided: 100 Instrument Used: #15 blade Tissue Removed: fibrous, devitalized subcutaneous, biofilm, slough Severity: Fat Layer Exposed Amount of bleeding with debridement: Mild Bleeding Controlled with: Pressure Patient tolerated procedure well Assessment/Plan Active Problems Chronic ulcer of left foot with fat layer exposed (Chronic) Diabetes mellitus with polyneuropathy (Chronic) Malnutrition (Chronic) Delayed wound healing (Chronic) Assessment: Plantar heel ulcer, left foot with fat layer exposed. Diabetes with neuropathy. Malnutrition. Left foot advanced flat foot deformity with h/o surgical intervention. Nonadherence to treatment plan. calcaneal gait, left. difficulty walking Plan: I reviewed and discussed her care plan. The left heel ulcer was debrided as noted in the clinical panel in a subcutaneous manner. After debridement, Lisa was applied to the left plantar heel site. She was reassured no signs of infection are noted. I do also recommend application of a total contact cast and she is amenable to this today. This was applied in a rectus manner and was padded well according to standard protocol. She tolerated this well. To continue protein supplementation to optimize healing; arsen. Her non invasive vascular studies were also reviewed from 08/2017 with bilateral triphasic waveforms, BRITTANY right 1.13 and left 1.29, and toe brachial index right of 0.8 and left 0.75. Repeat exams including xrays and non invasive vascular studies will be considered pending her healing response. Her neuropathy has woresened and we discussed the etiology, past treatment, and treatment recommendations today. Metanx prescription was previously prescribed for treatment of neuropathy. Her most recently reviewed x-rays were negative for acute infection or traumatic findings. Her most recent lab work was reviewed and she had a white blood cell count of 5, sedimentation rate of 15, and C-reactive protein 26.6. She was advised to follow up at the wound healing center in one week or call sooner if there are any questions or concerns. I also recommend application of advanced wound care product, or reGranex. She has had significant delays in healing and this is medically necessary. And this order will be placed and prior authorization is pending. I answered all of her questions.
--- NOTE | 2018-12-31 12:08 | PN.PCM_ITS ---
(1) Chronic ulcer of left foot with fat layer exposed Status: Chronic Current Visit: Yes Code(s): L97.522 - Non-pressure chronic ulcer of other part of left foot with fat layer exposed (2) Diabetes mellitus with polyneuropathy Status: Chronic Current Visit: Yes Qualifiers: Diabetes mellitus type: type 2 Qualified Code(s): E11.42 - Type 2 diabetes mellitus with diabetic polyneuropathy Code(s): E11.42 - Type 2 diabetes mellitus with diabetic polyneuropathy (3) Malnutrition Status: Chronic Current Visit: Yes Code(s): E46 - Unspecified protein- calorie malnutrition (4) Delayed wound healing Status: Chronic Current Visit: Yes Code(s): T14.8 - Other injury of unspecified body region Type of Wound Date of Service: 12/30/18 Chief Complaint: Left heel ulceration History of Wound: This is a 73-year-old female returns for follow-up of left heel ulceration. She has been compliant with dressings care. She denies fever, chills, nausea, vomiting, loss of appetite. She kept her total contact cast intact last week. She denies pain. Progress of Wound: Stable - Physical Exam Vital Signs Temp Pulse Resp BP 96.8 F L 82 18 140/81 H 12/30/18 13:57 12/30/18 13:57 12/30/18 13:57 12/30/18 13:57 General: Alert, Oriented x3, Cooperative Extremities: No cyanosis, Capillary Refill Less than 3 Seconds, No Calf Tenderness - Negative Maddison and Herrera sign bilateral, Diminished Peripheral Pulses, Edema - Mild left lower extremity, - - No equinus noted left lower extremity Skin: Ulcer/ Wound - No purulence, erythema, streaking, odor, or infection left. The peripheral skin is hairless and atrophic. Wound Measurements and Assessment WC - Nurse 1 - General Ulcer Measurement Start: 12/02/18 14:49 Freq: Status: Active Protocol: Activity Type Activity Date Activity User E-Sign Co-Sign Detail Recorded Client Recorded Date Recorded By Document 12/30/18 13:57 RB [id number] 12/30/18 14:13 RB 12/30/18 13:57 Wound Center Nurse 1 [Ulcer Assessment] #9 L Heel -Combined with other wound No -Current Size (cm) - Length 0.2 -Current Size (cm) - Width 0.7 -Current Size (cm) - Depth 0.1 -Total Square Cm 0.14 -Tunneling No -Undermining/Tunneling No -Circular Undermining No -Exudate Amt Small -Exudate Type Serosanguineous -Wound Margin Thickened -Granulation Amt Medium (34-66%) -Granulation Quality [place] -Slough/Fibrin Yes -Necrosis Amt Small (1-33%) -Necrotic Tissue Type Adherent Slough -Structure Exposed N/A -Texture (Radha-wound Skin Appearance) Assessed Callus -Moisture (Radha-wound Skin Appearance Assessed ) -Color (Radha-wound Skin Appearance) Assessed -Temperature (Radha-wound Skin No Abnormality Appearance) (Pt Warm) -Tenderness on Palpation (Radha-wound No Skin Appearance) -Ulcer Cleansing Wound Cleanser -Foul Odor after Cleansing No -Anesthetic Used 4% Lidocaine Solution WC - Nurse 2 - General Ulcer CM Notes Start: 12/02/18 14:49 Freq: Status: Active Protocol: Activity Type Activity Date Activity User E-Sign Co-Sign Detail Recorded Client Recorded Date Recorded By Document 12/30/18 14:30 [email or web address] [id number] 12/30/18 14:32 TAHIRA 12/30/18 14:30 Wound Center Nurse 2 [Procedure/Treatment] -Time 14:31 -Correct Patient Yes -Correct Side, Site, Position Yes -Correct Procedure Yes -Procedure Performed Yes -Type of Procedure Debridement -Clinical Debridement Subcutaneous -Post Debridement Size (cm) - Length 0.3 -Post Debridement Size (cm) - Width 0.6 -Post Debridement Size (cm) - Depth 0.1 -Total Square Cm 0.18 -Wound/Ulcer Outcome Not Healed -Ulcer Cleansing Rinsed/ Irrigated with Saline -Foul Odor after Cleansing No -Bioengineered Tissue No -Bleeding Controlled with Pressure -Offloading Yes -Type of Offloading Total Contact Cast (TCC) -Treatment Response Procedure Tolerated Well [See Physician Procedure note for Specifics] Pain Scale: 0-10 Numeric [Pain] -Is Patient Pain Free? Yes Musculoskeletal: No Tenderness to Palpation of Joints or Extremities, Muscle Wasting Neurological: - - Lack of epicritic sensation light touch consistent with neuropathy left Psych/Mental Status: Normal Affect, Appropriate Debridement Note Post-Debridement Measurements/Treatment WC - Nurse 2 - General Ulcer CM Notes Start: 12/02/18 14:49 Freq: Status: Active Protocol: Activity Type Activity Date Activity User E-Sign Co-Sign Detail Recorded Client Recorded Date Recorded By Document 12/02/18 15:10 DL [id number] 12/02/18 15:12 DL Document 12/09/18 14:59 JF [id number] 12/09/18 15:00 JF Document 12/23/18 14:55 JF [id number] 12/23/18 14:57 JF Document 12/30/18 14:30 JF [id number] 12/30/18 14:32 JF 12/02/18 12/09/18 12/23/18 15:10 14:59 14:55 Wound Center Nurse 2 #9 L Heel -Time 15:12 14:59 14:55 -Correct Patient Yes Yes Yes -Correct Side, Site, Position Yes Yes Yes -Correct Procedure Yes Yes Yes -Procedure Performed Yes Yes Yes -Type of Procedure Debridement Debridement Debridement -Clinical Debridement Subcutaneous Subcutaneous Subcutaneous -Post Debridement Size (cm) - Length 0.3 0.1 0.3 -Post Debridement Size (cm) - Width 0.2 0.1 1.0 -Post Debridement Size (cm) - Depth 0.1 0.1 0.1 -Total Square Cm 0.06 0.01 0.30 -Wound/Ulcer Outcome Not Healed Not Healed Not Healed -Ulcer Cleansing Rinsed/ Rinsed/ Rinsed/ Irrigated with Irrigated with Irrigated with Saline Saline Saline -Foul Odor after Cleansing No No No -Bioengineered Tissue No No No -Bleeding Controlled with Pressure Pressure Pressure -Offloading Yes Yes Yes -Type of Offloading Total Contact Camwalker Total Contact Cast (TCC) Cast (TCC) -Treatment Response Procedure Procedure Procedure Tolerated Well Tolerated Well Tolerated Well Pain Scale: 0-10 Numeric Is Patient Pain Free? Yes Yes Yes 12/30/18 14:30 Wound Center Nurse 2 #9 L Heel -Time 14:31 -Correct Patient Yes -Correct Side, Site, Position Yes -Correct Procedure Yes -Procedure Performed Yes -Type of Procedure Debridement -Clinical Debridement Subcutaneous -Post Debridement Size (cm) - Length 0.3 -Post Debridement Size (cm) - Width 0.6 -Post Debridement Size (cm) - Depth 0.1 -Total Square Cm 0.18 -Wound/Ulcer Outcome Not Healed -Ulcer Cleansing Rinsed/ Irrigated with Saline -Foul Odor after Cleansing No -Bioengineered Tissue No -Bleeding Controlled with Pressure -Offloading Yes -Type of Offloading Total Contact Cast (TCC) -Treatment Response Procedure Tolerated Well Pain Scale: 0-10 Numeric Is Patient Pain Free? Yes Wound debrided: plantar heel Laterality: Left Wound Grade/Stage: grade 1 Type of Debridement: Excisional debridement Anesthesia Used: 5% Lidocaine Gel Depth: in the subcutaneous layer Percentage of wound debrided: 100 Instrument Used: #15 blade Tissue Removed: fibrous, devitalized subcutaneous, biofilm, slough Severity: Fat Layer Exposed Amount of bleeding with debridement: Mild Bleeding Controlled with: Pressure Patient tolerated procedure well Assessment/Plan Active Problems Chronic ulcer of left foot with fat layer exposed (Chronic) Diabetes mellitus with polyneuropathy (Chronic) Malnutrition (Chronic) Delayed wound healing (Chronic) Assessment: Plantar heel ulcer, left foot with fat layer exposed. Diabetes with neuropathy. Malnutrition. Left foot advanced flat foot deformity with h/o surgical intervention. Nonadherence to treatment plan. calcaneal gait, left. difficulty walking Plan: I reviewed and discussed her care plan. The left heel ulcer was debrided as noted in the clinical panel in a subcutaneous manner. After debridement, Lisa was applied to the left plantar heel site. She was reassured no signs of infection are noted. I do also recommend application of a total contact cast and she is amenable to this today. This was applied in a rectus manner and was padded well according to standard protocol. She tolerated this well. To continue protein supplementation to optimize healing; arsen. Her non invasive vascular studies were also reviewed from 08/2017 with bilateral triphasic waveforms, BRITTANY right 1.13 and left 1.29, and toe brachial index right of 0.8 and left 0.75. Repeat exams including xrays and non invasive vascular studies will be considered pending her healing response. Her neuropathy has woresened and we discussed the etiology, past treatment, and treatment recommendations today. Metanx prescription was previously prescribed for treatment of neuropathy. Her most recently reviewed x-rays were negative for acute infection or traumatic findings. Her most recent lab work was reviewed and she had a white blood cell count of 5, sedimentation rate of 15, and C-reactive protein 26.6. She was advised to follow up at the wound healing center in one week or call sooner if there are any questions or concerns. I also recommend application of advanced wound care product, or reGranex. She has had significant delays in healing and this is medically necessary. And this order will be placed and prior authorization is pending. I answered all of her questions.
== END 2018-12-31 23:59 ==
LOC: WC 14:45
PROVIDERS: Family Provider Family Medicine; PCP Family Medicine; Visit Provider Podiatrist
DX: E11.621 Type 2 diabetes mellitus with foot ulcer (principal); E11.42 Type 2 diabetes mellitus with diabetic polyneuropathy; L97.422 Non-pressure chronic ulcer of left heel and midfoot with fat layer exposed; M21.42 Flat foot [pes planus] (acquired), left foot; M21.612 Bunion of left foot
CPT/HCPCS: 11042; 29445

== ENCOUNTER 2019-01-27 14:45 | Outpatient (RCR) | payer MEDICARE, BC, SELFPAY ==
[2019-01-01 01:14] VITALS: BP 140/81; PULSE 82; RESP 18; TEMP 36
[2019-01-06 15:09] VITALS: BP 144/58; PULSE 74; RESP 18; TEMP 36.3; BMI 27.8
--- NOTE | 2019-01-06 16:18 | PN.PCM_ITS ---
(1) Chronic ulcer of left foot with fat layer exposed Status: Chronic Current Visit: Yes Code(s): L97.522 - Non-pressure chronic ulcer of other part of left foot with fat layer exposed (2) Diabetes mellitus with polyneuropathy Status: Chronic Current Visit: Yes Qualifiers: Diabetes mellitus type: type 2 Qualified Code(s): E11.42 - Type 2 diabetes mellitus with diabetic polyneuropathy Code(s): E11.42 - Type 2 diabetes mellitus with diabetic polyneuropathy (3) Malnutrition Status: Chronic Current Visit: Yes Code(s): E46 - Unspecified protein- calorie malnutrition (4) Delayed wound healing Status: Chronic Current Visit: Yes Code(s): T14.8 - Other injury of unspecified body region Type of Wound Date of Service: 01/06/19 Chief Complaint: Left heel ulceration History of Wound: This is a 73-year-old female returns for follow-up of left heel ulceration. She has been compliant with dressings care. She denies fever, chills, nausea, vomiting, loss of appetite. She kept her total contact cast intact last week. She denies pain. Progress of Wound: Stable - Physical Exam Vital Signs Temp Pulse Resp BP 97.3 F L 74 18 144/58 H 01/06/19 15:09 01/06/19 15:09 01/06/19 15:09 01/06/19 15:09 General: Alert, Oriented x3, Cooperative Extremities: No cyanosis, Capillary Refill Less than 3 Seconds, No Calf Tenderness - Negative Maddison and Herrera sign month, Diminished Peripheral Pulses, Edema - Mild, Tenderness - No pain with ulcer manipulation Skin: Ulcer/ Wound - No purulence, erythema, streaking, odor, or infection maceration left lower extremity. The peripheral skin is hairless and atrophic. Wound Measurements and Assessment WC - Nurse 1 - General Ulcer Measurement Start: 01/06/19 15:09 Freq: Status: Active Protocol: Activity Type Activity Date Activity User E-Sign Co-Sign Detail Recorded Client Recorded Date Recorded By Document 01/06/19 15:09 RB [id number] 01/06/19 15:11 RB 01/06/19 15:09 Wound Center Nurse 1 [Ulcer Assessment] #9 L Heel -Combined with other wound No -Current Size (cm) - Length 0.2 -Current Size (cm) - Width 0.7 -Current Size (cm) - Depth 0.3 -Total Square Cm 0.14 -Photo Taken No -Tunneling No -Undermining/Tunneling No -Circular Undermining No -Exudate Amt Small -Exudate Type Serosanguineous -Wound Margin Thickened -Granulation Amt Medium (34-66%) -Granulation Quality [place] -Slough/Fibrin Yes -Necrosis Amt Medium (34-66%) -Necrotic Tissue Type Adherent Slough -Structure Exposed N/A -Texture (Radha-wound Skin Appearance) Callus -Moisture (Radha-wound Skin Appearance Assessed ) -Color (Radha-wound Skin Appearance) Assessed -Temperature (Radha-wound Skin No Abnormality Appearance) (Pt Warm) -Tenderness on Palpation (Radha-wound No Skin Appearance) -Ulcer Cleansing Wound Cleanser -Foul Odor after Cleansing No -Anesthetic Used 5% Lidocaine Gel WC - Nurse 2 - General Ulcer CM Notes Start: 01/06/19 15:09 Freq: Status: Active Protocol: Activity Type Activity Date Activity User E-Sign Co-Sign Detail Recorded Client Recorded Date Recorded By Document 01/06/19 15:25 JF [id number] 01/06/19 15:26 01/06/19 15:25 Wound Center Nurse 2 [Procedure/Treatment] -Time 15:25 -Correct Patient Yes -Correct Side, Site, Position Yes -Correct Procedure Yes -Procedure Performed Yes -Type of Procedure Debridement -Clinical Debridement Subcutaneous -Post Debridement Size (cm) - Length 0.3 -Post Debridement Size (cm) - Width 0.7 -Post Debridement Size (cm) - Depth 0.2 -Total Square Cm 0.21 -Wound/Ulcer Outcome Not Healed -Ulcer Cleansing Rinsed/ Irrigated with Saline -Foul Odor after Cleansing No -Bioengineered Tissue No -Bleeding Controlled with Pressure -Offloading Yes -Type of Offloading Camwalker -Treatment Response Procedure Tolerated Well [See Physician Procedure note for Specifics] Pain Scale: 0-10 Numeric [Pain] -Is Patient Pain Free? Yes Musculoskeletal: No Tenderness to Palpation of Joints or Extremities, Muscle Wasting Neurological: - - Lack of normal epicritic sensation light touch consistent with neuropathy Psych/Mental Status: Normal Affect, Appropriate Debridement Note Post-Debridement Measurements/Treatment WC - Nurse 2 - General Ulcer CM Notes Start: 01/06/19 15:09 Freq: Status: Active Protocol: Activity Type Activity Date Activity User E-Sign Co-Sign Detail Recorded Client Recorded Date Recorded By Document 01/06/19 15:25 JF [id number] 01/06/19 15:26 JF 01/06/19 15:25 Wound Center Nurse 2 #9 L Heel -Time 15:25 -Correct Patient Yes -Correct Side, Site, Position Yes -Correct Procedure Yes -Procedure Performed Yes -Type of Procedure Debridement -Clinical Debridement Subcutaneous -Post Debridement Size (cm) - Length 0.3 -Post Debridement Size (cm) - Width 0.7 -Post Debridement Size (cm) - Depth 0.2 -Total Square Cm 0.21 -Wound/Ulcer Outcome Not Healed -Ulcer Cleansing Rinsed/ Irrigated with Saline -Foul Odor after Cleansing No -Bioengineered Tissue No -Bleeding Controlled with Pressure -Offloading Yes -Type of Offloading Camwalker -Treatment Response Procedure Tolerated Well Pain Scale: 0-10 Numeric Is Patient Pain Free? Yes Wound debrided: plantar heel Laterality: Left Wound Grade/Stage: grade 1 Type of Debridement: Excisional debridement Anesthesia Used: 5% Lidocaine Gel Depth: in the subcutaneous layer Percentage of wound debrided: 100 Instrument Used: #15 blade Tissue Removed: fibrous, devitalized subcutaneous, biofilm, slough Severity: Fat Layer Exposed Amount of bleeding with debridement: Mild Bleeding Controlled with: Pressure Patient tolerated procedure well Assessment/Plan Active Problems Chronic ulcer of left foot with fat layer exposed (Chronic) Diabetes mellitus with polyneuropathy (Chronic) Malnutrition (Chronic) Delayed wound healing (Chronic) Assessment: Plantar heel ulcer, left foot with fat layer exposed. Diabetes with neuropathy. Malnutrition. Left foot advanced flat foot deformity with h/o surgical intervention. Nonadherence to treatment plan. calcaneal gait, left. difficulty walking Plan: I reviewed and discussed her care plan. The left heel ulcer was debrided as noted in the clinical panel in a subcutaneous manner. After debridement, Lisa was applied to the left plantar heel site. She was reassured no signs of infection are noted. To proceed with daily dressing changes with Regranex at home. To continue protein supplementation to optimize healing; arsen. Her non invasive vascular studies were also reviewed from 08/2017 with bilateral triphasic waveforms, BRITTANY right 1.13 and left 1.29, and toe brachial index right of 0.8 and left 0.75. Repeat exams including xrays and non invasive vascular studies will be considered pending her healing response. Her neuropathy has woresened and we discussed the etiology, past treatment, and treatment recommendations today. Metanx prescription was previously prescribed for treatment of neuropathy. Her most recently reviewed x-rays were negative for acute infection or traumatic findings. Her most recent lab work was reviewed and she had a white blood cell count of 5, sedimentation rate of 15, and C- reactive protein 26.6. She was advised to follow up at the wound healing center in one week or call sooner if there are any questions or concerns. I answered all of her questions.
[2019-01-13 14:20] VITALS: BP 126/72; PULSE 88; RESP 18; TEMP 36.1; BMI 27.8
--- NOTE | 2019-01-13 15:50 | PCM.WC.PN ---
(1) Chronic ulcer of left foot with fat layer exposed Status: Chronic Current Visit: Yes Code(s): L97.522 - Non-pressure chronic ulcer of other part of left foot with fat layer exposed (2) Diabetes mellitus with polyneuropathy Status: Chronic Current Visit: Yes Qualifiers: Diabetes mellitus type: type 2 Qualified Code(s): E11.42 - Type 2 diabetes mellitus with diabetic polyneuropathy Code(s): E11.42 - Type 2 diabetes mellitus with diabetic polyneuropathy (3) Malnutrition Status: Chronic Current Visit: Yes Code(s): E46 - Unspecified protein-calorie malnutrition (4) Delayed wound healing Status: Chronic Current Visit: Yes Code(s): T14.8 - Other injury of unspecified body region (5) Xerosis cutis Status: Chronic Current Visit: Yes Code(s): L85.3 - Xerosis cutis Type of Wound Date of Service: 01/13/19 Chief Complaint: Left heel ulceration History of Wound: This is a 73-year-old female returns for follow-up of left heel ulceration. She has been compliant with dressings care. She denies fever, chills, nausea, vomiting, loss of appetite. She has been using her Granix as advised and continues with CAM Walker. She has a dry patch of skin to the top of the left foot and asked for lotion recommendations. She has had inadequate relief with Eucerin and [facility]. Progress of Wound: Improving - Physical Exam Vital Signs Temp Pulse Resp BP 97 F L 88 18 126/72 H 01/13/19 14:20 01/13/19 14:20 01/13/19 14:20 01/13/19 14:20 General: Alert, Oriented x3, Cooperative Extremities: No cyanosis, Capillary Refill Less than 3 Seconds, No Calf Tenderness - Negative Maddison and Herrera sign left, Diminished Peripheral Pulses, Edema - Mild Skin: Ulcer/ Wound - Peripheral epithelialization is noted and there is no radha-ulcer infection or inflammation. There is no purulence, erythema hamstring, deep tissue exposure, eschar, or maceration. Dorsal left foot skin is atrophic with no open lesions or infection noted. The skin is dry Wound Measurements and Assessment WC - Nurse 1 - General Ulcer Measurement Start: 01/06/19 15:09 Freq: Status: Active Protocol: Activity Type Activity Date Activity User E-Sign Co-Sign Detail Recorded Client Recorded Date Recorded By Document 01/13/19 14:20 RB [id number] 01/13/19 14:22 RB 01/13/19 14:20 Wound Center Nurse 1 [Ulcer Assessment] #9 L Heel -Combined with other wound No -Current Size (cm) - Length 0.1 -Current Size (cm) - Width 0.1 -Current Size (cm) - Depth 0.1 -Total Square Cm 0.01 -Photo Taken No -Tunneling No -Undermining/Tunneling No -Circular Undermining No -Exudate Amt None Present -Wound Margin Distinct, Outline Attached -Granulation Amt Large (67-100%) -Granulation Quality [place] -Slough/Fibrin Yes -Necrosis Amt Small (1-33%) -Necrotic Tissue Type Adherent Slough -Structure Exposed N/A -Texture (Radha-wound Skin Appearance) Assessed Callus -Moisture (Radha-wound Skin Appearance Assessed ) -Color (Radha-wound Skin Appearance) Assessed -Temperature (Radha-wound Skin No Abnormality Appearance) (Pt Warm) -Tenderness on Palpation (Radha-wound No Skin Appearance) -Ulcer Cleansing Wound Cleanser -Foul Odor after Cleansing No -Anesthetic Used 5% Lidocaine Gel [Edema Assessment] -Lower Limb Edema Present Yes -Left Calf (cm) 33 -Left Ankle (cm) 20.5 WC - Nurse 2 - General Ulcer CM Notes Start: 01/06/19 15:09 Freq: Status: Active Protocol: Activity Type Activity Date Activity User E-Sign Co-Sign Detail Recorded Client Recorded Date Recorded By Document 01/13/19 15:03 [email or web address] [id number] 01/13/19 15:06 [email or web address] 01/13/19 15:03 Wound Center Nurse 2 [Procedure/Treatment] #9 L Heel -Time 15:05 -Correct Patient Yes -Correct Side, Site, Position Yes -Correct Procedure Yes -Procedure Performed Yes -Type of Procedure Debridement -Clinical Debridement Subcutaneous -Post Debridement Size (cm) - Length 0.3 -Post Debridement Size (cm) - Width 0.1 -Post Debridement Size (cm) - Depth 0.1 -Total Square Cm 0.03 -Wound/Ulcer Outcome Not Healed -Ulcer Cleansing Rinsed/ Irrigated with Saline -Foul Odor after Cleansing No -Bioengineered Tissue No -Bleeding Controlled with Pressure -Offloading Yes -Type of Offloading Camwalker -Treatment Response Procedure Tolerated Well [See Physician Procedure note for Specifics] Pain Scale: 0-10 Numeric [Pain] -Is Patient Pain Free? Yes Musculoskeletal: No Tenderness to Palpation of Joints or Extremities, Muscle Wasting, - - Forefoot deformities noted and calcaneus hindfoot position noted. Compartments remain soft to palpate left lower extremity Neurological: - - Lack of normal epicritic sensation light touch left lower extremity is consistent with neuropathy Psych/Mental Status: Normal Affect, Appropriate Debridement Note Post-Debridement Measurements/Treatment WC - Nurse 2 - General Ulcer CM Notes Start: 01/06/19 15:09 Freq: Status: Active Protocol: Activity Type Activity Date Activity User E-Sign Co-Sign Detail Recorded Client Recorded Date Recorded By Document 01/06/19 15:25 [id number] 01/06/19 15:26 Document 01/13/19 15:03 [id number] 01/13/19 15:06 01/06/19 01/13/19 15:25 15:03 Wound Center Nurse 2 #9 L Heel -Time 15:25 15:05 -Correct Patient Yes Yes -Correct Side, Site, Position Yes Yes -Correct Procedure Yes Yes -Procedure Performed Yes Yes -Type of Procedure Debridement Debridement -Clinical Debridement Subcutaneous Subcutaneous -Post Debridement Size (cm) - Length 0.3 0.3 -Post Debridement Size (cm) - Width 0.7 0.1 -Post Debridement Size (cm) - Depth 0.2 0.1 -Total Square Cm 0.21 0.03 -Wound/Ulcer Outcome Not Healed Not Healed -Ulcer Cleansing Rinsed/ Rinsed/ Irrigated with Irrigated with Saline Saline -Foul Odor after Cleansing No No -Bioengineered Tissue No No -Bleeding Controlled with Pressure Pressure -Offloading Yes Yes -Type of Offloading Camwalker Camwalker -Treatment Response Procedure Procedure Tolerated Well Tolerated Well Pain Scale: 0-10 Numeric Is Patient Pain Free? Yes Yes Wound debrided: plantar heel Laterality: Left Wound Grade/Stage: grade 1 Type of Debridement: Excisional debridement Anesthesia Used: 5% Lidocaine Gel Depth: in the subcutaneous layer Percentage of wound debrided: 100 Instrument Used: #15 blade Tissue Removed: fibrous, devitalized subcutaneous, biofilm, slough Severity: Fat Layer Exposed Amount of bleeding with debridement: Mild Bleeding Controlled with: Pressure Patient tolerated procedure well Assessment/Plan Active Problems Xerosis cutis (Chronic) Chronic ulcer of left foot with fat layer exposed (Chronic) Diabetes mellitus with polyneuropathy (Chronic) Malnutrition (Chronic) Delayed wound healing (Chronic) Assessment: Plantar heel ulcer, left foot with fat layer exposed. Diabetes with neuropathy. Malnutrition. Left foot advanced flat foot deformity with h/o surgical intervention. Nonadherence to treatment plan. calcaneal gait, left. difficulty walking. xerosis Plan: I reviewed and discussed her care plan. The left heel ulcer was debrided as noted in the clinical panel in a subcutaneous manner. After debridement, regranex was applied to the left plantar heel site. She was reassured no signs of infection are noted. To continue protein supplementation to optimize healing; arsen. Her non invasive vascular studies were also reviewed from 08/2017 with bilateral triphasic waveforms, BRITTANY right 1.13 and left 1.29, and toe brachial index right of 0.8 and left 0.75. Repeat exams including xrays and non invasive vascular studies will be considered pending her healing response. Her neuropathy has woresened and we discussed the etiology, past treatment, and treatment recommendations today. Metanx prescription was previously prescribed for treatment of neuropathy. Her most recently reviewed x-rays were negative for acute infection or traumatic findings. Her most recent lab work was reviewed and she had a white blood cell count of 5, sedimentation rate of 15, and C-reactive protein 26.6. A prescription for Lac-Hydrin was provided today and she was advised on safe and proper use to improve her dry skin status. To avoid interdigital or wound application. She was advised to follow up at the wound healing center in one week or call sooner if there are any questions or concerns. I answered all of her questions.
[2019-01-20 14:43] VITALS: BP 140/63; PULSE 67; RESP 18; TEMP 36.4; BMI 27.8
--- NOTE | 2019-01-20 15:26 | PN.PCM_ITS ---
(1) Chronic ulcer of left foot with fat layer exposed Status: Chronic Current Visit: Yes Code(s): L97.522 - Non-pressure chronic ulcer of other part of left foot with fat layer exposed (2) Diabetes mellitus with polyneuropathy Status: Chronic Current Visit: Yes Qualifiers: Diabetes mellitus type: type 2 Qualified Code(s): E11.42 - Type 2 diabetes mellitus with diabetic polyneuropathy Code(s): E11.42 - Type 2 diabetes mellitus with diabetic polyneuropathy (3) Malnutrition Status: Chronic Current Visit: Yes Code(s): E46 - Unspecified protein- calorie malnutrition (4) Delayed wound healing Status: Chronic Current Visit: Yes Code(s): T14.8 - Other injury of unspecified body region (5) Xerosis cutis Status: Chronic Current Visit: Yes Code(s): L85.3 - Xerosis cutis Type of Wound Date of Service: 01/20/19 Chief Complaint: Left heel ulceration History of Wound: This is a 73-year-old female returns for follow-up of left heel ulceration. She has been compliant with dressings care. She denies fever, chills, nausea, vomiting, loss of appetite. She has been using regranix as advised and continues with CAM Walker. She also has been using Lac-Hydrin lotion to the surrounding. She denies odor or redness. She complains that her boot is getting loose and is over a year old; she requests new device. Progress of Wound: Stable - Physical Exam Vital Signs Temp Pulse Resp BP 97.5 F L 67 18 140/63 H 01/20/19 14:43 01/20/19 14:43 01/20/19 14:43 01/20/19 14:43 General: Alert, Oriented x3, Cooperative HEENT: Atraumatic Extremities: No cyanosis, Capillary Refill Less than 3 Seconds, No Calf Tenderness, Diminished Peripheral Pulses, Edema - Mild Skin: Ulcer/ Wound - No purulence, erythema, streaking, odor, or infection. No deep tissue exposure or necrosis noted. The peripheral skin is hairless and atrophic Wound Measurements and Assessment WC - Nurse 1 - General Ulcer Measurement Start: 01/06/19 15:09 Freq: Status: Active Protocol: Activity Type Activity Date Activity User E-Sign Co-Sign Detail Recorded Client Recorded Date Recorded By Document 01/20/19 14:43 AN [id number] 01/20/19 14:53 AN 01/20/19 14:43 Wound Center Nurse 1 [Ulcer Assessment] #9 L Heel -Current Size (cm) - Length 0.1 -Current Size (cm) - Width 0.5 -Current Size (cm) - Depth 0.1 -Total Square Cm 0.05 -Tunneling No -Undermining/Tunneling No -Exudate Amt Small -Exudate Type Sanguineous -Wound Margin Distinct, Outline Attached -Granulation Amt Large (67-100%) -Granulation Quality Red -Slough/Fibrin No -Necrosis Amt Small (1-33%) -Necrotic Tissue Type Adherent Slough -Structure Exposed None/Limited to Skin Breakdown -Texture (Radha-wound Skin Appearance) Assessed -Moisture (Radha-wound Skin Appearance Assessed ) -Color (Radha-wound Skin Appearance) Assessed -Temperature (Radha-wound Skin No Abnormality Appearance) (Pt Warm) -Tenderness on Palpation (Radha-wound No Skin Appearance) -Ulcer Cleansing Rinsed/ Irrigated with Saline -Foul Odor after Cleansing No -Anesthetic Used 5% Lidocaine Gel WC - Nurse 2 - General Ulcer CM Notes Start: 01/06/19 15:09 Freq: Status: Active Protocol: Activity Type Activity Date Activity User E-Sign Co-Sign Detail Recorded Client Recorded Date Recorded By Document 01/20/19 14:59 [id number] 01/20/19 15:01 01/20/19 14:59 Wound Center Nurse 2 [Procedure/Treatment] -Time 14:59 -Correct Patient Yes -Correct Side, Site, Position Yes -Correct Procedure Yes -Procedure Performed Yes -Type of Procedure Debridement -Clinical Debridement Subcutaneous -Post Debridement Size (cm) - Length 0.4 -Post Debridement Size (cm) - Width 0.7 -Post Debridement Size (cm) - Depth 0.2 -Total Square Cm 0.28 -Wound/Ulcer Outcome Not Healed -Ulcer Cleansing Rinsed/ Irrigated with Saline -Foul Odor after Cleansing No -Bioengineered Tissue No -Bleeding Controlled with Pressure -Offloading Yes -Type of Offloading Camwalker -Treatment Response Procedure Tolerated Well [See Physician Procedure note for Specifics] Pain Scale: 0-10 Numeric [Pain] -Is Patient Pain Free? Yes Musculoskeletal: No Tenderness to Palpation of Joints or Extremities, Muscle Wasting Neurological: - - Lack of epicritic sensation light touch left foot consistent w ith neuropathy Psych/Mental Status: Normal Affect, Appropriate Debridement Note Post-Debridement Measurements/Treatment WC - Nurse 2 - General Ulcer CM Notes Start: 01/06/19 15:09 Freq: Status: Active Protocol: Activity Type Activity Date Activity User E-Sign Co-Sign Detail Recorded Client Recorded Date Recorded By Document 01/06/19 15:25 [id number] 01/06/19 15:26 Document 01/13/19 15:03 [id number] 01/13/19 15:06 Document 01/20/19 14:59 [id number] 01/20/19 15:01 01/06/19 01/13/19 01/20/19 15:25 15:03 14:59 Wound Center Nurse 2 #9 L Heel -Time 15:25 15:05 14:59 -Correct Patient Yes Yes Yes -Correct Side, Site, Position Yes Yes Yes -Correct Procedure Yes Yes Yes -Procedure Performed Yes Yes Yes -Type of Procedure Debridement Debridement Debridement -Clinical Debridement Subcutaneous Subcutaneous Subcutaneous -Post Debridement Size (cm) - Length 0.3 0.3 0.4 -Post Debridement Size (cm) - Width 0.7 0.1 0.7 -Post Debridement Size (cm) - Depth 0.2 0.1 0.2 -Total Square Cm 0.21 0.03 0.28 -Wound/Ulcer Outcome Not Healed Not Healed Not Healed -Ulcer Cleansing Rinsed/ Rinsed/ Rinsed/ Irrigated with Irrigated with Irrigated with Saline Saline Saline -Foul Odor after Cleansing No No No -Bioengineered Tissue No No No -Bleeding Controlled with Pressure Pressure Pressure -Offloading Yes Yes Yes -Type of Offloading Camwalker Camwalker Camwalker -Treatment Response Procedure Procedure Procedure Tolerated Well Tolerated Well Tolerated Well Pain Scale: 0-10 Numeric Is Patient Pain Free? Yes Yes Yes Wound debrided: plantar heel Laterality: Left Wound Grade/Stage: grade 1 Type of Debridement: Excisional debridement Anesthesia Used: 5% Lidocaine Gel Depth: in the subcutaneous layer Percentage of wound debrided: 100 Instrument Used: #15 blade Tissue Removed: fibrous, devitalized subcutaneous, biofilm, slough Severity: Fat Layer Exposed Amount of bleeding with debridement: Mild Bleeding Controlled with: Pressure Patient tolerated procedure well Assessment/Plan Active Problems Xerosis cutis (Chronic) Chronic ulcer of left foot with fat layer exposed (Chronic) Diabetes mellitus with polyneuropathy (Chronic) Malnutrition (Chronic) Delayed wound healing (Chronic) Assessment: Plantar heel ulcer, left foot with fat layer exposed. Diabetes with neuropathy. Malnutrition. Left foot advanced flat foot deformity with h/o surgical intervention. Nonadherence to treatment plan. calcaneal gait, left. difficulty walking. xerosis Plan: I reviewed and discussed her care plan. The left heel ulcer was debrided as noted in the clinical panel in a subcutaneous manner. After debridement, regranex was applied to the left plantar heel site. She was reassured no signs of infection are noted. To continue protein supplementation to optimize healing; arsen. Her non invasive vascular studies were also reviewed from 08/2017 with bilateral triphasic waveforms, BRITTANY right 1.13 and left 1.29, and toe brachial index right of 0.8 and left 0.75. Repeat exams including xrays and non invasive vascular studies will be considered pending her healing response. Her neuropathy has woresened and we discussed the etiology, past treatment, and treatment recommendations today. Metanx prescription was previously prescribed for treatment of neuropathy. Her most recently reviewed x-rays were negative for acute infection or traumatic findings. Her most recent lab work was reviewed and she had a white blood cell count of 5, sedimentation rate of 15, and C-reactive protein 26.6. To continue Lac-Hydrin to adjacent skin to maintain good skin integrity. Total contact cast will be considered again next week. She was advised to follow up at the wound healing center in one week or call sooner if there are any questions or concerns. I answered all of her questions.
[2019-01-27 14:19] VITALS: BP 135/85; PULSE 68; RESP 16; TEMP 35.9; BMI 27.8
--- NOTE | 2019-01-27 15:13 | PN.PCM_ITS ---
(1) Chronic ulcer of left foot with fat layer exposed Status: Chronic Current Visit: Yes Code(s): L97.522 - Non-pressure chronic ulcer of other part of left foot with fat layer exposed (2) Diabetes mellitus with polyneuropathy Status: Chronic Current Visit: Yes Qualifiers: Diabetes mellitus type: type 2 Qualified Code(s): E11.42 - Type 2 diabetes mellitus with diabetic polyneuropathy Code(s): E11.42 - Type 2 diabetes mellitus with diabetic polyneuropathy (3) Malnutrition Status: Chronic Current Visit: Yes Code(s): E46 - Unspecified protein- calorie malnutrition (4) Delayed wound healing Status: Chronic Current Visit: Yes Code(s): T14.8 - Other injury of unspecified body region (5) Xerosis cutis Status: Chronic Current Visit: Yes Code(s): L85.3 - Xerosis cutis Type of Wound Date of Service: 01/27/19 Chief Complaint: Left heel ulceration History of Wound: She relates she is doing much better this past week and this is a 73-year-old female returns for follow-up of left heel ulceration. She has been compliant with dressings care. She denies fever, chills, nausea, vomiting, loss of appetite. She has been using regranix as advised and contin ues with CAM Walker. She would like to continue an additional week without the total contact cast in place. She also has been using Lac-Hydrin lotion to the surrounding. She denies odor or redness. Progress of Wound: Improving - Physical Exam Vital Signs Temp Pulse Resp BP 96.6 F L 68 16 135/85 H 01/27/19 14:19 01/27/19 14:19 01/27/19 14:19 01/27/19 14:19 General: Alert, Oriented x3, Cooperative Extremities: No cyanosis, Capillary Refill Less than 3 Seconds, No Calf Tenderness, Diminished Peripheral Pulses, Edema Skin: Ulcer/ Wound - No purulence, necrosis, maceration, erythematous, streaking, infection. There is peripheral epithelialization noted and less demar-ulcer site inflammation. The peripheral skin is atrophic and hairless Wound Measurements and Assessment WC - Nurse 1 - General Ulcer Measurement Start: 01/06/19 15:09 Freq: Status: Active Protocol: Activity Type Activity Date Activity User E-Sign Co-Sign Detail Recorded Client Recorded Date Recorded By Document 01/27/19 14:19 [facility] [id number] 01/27/19 14:26 [facility] 01/27/19 14:19 Wound Center Nurse 1 [Ulcer Assessment] #9 L Heel -Combined with other wound No -Current Size (cm) - Length 0.1 -Current Size (cm) - Width 0.5 -Current Size (cm) - Depth 0.1 -Total Square Cm 0.05 -Date of Last Picture (Recall this 01/27/19 field) -Photo Taken Yes -Epithelialization Large 67-100% -Tunneling No -Undermining/Tunneling No -Circular Undermining No -Exudate Amt None Present -Wound Margin Flat & Intact -Granulation Amt Small (1-33%) -Granulation Quality Red -Slough/Fibrin Yes -Necrosis Amt Medium (34-66%) -Necrotic Tissue Type Adherent Slough -Structure Exposed None/Limited to Skin Breakdown -Texture (Demar-wound Skin Appearance) Scarring -Moisture (Demar-wound Skin Appearance Dry/Scaly ) -Color (Demar-wound Skin Appearance) Assessed -Temperature (Demar-wound Skin No Abnormality Appearance) (Pt Warm) -Tenderness on Palpation (Demar-wound No Skin Appearance) -Ulcer Cleansing Rinsed/ Irrigated with Saline -Foul Odor after Cleansing No -Anesthetic Used 5% Lidocaine Gel WC - Nurse 2 - General Ulcer CM Notes Start: 01/06/19 15:09 Freq: Status: Active Protocol: Activity Type Activity Date Activity User E-Sign Co-Sign Detail Recorded Client Recorded Date Recorded By Document 01/27/19 14:54 [id number] 01/27/19 14:55 01/27/19 14:54 Wound Center Nurse 2 [Procedure/Treatment] -Time 14:55 -Correct Patient Yes -Correct Side, Site, Position Yes -Correct Procedure Yes -Procedure Performed Yes -Type of Procedure Debridement -Clinical Debridement Subcutaneous -Post Debridement Size (cm) - Length 0.2 -Post Debridement Size (cm) - Width 0.4 -Post Debridement Size (cm) - Depth 0.1 -Total Square Cm 0.08 -Wound/Ulcer Outcome Not Healed -Ulcer Cleansing Rinsed/ Irrigated with Saline -Foul Odor after Cleansing No -Bioengineered Tissue No -Bleeding Controlled with Pressure -Offloading Yes -Type of Offloading Camwalker -Treatment Response Procedure Tolerated Well [See Physician Procedure note for Specifics] Pain Scale: 0-10 Numeric [Pain] -Is Patient Pain Free? Yes Musculoskeletal: No Tenderness to Palpation of Joints or Extremities, Muscle Wasting Psych/Mental Status: Normal Affect - Lack of normal epicritic sensation to light touch is consistent with neuropathy, Appropriate Debridement Note Post-Debridement Measurements/Treatment WC - Nurse 2 - General Ulcer CM Notes Start: 01/06/19 15:09 Freq: Status: Active Protocol: Activity Type Activity Date Activity User E-Sign Co-Sign Detail Recorded Client Recorded Date Recorded By Document 01/06/19 15:25 [id number] 01/06/19 15:26 Document 01/13/19 15:03 [id number] 01/13/19 15:06 Document 01/20/19 14:59 [id number] 01/20/19 15:01 Document 01/27/19 14:54 [id number] 01/27/19 14:55 01/06/19 01/13/19 01/20/19 15:25 15:03 14:59 Wound Center Nurse 2 #9 L Heel -Time 15:25 15:05 14:59 -Correct Patient Yes Yes Yes -Correct Side, Site, Position Yes Yes Yes -Correct Procedure Yes Yes Yes -Procedure Performed Yes Yes Yes -Type of Procedure Debridement Debridement Debridement -Clinical Debridement Subcutaneous Subcutaneous Subcutaneous -Post Debridement Size (cm) - Length 0.3 0.3 0.4 -Post Debridement Size (cm) - Width 0.7 0.1 0.7 -Post Debridement Size (cm) - Depth 0.2 0.1 0.2 -Total Square Cm 0.21 0.03 0.28 -Wound/Ulcer Outcome Not Healed Not Healed Not Healed -Ulcer Cleansing Rinsed/ Rinsed/ Rinsed/ Irrigated with Irrigated with Irrigated with Saline Saline Saline -Foul Odor after Cleansing No No No -Bioengineered Tissue No No No -Bleeding Controlled with Pressure Pressure Pressure -Offloading Yes Yes Yes -Type of Offloading Camwalker Camwalker Camwalker -Treatment Response Procedure Procedure Procedure Tolerated Well Tolerated Well Tolerated Well Pain Scale: 0-10 Numeric Is Patient Pain Free? Yes Yes Yes 01/27/19 14:54 Wound Center Nurse 2 #9 L Heel -Time 14:55 -Correct Patient Yes -Correct Side, Site, Position Yes -Correct Procedure Yes -Procedure Performed Yes -Type of Procedure Debridement -Clinical Debridement Subcutaneous -Post Debridement Size (cm) - Length 0.2 -Post Debridement Size (cm) - Width 0.4 -Post Debridement Size (cm) - Depth 0.1 -Total Square Cm 0.08 -Wound/Ulcer Outcome Not Healed -Ulcer Cleansing Rinsed/ Irrigated with Saline -Foul Odor after Cleansing No -Bioengineered Tissue No -Bleeding Controlled with Pressure -Offloading Yes -Type of Offloading Camwalker -Treatment Response Procedure Tolerated Well Pain Scale: 0-10 Numeric Is Patient Pain Free? Yes Wound debrided: plantar heel Laterality: Left Wound Grade/Stage: grade 1 Type of Debridement: Excisional debridement Anesthesia Used: 5% Lidocaine Gel Depth: in the subcutaneous layer Percentage of wound debrided: 100 Instrument Used: #15 blade Tissue Removed: fibrous, devitalized subcutaneous, biofilm, slough Severity: Fat Layer Exposed Amount of bleeding with debridement: Mild Bleeding Controlled with: Pressure Patient tolerated procedure well Assessment/Plan Active Problems Xerosis cutis (Chronic) Chronic ulcer of left foot with fat layer exposed (Chronic) Diabetes mellitus with polyneuropathy (Chronic) Malnutrition (Chronic) Delayed wound healing (Chronic) Assessment: Plantar heel ulcer, left foot with fat layer exposed. Diabetes with neuropathy. Malnutrition. Left foot advanced flat foot deformity with h/o surgical intervention. Nonadherence to treatment plan. calcaneal gait, left. difficulty walking. xerosis Plan: I reviewed and discussed her care plan. The left heel ulcer was debrided as noted in the clinical panel in a subcutaneous manner. After debridement, regranex was applied to the left plantar heel site. She was reassured no signs of infection are noted. To continue protein supplementation to optimize healing; arsen. Her non invasive vascular studies were also reviewed from 08/2017 with bilateral triphasic waveforms, BRITTANY right 1.13 and left 1.29, and toe brachial index right of 0.8 and left 0.75. Repeat exams including xrays and non invasive vascular studies will be considered pending her healing response. Her neuropathy has woresened and we discussed the etiology, past treatment, and treatment recommendations today. Metanx prescription was previously prescribed for treatment of neuropathy. Her most recently reviewed x-rays were negative for acute infection or traumatic findings. Her most recent lab work was reviewed and she had a white blood cell count of 5, sedimentation rate of 15, and C-reactive protein 26.6. To continue Lac-Hydrin to adjacent skin to maintain good skin integrity. Total contact cast will be considered again next week. She was advised to follow up at the wound healing center in one week or call sooner if there are any questions or concerns. I answered all of her questions.
== END 2019-01-28 23:59 ==
LOC: WC 14:45
PROVIDERS: Family Provider Family Medicine; PCP Family Medicine; Visit Provider Podiatrist
DX: E11.621 Type 2 diabetes mellitus with foot ulcer (principal); E11.42 Type 2 diabetes mellitus with diabetic polyneuropathy; L97.422 Non-pressure chronic ulcer of left heel and midfoot with fat layer exposed; L85.3 Xerosis cutis
CPT/HCPCS: 11042

== ENCOUNTER 2019-02-24 14:45 | Outpatient (RCR) | payer MEDICARE, BC, SELFPAY ==
[2019-01-29 00:59] VITALS: BP 135/85; PULSE 68; RESP 16; TEMP 35.9
[2019-02-03 14:37] VITALS: BP 124/74; PULSE 79; RESP 16; TEMP 36.4; BMI 27.8
--- NOTE | 2019-02-03 17:05 | PCM.WC.PN ---
(1) Chronic ulcer of left foot with fat layer exposed Status: Chronic Current Visit: Yes Code(s): L97.522 - Non-pressure chronic ulcer of other part of left foot with fat layer exposed (2) Difficulty walking Status: Chronic Current Visit: Yes Code(s): R26.2 - Difficulty in walking, not elsewhere classified (3) Diabetes mellitus with polyneuropathy Status: Chronic Current Visit: Yes Qualifiers: Diabetes mellitus type: type 2 Qualified Code(s): E11.42 - Type 2 diabetes mellitus with diabetic polyneuropathy Code(s): E11.42 - Type 2 diabetes mellitus with diabetic polyneuropathy (4) Malnutrition Status: Chronic Current Visit: Yes Code(s): E46 - Unspecified protein-calorie malnutrition (5) Delayed wound healing Status: Chronic Current Visit: Yes Code(s): T14.8 - Other injury of unspecified body region Type of Wound Date of Service: 02/03/19 Chief Complaint: Left heel ulceration History of Wound: She relates she is doing much better this past week and this is a 73-year-old female returns for follow-up of left heel ulceration. She has been compliant with dressings care. She denies fever, chills, nausea, vomiting, loss of appetite. She has been using regranix as advised and continues with CAM Walker. She would like to continue an additional week without the total contact cast in place. She also has been using Lac-Hydrin lotion to the surrounding. She denies odor or redness. Progress of Wound: Improving - Physical Exam Vital Signs Temp Pulse Resp BP 97.5 F L 79 16 124/74 H 02/03/19 14:37 02/03/19 14:37 02/03/19 14:37 02/03/19 14:37 General: Alert, Oriented x3, Cooperative Extremities: No cyanosis, Capillary Refill Less than 3 Seconds, No Calf Tenderness, Diminished Peripheral Pulses, Edema - Mild Skin: Ulcer/ Wound - No purulence, erythema, streaking, odor, or infection. Peripheral skin is hairless and atrophic. Peripheral epithelialization noted to the ulcer site. Decreased callus formation. Wound Measurements and Assessment WC - Nurse 1 - General Ulcer Measurement Start: 02/03/19 14:36 Freq: Status: Active Protocol: Activity Type Activity Date Activity User E-Sign Co-Sign Detail Recorded Client Recorded Date Recorded By Document 02/03/19 14:37 [facility] [id number] 02/03/19 14:45 [facility] 02/03/19 14:37 Wound Center Nurse 1 [Ulcer Assessment] #9 L Heel -Combined with other wound No -Current Size (cm) - Length 0.1 -Current Size (cm) - Width 0.3 -Current Size (cm) - Depth 0.1 -Total Square Cm 0.03 -Photo Taken No -Epithelialization Small 1-33% -Tunneling No -Undermining/Tunneling No -Circular Undermining No -Exudate Amt None Present -Wound Margin Flat & Intact -Granulation Amt Medium (34-66%) -Granulation Quality [place] -Slough/Fibrin Yes -Necrosis Amt Small (1-33%) -Necrotic Tissue Type Adherent Slough -Texture (Radha-wound Skin Appearance) Callus -Moisture (Radha-wound Skin Appearance Dry/Scaly ) -Color (Radha-wound Skin Appearance) Assessed -Temperature (Radha-wound Skin No Abnormality Appearance) (Pt Warm) -Tenderness on Palpation (Radha-wound No Skin Appearance) -Ulcer Cleansing Rinsed/ Irrigated with Saline -Foul Odor after Cleansing No -Anesthetic Used 5% Lidocaine Gel WC - Nurse 2 - General Ulcer CM Notes Start: 02/03/19 14:36 Freq: Status: Active Protocol: Activity Type Activity Date Activity User E-Sign Co-Sign Detail Recorded Client Recorded Date Recorded By Document 02/03/19 15:10 [id number] 02/03/19 15:12 AN 02/03/19 15:10 Wound Center Nurse 2 [Procedure/Treatment] -Time 15:10 -Correct Patient Yes -Correct Side, Site, Position Yes -Correct Procedure Yes -Procedure Performed Yes -Type of Procedure Debridement -Clinical Debridement Subcutaneous -Post Debridement Size (cm) - Length 0.2 -Post Debridement Size (cm) - Width 0.4 -Post Debridement Size (cm) - Depth 0.1 -Total Square Cm 0.08 -Wound/Ulcer Outcome Not Healed -Ulcer Cleansing Rinsed/ Irrigated with Saline -Foul Odor after Cleansing No -Bleeding Controlled with Pressure -Offloading Yes -Type of Offloading Camwalker -Treatment Response Procedure Tolerated Well [See Physician Procedure note for Specifics] Pain Scale: 0-10 Numeric [Pain] -Is Patient Pain Free? Yes Musculoskeletal: No Tenderness to Palpation of Joints or Extremities, Muscle Wasting Neurological: - - Lack of normal epicritic sensation light touch left lower extremity consistent with neuropathy Psych/Mental Status: Normal Affect, Appropriate Debridement Note Post-Debridement Measurements/Treatment WC - Nurse 2 - General Ulcer CM Notes Start: 02/03/19 14:36 Freq: Status: Active Protocol: Activity Type Activity Date Activity User E-Sign Co-Sign Detail Recorded Client Recorded Date Recorded By Document 02/03/19 15:10 AN [id number] 02/03/19 15:12 AN 02/03/19 15:10 Wound Center Nurse 2 #9 L Heel -Time 15:10 -Correct Patient Yes -Correct Side, Site, Position Yes -Correct Procedure Yes -Procedure Performed Yes -Type of Procedure Debridement -Clinical Debridement Subcutaneous -Post Debridement Size (cm) - Length 0.2 -Post Debridement Size (cm) - Width 0.4 -Post Debridement Size (cm) - Depth 0.1 -Total Square Cm 0.08 -Wound/Ulcer Outcome Not Healed -Ulcer Cleansing Rinsed/ Irrigated with Saline -Foul Odor after Cleansing No -Bleeding Controlled with Pressure -Offloading Yes -Type of Offloading Camwalker -Treatment Response Procedure Tolerated Well Pain Scale: 0-10 Numeric Is Patient Pain Free? Yes Wound debrided: plantar heel Laterality: Left Wound Grade/Stage: grade 1 Type of Debridement: Excisional debridement Anesthesia Used: 5% Lidocaine Gel Depth: in the subcutaneous layer Percentage of wound debrided: 100 Instrument Used: #15 blade Tissue Removed: fibrous, devitalized subcutaneous, biofilm, slough Severity: Fat Layer Exposed Amount of bleeding with debridement: Mild Bleeding Controlled with: Pressure Patient tolerated procedure well Assessment/Plan Active Problems Difficulty walking (Chronic) Chronic ulcer of left foot with fat layer exposed (Chronic) Diabetes mellitus with polyneuropathy (Chronic) Malnutrition (Chronic) Delayed wound healing (Chronic) Assessment: Plantar heel ulcer, left foot with fat layer exposed. Diabetes with neuropathy. Malnutrition. Left foot advanced flat foot deformity with h/o surgical intervention. Nonadherence to treatment plan. calcaneal gait, left. difficulty walking. xerosis Plan: I reviewed and discussed her care plan. The left heel ulcer was debrided as noted in the clinical panel in a subcutaneous manner. After debridement, regranex was applied to the left plantar heel site. She was reassured no signs of infection are noted. To continue protein supplementation to optimize healing; arsen. Her non invasive vascular studies were also reviewed from 08/2017 with bilateral triphasic waveforms, BRITTANY right 1.13 and left 1.29, and toe brachial index right of 0.8 and left 0.75. Repeat exams including xrays and non invasive vascular studies will be considered pending her healing response. Her neuropathy has woresened and we discussed the etiology, past treatment, and treatment recommendations today. Metanx prescription was previously prescribed for treatment of neuropathy. Her most recently reviewed x-rays were negative for acute infection or traumatic findings. Her most recent lab work was reviewed and she had a white blood cell count of 5, sedimentation rate of 15, and C-reactive protein 26.6. To continue Lac-Hydrin to adjacent skin to maintain good skin integrity. Total contact cast will be considered again next week. She was advised to follow up at the wound healing center in one week or call sooner if there are any questions or concerns. I answered all of her questions.
[2019-02-10 14:28] VITALS: BP 131/77; PULSE 78; RESP 16; TEMP 36; BMI 27.8
--- NOTE | 2019-02-10 15:53 | PN.PCM_ITS ---
(1) Chronic ulcer of left foot with fat layer exposed Status: Chronic Code(s): L97.522 - Non-pressure chronic ulcer of other part of left foot with fat layer exposed (2) Difficulty walking Status: Chronic Code(s): R26.2 - Difficulty in walking, not elsewhere classified (3) Diabetes mellitus with polyneuropathy Status: Chronic Qualifiers: Diabetes mellitus type: type 2 Qualified Code(s): E11.42 - Type 2 diabetes mellitus with diabetic polyneuropathy Code(s): E11.42 - Type 2 diabetes mellitus with diabetic polyneuropathy (4) Malnutrition Status: Chronic Code(s): E46 - Unspecified protein-calorie malnutrition (5) Delayed wound healing Status: Chronic Code(s): T14.8 - Other injury of unspecified body region Type of Wound Date of Service: 02/10/19 Chief Complaint: Left heel ulceration History of Wound: She relates she is doing much better this past week and this is a 73-year-old female returns for follow-up of left heel ulceration. She has been compliant with dressings care. She denies fever, chills, nausea, vomiting, loss of appetite. She has been using regranex as advised and continues with CAM Walker. She would like to continue an additional week without the total contact cast in place. She also has been using Lac-Hydrin lotion to the surrounding. She denies odor or redness. Progress of Wound: Improving - Physical Exam Vital Signs Temp Pulse Resp BP 96.8 F L 78 16 131/77 H 02/10/19 14:28 02/10/19 14:28 02/10/19 14:28 02/10/19 14:28 General: Alert, Oriented x3, Cooperative Extremities: No cyanosis, Capillary Refill Less than 3 Seconds, No Calf Tenderness, Diminished Peripheral Pulses, Edema - Mild Skin: Ulcer/ Wound - No purulence, erythema, streaking, odor, or infection. The peripheral skin is hairless and atrophic. Wound Measurements and Assessment WC - Nurse 1 - General Ulcer Measurement Start: 02/03/19 14:36 Freq: Status: Active Protocol: Activity Type Activity Date Activity User E-Sign Co-Sign Detail Recorded Client Recorded Date Recorded By Document 02/10/19 14:28 [facility] [id number] 02/10/19 14:35 [facility] 02/10/19 14:28 Wound Center Nurse 1 [Ulcer Assessment] #9 L Heel -Combined with other wound No -Current Size (cm) - Length 0.1 -Current Size (cm) - Width 0.3 -Current Size (cm) - Depth 0.1 -Total Square Cm 0.03 -Photo Taken No -Epithelialization None Present -Tunneling No -Undermining/Tunneling No -Circular Undermining No -Exudate Amt Small -Exudate Type Serosanguineous -Wound Margin Flat & Intact -Granulation Amt Small (1-33%) -Granulation Quality [place] -Slough/Fibrin Yes -Necrosis Amt Small (1-33%) -Necrotic Tissue Type Adherent Slough -Texture (Radha-wound Skin Appearance) Callus Scarring -Moisture (Radha-wound Skin Appearance Assessed ) Dry/Scaly -Color (Radha-wound Skin Appearance) Assessed Ecchymosis -Temperature (Radha-wound Skin No Abnormality Appearance) (Pt Warm) -Tenderness on Palpation (Radha-wound No Skin Appearance) -Ulcer Cleansing Rinsed/ Irrigated with Saline -Foul Odor after Cleansing No -Anesthetic Used 5% Lidocaine Gel WC - Nurse 2 - General Ulcer CM Notes Start: 02/03/19 14:36 Freq: Status: Active Protocol: Activity Type Activity Date Activity User E-Sign Co-Sign Detail Recorded Client Recorded Date Recorded By Document 02/10/19 15:42 AN [id number] 02/10/19 15:44 AN 02/10/19 15:42 Wound Center Nurse 2 [Procedure/Treatment] -Time 15:43 -Correct Patient Yes -Correct Side, Site, Position Yes -Correct Procedure Yes -Procedure Performed Yes -Type of Procedure Debridement -Clinical Debridement Subcutaneous -Post Debridement Size (cm) - Length 0.2 -Post Debridement Size (cm) - Width 0.4 -Post Debridement Size (cm) - Depth 0.1 -Total Square Cm 0.08 -Wound/Ulcer Outcome Not Healed -Ulcer Cleansing Rinsed/ Irrigated with Saline -Foul Odor after Cleansing No -Bioengineered Tissue No -Bleeding Controlled with Pressure -Offloading Yes -Type of Offloading Camwalker -Treatment Response Procedure Tolerated Well [See Physician Procedure note for Specifics] Pain Scale: 0-10 Numeric [Pain] -Is Patient Pain Free? Yes Musculoskeletal: No Tenderness to Palpation of Joints or Extremities, Muscle Wasting, - - No fluctuance on palpation Neurological: - - Lack of epicritic sensation light touch consistent with neuropathy Psych/Mental Status: Normal Affect, Appropriate Debridement Note Post-Debridement Measurements/Treatment WC - Nurse 2 - General Ulcer CM Notes Start: 02/03/19 14:36 Freq: Status: Active Protocol: Activity Type Activity Date Activity User E-Sign Co-Sign Detail Recorded Client Recorded Date Recorded By Document 02/03/19 15:10 AN [id number] 02/03/19 15:12 AN Document 02/10/19 15:42 AN [id number] 02/10/19 15:44 AN 02/03/19 02/10/19 15:10 15:42 Wound Center Nurse 2 #9 L Heel -Time 15:10 15:43 -Correct Patient Yes Yes -Correct Side, Site, Position Yes Yes -Correct Procedure Yes Yes -Procedure Performed Yes Yes -Type of Procedure Debridement Debridement -Clinical Debridement Subcutaneous Subcutaneous -Post Debridement Size (cm) - Length 0.2 0.2 -Post Debridement Size (cm) - Width 0.4 0.4 -Post Debridement Size (cm) - Depth 0.1 0.1 -Total Square Cm 0.08 0.08 -Wound/Ulcer Outcome Not Healed Not Healed -Ulcer Cleansing Rinsed/ Rinsed/ Irrigated with Irrigated with Saline Saline -Foul Odor after Cleansing No No -Bioengineered Tissue No -Bleeding Controlled with Pressure Pressure -Offloading Yes Yes -Type of Offloading Camwalker Camwalker -Treatment Response Procedure Procedure Tolerated Well Tolerated Well Pain Scale: 0-10 Numeric Is Patient Pain Free? Yes Yes Wound debrided: plantar heel Laterality: Left Wound Grade/Stage: grade 1 Type of Debridement: Excisional debridement Anesthesia Used: 5% Lidocaine Gel Depth: in the subcutaneous layer Percentage of wound debrided: 100 Instrument Used: #15 blade Tissue Removed: fibrous, devitalized subcutaneous, biofilm, slough Severity: Fat Layer Exposed Amount of bleeding with debridement: Mild Bleeding Controlled with: Pressure Patient tolerated procedure well Assessment/Plan Assessment: Plantar heel ulcer, left foot with fat layer exposed. Diabetes with neuropathy. Malnutrition. Left foot advanced flat foot deformity with h/o surgical intervention. Nonadherence to treatment plan. calcaneal gait, left. difficulty walking. xerosis Plan: I reviewed and discussed her care plan. The left heel ulcer was debrided as noted in the clinical panel in a subcutaneous manner. After debridement, regranex was applied to the left plantar heel site. She was reassured no signs of infection are noted. To continue protein supplementation to optimize healing; arsen. Her non invasive vascular studies were also reviewed from 08/2017 with bilateral triphasic waveforms, BRITTANY right 1.13 and left 1.29, and toe brachial index right of 0.8 and left 0.75. Repeat exams including xrays and non invasive vascular studies will be considered pending her healing response. Her neuropathy has woresened and we discussed the etiology, past treatment, and treatment recommendations today. Metanx prescription was previously prescribed for treatment of neuropathy. Her most recently reviewed x-rays were negative for acute infection or traumatic findings. Her most recent lab work was reviewed and she had a white blood cell count of 5, sedimentation rate of 15, an d C-reactive protein 26.6. To continue Lac-Hydrin to adjacent skin to maintain good skin integrity. Total contact cast will be considered again next week. She was advised to follow up at the wound healing center in one week or call sooner if there are any questions or concerns. I answered all of her questions.
[2019-02-17 14:29] VITALS: BP 142/81; PULSE 77; RESP 16; TEMP 36.2; BMI 27.8
--- NOTE | 2019-02-17 15:26 | PCM.WC.PN ---
(1) Chronic ulcer of left foot with fat layer exposed Status: Chronic Code(s): L97.522 - Non-pressure chronic ulcer of other part of left foot with fat layer exposed (2) Difficulty walking Status: Chronic Code(s): R26.2 - Difficulty in walking, not elsewhere classified (3) Diabetes mellitus with polyneuropathy Status: Chronic Qualifiers: Diabetes mellitus type: type 2 Qualified Code(s): E11.42 - Type 2 diabetes mellitus with diabetic polyneuropathy Code(s): E11.42 - Type 2 diabetes mellitus with diabetic polyneuropathy (4) Malnutrition Status: Chronic Code(s): E46 - Unspecified protein-calorie malnutrition (5) Delayed wound healing Status: Chronic Code(s): T14.8 - Other injury of unspecified body region Type of Wound Date of Service: 02/17/19 Chief Complaint: Left heel ulceration History of Wound: She relates she is doing much better this past week and this is a 73-year-old female returns for follow-up of left heel ulceration. She has been compliant with dressings care. She denies fever, chills, nausea, vomiting, loss of appetite. She has been using regranex as advised and continues with CAM Walker. She also has been using Lac-Hydrin lotion to the surrounding. She denies odor or redness. She denies new injuries. She relates she feels like something is crawling on her heel and would like me to check for infection or bugs. Progress of Wound: Stable - Physical Exam Vital Signs Temp Pulse Resp BP 97.1 F L 77 16 142/81 H 02/17/19 14:29 02/17/19 14:29 02/17/19 14:29 02/17/19 14:29 General: Alert, Oriented x3, Cooperative Extremities: No cyanosis, Capillary Refill Less than 3 Seconds, No Calf Tenderness - Negative Maddison and Herrera sign, Diminished Peripheral Pulses, Edema - Mild Skin: Ulcer/ Wound - No purulence, erythema, streaking, odor, or infection. The peripheral skin is hairless and atrophic Wound Measurements and Assessment WC - Nurse 1 - General Ulcer Measurement Start: 02/03/19 14:36 Freq: Status: Active Protocol: Activity Type Activity Date Activity User E-Sign Co-Sign Detail Recorded Client Recorded Date Recorded By Document 02/17/19 14:29 [facility] [id number] 02/17/19 14:36 [facility] 02/17/19 14:29 Wound Center Nurse 1 [Ulcer Assessment] #9 L Heel -Combined with other wound No -Current Size (cm) - Length 0.1 -Current Size (cm) - Width 0.4 -Current Size (cm) - Depth 0.1 -Total Square Cm 0.04 -Photo Taken No -Epithelialization None Present -Tunneling No -Undermining/Tunneling No -Circular Undermining No -Exudate Amt Small -Exudate Type Serosanguineous -Wound Margin Distinct, Outline Attached -Granulation Amt Large (67-100%) -Granulation Quality Red -Slough/Fibrin Yes -Necrosis Amt Small (1-33%) -Necrotic Tissue Type Adherent Slough -Texture (Radha-wound Skin Appearance) Callus -Moisture (Radha-wound Skin Appearance Maceration ) Dry/Scaly -Color (Radha-wound Skin Appearance) Palor -Temperature (Radha-wound Skin No Abnormality Appearance) (Pt Warm) -Tenderness on Palpation (Radha-wound No Skin Appearance) -Ulcer Cleansing Rinsed/ Irrigated with Saline -Foul Odor after Cleansing No -Anesthetic Used 5% Lidocaine Gel [Edema Assessment] -Lower Limb Edema Present No -Left Calf (cm) 32.1 -Left Ankle (cm) 20.9 WC - Nurse 2 - General Ulcer CM Notes Start: 02/03/19 14:36 Freq: Status: Active Protocol: Activity Type Activity Date Activity User E-Sign Co-Sign Detail Recorded Client Recorded Date Recorded By Document 02/17/19 14:46 [id number] 02/17/19 14:51 AN 02/17/19 14:46 Wound Center Nurse 2 [Procedure/Treatment] #9 L Heel -Time 14:50 -Correct Patient Yes -Correct Side, Site, Position Yes -Correct Procedure Yes -Procedure Performed Yes -Type of Procedure Debridement -Clinical Debridement Subcutaneous -Post Debridement Size (cm) - Length 0.2 -Post Debridement Size (cm) - Width 0.5 -Post Debridement Size (cm) - Depth 0.1 -Total Square Cm 0.10 -Wound/Ulcer Outcome Not Healed -Ulcer Cleansing Rinsed/ Irrigated with Saline -Foul Odor after Cleansing No -Bioengineered Tissue No -Bleeding Controlled with Pressure -Offloading Yes -Type of Offloading Total Contact Cast (TCC) -Treatment Response Procedure Tolerated Well [See Physician Procedure note for Specifics] Pain Scale: 0-10 Numeric [Pain] -Is Patient Pain Free? Yes Musculoskeletal: No Tenderness to Palpation of Joints or Extremities, Muscle Wasting Neurological: - - Lack of epicritic sensation light touch Psych/Mental Status: Normal Affect, Appropriate Debridement Note Post-Debridement Measurements/Treatment WC - Nurse 2 - General Ulcer CM Notes Start: 02/03/19 14:36 Freq: Status: Active Protocol: Activity Type Activity Date Activity User E-Sign Co-Sign Detail Recorded Client Recorded Date Recorded By Document 02/03/19 15:10 AN [id number] 02/03/19 15:12 AN Document 02/10/19 15:42 AN [id number] 02/10/19 15:44 AN Document 02/17/19 14:46 AN [id number] 02/17/19 14:51 AN 02/03/19 02/10/19 02/17/19 15:10 15:42 14:46 Wound Center Nurse 2 #9 L Heel -Time 15:10 15:43 14:50 -Correct Patient Yes Yes Yes -Correct Side, Site, Position Yes Yes Yes -Correct Procedure Yes Yes Yes -Procedure Performed Yes Yes Yes -Type of Procedure Debridement Debridement Debridement -Clinical Debridement Subcutaneous Subcutaneous Subcutaneous -Post Debridement Size (cm) - Length 0.2 0.2 0.2 -Post Debridement Size (cm) - Width 0.4 0.4 0.5 -Post Debridement Size (cm) - Depth 0.1 0.1 0.1 -Total Square Cm 0.08 0.08 0.10 -Wound/Ulcer Outcome Not Healed Not Healed Not Healed -Ulcer Cleansing Rinsed/ Rinsed/ Rinsed/ Irrigated with Irrigated with Irrigated with Saline Saline Saline -Foul Odor after Cleansing No No No -Bioengineered Tissue No No -Bleeding Controlled with Pressure Pressure Pressure -Offloading Yes Yes Yes -Type of Offloading Camwalker Camwalker Total Contact Cast (TCC) -Treatment Response Procedure Procedure Procedure Tolerated Well Tolerated Well Tolerated Well Pain Scale: 0-10 Numeric Is Patient Pain Free? Yes Yes Yes Wound debrided: plantar heel Laterality: Left Wound Grade/Stage: grade 1 Type of Debridement: Excisional debridement Anesthesia Used: 5% Lidocaine Gel Depth: in the subcutaneous layer Percentage of wound debrided: 100 Instrument Used: #15 blade Tissue Removed: fibrous, devitalized subcutaneous, biofilm, slough Severity: Fat Layer Exposed Amount of bleeding with debridement: Mild Bleeding Controlled with: Pressure Patient tolerated procedure well Assessment/Plan Assessment: Plantar heel ulcer, left foot with fat layer exposed. Diabetes with neuropathy. Malnutrition. Left foot advanced flat foot deformity with h/o surgical intervention. Nonadherence to treatment plan. calcaneal gait, left. difficulty walking. xerosis Plan: I reviewed and discussed her care plan. The left heel ulcer was debrided as noted in the clinical panel in a subcutaneous manner. After debridement, regranex was applied to the left plantar heel site. A well-padded total contact cast was applied according to standard protocol with the extremity in a rectus position. She was reassured no signs of infection are noted. The reported sensations seem to be consistent with neuropathy and she is also reassuring do not see anything unusual about her limb. To continue protein supplementation to optimize healing; arsen. Her non invasive vascular studies were also reviewed from 08/2017 with bilateral triphasic waveforms, BRITTANY right 1.13 and left 1.29, and toe brachial index right of 0.8 and left 0.75. Repeat exams including xrays and non invasive vascular studies will be considered pending her healing response. Her neuropathy has woresened and we discussed the etiology, past treatment, and treatment recommendations today. Metanx prescription was previously prescribed for treatment of neuropathy. Her most recently reviewed x-rays were negative for acute infection or traumatic findings. Her most recent lab work was reviewed and she had a white blood cell count of 5, sedimentation rate of 15, and C-reactive protein 26.6. To continue Lac-Hydrin to adjacent skin to maintain good skin integrity. Total contact cast will be considered again next week. She was advised to follow up at the wound healing center in one week or call sooner if there are any questions or concerns. I answered all of her questions.
[2019-02-24 14:34] VITALS: BP 144/79; PULSE 76; RESP 18; TEMP 36; BMI 27.8
--- NOTE | 2019-02-24 16:26 | PN.PCM_ITS ---
(1) Blister (nonthermal), left foot, initial encounter Status: Acute Code(s): S90.822A - Blister (nonthermal), left foot, initial encounter (2) Chronic ulcer of left foot with fat layer exposed Status: Chronic Code(s): L97.522 - Non-pressure chronic ulcer of other part of left foot with fat layer exposed (3) Difficulty walking Status: Chronic Code(s): R26.2 - Difficulty in walking, not elsewhere classified (4) Diabetes mellitus with polyneuropathy Status: Chronic Qualifiers: Diabetes mellitus type: type 2 Qualified Code(s): E11.42 - Type 2 diabetes mellitus with diabetic polyneuropathy Code(s): E11.42 - Type 2 diabetes mellitus with diabetic polyneuropathy (5) Malnutrition Status: Chronic Code(s): E46 - Unspecified protein-calorie malnutrition (6) Delayed wound healing Status: Chronic Code(s): T14.8 - Other injury of unspecified body region Type of Wound Date of Service: 02/24/19 Chief Complaint: Left heel ulceration History of Wound: She relates she is doing much better this past week and this is a 74-year-old female returns for follow-up of left heel ulceration. She has been compliant with dressings care. She denies fever, chills, nausea, vomiting, loss of appetite. She has been using regranex as advised and continues with CAM Walker. She also has been using Lac-Hydrin lotion to the surrounding. She denies odor or redness. She has a new blister and drainage to her heel and would like this evaluated today. She thinks she was walking a regular with a total contact cast last week and does not want to have one applied today. The previous crawling sensations have reduced over the past w jamul. Progress of Wound: Improving ulcer site. New heel blister - Physical Exam Vital Signs Temp Pulse Resp BP 96.8 F L 76 18 144/79 H 02/24/19 14:34 02/24/19 14:34 02/24/19 14:34 02/24/19 14:34 General: Alert, Oriented x3, Cooperative Extremities: No cyanosis, Capillary Refill Less than 3 Seconds, No Calf Tenderness - Negative Maddison and Herrera sign left, Diminished Peripheral Pulses, Edema - Mild Skin: Ulcer/ Wound - No purulence, erythema, streaking, odor, or infection. There is an adjacent ulcer site blister with serous drainage and the outer layer of skin was left intact as a biological dressing. There is no bogginess or fluctuance on palpation. The peripheral skin is hairless and atrophic. Wound Measurements and Assessment WC - Nurse 1 - General Ulcer Measurement Start: 02/03/19 14:36 Freq: Status: Active Protocol: Activity Type Activity Date Activity User E-Sign Co-Sign Detail Recorded Client Recorded Date Recorded By Document 02/24/19 14:34 DL [id number] 02/24/19 14:46 DL 02/24/19 14:34 Wound Center Nurse 1 [Ulcer Assessment] #9 L Heel -Combined with other wound No -Current Size (cm) - Length 0.2 -Current Size (cm) - Width 0.1 -Current Size (cm) - Depth 0.1 -Total Square Cm 0.02 -Date of Last Picture (Recall this 02/24/19 field) -Photo Taken Yes -Epithelialization None Present -Tunneling No -Undermining/Tunneling No -Circular Undermining No -Exudate Amt Small -Exudate Type Serosanguineous -Wound Margin Distinct, Outline Attached -Granulation Amt Small (1-33%) -Granulation Quality [place] -Slough/Fibrin Yes -Necrosis Amt Medium (34-66%) -Necrotic Tissue Type Adherent Slough -Texture (Radha-wound Skin Appearance) Assessed Callus Scarring -Moisture (Radha-wound Skin Appearance Assessed ) Maceration -Color (Radha-wound Skin Appearance) Assessed Palor -Temperature (Radha-wound Skin No Abnormality Appearance) (Pt Warm) -Tenderness on Palpation (Radha-wound No Skin Appearance) -Ulcer Cleansing Wound Cleanser -Foul Odor after Cleansing No -Anesthetic Used 5% Lidocaine Gel WC - Nurse 2 - General Ulcer CM Notes Start: 02/03/19 14:36 Freq: Status: Active Protocol: Activity Type Activity Date Activity User E-Sign Co-Sign Detail Recorded Client Recorded Date Recorded By Document 02/24/19 14:58 AN [id number] 02/24/19 14:59 AN 02/24/19 14:58 Wound Center Nurse 2 [Procedure/Treatment] -Time 14:58 -Correct Patient Yes -Correct Side, Site, Position Yes -Correct Procedure Yes -Procedure Performed Yes -Type of Procedure Debridement -Clinical Debridement Subcutaneous -Post Debridement Size (cm) - Length 0.3 -Post Debridement Size (cm) - Width 0.2 -Post Debridement Size (cm) - Depth 0.1 -Total Square Cm 0.06 -Wound/Ulcer Outcome Not Healed -Offloading Yes -Type of Offloading Camwalker -Treatment Response Procedure Tolerated Well [See Physician Procedure note for Specifics] Musculoskeletal: No Tenderness to Palpation of Joints or Extremities, Muscle Wasting Neurological: - - Lack of epicritic sensation light touch consistent with neuropathy left Psych/Mental Status: Normal Affect, Appropriate Debridement Note Post-Debridement Measurements/Treatment WC - Nurse 2 - General Ulcer CM Notes Start: 02/03/19 14:36 Freq: Status: Active Protocol: Activity Type Activity Date Activity User E-Sign Co-Sign Detail Recorded Client Recorded Date Recorded By Document 02/03/19 15:10 AN [id number] 02/03/19 15:12 AN Document 02/10/19 15:42 AN [id number] 02/10/19 15:44 AN Document 02/17/19 14:46 AN [id number] 02/17/19 14:51 AN Document 02/24/19 14:58 AN [id number] 02/24/19 14:59 AN 02/03/19 02/10/19 02/17/19 15:10 15:42 14:46 Wound Center Nurse 2 #9 L Heel -Time 15:10 15:43 14:50 -Correct Patient Yes Yes Yes -Correct Side, Site, Position Yes Yes Yes -Correct Procedure Yes Yes Yes -Procedure Performed Yes Yes Yes -Type of Procedure Debridement Debridement Debridement -Clinical Debridement Subcutaneous Subcutaneous Subcutaneous -Post Debridement Size (cm) - Length 0.2 0.2 0.2 -Post Debridement Size (cm) - Width 0.4 0.4 0.5 -Post Debridement Size (cm) - Depth 0.1 0.1 0.1 -Total Square Cm 0.08 0.08 0.10 -Wound/Ulcer Outcome Not Healed Not Healed Not Healed -Ulcer Cleansing Rinsed/ Rinsed/ Rinsed/ Irrigated with Irrigated with Irrigated with Saline Saline Saline -Foul Odor after Cleansing No No No -Bioengineered Tissue No No -Bleeding Controlled with Pressure Pressure Pressure -Offloading Yes Yes Yes -Type of Offloading Camwalker Camwalker Total Contact Cast (TCC) -Treatment Response Procedure Procedure Procedure Tolerated Well Tolerated Well Tolerated Well Pain Scale: 0-10 Numeric Is Patient Pain Free? Yes Yes Yes 02/24/19 14:58 Wound Center Nurse 2 #9 L Heel -Time 14:58 -Correct Patient Yes -Correct Side, Site, Position Yes -Correct Procedure Yes -Procedure Performed Yes -Type of Procedure Debridement -Clinical Debridement Subcutaneous -Post Debridement Size (cm) - Length 0.3 -Post Debridement Size (cm) - Width 0.2 -Post Debridement Size (cm) - Depth 0.1 -Total Square Cm 0.06 -Wound/Ulcer Outcome Not Healed -Ulcer Cleansing -Foul Odor after Cleansing -Bioengineered Tissue -Bleeding Controlled with -Offloading Yes -Type of Offloading Camwalker -Treatment Response Procedure Tolerated Well Pain Scale: 0-10 Numeric Is Patient Pain Free? Wound debrided: plantar heel Laterality: Left Wound Grade/Stage: grade 1 Type of Debridement: Excisional debridement Anesthesia Used: 5% Lidocaine Gel Depth: in the subcutaneous layer Percentage of wound debrided: 100 Instrument Used: #15 blade Tissue Removed: fibrous, devitalized subcutaneous, biofilm, slough Severity: Fat Layer Exposed Amount of bleeding with debridement: Mild Bleeding Controlled with: Pressure Patient tolerated procedure well Assessment/Plan Assessment: New plantar left heel ulcer, stable. plantar heel ulcer, left foot with fat layer exposed. Diabetes with neuropathy. Malnutrition. Left foot advanced flat foot deformity with h/o surgical intervention. Nonadherence to treatment plan. calcaneal gait, left. difficulty walking. xerosis Plan: I reviewed and discussed her care plan. The left heel ulcer was debrided as noted in the clinical panel in a subcutaneous manner. After debridement, regranex was applied to the left plantar heel site. Her new blister site is noted and this appears to be stable without signs of infection. The overlying skin was left intact as a biological dressing and will be reevaluated again next week. She was reassured no local signs of infection are noted. She defers total contact cast today. In the meantime, to continue to wear the Cam walker with aggressive offloading pocket and use the assistive device keep pressure off the ulcer site. The reported sensations seem to be consistent with neuropathy and she is also reassuring do not see anything unusual about her limb. To continue protein supplementation to optimize healing; arsen. Her non invasive vascular studies were also reviewed from 08/2017 with bilateral triphasic waveforms, BRITTANY right 1.13 and left 1.29, and toe brachial index right of 0.8 and left 0.75. Repeat exams including xrays and non invasive vascular studies will be considered pending her healing response. Her neuropathy has woresened and we discussed the etiology, past treatment, and treatment recommendations today. Metanx prescription was previously prescribed for treatment of neuropathy. Her most recently reviewed x-rays were negative for acute infection or traumatic findings. Her most recent lab work was reviewed and she had a white blood cell count of 5, sedimentation rate of 15, and C-reactive protein 26.6. To continue Lac-Hydrin to adjacent skin to maintain good skin integrity. Total contact cast will be considered again next week. She was advised to follow up at the wound healing center in one week or call sooner if there are any questions or concerns. I answered all of her questions.
== END 2019-02-28 23:59 ==
LOC: WC 14:45
PROVIDERS: Family Provider Family Medicine; PCP Family Medicine; Visit Provider Podiatrist
DX: E11.621 Type 2 diabetes mellitus with foot ulcer (principal); E11.42 Type 2 diabetes mellitus with diabetic polyneuropathy; L97.422 Non-pressure chronic ulcer of left heel and midfoot with fat layer exposed; R26.2 Difficulty in walking, not elsewhere classified; L85.3 Xerosis cutis; M21.42 Flat foot [pes planus] (acquired), left foot
CPT/HCPCS: 11042; 11045

== ENCOUNTER 2019-03-17 14:45 | Outpatient (RCR) | payer MEDICARE, BC, SELFPAY ==
[2019-03-01 00:52] VITALS: BP 144/79; PULSE 76; RESP 18; TEMP 36
[2019-03-03 14:40] VITALS: BP 138/69; PULSE 69; RESP 16; TEMP 36.4; BMI 27.8
--- NOTE | 2019-03-03 15:18 | PN.PCM_ITS ---
(1) Chronic ulcer of left foot with fat layer exposed Status: Resolved Current Visit: Yes Code(s): L97.522 - Non-pressure chronic ulcer of other part of left foot with fat layer exposed (2) Diabetes mellitus with polyneuropathy Status: Chronic Current Visit: Yes Qualifiers: Diabetes mellitus type: type 2 Qualified Code(s): E11.42 - Type 2 diabetes mellitus with diabetic polyneuropathy Code(s): E11.42 - Type 2 diabetes mellitus with diabetic polyneuropathy Type of Wound Date of Service: 03/03/19 Chief Complaint: Left heel ulceration History of Wound: She relates she is doing much better this past week and this is a 74-year-old female returns for follow-up of left heel ulceration. She has been compliant with dressings care. She denies fever, chills, nausea, vomiting, loss of appetite. She has been using regranex as advised and con tinues with CAM Walker. She also has been using Lac-Hydrin lotion to the surrounding. She denies odor or redness. Her blister has resolved and she denies drainage. Progress of Wound: Healed - Physical Exam Vital Signs Temp Pulse Resp BP 97.6 F L 69 16 138/69 H 03/03/19 14:40 03/03/19 14:40 03/03/19 14:40 03/03/19 14:40 General: Alert, Oriented x3, Cooperative HEENT: Atraumatic Extremities: No cyanosis, Capillary Refill Less than 3 Seconds, No Calf Tenderness - Negative Maddison and Herrera sign left lower extremity. Compartments remain soft, Diminished Peripheral Pulses, Edema - Mild bilateral lower extremity Skin: Ulcer/ Wound - No purulence, erythema, streaking, odor, or infection. There is full epithelialization and the ulcer site has healed. The skin in general around this area is hairless and atrophic. Wound Measurements and Assessment WC - Nurse 1 - General Ulcer Measurement Start: 03/03/19 14:39 Freq: Status: Active Protocol: Activity Type Activity Date Activity User E-Sign Co-Sign Detail Recorded Client Recorded Date Recorded By Document 03/03/19 14:40 MW [id number] 03/03/19 14:45 MW 03/03/19 14:40 Wound Center Nurse 1 [Ulcer Assessment] #9 L Heel -Combined with other wound No -Current Size (cm) - Length 0.1 -Current Size (cm) - Width 0.1 -Current Size (cm) - Depth 0.1 -Total Square Cm 0.01 -Epithelialization Large 67-100% -Tunneling No -Undermining/Tunneling No -Circular Undermining No -Texture (Radha-wound Skin Appearance) Assessed Callus Scarring -Moisture (Radha-wound Skin Appearance Dry/Scaly ) -Color (Radha-wound Skin Appearance) Assessed -Temperature (Radha-wound Skin No Abnormality Appearance) (Pt Warm) -Tenderness on Palpation (Radha-wound No Skin Appearance) -Ulcer Cleansing Rinsed/ Irrigated with Saline -Foul Odor after Cleansing No -Anesthetic Used 4% Lidocaine Solution [Edema Assessment] -Lower Limb Edema Present Yes -Left Calf (cm) 34 -Left Ankle (cm) 21.5 WC - Nurse 2 - General Ulcer CM Notes Start: 03/03/19 14:39 Freq: Status: Active Protocol: Activity Type Activity Date Activity User E-Sign Co-Sign Detail Recorded Client Recorded Date Recorded By Document 03/03/19 14:59 [id number] 03/03/19 15:03 03/03/19 14:59 Wound Center Nurse 2 [Procedure/Treatment] #9 L Heel -Correct Patient No -Correct Side, Site, Position No -Correct Procedure No -Procedure Performed No -Post Debridement Size (cm) - Length 0 -Post Debridement Size (cm) - Width 0 -Post Debridement Size (cm) - Depth 0 -Total Square Cm 0 -Wound/Ulcer Outcome Healed- Epithelialized -Offloading Yes -Type of Offloading Surgical Shoe -Treatment Response Procedure Tolerated Well [See Physician Procedure note for Specifics] Pain Scale: 0-10 Numeric [Pain] -Is Patient Pain Free? Yes Musculoskeletal: No Tenderness to Palpation of Joints or Extremities, Muscle Wasting, - - Calcaneus gait position left lower extremity Neurological: - - Lack of epicritic sensation light touch consistent with neuropathy left lower extremity Psych/Mental Status: Normal Affect, Appropriate Debridement Note Post-Debridement Measurements/Treatment - Nurse 2 - General Ulcer CM Notes Start: 03/03/19 14:39 Freq: Status: Active Protocol: Activity Type Activity Date Activity User E-Sign Co-Sign Detail Recorded Client Recorded Date Recorded By Document 03/03/19 14:59 [id number] 03/03/19 15:03 04/03/19 14:59 Wound Center Nurse 2 #9 L Heel -Correct Patient No -Correct Side, Site, Position No -Correct Procedure No -Procedure Performed No -Post Debridement Size (cm) - Length 0 -Post Debridement Size (cm) - Width 0 -Post Debridement Size (cm) - Depth 0 -Total Square Cm 0 -Wound/Ulcer Outcome Healed- Epithelialized -Offloading Yes -Type of Offloading Surgical Shoe -Treatment Response Procedure Tolerated Well Pain Scale: 0-10 Numeric Is Patient Pain Free? Yes No debridement was completed today - healed today Assessment/Plan Active Problems Diabetes mellitus with polyneuropathy (Chronic) Assessment: Left heel ulcer -healed. plantar heel ulcer, left foot with fat layer exposed. Diabetes with neuropathy. Malnutrition. Left foot advanced flat foot deformity with h/o surgical intervention. Nonadherence to treatment plan. calcaneal gait, left. difficulty walking. xerosis Plan: I reviewed and discussed her care plan. Ulcer debridement was not performed because the site has healed. The callus was debrided with a 15 blade without incident. She was reassured no signs of infection are noted. To discontinue daily dressing changes. To discontinue protein supplementation. To continue with proper glycemic control and well-balanced diet. I do recommend continued offloading with her cam walker boot to allow skin remodeling. Her non invasive vascular studies were also reviewed from 08/2017 with bilateral triphasic waveforms, BRITTANY right 1.13 and left 1.29, and toe brachial index right of 0.8 and left 0.75. Repeat exams including xrays and non invasive vascular studies will be considered pending her healing response. Her neuropathy has woresened and we discussed the etiology, past treatment, and treatment recommendations today. Metanx prescription was previously prescribed for treatment of neuropathy. To continue Lac-Hydrin to adjacent skin to maintain good skin integrity. She was advised to follow up at the wound healing center in two week or call sooner if there are any questions or concerns. I answered all of her questions. Her progression to more aggressive offloaded ankle foot orthotic and extra-depth shoe gear will be reviewed and progress if needed at her follow-up visit.
--- NOTE | 2019-03-12 13:59 | WC ---
patient called wound center to advise she was experiencing fever and chills and is concerned about infection in her wound. Dr. Galeano notified of call and advised patient to report to the emergency room for evaluation and treatment. ABBI Contreras
[2019-03-17 14:29] VITALS: BP 150/73; PULSE 71; RESP 20; TEMP 39.2; BMI 27.8
--- NOTE | 2019-03-17 16:09 | PCM.WC.PN ---
(1) Chronic ulcer of left foot with fat layer exposed Status: Chronic Code(s): L97.522 - Non-pressure chronic ulcer of other part of left foot with fat layer exposed (2) Diabetes mellitus with polyneuropathy Status: Chronic Qualifiers: Diabetes mellitus type: type 2 Qualified Code(s): E11.42 - Type 2 diabetes mellitus with diabetic polyneuropathy Code(s): E11.42 - Type 2 diabetes mellitus with diabetic polyneuropathy (3) Delayed wound healing Status: Chronic Code(s): T14.8XXD - Other injury of unspecified body region, subsequent encounter (4) Fever Status: Acute Code(s): R50.9 - Fever, unspecified Type of Wound Date of Service: 03/17/19 Chief Complaint: Left heel ulceration History of Wound: This 74-year-old female returns for follow-up of left heel ulceration. She has been compliant with dressings care. She relates she feels very ill this past week and has a fever, increased sweating, discomfort to her heel. She has been using regranex as advised and continues with CAM Walker. She also has been using Lac-Hydrin lotion to the surrounding. She denies odor or redness today. She was seen at the [place] emergency room this past week for weakness fever and illness. She was given a prescription for doxycycline and labs were reviewed. X-ray of her foot was reported as unremarkable. Progress of Wound: Stable without local signs of infection to the foot - Physical Exam Vital Signs Temp Pulse Resp BP 102.6 F H 71 20 H 150/73 H 03/17/19 14:29 03/17/19 14:29 03/17/19 14:29 03/17/19 14:29 General: Alert, Oriented x3, Cooperative, Lethargic HEENT: Atraumatic Extremities: No cyanosis, Capillary Refill Less than 3 Seconds, No Calf Tenderness - Negative pulmonary creatinine left, Diminished Peripheral Pulses, Edema - Mild Skin: Ulcer/ Wound - Granular-based ulcer without deep tissue exposed. There is no purulence, erythema, streaking, odor, or infection or maceration or eschar. There is no new blister formation noted. The peripheral skin is hairless and atrophic. Wound Measurements and Assessment WC - Nurse 1 - General Ulcer Measurement Start: 03/03/19 14:39 Freq: Status: Active Protocol: Activity Type Activity Date Activity User E-Sign Co-Sign Detail Recorded Client Recorded Date Recorded By Document 03/17/19 14:29 DL [id number] 03/17/19 14:35 DL 03/17/19 14:29 Wound Center Nurse 1 [Ulcer Assessment] #1 left heel -Current Size (cm) - Length 0.1 -Current Size (cm) - Width 0.1 -Current Size (cm) - Depth 0.1 -Total Square Cm 0.01 -Photo Taken Yes -Exudate Amt Small -Exudate Type Serosanguineous -Wound Margin Thickened -Granulation Amt Small (1-33%) -Granulation Quality Pale -Necrosis Amt None Present (0 %) -Structure Exposed N/A -Texture (Radha-wound Skin Appearance) Localized Edema Scarring -Moisture (Radha-wound Skin Appearance Maceration ) -Color (Radha-wound Skin Appearance) Hemosiderin Staining -Temperature (Radha-wound Skin No Abnormality Appearance) (Pt Warm) -Tenderness on Palpation (Radha-wound No Skin Appearance) -Ulcer Cleansing Rinsed/ Irrigated with Saline -Foul Odor after Cleansing No -Anesthetic Used 5% Lidocaine Gel [Edema Assessment] -Left Calf (cm) 31.3 -Left Ankle (cm) 19.3 WC - Nurse 2 - General Ulcer CM Notes Start: 03/03/19 14:39 Freq: Status: Active Protocol: Activity Type Activity Date Activity User E-Sign Co-Sign Detail Recorded Client Recorded Date Recorded By Document 03/17/19 15:02 [id number] 03/17/19 15:04 03/17/19 15:02 Wound Center Nurse 2 [Procedure/Treatment] #1 left heel -Time 15:03 -Correct Patient Yes -Correct Side, Site, Position Yes -Correct Procedure Yes -Procedure Performed Yes -Type of Procedure Debridement -Clinical Debridement Subcutaneous -Post Debridement Size (cm) - Length 0.6 -Post Debridement Size (cm) - Width 1.6 -Post Debridement Size (cm) - Depth 0.2 -Total Square Cm 0.96 -Wound/Ulcer Outcome Not Healed -Ulcer Cleansing Rinsed/ Irrigated with Saline -Foul Odor after Cleansing No -Bioengineered Tissue No -Bleeding Controlled with Pressure -Offloading Yes -Type of Offloading Camwalker -Treatment Response Procedure Tolerated Well [See Physician Procedure note for Specifics] Pain Scale: 0-10 Numeric [Pain] -Is Patient Pain Free? Yes Musculoskeletal: No Tenderness to Palpation of Joints or Extremities, Muscle Wasting, - - No pain with ulcer manipulation or debridement Neurological: - - Lack of normal epicritic sensation light touch consistent with neuropathy Psych/Mental Status: Normal Affect, Appropriate Debridement Note Post-Debridement Measurements/Treatment WC - Nurse 2 - General Ulcer CM Notes Start: 03/03/19 14:39 Freq: Status: Active Protocol: Activity Type Activity Date Activity User E-Sign Co-Sign Detail Recorded Client Recorded Date Recorded By Document 03/03/19 14:59 [id number] 03/03/19 15:03 Document 03/17/19 15:02 [id number] 03/17/19 15:04 03/03/19 03/17/19 14:59 15:02 Wound Center Nurse 2 #9 L Heel -Correct Patient No -Correct Side, Site, Position No -Correct Procedure No -Procedure Performed No -Post Debridement Size (cm) - Length 0 -Post Debridement Size (cm) - Width 0 -Post Debridement Size (cm) - Depth 0 -Total Square Cm 0 -Wound/Ulcer Outcome Healed- Epithelialized -Offloading Yes -Type of Offloading Surgical Shoe -Treatment Response Procedure Tolerated Well #1 left heel -Time 15:03 -Correct Patient Yes -Correct Side, Site, Position Yes -Correct Procedure Yes -Procedure Performed Yes -Type of Procedure Debridement -Clinical Debridement Subcutaneous -Post Debridement Size (cm) - Length 0.6 -Post Debridement Size (cm) - Width 1.6 -Post Debridement Size (cm) - Depth 0.2 -Total Square Cm 0.96 -Wound/Ulcer Outcome Not Healed -Ulcer Cleansing Rinsed/ Irrigated with Saline -Foul Odor after Cleansing No -Bioengineered Tissue No -Bleeding Controlled with Pressure -Offloading Yes -Type of Offloading Camwalker -Treatment Response Procedure Tolerated Well Pain Scale: 0-10 Numeric Is Patient Pain Free? Yes Yes Wound debrided: plantar heel Laterality: Left Wound Grade/Stage: grade 1 Type of Debridement: Excisional debridement Anesthesia Used: 5% Lidocaine Gel Depth: in the subcutaneous layer Percentage of wound debrided: 100 Instrument Used: #15 blade Tissue Removed: fibrous, devitalized subcutaneous, biofilm, slough Severity: Fat Layer Exposed Amount of bleeding with debridement: Mild Bleeding Controlled with: Pressure Patient tolerated procedure well Assessment/Plan Assessment: Left heel ulcer -return with fat layer exposed and no local signs of infection. New generalized illness and weakness noted. Diabetes with neuropathy. Malnutrition. Left foot advanced flat foot deformity with h/o surgical intervention. Nonadherence to treatment plan. calcaneal gait, left. difficulty walking. xerosis Plan: I reviewed and discussed her care plan. Ulcer debridement was performed today as noted in the clinical panel. She was reassured no local foot signs of infection are noted. To discontinue daily dressing changes. To discontinue protein supplementation. To continue with proper glycemic control and well-balanced diet. I do recommend continued offloading with her cam walker boot to allow skin remodeling. Her non invasive vascular studies were also reviewed from 08/2017 with bilateral triphasic waveforms, BRITTANY right 1.13 and left 1.29, and toe brachial index right of 0.8 and left 0.75. Her recent emergency room visit to [place] was noted including her doxycycline treatment and foot x-ray work-up. I am concerned about her overall generalized weakness and illness. I do not suspect this is secondary to any foot infection or acute foot condition. Advised her to go to the emergency room for further evaluation because she is unable to get into her primary care physician promptly. She is amendable. I did call the emergency room and relay the information about her case. Her neuropathy has also been worsening and we discussed the etiology, past treatment, and treatment recommendations today. Metanx prescription was previously prescribed for treatment of neuropathy. To continue Lac-Hydrin to adjacent skin to maintain good skin integrity. She was advised to follow up at the wound healing center in one week or call sooner if there are any questions or concerns. I answered all of her questions.
== END 2019-03-30 23:59 ==
LOC: WC 14:45
PROVIDERS: Family Provider Family Medicine; PCP Family Medicine; Visit Provider Podiatrist
DX: E11.621 Type 2 diabetes mellitus with foot ulcer (principal); E11.42 Type 2 diabetes mellitus with diabetic polyneuropathy; L97.422 Non-pressure chronic ulcer of left heel and midfoot with fat layer exposed; L85.3 Xerosis cutis
CPT/HCPCS: 11042; 99213; G0463

== ENCOUNTER 2019-03-17 15:52 | Emergency (ER) | payer MEDICARE, BC, SELFPAY ==
[2019-03-17 14:29] VITALS: BMI 27.8
[2019-03-17 15:54] VITALS: BP 156/79; PULSE 71; RESP 17; TEMP 36.2; O2SAT 100; BMI 27.4
--- NOTE | 2019-03-17 17:14 | RAD_ITS ---
STUDY: X-RAY CHEST REASON FOR EXAM: Female, 74 years old. Fever TECHNIQUE: AP portable COMPARISON: None. FINDINGS: Diminished inspiratory effort is seen and there is minor discoid atelectasis at left base.. There is no demonstrated pleural abnormality. Normal size heart. Normal mediastinum and patria. Normal visualized pulmonary arteries. Tortuous aortic arch and descending thoracic aorta. Dorsal spine demonstrates spondylosis. Normal visualized ribs, clavicles, and shoulders. There is no demonstrated abnormality of the visualized soft tissue structures of the upper abdomen. RAD/Chest 1 View (Portable) IMPRESSION: Diminished inspiratory effort and mild discoid atelectasis in left lower lobe Electronically Signed: Oliver Pinon MD at 17:25 EDT , Service support ,
[2019-03-17] MEDS: Ondansetron 4 MG/2 ML Vial IV (17:42)
[2019-03-17 17:47] VITALS: BP 170/59; PULSE 60; RESP 16; TEMP 36.6; O2SAT 98
[2019-03-17 18:20] LABS: Bacteria 0 SEEN /hpf (None Seen); Mucous, Urine 0 SEEN /hpf (<or=2+); Red Blood Cells-Urine 0 SEEN /hpf (0-5); Squamous Epithelial Cells - UA 0 SEEN /hpf (5-10); White Blood Cells 0 SEEN /hpf (0-5)
[2019-03-17 18:24] VITALS: BP 170/57; PULSE 68; RESP 16; TEMP 36.3; O2SAT 99
[2019-03-17 18:27] LABS: Absolute Lymphocyte Count 1.82 X10^3/ul (0.83-4.51); Absolute Neutrophil Count 2.6 X10^3/uL (2.0-7.7); Basophil# 0.02 X10^3/uL; Basophil% 0.4 % (0-1); Eosinophil# 0.11 X10^3/uL; Eosinophils% 2.2 % (0-5); Hematocrit 34.8 % (37-47); Hemoglobin 11.7 g/dl (12.0-15.0); Lymphocyte # 1.82 X10^3/ul (4.0); Lymphocyte % 35.9 % (19-41); Mean Corp Hgb Conc 33.6 g/gl (32-36); Mean Corpuscular Hgb 30.4 pg (27.0-32.0); Mean Corpuscular Volume 90.4 fL (81-99); Mean Platelet Vol. 11.4 fl (6.2-12.0); Monocyte% 9.9 % (0-10); Neutrophil # 2.61 X10^3/uL (2.7-7.7); Neutrophil % 51.4 % (47-70); Platelet Count 143 K/mm3 (150-450); RBC Distribution Width CV 13.9 % (11.6-14.6); RBC Distribution Width SD 44.7 fl (35.1-43.9); Red Blood Count 3.85 M/mm3 (4.2-5.4); White Blood Count 5.1 K/mm3 (4.4-11.0)
[2019-03-17 18:29] LABS: POSITIVE COUNT NO; POSITIVE DIFFERENTIAL NO; POSITIVE MORPHOLOGY NO
[2019-03-17 18:30] LABS: Color, Urine Yellow (Yellow); Glucose, Dipstick Normal (Normal); Ketone-Dipstick Negative (Negative); Leukocyte Esterase-Dipstick Negative /ul (Negative); Nitrite-Dipstick Negative (Negative); Occult Blood-Urine Negative /ul (Negative); Protein-Dipstick 15 mg/dl (Negative); Specific Gravity, Urine 1.015 (1.002-1.030); Urine Bilirubin Dipstick Negative (Negative); Urine Clarity Clear (Clear); Urine Urobilinogen Normal (Normal)
[2019-03-17 18:55] LABS: ALB/GLOB Ratio 1.1 RATIO (0.9-2.4); AST(SGOT) 26 U/L (15-37); Alanine Aminotransfer ALT/SGPT 28 U/L (13-56); Albumin, Serum 3.7 g/dL (3.2-5.0); Alkaline Phosphatase 99 U/L (45-117); Anion Gap 6 (5-15); BUN 24 mg/dL (7-18); BUN/Creat Ratio 20.3 RATIO (10-20); Calcium,Total 9.1 mg/dL (8.5-10.1); Chloride 107 mmol/L (98-107); Creatinine, Serum 1.18 mg/dL (0.55-1.02); EST Glomerular Filtration Rate 47 mL/min (>60); Est Glom Filt Rate - Afr Amer 57 mL/min (>60); Globulin 3.3 g/dL (2.2-4.2); Glucose 120 mg/dL (74-106); Potassium 3.8 mmol/L (3.5-5.1); Sodium Level 141 mmol/L (136-145)
[2019-03-17 19:03] LABS: Lactic Acid 1.1 mmol/L (0.4-2.0)
[2019-03-17 19:20] VITALS: PULSE 64; RESP 18; O2SAT 96
--- NOTE | 2019-03-17 20:15 | ED.VISSUMM ---
- ER Visit Summary Date of Service: 03/17/19 Chief Complaint: Not feeling well History of Present Illness: The patient is a 74 F who is not feeling well for almost a week. She feels bad and she feels like she has no energy. She had some nausea, vomiting, and diarrhea last night. She was seen at [place] this past weekend for similar symptoms. She had an evaluation of a foot wound. There was no evidence of infection. She was treated with doxycycline which made her sick, and she stopped it. She followed up with podiatry today. They did not feel that her symptoms were related to her foot wound, and they referred her here for evaluation. Patient has a history of chronic kidney disease, diabetes, hypertension, and CHF. She denies any chest pain or shortness of breath. She does report subjective fevers. No other associated symptoms. Physical Examination: Patient is afebrile here. Vitals are unremarkable. Alert and oriented. No acute distress. Heart regular rate and rhythm. Lungs clear. Abdomen soft and nontender. Skin is unremarkable. Her left foot is in a boot and has a dressing in place. Test Results: Hemoglobin stable 11.7. Platelets stable 143. BUN 24 and creatinine 1.18. Liver panel normal. Urinalysis normal. Lactate 1.1. Influenza negative. Cultures are pending. Chest x-ray showed left lower lobe atelectasis. Emergency Department Course and Treatment: Patient treated with fluids and Zofran. Her vital signs remained stable. She did have hypertension but otherwise no fevers or other abnormal findings. Her workup was negative. I believe she is appropriate for outpatient follow-up. She will check in with her family doctor. Also follow-up with podiatry. Return for any new or worsening issues. No indication for antibiotics at this point. Treatment Plan: As above Disposition: Discharge Impression: 1. Generalized weakness This note was generated with [employer] dictation software. It may contain incorrect words, spelling, and punctuation that were not noted in review of the chart prior to signing ED Disposition - Plan for ED Patient: Referrals: Soheila Hoang [Primary Care Provider] -
--- NOTE | 2019-03-17 20:18 | ED.DEP ---
ED Disposition - Plan for ED Patient: Instructions: ED Diet Vomiting Diarrhea Prescriptions: Ondansetron [Zofran Odt] 4 mg PO Q8H PRN PRN #10 tab PRN Reason: Nausea Referrals: Soheila Hoang [Primary Care Provider] -
[2019-03-17 20:25] VITALS: BP 152/56; RESP 18; O2SAT 96
== END 2019-03-17 20:26 | disposition home or self-care (01) ==
LOC: ED 17:16
PROVIDERS: Emergency Medicine; Emergency Provider Emergency Medicine; Family Provider Family Medicine; PCP Family Medicine
DX: R53.1 Weakness (principal); R11.2 Nausea with vomiting, unspecified; R19.7 Diarrhea, unspecified; R50.9 Fever, unspecified; J98.11 Atelectasis; E11.9 Type 2 diabetes mellitus without complications; I12.9 Hypertensive chronic kidney disease with stage 1 through stage 4 chronic kidney disease, or unspecified chronic kidney disease; N18.9 Chronic kidney disease, unspecified; Z79.4 Long term (current) use of insulin
CPT/HCPCS: 11042; 71045; 80053; 81001; 83605; 85025; 87040; 87086; 87088; 87804; 99283; J7040; A4216; J2405

== ENCOUNTER 2019-04-07 14:30 | Outpatient (RCR) | payer MEDICARE, BC, SELFPAY ==
[2019-03-31 01:01] VITALS: BP 150/73; PULSE 71; RESP 20; TEMP 39.2; BMI 27.8
[2019-04-07 14:29] VITALS: BP 148/93; PULSE 84; RESP 16; TEMP 36.8; BMI 27.8
--- NOTE | 2019-04-07 17:12 | PN.PCM_ITS ---
(1) Blister (nonthermal), left foot, initial encounter Status: Acute Code(s): S90.822A - Blister (nonthermal), left foot, initial encounter (2) Delayed wound healing Status: Chronic Code(s): T14.8XXD - Other injury of unspecified body region, subsequent encounter (3) Chronic ulcer of left foot with fat layer exposed Status: Chronic Code(s): L97.522 - Non-pressure chronic ulcer of other part of left foot with fat layer exposed (4) Diabetes mellitus with polyneuropathy Status: Chronic Qualifiers: Diabetes mellitus type: type 2 Qualified Code(s): E11.42 - Type 2 diabetes mellitus with diabetic polyneuropathy Code(s): E11.42 - Type 2 diabetes mellitus with diabetic polyneuropathy (5) Malnutrition Status: Chronic Code(s): E46 - Unspecified protein-calorie malnutrition (6) Delayed wound healing Status: Chronic Code(s): T14.8 - Other injury of unspecified body region Type of Wound Date of Service: 04/07/19 Chief Complaint: Left heel ulceration History of Wound: This 74-year-old female returns for follow-up of left heel ulceration. She has been compliant with dressings care. She relates she feels very ill this past week and has a fever, increased sweating, discomfort to her heel. She has been using regranex as advised and continues with CAM Walker. She also has been using Lac-Hydrin lotion to the surrounding. She had a blister form with increased drainage to the left heel ulcer site. She has been having ongoing subjective fevers and chills and sweating and various skin rashes. She thinks she is being bitten by various bugs. She continues to follow-up with her primary care physician started her on a steroid. Progress of Wound: Worse status - Physical Exam Vital Signs Temp Pulse Resp BP 98.2 F 84 16 148/93 H 04/07/19 14:29 04/07/19 14:29 04/07/19 14:29 04/07/19 14:29 General: Alert, Oriented x3, Cooperative HEENT: Atraumatic Extremities: No cyanosis, Capillary Refill Less than 3 Seconds, No Calf Tenderness - Negative Herrera sign bilateral, Diminished Peripheral Pulses, Edema - Mild bilateral lower extremities Skin: Ulcer/ Wound - Evidence of demar-ulcer bulla with maceration and callus buildup. Upon debridement the ulcer site is closed to the plantar posterior heel with a granular base. There is no deep necrosis or purulence or odor, streaking, erythema. The peripheral skin is hairless and atrophic. There is no interdigital maceration Wound Measurements and Assessment WC - Nurse 1 - General Ulcer Measurement Start: 04/07/19 14:29 Freq: Status: Active Protocol: Activity Type Activity Date Activity User E-Sign Co-Sign Detail Recorded Client Recorded Date Recorded By Document 04/07/19 14:29 [facility] [id number] 04/07/19 14:38 [facility] 04/07/19 14:29 Wound Center Nurse 1 [Ulcer Assessment] #1 left heel -Combined with other wound No -Current Size (cm) - Length 0.6 -Current Size (cm) - Width 1.2 -Current Size (cm) - Depth 0.2 -Total Square Cm 0.72 -Date of Last Picture (Recall this 04/07/19 field) -Photo Taken Yes -Epithelialization None Present -Tunneling No -Undermining/Tunneling Yes -Undermining/Tunneling Starts (O' 4 clock) -Undermining/Tunneling Ends (O'clock) 8 -Maximum Distance (cm) 0.8 -Exudate Amt Small -Exudate Type Serous -Wound Margin Distinct, Outline Attached -Granulation Amt Large (67-100%) -Granulation Quality Red -Slough/Fibrin Yes -Necrosis Amt Small (1-33%) -Necrotic Tissue Type Adherent Slough -Texture (Demar-wound Skin Appearance) Callus Scarring -Moisture (Demar-wound Skin Appearance Assessed ) -Color (Demar-wound Skin Appearance) Assessed Erythema -Temperature (Demar-wound Skin No Abnormality Appearance) (Pt Warm) -Tenderness on Palpation (Demar-wound Yes Skin Appearance) -Ulcer Cleansing Rinsed/ Irrigated with Saline -Foul Odor after Cleansing No -Anesthetic Used 5% Lidocaine Gel [Edema Assessment] -Lower Limb Edema Present No WC - Nurse 2 - General Ulcer CM Notes Start: 04/07/19 14:29 Freq: Status: Active Protocol: Activity Type Activity Date Activity User E-Sign Co-Sign Detail Recorded Client Recorded Date Recorded By Document 04/07/19 15:25 AN [id number] 04/07/19 15:27 AN 04/07/19 15:25 Wound Center Nurse 2 [Procedure/Treatment] #1 left heel -Time 15:25 -Correct Patient Yes -Correct Side, Site, Position Yes -Correct Procedure Yes -Procedure Performed Yes -Type of Procedure Debridement -Clinical Debridement Subcutaneous -Post Debridement Size (cm) - Length 0.7 -Post Debridement Size (cm) - Width 1.3 -Post Debridement Size (cm) - Depth 0.2 -Total Square Cm 0.91 -Wound/Ulcer Outcome Not Healed -Ulcer Cleansing Rinsed/ Irrigated with Saline -Foul Odor after Cleansing No -Bioengineered Tissue No -Bleeding Controlled with Pressure -Offloading Yes -Type of Offloading Camwalker -Treatment Response Procedure Tolerated Well [See Physician Procedure note for Specifics] Musculoskeletal: No Tenderness to Palpation of Joints or Extremities, Muscle Wasting Neurological: - - Lack of normal epicritic sensation light touch consistent with neuropathy Psych/Mental Status: Normal Affect, Appropriate Debridement Note Post-Debridement Measurements/Treatment WC - Nurse 2 - General Ulcer CM Notes Start: 04/07/19 14:29 Freq: Status: Active Protocol: Activity Type Activity Date Activity User E-Sign Co-Sign Detail Recorded Client Recorded Date Recorded By Document 04/07/19 15:25 AN [id number] 04/07/19 15:27 AN 04/07/19 15:25 Wound Center Nurse 2 #1 left heel -Time 15:25 -Correct Patient Yes -Correct Side, Site, Position Yes -Correct Procedure Yes -Procedure Performed Yes -Type of Procedure Debridement -Clinical Debridement Subcutaneous -Post Debridement Size (cm) - Length 0.7 -Post Debridement Size (cm) - Width 1.3 -Post Debridement Size (cm) - Depth 0.2 -Total Square Cm 0.91 -Wound/Ulcer Outcome Not Healed -Ulcer Cleansing Rinsed/ Irrigated with Saline -Foul Odor after Cleansing No -Bioengineered Tissue No -Bleeding Controlled with Pressure -Offloading Yes -Type of Offloading Camwalker -Treatment Response Procedure Tolerated Well Wound debrided: plantar / posterior heel Laterality: Left Wound Grade/Stage: grade 1 Type of Debridement: Excisional debridement Anesthesia Used: 5% Lidocaine Gel Depth: in the subcutaneous layer Percentage of wound debrided: 100 Instrument Used: #15 blade Tissue Removed: fibrous, devitalized subcutaneous, biofilm, slough Severity: Fat Layer Exposed Amount of bleeding with debridement: Mild Bleeding Controlled with: Pressure Patient tolerated procedure well Assessment/Plan Assessment: Left heel ulcer -return with fat layer exposed and no local signs of infection with worsening status. Blister, New. continue generalized illness and weakness noted. Diabetes with neuropathy. Malnutrition. Left foot advanced flat foot deformity with h/o surgical intervention. Nonadherence to treatment plan. calcaneal gait, left. difficulty walking. xerosis Plan: I reviewed and discussed her care plan. Ulcer and blister debridement was performed today as noted in the clinical panel. She was reassured no local foot signs of infection are noted. I think that daily dressing changes. I recommend application of advanced wound healing product, epi fix. This is medically necessary for limb salvage and to optimize healing. Prior authorization will be initiated. It is noted she has previously failed other conservative and advanced wound healing plan thus far. To continue protein supp lementation. To continue with proper glycemic control and well-balanced diet. I do recommend continued offloading with her cam walker boot to allow skin remodeling. Her non invasive vascular studies were also reviewed from 08/2017 with bilateral triphasic waveforms, BRITTANY right 1.13 and left 1.29, and toe brachial index right of 0.8 and left 0.75. She was reassured no local infection is noted. Her neuropathy has also been worsening and we discussed the etiology, past treatment, and treatment recommendations today. Metanx and blister prescription was previously prescribed for treatment of neuropathy. To continue Lac-Hydrin to adjacent skin to maintain good skin integrity. She was advised to follow up at the wound healing center in one week or call sooner if there are any questions or concerns. I answered all of her questions.
== END 2019-04-30 23:59 ==
LOC: WC 14:30
PROVIDERS: Family Provider Family Medicine; PCP Family Medicine; Visit Provider Podiatrist
DX: E11.621 Type 2 diabetes mellitus with foot ulcer (principal); E11.42 Type 2 diabetes mellitus with diabetic polyneuropathy; L97.422 Non-pressure chronic ulcer of left heel and midfoot with fat layer exposed; L85.3 Xerosis cutis
CPT/HCPCS: 11042

== ENCOUNTER → 2022-02-18 | Outpatient (REF) | payer SELFPAY ==
[2022-02-18 08:52] LABS: Erythrocyte Sedimentation Rate 27 mm/hr (0-30)
[2022-02-18 08:53] LABS: Absolute Lymphocyte Count 1.74 X10^3/uL (0.83-4.51); Absolute Neutrophil Count 2.1 X10^3/uL (2.0-7.7); Basophil# 0.03 X10^3/uL; Basophil% 0.6 % (0-1); Eosinophil# 0.26 X10^3/uL; Eosinophils% 5.3 % (0-5); Hematocrit 30.8 % (37-47); Hemoglobin 10.4 g/dL (12.0-15.0); Lymphocyte # 1.74 X10^3/ul (0.83-4.51); Lymphocyte % 35.7 % (19-41); Mean Corp Hgb Conc 33.8 g/dL (32-36); Mean Corpuscular Hgb 30.5 pg (27.0-32.0); Mean Corpuscular Volume 90.3 fL (81-99); Mean Platelet Vol. 11.2 fl (6.2-12.0); Monocyte# 0.68 X10^3/uL; NRBC Flagged by Analyzer 0 % (0-5); Neutrophil # 2.13 X10^3/uL (2.7-7.7); Neutrophil % 43.8 % (47-70); Platelet Count 169 K/mm3 (150-450); RBC Distribution Width CV 14.4 % (11.6-14.6); RBC Distribution Width SD 47.1 fl (35.1-43.9); Red Blood Count 3.41 M/mm3 (4.2-5.4); White Blood Count 4.9 K/mm3 (4.4-11.0)
[2022-02-18 09:07] LABS: ALB/GLOB Ratio 0.7 RATIO (0.9-2.4); AST(SGOT) 20 U/L (15-37); Alanine Aminotransfer ALT/SGPT 15 U/L (13-56); Albumin, Serum 2.6 g/dL (3.2-5.0); Alkaline Phosphatase 111 U/L (45-117); Anion Gap 2 (5-15); BUN 27 mg/dL (7-18); BUN/Creat Ratio 18.9 RATIO (10-20); CPK Total, Creatine Kinase 43 U/L (26-192); Calcium,Total 8.7 mg/dL (8.5-10.1); Chloride 111 mmol/L (98-107); Creatinine, Serum 1.43 mg/dL (0.55-1.02); EST Glomerular Filtration Rate 38 mL/min (>60); Est Glom Filt Rate - Afr Amer 46 mL/min (>60); Globulin 3.9 g/dL (2.2-4.2); Glucose 79 mg/dL (74-106); Potassium 4.2 mmol/L (3.5-5.1); Protein, Total 6.5 g/dL (6.4-8.2); Sodium Level 141 mmol/L (136-145)
== END | disposition home or self-care (01) ==
LOC: OLS.ACW100 04:00
PROVIDERS: PCP Family Medicine; Visit Provider Family Medicine
DX: M86.172 Other acute osteomyelitis, left ankle and foot (principal); E11.621 Type 2 diabetes mellitus with foot ulcer; L97.509 Non-pressure chronic ulcer of other part of unspecified foot with unspecified severity; E11.69 Type 2 diabetes mellitus with other specified complication; A49.02 Methicillin resistant Staphylococcus aureus infection, unspecified site
CPT/HCPCS: 36415; 80053; 82550; 85025; 85652

== ENCOUNTER → 2022-02-25 | Outpatient (REF) | payer SELFPAY ==
[2022-02-25 09:09] LABS: Erythrocyte Sedimentation Rate 22 mm/hr (0-30)
[2022-02-25 09:12] LABS: Absolute Lymphocyte Count 1.69 X10^3/uL (0.83-4.51); Absolute Neutrophil Count 2.5 X10^3/uL (2.0-7.7); Basophil# 0.05 X10^3/uL; Basophil% 0.9 % (0-1); Eosinophil# 0.35 X10^3/uL; Eosinophils% 6.6 % (0-5); Hematocrit 29.9 % (37-47); Hemoglobin 9.9 g/dL (12.0-15.0); Lymphocyte # 1.69 X10^3/ul (0.83-4.51); Lymphocyte % 32.1 % (19-41); Mean Corp Hgb Conc 33.1 g/dL (32-36); Mean Corpuscular Hgb 30.1 pg (27.0-32.0); Mean Corpuscular Volume 90.9 fL (81-99); Mean Platelet Vol. 11.5 fl (6.2-12.0); Monocyte# 0.68 X10^3/uL; Monocyte% 12.9 % (0-10); NRBC Flagged by Analyzer 0 % (0-5); Neutrophil # 2.48 X10^3/uL (2.7-7.7); Neutrophil % 47.1 % (47-70); Platelet Count 130 K/mm3 (150-450); RBC Distribution Width CV 14.4 % (11.6-14.6); RBC Distribution Width SD 47.6 fl (35.1-43.9); Red Blood Count 3.29 M/mm3 (4.2-5.4); White Blood Count 5.3 K/mm3 (4.4-11.0)
[2022-02-25 09:19] LABS: ALB/GLOB Ratio 0.7 RATIO (0.9-2.4); AST(SGOT) 21 U/L (15-37); Alanine Aminotransfer ALT/SGPT 19 U/L (13-56); Albumin, Serum 2.7 g/dL (3.2-5.0); Alkaline Phosphatase 107 U/L (45-117); Anion Gap 5 (5-15); BUN 24 mg/dL (7-18); BUN/Creat Ratio 15.6 RATIO (10-20); CPK Total, Creatine Kinase 122 U/L (26-192); Calcium,Total 8.9 mg/dL (8.5-10.1); Chloride 110 mmol/L (98-107); Creatinine, Serum 1.54 mg/dL (0.55-1.02); EST Glomerular Filtration Rate 35 mL/min (>60); Est Glom Filt Rate - Afr Amer 42 mL/min (>60); Globulin 3.8 g/dL (2.2-4.2); Glucose 86 mg/dL (74-106); Potassium 4.3 mmol/L (3.5-5.1); Protein, Total 6.5 g/dL (6.4-8.2); Sodium Level 144 mmol/L (136-145)
== END | disposition home or self-care (01) ==
LOC: OLS.ACW100 04:00
PROVIDERS: PCP Family Medicine; Visit Provider Family Medicine
DX: M86.172 Other acute osteomyelitis, left ankle and foot (principal); E11.621 Type 2 diabetes mellitus with foot ulcer; E11.69 Type 2 diabetes mellitus with other specified complication; A49.02 Methicillin resistant Staphylococcus aureus infection, unspecified site; S09.90XD Unspecified injury of head, subsequent encounter
CPT/HCPCS: 36415; 80053; 82550; 85025; 85652

== ENCOUNTER → 2022-03-01 | Outpatient (REF) | payer SELFPAY ==
[2022-03-02 12:25] LABS: Color, Urine Yellow (Yellow); Glucose, Dipstick 50 mg/dl (Normal); Ketone-Dipstick Negative (Negative); Leukocyte Esterase-Dipstick 25 /ul (Negative); Nitrite-Dipstick Negative (Negative); Occult Blood-Urine Negative /ul (Negative); Protein-Dipstick 30 mg/dl (Negative); Urine Bilirubin Dipstick Negative (Negative); Urine Clarity Clear (Clear); Urine Urobilinogen Normal (Normal)
== END | disposition home or self-care (01) ==
LOC: OLS.ACW100 19:00
PROVIDERS: PCP Family Medicine; Referring Provider Family Medicine; Visit Provider Family Medicine
DX: M86.172 Other acute osteomyelitis, left ankle and foot (principal); E11.621 Type 2 diabetes mellitus with foot ulcer; A49.02 Methicillin resistant Staphylococcus aureus infection, unspecified site; S09.90XD Unspecified injury of head, subsequent encounter; R41.0 Disorientation, unspecified
CPT/HCPCS: 81002; 87086; 87088

== ENCOUNTER → 2022-03-04 | Outpatient (REF) | payer SELFPAY ==
[2022-03-04 10:00] LABS: Erythrocyte Sedimentation Rate 17 mm/hr (0-30)
[2022-03-04 10:02] LABS: Absolute Lymphocyte Count 1.36 X10^3/uL (0.83-4.51); Absolute Neutrophil Count 2.5 X10^3/uL (2.0-7.7); Basophil# 0.04 X10^3/uL; Basophil% 0.8 % (0-1); Eosinophil# 0.43 X10^3/uL; Eosinophils% 8.5 % (0-5); Hematocrit 28.4 % (37-47); Hemoglobin 9.5 g/dL (12.0-15.0); Lymphocyte # 1.36 X10^3/ul (0.83-4.51); Lymphocyte % 26.9 % (19-41); Mean Corp Hgb Conc 33.5 g/dL (32-36); Mean Corpuscular Hgb 30.2 pg (27.0-32.0); Mean Corpuscular Volume 90.2 fL (81-99); Mean Platelet Vol. 12.2 fl (6.2-12.0); Monocyte% 13.9 % (0-10); NRBC Flagged by Analyzer 0 % (0-5); Neutrophil % 49.5 % (47-70); Platelet Count 125 K/mm3 (150-450); RBC Distribution Width CV 14.2 % (11.6-14.6); RBC Distribution Width SD 45.9 fl (35.1-43.9); Red Blood Count 3.15 M/mm3 (4.2-5.4); White Blood Count 5.1 K/mm3 (4.4-11.0)
[2022-03-04 10:26] LABS: ALB/GLOB Ratio 0.8 RATIO (0.9-2.4); AST(SGOT) 17 U/L (15-37); Alanine Aminotransfer ALT/SGPT 17 U/L (13-56); Albumin, Serum 2.7 g/dL (3.2-5.0); Alkaline Phosphatase 113 U/L (45-117); Anion Gap 7 (5-15); BUN 24 mg/dL (7-18); BUN/Creat Ratio 17.4 RATIO (10-20); CPK Total, Creatine Kinase 107 U/L (26-192); Calcium,Total 8.5 mg/dL (8.5-10.1); Chloride 111 mmol/L (98-107); Creatinine, Serum 1.38 mg/dL (0.55-1.02); EST Glomerular Filtration Rate 39 mL/min (>60); Est Glom Filt Rate - Afr Amer 47 mL/min (>60); Globulin 3.6 g/dL (2.2-4.2); Glucose 125 mg/dL (74-106); Protein, Total 6.3 g/dL (6.4-8.2); Sodium Level 144 mmol/L (136-145)
== END | disposition home or self-care (01) ==
LOC: OLS.ACW100 04:00
PROVIDERS: PCP Family Medicine; Referring Provider Family Medicine; Visit Provider Family Medicine
DX: M86.172 Other acute osteomyelitis, left ankle and foot (principal); E11.621 Type 2 diabetes mellitus with foot ulcer; L97.509 Non-pressure chronic ulcer of other part of unspecified foot with unspecified severity; E11.69 Type 2 diabetes mellitus with other specified complication; A49.02 Methicillin resistant Staphylococcus aureus infection, unspecified site
CPT/HCPCS: 36415; 80053; 82550; 85025; 85652

== ENCOUNTER → 2022-03-11 | Outpatient (REF) | payer SELFPAY ==
[2022-03-11 09:06] LABS: Erythrocyte Sedimentation Rate 23 mm/hr (0-30)
[2022-03-11 09:10] LABS: Absolute Lymphocyte Count 1.34 X10^3/uL (0.83-4.51); Absolute Neutrophil Count 2.4 X10^3/uL (2.0-7.7); Basophil# 0.05 X10^3/uL; Eosinophil# 0.35 X10^3/uL; Eosinophils% 7.2 % (0-5); Hematocrit 30.9 % (37-47); Hemoglobin 10.1 g/dL (12.0-15.0); Lymphocyte # 1.34 X10^3/ul (0.83-4.51); Lymphocyte % 27.5 % (19-41); Mean Corp Hgb Conc 32.7 g/dL (32-36); Mean Corpuscular Hgb 29.5 pg (27.0-32.0); Mean Corpuscular Volume 90.4 fL (81-99); Mean Platelet Vol. 11.8 fl (6.2-12.0); Monocyte# 0.72 X10^3/uL; Monocyte% 14.8 % (0-10); NRBC Flagged by Analyzer 0 % (0-5); Neutrophil % 49.1 % (47-70); Platelet Count 138 K/mm3 (150-450); RBC Distribution Width CV 13.8 % (11.6-14.6); RBC Distribution Width SD 45.1 fl (35.1-43.9); Red Blood Count 3.42 M/mm3 (4.2-5.4); White Blood Count 4.9 K/mm3 (4.4-11.0)
[2022-03-11 09:18] LABS: ALB/GLOB Ratio 0.7 RATIO (0.9-2.4); AST(SGOT) 19 U/L (15-37); Alanine Aminotransfer ALT/SGPT 19 U/L (13-56); Albumin, Serum 2.7 g/dL (3.2-5.0); Alkaline Phosphatase 116 U/L (45-117); Anion Gap 4 (5-15); BUN 22 mg/dL (7-18); BUN/Creat Ratio 16.7 RATIO (10-20); CPK Total, Creatine Kinase 67 U/L (26-192); Calcium,Total 8.3 mg/dL (8.5-10.1); Chloride 111 mmol/L (98-107); Creatinine, Serum 1.32 mg/dL (0.55-1.02); EST Glomerular Filtration Rate 41 mL/min (>60); Est Glom Filt Rate - Afr Amer 50 mL/min (>60); Globulin 3.8 g/dL (2.2-4.2); Glucose 89 mg/dL (74-106); Potassium 4.4 mmol/L (3.5-5.1); Protein, Total 6.5 g/dL (6.4-8.2); Sodium Level 142 mmol/L (136-145)
== END | disposition home or self-care (01) ==
LOC: OLS.ACW100 04:00
PROVIDERS: PCP Family Medicine; Referring Provider Family Medicine; Visit Provider Family Medicine
DX: M86.172 Other acute osteomyelitis, left ankle and foot (principal); E11.621 Type 2 diabetes mellitus with foot ulcer; L97.509 Non-pressure chronic ulcer of other part of unspecified foot with unspecified severity; E11.69 Type 2 diabetes mellitus with other specified complication; A49.02 Methicillin resistant Staphylococcus aureus infection, unspecified site
CPT/HCPCS: 36415; 80053; 82550; 85025; 85652

== ENCOUNTER → 2022-03-15 | Outpatient (REF) | payer SELFPAY ==
[2022-03-15 09:05] LABS: Vitamin B12 464 pg/mL (211-911); Vitamin D,25 Hydroxy 60.8 ng/mL
[2022-03-15 09:16] LABS: Thyroid Stim Hormone (TSH) 3.49 uIU/mL (0.358-3.74)
== END | disposition home or self-care (01) ==
LOC: OLS.ACW100 05:00
PROVIDERS: PCP Family Medicine; Visit Provider Family Medicine
DX: M86.172 Other acute osteomyelitis, left ankle and foot (principal); E11.621 Type 2 diabetes mellitus with foot ulcer; M86.9 Osteomyelitis, unspecified; E11.69 Type 2 diabetes mellitus with other specified complication; A49.02 Methicillin resistant Staphylococcus aureus infection, unspecified site
CPT/HCPCS: 36415; 82140; 82306; 82607; 82746; 84443

== ENCOUNTER → 2022-03-18 | Outpatient (REF) | payer SELFPAY ==
[2022-03-18 09:00] LABS: Erythrocyte Sedimentation Rate 19 mm/hr (0-30)
[2022-03-18 09:02] LABS: Absolute Lymphocyte Count 1.33 X10^3/uL (0.83-4.51); Absolute Neutrophil Count 2.7 X10^3/uL (2.0-7.7); Basophil# 0.05 X10^3/uL; Basophil% 0.9 % (0-1); Eosinophil# 0.47 X10^3/uL; Eosinophils% 8.9 % (0-5); Hemoglobin 10.3 g/dL (12.0-15.0); Lymphocyte # 1.33 X10^3/ul (0.83-4.51); Lymphocyte % 25.1 % (19-41); Mean Corp Hgb Conc 34.3 g/dL (32-36); Mean Corpuscular Hgb 30.5 pg (27.0-32.0); Mean Corpuscular Volume 88.8 fL (81-99); Mean Platelet Vol. 11.3 fl (6.2-12.0); Monocyte# 0.74 X10^3/uL; NRBC Flagged by Analyzer 0 % (0-5); Neutrophil # 2.69 X10^3/uL (2.7-7.7); Neutrophil % 50.7 % (47-70); Platelet Count 138 K/mm3 (150-450); RBC Distribution Width CV 13.7 % (11.6-14.6); RBC Distribution Width SD 44.2 fl (35.1-43.9); Red Blood Count 3.38 M/mm3 (4.2-5.4); White Blood Count 5.3 K/mm3 (4.4-11.0)
[2022-03-18 09:05] LABS: ALB/GLOB Ratio 0.8 RATIO (0.9-2.4); AST(SGOT) 15 U/L (15-37); Alanine Aminotransfer ALT/SGPT 17 U/L (13-56); Albumin, Serum 2.9 g/dL (3.2-5.0); Alkaline Phosphatase 110 U/L (45-117); Anion Gap 5 (5-15); BUN 24 mg/dL (7-18); BUN/Creat Ratio 18.9 RATIO (10-20); CPK Total, Creatine Kinase 47 U/L (26-192); Calcium,Total 8.4 mg/dL (8.5-10.1); Chloride 108 mmol/L (98-107); Creatinine, Serum 1.27 mg/dL (0.55-1.02); EST Glomerular Filtration Rate 43 mL/min (>60); Est Glom Filt Rate - Afr Amer 52 mL/min (>60); Globulin 3.7 g/dL (2.2-4.2); Glucose 152 mg/dL (74-106); Potassium 4.6 mmol/L (3.5-5.1); Protein, Total 6.6 g/dL (6.4-8.2); Sodium Level 139 mmol/L (136-145)
== END | disposition home or self-care (01) ==
LOC: OLS.ACW100 05:00
PROVIDERS: PCP Family Medicine; Visit Provider Family Medicine
DX: M86.172 Other acute osteomyelitis, left ankle and foot (principal); E11.621 Type 2 diabetes mellitus with foot ulcer; L97.509 Non-pressure chronic ulcer of other part of unspecified foot with unspecified severity; E11.69 Type 2 diabetes mellitus with other specified complication; A49.02 Methicillin resistant Staphylococcus aureus infection, unspecified site
CPT/HCPCS: 36415; 80053; 82550; 85025; 85652

== ENCOUNTER → 2022-03-22 | Outpatient (REF) | payer SELFPAY | END | disposition home or self-care (01) | LOC: OLS.ACW100 05:00 | PROVIDERS: PCP Family Medicine; Visit Provider Family Medicine | DX: M86.172 Other acute osteomyelitis, left ankle and foot (principal); E11.621 Type 2 diabetes mellitus with foot ulcer; M86.9 Osteomyelitis, unspecified; E11.69 Type 2 diabetes mellitus with other specified complication; A49.02 Methicillin resistant Staphylococcus aureus infection, unspecified site | CPT/HCPCS: 36415; 82140 ==

== ENCOUNTER → 2022-03-25 | Outpatient (REF) | payer SELFPAY ==
[2022-03-25 10:18] LABS: Erythrocyte Sedimentation Rate 20 mm/hr (0-30)
[2022-03-25 10:19] LABS: Absolute Lymphocyte Count 1.37 X10^3/uL (0.83-4.51); Absolute Neutrophil Count 2.6 X10^3/uL (2.0-7.7); Basophil# 0.05 X10^3/uL; Eosinophil# 0.32 X10^3/uL; Eosinophils% 6.4 % (0-5); Hematocrit 33.1 % (37-47); Hemoglobin 10.9 g/dL (12.0-15.0); Lymphocyte # 1.37 X10^3/ul (0.83-4.51); Lymphocyte % 27.2 % (19-41); Mean Corp Hgb Conc 32.9 g/dL (32-36); Mean Corpuscular Hgb 29.8 pg (27.0-32.0); Mean Corpuscular Volume 90.4 fL (81-99); Mean Platelet Vol. 11.6 fl (6.2-12.0); Monocyte# 0.68 X10^3/uL; Monocyte% 13.5 % (0-10); NRBC Flagged by Analyzer 0.4 % (0-5); Neutrophil % 51.7 % (47-70); Platelet Count 138 K/mm3 (150-450); RBC Distribution Width CV 13.6 % (11.6-14.6); RBC Distribution Width SD 44.3 fl (35.1-43.9); Red Blood Count 3.66 M/mm3 (4.2-5.4)
[2022-03-25 10:31] LABS: ALB/GLOB Ratio 0.8 RATIO (0.9-2.4); AST(SGOT) 22 U/L (15-37); Alanine Aminotransfer ALT/SGPT 20 U/L (13-56); Albumin, Serum 3.2 g/dL (3.2-5.0); Alkaline Phosphatase 111 U/L (45-117); Anion Gap 6 (5-15); BUN 22 mg/dL (7-18); BUN/Creat Ratio 16.3 RATIO (10-20); CPK Total, Creatine Kinase 75 U/L (26-192); Calcium,Total 9.1 mg/dL (8.5-10.1); Chloride 109 mmol/L (98-107); Creatinine, Serum 1.35 mg/dL (0.55-1.02); EST Glomerular Filtration Rate 40 mL/min (>60); Est Glom Filt Rate - Afr Amer 49 mL/min (>60); Glucose 95 mg/dL (74-106); Protein, Total 7.2 g/dL (6.4-8.2); Sodium Level 141 mmol/L (136-145)
== END | disposition home or self-care (01) ==
LOC: OLS.ACW100 07:05
PROVIDERS: PCP Family Medicine; Visit Provider Family Medicine
DX: M86.172 Other acute osteomyelitis, left ankle and foot (principal); E11.621 Type 2 diabetes mellitus with foot ulcer; E11.69 Type 2 diabetes mellitus with other specified complication; A49.02 Methicillin resistant Staphylococcus aureus infection, unspecified site
CPT/HCPCS: 36415; 80053; 82550; 85025; 85652

== ENCOUNTER → 2022-04-01 | Outpatient (REF) | payer MEDICARE, BC, SELFPAY ==
[2022-04-01 10:38] LABS: Absolute Lymphocyte Count 1.62 X10^3/uL (0.83-4.51); Absolute Neutrophil Count 1.9 X10^3/uL (2.0-7.7); Basophil# 0.05 X10^3/uL; Basophil% 1.1 % (0-1); Eosinophil# 0.19 X10^3/uL; Eosinophils% 4.2 % (0-5); Hematocrit 33.3 % (37-47); Hemoglobin 10.8 g/dL (12.0-15.0); Lymphocyte # 1.62 X10^3/ul (0.83-4.51); Lymphocyte % 35.8 % (19-41); Mean Corp Hgb Conc 32.4 g/dL (32-36); Mean Corpuscular Hgb 29.7 pg (27.0-32.0); Mean Corpuscular Volume 91.5 fL (81-99); Mean Platelet Vol. 11.2 fl (6.2-12.0); Monocyte# 0.72 X10^3/uL; Monocyte% 15.9 % (0-10); NRBC Flagged by Analyzer 0 % (0-5); Neutrophil # 1.93 X10^3/uL (2.7-7.7); Neutrophil % 42.8 % (47-70); Platelet Count 161 K/mm3 (150-450); RBC Distribution Width CV 14.1 % (11.6-14.6); RBC Distribution Width SD 47.6 fl (35.1-43.9); Red Blood Count 3.64 M/mm3 (4.2-5.4); White Blood Count 4.5 K/mm3 (4.4-11.0)
[2022-04-01 10:42] LABS: Erythrocyte Sedimentation Rate 12 mm/hr (0-30)
[2022-04-01 11:22] LABS: CPK Total, Creatine Kinase 33 U/L (26-192)
== END | disposition home or self-care (01) ==
LOC: OLS.ACW100 05:00
PROVIDERS: PCP Family Medicine; Referring Provider Family Medicine; Visit Provider Family Medicine
DX: M86.172 Other acute osteomyelitis, left ankle and foot (principal); E11.621 Type 2 diabetes mellitus with foot ulcer; A49.02 Methicillin resistant Staphylococcus aureus infection, unspecified site
CPT/HCPCS: 36415; 82550; 85025; 85652

== ENCOUNTER → 2022-04-08 | Outpatient (REF) | payer MEDICARE, BC, SELFPAY ==
[2022-04-08 09:06] LABS: Absolute Lymphocyte Count 1.91 X10^3/uL (0.83-4.51); Absolute Neutrophil Count 1.8 X10^3/uL (2.0-7.7); Basophil# 0.04 X10^3/uL; Basophil% 0.8 % (0-1); Eosinophil# 0.25 X10^3/uL; Eosinophils% 5.3 % (0-5); Hematocrit 32.8 % (37-47); Lymphocyte # 1.91 X10^3/ul (0.83-4.51); Lymphocyte % 40.4 % (19-41); Mean Corp Hgb Conc 33.5 g/dL (32-36); Mean Corpuscular Hgb 30.1 pg (27.0-32.0); Mean Corpuscular Volume 89.9 fL (81-99); Mean Platelet Vol. 11.3 fl (6.2-12.0); Monocyte# 0.71 X10^3/uL; NRBC Flagged by Analyzer 0 % (0-5); Neutrophil # 1.81 X10^3/uL (2.7-7.7); Neutrophil % 38.3 % (47-70); Platelet Count 157 K/mm3 (150-450); RBC Distribution Width CV 13.9 % (11.6-14.6); RBC Distribution Width SD 45.5 fl (35.1-43.9); Red Blood Count 3.65 M/mm3 (4.2-5.4); White Blood Count 4.7 K/mm3 (4.4-11.0)
[2022-04-08 09:16] LABS: Erythrocyte Sedimentation Rate 12 mm/hr (0-30)
[2022-04-08 10:03] LABS: ALB/GLOB Ratio 0.8 RATIO (0.9-2.4); AST(SGOT) 20 U/L (15-37); Alanine Aminotransfer ALT/SGPT 15 U/L (13-56); Albumin, Serum 2.9 g/dL (3.2-5.0); Alkaline Phosphatase 106 U/L (45-117); Anion Gap 8 (5-15); BUN 34 mg/dL (7-18); BUN/Creat Ratio 23.9 RATIO (10-20); CPK Total, Creatine Kinase 39 U/L (26-192); Calcium,Total 8.8 mg/dL (8.5-10.1); Chloride 110 mmol/L (98-107); Creatinine, Serum 1.42 mg/dL (0.55-1.02); EST Glomerular Filtration Rate 38 mL/min (>60); Est Glom Filt Rate - Afr Amer 46 mL/min (>60); Globulin 3.7 g/dL (2.2-4.2); Glucose 98 mg/dL (74-106); Potassium 4.1 mmol/L (3.5-5.1); Protein, Total 6.6 g/dL (6.4-8.2); Sodium Level 140 mmol/L (136-145)
== END | disposition home or self-care (01) ==
LOC: OLS.ACW400 05:00
PROVIDERS: PCP Family Medicine; Referring Provider Family Medicine; Visit Provider Family Medicine
DX: M86.172 Other acute osteomyelitis, left ankle and foot (principal); E11.621 Type 2 diabetes mellitus with foot ulcer; E11.69 Type 2 diabetes mellitus with other specified complication; M62.81 Muscle weakness (generalized); A49.02 Methicillin resistant Staphylococcus aureus infection, unspecified site
CPT/HCPCS: 36415; 80053; 82550; 85025; 85652

== ENCOUNTER → 2022-04-15 | Outpatient (REF) | payer MEDICARE, BC, SELFPAY ==
[2022-04-15 09:58] LABS: Erythrocyte Sedimentation Rate 14 mm/hr (0-30)
[2022-04-15 10:01] LABS: Absolute Lymphocyte Count 2.11 X10^3/uL (0.83-4.51); Absolute Neutrophil Count 2.6 X10^3/uL (2.0-7.7); Basophil# 0.04 X10^3/uL; Basophil% 0.7 % (0-1); Eosinophil# 0.19 X10^3/uL; Eosinophils% 3.3 % (0-5); Hematocrit 34.7 % (37-47); Hemoglobin 11.4 g/dL (12.0-15.0); Lymphocyte # 2.11 X10^3/ul (0.83-4.51); Lymphocyte % 36.6 % (19-41); Mean Corp Hgb Conc 32.9 g/dL (32-36); Mean Corpuscular Hgb 29.8 pg (27.0-32.0); Mean Corpuscular Volume 90.8 fL (81-99); Mean Platelet Vol. 11.7 fl (6.2-12.0); Monocyte# 0.79 X10^3/uL; Monocyte% 13.7 % (0-10); NRBC Flagged by Analyzer 0 % (0-5); Neutrophil # 2.62 X10^3/uL (2.7-7.7); Neutrophil % 45.4 % (47-70); Platelet Count 136 K/mm3 (150-450); RBC Distribution Width CV 14.1 % (11.6-14.6); RBC Distribution Width SD 46.7 fl (35.1-43.9); Red Blood Count 3.82 M/mm3 (4.2-5.4); White Blood Count 5.8 K/mm3 (4.4-11.0)
[2022-04-15 10:54] LABS: ALB/GLOB Ratio 0.9 RATIO (0.9-2.4); AST(SGOT) 27 U/L (15-37); Alanine Aminotransfer ALT/SGPT 30 U/L (13-56); Alkaline Phosphatase 108 U/L (45-117); Anion Gap 9 (5-15); BUN 34 mg/dL (7-18); BUN/Creat Ratio 24.5 RATIO (10-20); CPK Total, Creatine Kinase 33 U/L (26-192); Calcium,Total 9.4 mg/dL (8.5-10.1); Chloride 107 mmol/L (98-107); Creatinine, Serum 1.39 mg/dL (0.55-1.02); EST Glomerular Filtration Rate 39 mL/min (>60); Est Glom Filt Rate - Afr Amer 47 mL/min (>60); Globulin 3.5 g/dL (2.2-4.2); Glucose 57 mg/dL (74-106); Protein, Total 6.5 g/dL (6.4-8.2); Sodium Level 140 mmol/L (136-145)
== END | disposition home or self-care (01) ==
LOC: OLS.ACW400 04:00
PROVIDERS: PCP Family Medicine; Referring Provider Family Medicine; Visit Provider Family Medicine
DX: M86.172 Other acute osteomyelitis, left ankle and foot (principal); E11.621 Type 2 diabetes mellitus with foot ulcer; L97.509 Non-pressure chronic ulcer of other part of unspecified foot with unspecified severity; E11.69 Type 2 diabetes mellitus with other specified complication; A49.02 Methicillin resistant Staphylococcus aureus infection, unspecified site
CPT/HCPCS: 36415; 80053; 82550; 85025; 85652

== ENCOUNTER → 2022-04-22 | Outpatient (REF) | payer MEDICARE, BC, SELFPAY ==
[2022-04-22 09:17] LABS: Erythrocyte Sedimentation Rate 12 mm/hr (0-30)
[2022-04-22 09:20] LABS: Absolute Lymphocyte Count 1.98 X10^3/uL (0.83-4.51); Absolute Neutrophil Count 1.6 X10^3/uL (2.0-7.7); Basophil# 0.03 X10^3/uL; Basophil% 0.7 % (0-1); Eosinophil# 0.24 X10^3/uL; Eosinophils% 5.3 % (0-5); Hematocrit 32.4 % (37-47); Hemoglobin 10.7 g/dL (12.0-15.0); Lymphocyte # 1.98 X10^3/ul (0.83-4.51); Lymphocyte % 43.7 % (19-41); Mean Corpuscular Hgb 29.9 pg (27.0-32.0); Mean Corpuscular Volume 90.5 fL (81-99); Mean Platelet Vol. 11.3 fl (6.2-12.0); Monocyte# 0.67 X10^3/uL; Monocyte% 14.8 % (0-10); NRBC Flagged by Analyzer 0 % (0-5); Neutrophil % 35.3 % (47-70); Platelet Count 122 K/mm3 (150-450); RBC Distribution Width CV 14.1 % (11.6-14.6); RBC Distribution Width SD 46.2 fl (35.1-43.9); Red Blood Count 3.58 M/mm3 (4.2-5.4); White Blood Count 4.5 K/mm3 (4.4-11.0)
[2022-04-22 09:25] LABS: ALB/GLOB Ratio 0.8 RATIO (0.9-2.4); AST(SGOT) 28 U/L (15-37); Alanine Aminotransfer ALT/SGPT 25 U/L (13-56); Albumin, Serum 2.7 g/dL (3.2-5.0); Alkaline Phosphatase 94 U/L (45-117); Anion Gap 6 (5-15); BUN 31 mg/dL (7-18); BUN/Creat Ratio 21.8 RATIO (10-20); CPK Total, Creatine Kinase 29 U/L (26-192); Calcium,Total 9.2 mg/dL (8.5-10.1); Chloride 109 mmol/L (98-107); Creatinine, Serum 1.42 mg/dL (0.55-1.02); EST Glomerular Filtration Rate 38 mL/min (>60); Est Glom Filt Rate - Afr Amer 46 mL/min (>60); Globulin 3.6 g/dL (2.2-4.2); Glucose 65 mg/dL (74-106); Potassium 4.1 mmol/L (3.5-5.1); Protein, Total 6.3 g/dL (6.4-8.2); Sodium Level 141 mmol/L (136-145)
== END | disposition home or self-care (01) ==
LOC: OLS.ACW400 05:00
PROVIDERS: PCP Family Medicine; Visit Provider Family Medicine
DX: M86.172 Other acute osteomyelitis, left ankle and foot (principal); E11.621 Type 2 diabetes mellitus with foot ulcer; L97.509 Non-pressure chronic ulcer of other part of unspecified foot with unspecified severity; E11.69 Type 2 diabetes mellitus with other specified complication; A49.02 Methicillin resistant Staphylococcus aureus infection, unspecified site
CPT/HCPCS: 36415; 80053; 82550; 85025; 85652

== ENCOUNTER → 2022-05-23 | Outpatient (REF) | payer MEDICARE, BC, SELFPAY ==
[2022-05-23 08:17] LABS: Erythrocyte Sedimentation Rate 9 mm/hr (0-30)
[2022-05-23 08:19] LABS: Absolute Lymphocyte Count 1.89 X10^3/uL (0.83-4.51); Absolute Neutrophil Count 2.2 X10^3/uL (2.0-7.7); Basophil# 0.04 X10^3/uL; Basophil% 0.8 % (0-1); Eosinophil# 0.21 X10^3/uL; Eosinophils% 4.3 % (0-5); Hematocrit 33.4 % (37-47); Lymphocyte # 1.89 X10^3/ul (0.83-4.51); Lymphocyte % 38.4 % (19-41); Mean Corp Hgb Conc 32.9 g/dL (32-36); Mean Corpuscular Hgb 30.5 pg (27.0-32.0); Mean Corpuscular Volume 92.5 fL (81-99); Mean Platelet Vol. 11.4 fl (6.2-12.0); Monocyte# 0.61 X10^3/uL; Monocyte% 12.4 % (0-10); NRBC Flagged by Analyzer 0 % (0-5); Neutrophil # 2.15 X10^3/uL (2.7-7.7); Neutrophil % 43.7 % (47-70); Platelet Count 137 K/mm3 (150-450); RBC Distribution Width CV 14.3 % (11.6-14.6); RBC Distribution Width SD 48.2 fl (35.1-43.9); Red Blood Count 3.61 M/mm3 (4.2-5.4); White Blood Count 4.9 K/mm3 (4.4-11.0)
[2022-05-23 08:53] LABS: ALB/GLOB Ratio 0.8 RATIO (0.9-2.4); AST(SGOT) 27 U/L (15-37); Alanine Aminotransfer ALT/SGPT 27 U/L (13-56); Albumin, Serum 2.8 g/dL (3.2-5.0); Alkaline Phosphatase 76 U/L (45-117); Anion Gap 7 (5-15); BUN 33 mg/dL (7-18); BUN/Creat Ratio 20.1 RATIO (10-20); CPK Total, Creatine Kinase 31 U/L (26-192); Calcium,Total 9.3 mg/dL (8.5-10.1); Chloride 108 mmol/L (98-107); Creatinine, Serum 1.64 mg/dL (0.55-1.02); EST Glomerular Filtration Rate 32 mL/min (>60); Est Glom Filt Rate - Afr Amer 39 mL/min (>60); Globulin 3.3 g/dL (2.2-4.2); Glucose 76 mg/dL (74-106); Potassium 4.2 mmol/L (3.5-5.1); Protein, Total 6.1 g/dL (6.4-8.2); Sodium Level 142 mmol/L (136-145)
== END | disposition home or self-care (01) ==
LOC: OLS.ACW400 05:00
PROVIDERS: PCP Family Medicine; Visit Provider Family Medicine
DX: M86.172 Other acute osteomyelitis, left ankle and foot (principal); E11.621 Type 2 diabetes mellitus with foot ulcer; E11.69 Type 2 diabetes mellitus with other specified complication; M62.81 Muscle weakness (generalized); A49.02 Methicillin resistant Staphylococcus aureus infection, unspecified site
CPT/HCPCS: 36415; 80053; 82550; 85025; 85652

== ENCOUNTER → 2022-05-27 | Outpatient (REF) | payer MEDICARE, BC, SELFPAY ==
[2022-05-27 08:48] LABS: Hemoglobin A1c 7.3 % (3.8-5.6)
== END | disposition home or self-care (01) ==
LOC: OLS.ACW400 04:00
PROVIDERS: PCP Family Medicine; Referring Provider Family Medicine; Visit Provider Family Medicine
DX: E11.621 Type 2 diabetes mellitus with foot ulcer (principal); M86.172 Other acute osteomyelitis, left ankle and foot; E11.69 Type 2 diabetes mellitus with other specified complication; M62.81 Muscle weakness (generalized); A49.02 Methicillin resistant Staphylococcus aureus infection, unspecified site
CPT/HCPCS: 36415; 83036

== ENCOUNTER → 2022-06-26 | Outpatient (REF) | payer MEDICARE, BC, SELFPAY ==
[2022-06-26 08:53] LABS: Erythrocyte Sedimentation Rate 6 mm/hr (0-30)
[2022-06-26 08:55] LABS: Absolute Lymphocyte Count 1.96 X10^3/uL (0.83-4.51); Absolute Neutrophil Count 2.4 X10^3/uL (2.0-7.7); Basophil# 0.03 X10^3/uL; Basophil% 0.6 % (0-1); Eosinophils% 3.8 % (0-5); Hematocrit 31.7 % (37-47); Hemoglobin 10.8 g/dL (12.0-15.0); Lymphocyte # 1.96 X10^3/ul (0.83-4.51); Lymphocyte % 37.6 % (19-41); Mean Corp Hgb Conc 34.1 g/dL (32-36); Mean Corpuscular Volume 94.1 fL (81-99); Mean Platelet Vol. 11.7 fl (6.2-12.0); Monocyte# 0.66 X10^3/uL; Monocyte% 12.7 % (0-10); NRBC Flagged by Analyzer 0 % (0-5); Neutrophil # 2.35 X10^3/uL (2.7-7.7); Neutrophil % 45.1 % (47-70); Platelet Count 128 K/mm3 (150-450); RBC Distribution Width CV 13.8 % (11.6-14.6); RBC Distribution Width SD 47.3 fl (35.1-43.9); Red Blood Count 3.37 M/mm3 (4.2-5.4); White Blood Count 5.2 K/mm3 (4.4-11.0)
[2022-06-26 08:59] LABS: ALB/GLOB Ratio 0.8 RATIO (0.9-2.4); AST(SGOT) 24 U/L (15-37); Alanine Aminotransfer ALT/SGPT 23 U/L (13-56); Albumin, Serum 2.6 g/dL (3.2-5.0); Alkaline Phosphatase 70 U/L (45-117); Anion Gap 5 (5-15); BUN 37 mg/dL (7-18); BUN/Creat Ratio 22.8 RATIO (10-20); CPK Total, Creatine Kinase 33 U/L (26-192); Calcium,Total 9.1 mg/dL (8.5-10.1); Chloride 109 mmol/L (98-107); Creatinine, Serum 1.62 mg/dL (0.55-1.02); EST Glomerular Filtration Rate 33 mL/min (>60); Est Glom Filt Rate - Afr Amer 39 mL/min (>60); Globulin 3.3 g/dL (2.2-4.2); Glucose 142 mg/dL (74-106); Potassium 4.2 mmol/L (3.5-5.1); Protein, Total 5.9 g/dL (6.4-8.2); Sodium Level 139 mmol/L (136-145)
== END | disposition home or self-care (01) ==
LOC: OLS.ACW400 05:00
PROVIDERS: PCP Family Medicine; Visit Provider Family Medicine
DX: M86.172 Other acute osteomyelitis, left ankle and foot (principal); E11.621 Type 2 diabetes mellitus with foot ulcer; E11.69 Type 2 diabetes mellitus with other specified complication; M62.81 Muscle weakness (generalized); A49.02 Methicillin resistant Staphylococcus aureus infection, unspecified site
CPT/HCPCS: 36415; 80053; 82550; 85025; 85652

== ENCOUNTER → 2022-07-25 | Outpatient (REF) | payer MEDICARE, BC, SELFPAY ==
[2022-07-25 08:46] LABS: Hematocrit 32.9 % (37-47); Hemoglobin 11.5 g/dL (12.0-15.0); Mean Corpuscular Hgb 32.3 pg (27.0-32.0); Mean Corpuscular Volume 92.4 fL (81-99); Mean Platelet Vol. 11.3 fl (6.2-12.0); Platelet Count 141 K/mm3 (150-450); RBC Distribution Width CV 13.5 % (11.6-14.6); RBC Distribution Width SD 46.1 fl (35.1-43.9); Red Blood Count 3.56 M/mm3 (4.2-5.4)
[2022-07-25 08:59] LABS: Anion Gap 3 (5-15); BUN 32 mg/dL (7-18); BUN/Creat Ratio 18.8 RATIO (10-20); Calcium,Total 9.1 mg/dL (8.5-10.1); Chloride 106 mmol/L (98-107); EST Glomerular Filtration Rate 31 mL/min (>60); Est Glom Filt Rate - Afr Amer 37 mL/min (>60); Glucose 198 mg/dL (74-106); Potassium 4.2 mmol/L (3.5-5.1); Sodium Level 139 mmol/L (136-145)
[2022-07-25 10:36] LABS: Hemoglobin A1c 7.7 % (3.8-5.6)
[2022-07-26 04:33] LABS: Erythrocyte Sedimentation Rate 9 mm/hr (0-30)
[2022-07-26 04:35] LABS: Absolute Lymphocyte Count 1.79 X10^3/uL (0.83-4.51); Absolute Neutrophil Count 2.3 X10^3/uL (2.0-7.7); Basophil# 0.06 X10^3/uL; Basophil% 1.2 % (0-1); Eosinophil# 0.28 X10^3/uL; Eosinophils% 5.5 % (0-5); Hematocrit 33.1 % (37-47); Hemoglobin 11.8 g/dL (12.0-15.0); Lymphocyte # 1.79 X10^3/ul (0.83-4.51); Lymphocyte % 35.3 % (19-41); Mean Corp Hgb Conc 35.6 g/dL (32-36); Mean Corpuscular Hgb 32.3 pg (27.0-32.0); Mean Corpuscular Volume 90.7 fL (81-99); Mean Platelet Vol. 11.5 fl (6.2-12.0); Monocyte# 0.66 X10^3/uL; NRBC Flagged by Analyzer 0 % (0-5); Neutrophil # 2.26 X10^3/uL (2.7-7.7); Neutrophil % 44.6 % (47-70); Platelet Count 142 K/mm3 (150-450); RBC Distribution Width CV 13.4 % (11.6-14.6); RBC Distribution Width SD 44.7 fl (35.1-43.9); Red Blood Count 3.65 M/mm3 (4.2-5.4); White Blood Count 5.1 K/mm3 (4.4-11.0)
[2022-07-26 04:41] LABS: CPK Total, Creatine Kinase 29 U/L (26-192)
== END ==
LOC: OLS.ACW400 05:00
PROVIDERS: PCP Family Medicine; Visit Provider Family Medicine
DX: E11.621 Type 2 diabetes mellitus with foot ulcer (principal); M86.172 Other acute osteomyelitis, left ankle and foot; M86.9 Osteomyelitis, unspecified; M62.81 Muscle weakness (generalized); A49.02 Methicillin resistant Staphylococcus aureus infection, unspecified site
CPT/HCPCS: 36415; 80048; 82550; 83036; 85025; 85027; 85652

== ENCOUNTER → 2022-07-26 | Outpatient (REF) | payer MEDICARE, BC, SELFPAY | LOC: OLS.ACW400 13:00 | PROVIDERS: PCP Family Medicine; Referring Provider Family Medicine; Visit Provider Family Medicine | DX: M86.172 Other acute osteomyelitis, left ankle and foot (principal); E11.621 Type 2 diabetes mellitus with foot ulcer; M86.9 Osteomyelitis, unspecified; M62.81 Muscle weakness (generalized); A49.02 Methicillin resistant Staphylococcus aureus infection, unspecified site | CPT/HCPCS: 87070; 87077; 87186; 87205 ==

== ENCOUNTER → 2022-08-27 | Outpatient (REF) | payer MEDICARE, BC, MEDICAID, SELFPAY ==
[2022-08-27 10:03] LABS: Erythrocyte Sedimentation Rate 4 mm/hr (0-30)
[2022-08-27 10:06] LABS: Absolute Lymphocyte Count 1.52 X10^3/uL (0.83-4.51); Absolute Neutrophil Count 2.2 X10^3/uL (2.0-7.7); Basophil# 0.03 X10^3/uL; Basophil% 0.7 % (0-1); Eosinophil# 0.26 X10^3/uL; Eosinophils% 5.7 % (0-5); Hematocrit 34.2 % (37-47); Hemoglobin 11.7 g/dL (12.0-15.0); Lymphocyte # 1.52 X10^3/ul (0.83-4.51); Lymphocyte % 33.4 % (19-41); Mean Corp Hgb Conc 34.2 g/dL (32-36); Mean Corpuscular Hgb 32.1 pg (27.0-32.0); Mean Corpuscular Volume 93.7 fL (81-99); Mean Platelet Vol. 11.1 fl (6.2-12.0); Monocyte# 0.52 X10^3/uL; Monocyte% 11.4 % (0-10); NRBC Flagged by Analyzer 0 % (0-5); Neutrophil # 2.21 X10^3/uL (2.7-7.7); Neutrophil % 48.6 % (47-70); Platelet Count 153 K/mm3 (150-450); RBC Distribution Width CV 12.5 % (11.6-14.6); RBC Distribution Width SD 42.7 fl (35.1-43.9); Red Blood Count 3.65 M/mm3 (4.2-5.4); White Blood Count 4.6 K/mm3 (4.4-11.0)
[2022-08-27 10:12] LABS: ALB/GLOB Ratio 0.9 RATIO (0.9-2.4); AST(SGOT) 20 U/L (15-37); Alanine Aminotransfer ALT/SGPT 24 U/L (13-56); Albumin, Serum 3.3 g/dL (3.2-5.0); Alkaline Phosphatase 78 U/L (45-117); Anion Gap 7 (5-15); BUN 23 mg/dL (7-18); BUN/Creat Ratio 15.6 RATIO (10-20); CPK Total, Creatine Kinase 49 U/L (26-192); Calcium,Total 9.5 mg/dL (8.5-10.1); Chloride 104 mmol/L (98-107); Creatinine, Serum 1.47 mg/dL (0.55-1.02); EST Glomerular Filtration Rate 36 mL/min (>60); Est Glom Filt Rate - Afr Amer 44 mL/min (>60); Globulin 3.7 g/dL (2.2-4.2); Glucose 232 mg/dL (74-106); Sodium Level 140 mmol/L (136-145)
[2022-08-27 10:39] LABS: Hemoglobin A1c 9.2 % (3.8-5.6)
== END ==
LOC: OLS.ACW400 05:00
PROVIDERS: PCP Family Medicine; Visit Provider Family Medicine
DX: M86.172 Other acute osteomyelitis, left ankle and foot (principal); M86.9 Osteomyelitis, unspecified; M62.81 Muscle weakness (generalized); A49.02 Methicillin resistant Staphylococcus aureus infection, unspecified site; E11.621 Type 2 diabetes mellitus with foot ulcer
CPT/HCPCS: 36415; 80053; 82550; 83036; 85025; 85652

== ENCOUNTER → 2022-09-05 | Outpatient (REF) | payer MEDICARE, BC, MEDICAID, SELFPAY ==
[2022-09-06 09:05] LABS: Color, Urine Yellow (Yellow); Glucose, Dipstick Normal (Normal); Ketone-Dipstick Negative (Negative); Leukocyte Esterase-Dipstick 25 /ul (Negative); Nitrite-Dipstick Negative (Negative); Occult Blood-Urine Negative /ul (Negative); Protein-Dipstick 15 mg/dl (Negative); Specific Gravity, Urine 1.015 (1.002-1.030); Urine Bilirubin Dipstick Negative (Negative); Urine Clarity Clear (Clear); Urine Urobilinogen Normal (Normal)
== END ==
LOC: OLS.ACW400 08:49
PROVIDERS: PCP Family Medicine; Visit Provider Family Medicine
DX: E11.65 Type 2 diabetes mellitus with hyperglycemia (principal); M86.172 Other acute osteomyelitis, left ankle and foot; M86.9 Osteomyelitis, unspecified; M62.81 Muscle weakness (generalized); A49.02 Methicillin resistant Staphylococcus aureus infection, unspecified site; E11.621 Type 2 diabetes mellitus with foot ulcer; Z79.899 Other long term (current) drug therapy
CPT/HCPCS: 81002; 87086; 87088

== ENCOUNTER → 2022-09-07 | Outpatient (REF) | payer MEDICARE, BC, MEDICAID, SELFPAY | LOC: OLS.ACW400 15:00 | PROVIDERS: PCP Family Medicine; Visit Provider Family Medicine | DX: E11.65 Type 2 diabetes mellitus with hyperglycemia (principal); M86.172 Other acute osteomyelitis, left ankle and foot; M86.9 Osteomyelitis, unspecified; M62.81 Muscle weakness (generalized); A49.02 Methicillin resistant Staphylococcus aureus infection, unspecified site; E11.621 Type 2 diabetes mellitus with foot ulcer; Z79.899 Other long term (current) drug therapy | CPT/HCPCS: 87086; 87088 ==

== ENCOUNTER → 2022-09-26 | Outpatient (REF) | payer MEDICARE, BC, MEDICAID, SELFPAY ==
[2022-09-26 09:01] LABS: ALB/GLOB Ratio 0.9 RATIO (0.9-2.4); AST(SGOT) 21 U/L (15-37); Alanine Aminotransfer ALT/SGPT 25 U/L (13-56); Albumin, Serum 3.2 g/dL (3.2-5.0); Alkaline Phosphatase 71 U/L (45-117); Anion Gap 6 (5-15); BUN 35 mg/dL (7-18); BUN/Creat Ratio 25.2 RATIO (10-20); CPK Total, Creatine Kinase 43 U/L (26-192); Calcium,Total 9.6 mg/dL (8.5-10.1); Chloride 107 mmol/L (98-107); Creatinine, Serum 1.39 mg/dL (0.55-1.02); EST Glomerular Filtration Rate 39 mL/min (>60); Est Glom Filt Rate - Afr Amer 47 mL/min (>60); Globulin 3.5 g/dL (2.2-4.2); Glucose 214 mg/dL (74-106); Potassium 4.8 mmol/L (3.5-5.1); Protein, Total 6.7 g/dL (6.4-8.2); Sodium Level 139 mmol/L (136-145)
[2022-09-26 09:18] LABS: Erythrocyte Sedimentation Rate 3 mm/hr (0-30)
[2022-09-26 09:20] LABS: Absolute Lymphocyte Count 1.52 X10^3/uL (0.83-4.51); Absolute Neutrophil Count 3.8 X10^3/uL (2.0-7.7); Basophil# 0.05 X10^3/uL; Basophil% 0.8 % (0-1); Eosinophil# 0.12 X10^3/uL; Hematocrit 34.9 % (37-47); Lymphocyte # 1.52 X10^3/ul (0.83-4.51); Lymphocyte % 25.5 % (19-41); Mean Corp Hgb Conc 34.4 g/dL (32-36); Mean Corpuscular Hgb 32.7 pg (27.0-32.0); Mean Corpuscular Volume 95.1 fL (81-99); Mean Platelet Vol. 11.4 fl (6.2-12.0); Monocyte% 8.4 % (0-10); NRBC Flagged by Analyzer 0 % (0-5); Neutrophil # 3.78 X10^3/uL (2.7-7.7); Neutrophil % 63.3 % (47-70); Platelet Count 149 K/mm3 (150-450); RBC Distribution Width CV 12.6 % (11.6-14.6); Red Blood Count 3.67 M/mm3 (4.2-5.4)
== END ==
LOC: OLS.ACW400 05:00
PROVIDERS: PCP Family Medicine; Visit Provider Family Medicine
DX: M86.172 Other acute osteomyelitis, left ankle and foot (principal); I11.0 Hypertensive heart disease with heart failure; I50.22 Chronic systolic (congestive) heart failure
CPT/HCPCS: 36415; 80053; 82550; 85025; 85652